=== PATIENT | female | born 1965 | race Caucasian/White ===

== ENCOUNTER 2016-07-16 08:11 | Inpatient (IN) | payer OTHER ==
[2016-07-16] MEDS ORDERED: SODIUM CHLORIDE 0.9% 1,000 ML IV STA (08:48)
[2016-07-16] MEDS ORDERED: HEPARIN SODIUM,PORCINE 5,000 UNIT/ML 1 ML VIAL IV STA (08:48)
[2016-07-16] MEDS ORDERED: NITROGLYCERIN OINT 1 INCH/GM PACKET TOPICAL STA (08:48)
--- NOTE | 2016-07-16 08:53 | ED ---
Chest Pain HPI - General Chief Complaint: Chest Pain Stated Complaint: chest pain Time Seen by Provider: 07/16/16 08:25 Source: patient, RN notes reviewed Mode of arrival: wheelchair Limitations: no limitations - History of Present Illness Initial Comments: This is a 51-year-old female with a history of 3 prior coronary artery stents the last one being 3 years ago who states she had the onset while at work this morning of burning left-sided chest pain that radiated between her shoulder blades. It was 9/10 in severity. She states she took 3 nitroglycerin which didn't help is now about a 5/10. Discussed and some numbness and tingling to her fingers. She denies any fevers chills nausea vomiting or sweats at this time she's also states she did take 325 mg of aspirin. She states it feels very similar to her prior cardiac events. She has no complaints of cough or phlegm production she is a smoker. We did discuss the need for smoking cessation. MD Complaint: chest pain - Related Data Home Medications Medication Instructions Recorded Confirmed Metoprolol Tartrate [Lopressor] 25 mg PO BID 04/25/14 07/16/16 Albuterol Inhaler [Ventolin Hfa 2 puff INHALATION RT-DAILY PRN 07/16/16 07/16/16 Inhaler] Levothyroxine Sodium [Synthroid] 75 mcg PO DAILY 07/16/16 07/16/16 Previous Rx's Medication Instructions Recorded Aspirin 325 mg PO DAILY #30 tab 10/31/13 Atorvastatin [Lipitor] 80 mg PO HS #30 tab 10/31/13 Enalapril [Vasotec] 5 mg PO BID #60 tab 10/31/13 Nitroglycerin Sl Tabs [Nitrostat] 0.4 mg SUBLINGUAL Q5M PRN #20 tab 10/31/13 Allergies Allergy/AdvReac Type Severity Reaction Status Date / Time No Known Allergies Allergy Verified 07/16/16 09:40 Review of Systems ROS Statement: Those systems with pertinent positive or pertinent negative responses have been documented in the HPI. ROS Other: All systems not noted in ROS Statement are negative. EKG Findings - EKG Results: EKG: interpreted by JONEL, sinus rhythm (Sinus rhythm a rate of 75 appear of 02 18 QRS duration 86 QT/QTC of 424/473 low-voltage QRS and evidence of first- degree AV block her present be no change from EKG dated 11/10/14) Past Medical History Past Medical History: Coronary Artery Disease (CAD), Myocardial Infarction (DE) , Thyroid Disorder Additional Past Medical History / Comment(s): GRAVES Last Myocardial Infarction Date:: 10/29/13 History of Any Multi-Drug Resistant Organisms: None Reported Past Surgical History: Heart Catheterization With Stent, Tubal Ligation Additional Past Surgical History / Comment(s): BENIGN LUMP REMOVED FROM LEFT BREAST, 2 STENTS PLACED IN NOV 2013 Past Anesthesia/Blood Transfusion Reactions: No Reported Reaction Date of Last Stent Placement:: 10/29/13 Past Psychological History: No Psychological Hx Reported Smoking Status: Current every day smoker Past Alcohol Use History: None Reported Additional Past Alcohol Use History / Comment(s): DOWN FROM 1 AND 1/2PPD TO ONE PACK EVERY 2-3 DAYS Past Drug Use History: None Reported - Past Family History Mother Family Medical History: Myocardial Infarction (DE) General Exam - General Exam Comments Initial Comments: Is a well-developed well-nourished awake alert oriented 3 female Limitations: no limitations General appearance: alert, anxious Head exam: Present: atraumatic, normocephalic, normal inspection Eye exam: Present: normal appearance, PERRL, EOMI. Absent: scleral icterus, conjunctival injection, periorbital swelling ENT exam: Present: normal exam, mucous membranes moist Neck exam: Present: normal inspection. Absent: tenderness, meningismus, lymphadenopathy Respiratory exam: Present: normal lung sounds bilaterally. Absent: respiratory distress, wheezes, rales, rhonchi, stridor Cardiovascular Exam: Present: regular rate, normal rhythm, normal heart sounds. Absent: systolic murmur, diastolic murmur, rubs, gallop, clicks GI/Abdominal exam: Present: soft, normal bowel sounds. Absent: distended, tenderness, guarding, rebound, rigid Extremities exam: Present: normal inspection, full ROM, normal capillary refill. Absent: tenderness, pedal edema, joint swelling, calf tenderness Back exam: Present: normal inspection Neurological exam: Present: alert, oriented X3, CN II-XII intact Psychiatric exam: Present: normal affect, normal mood Skin exam: Present: warm, dry, intact, normal color. Absent: rash Course Vital Signs 03/29/17 03/29/17 03/29/17 08:16 08:31 09:01 Temperature 97.5 F L Pulse Rate 78 71 68 Respiratory 20 18 18 Rate Blood Pressure 127/65 131/70 118/71 O2 Sat by Pulse 96 99 99 Oximetry 07/16/16 07/16/16 10:16 10:31 Temperature Pulse Rate 70 68 Respiratory 20 20 Rate Blood Pressure 113/70 116/62 O2 Sat by Pulse 100 99 Oximetry - Reevaluation(s) Reevaluation #1: 07/16/16 10:55 Patient was feeling improved after the initial treatment that was rendered. Her pain originally started at 9 was done 05 after she gave her own nitroglycerin and aspirin. She knows feeling much improved at pain-free. Chest Pain MDM - MDM I did review the x-rays report no acute findings. I did a long discussion with patient regarding the findings the presentation is consistent with unstable angina. I did discuss case with the admitting physician patient be admitted with consultation by Dr. Ziegler. Critical Care Time Critical Care Time: Yes Critical Care Time: 31 minutes of critical care time which includes initial presentation with history physical lab and x-rays evaluation same reevaluation patient response to therapy. Review of old charting. Discussion with the patient family regarding the findings. Discussion with the admitting physician. Admission orders and documentation of the above. Disposition Clinical Impression: Unstable angina pectoris Disposition: ADMITTED IP TO THIS HOSP Condition: Stable
[2016-07-16 09:15] LABS: Basophils # (A) 0.1 k/uL (0-0.2); Basophils % (A) 1 %; Eosinophils # (A) 0.3 k/uL (0-0.7); Eosinophils % (A) 3 %; HCT 44.3 % (34.0-46.0); HDW 2.64; HGB 15.2 gm/dL (11.4-16.0); Luc # (Auto) 0.22; Luc % (Auto) 2; Lymphocytes % (A) 18 %; MCH 32.4 pg (25.0-35.0); MCHC 34.3 g/dL (31.0-37.0); MCV 94.7 fL (80.0-100.0); Mean Platelet Volume 8.9; Monocytes # (A) 0.6 k/uL (0-1.0); Monocytes % (A) 6 %; Neutrophils # (A) 7.9 k/uL (1.3-7.7); Neutrophils % (A) 71 %; RBC 4.68 m/uL (3.80-5.40); RDW 15.6 % (11.5-15.5); WBC 11.2 k/uL (3.8-10.6); WBC (Perox) 11.92
--- NOTE | 2016-07-16 09:16 | XR ---
EXAMINATION TYPE: XR chest 2V DATE OF EXAM: 07/16/2016 9:13 AM COMPARISON: 11/09/2014 HISTORY: Chest pain TECHNIQUE: Single frontal view of the chest is obtained. FINDINGS: There is no focal air space opacity, pleural effusion, or pneumothorax seen. Vascular crowding is se en at the right medial lung base. The cardiac silhouette size is within normal limits. The osseous structures are intact. IMPRESSION: 1. No acute process.
[2016-07-16] MEDS: HEPARIN SODIUM,PORCINE/D5W PMX 25,000 UNIT in DEXTROSE/WATER 1 500ML.BAG IV STA ×2 (09:22→09:25)
[2016-07-16 09:30] LABS: Partial Thromboplastin Time 26.7 sec (22.0-30.0); Prothrombin Time 10.2 sec (9.0-12.0)
[2016-07-16 09:38] LABS: ALT 30 U/L (9-52); AST 25 U/L (14-36); Alkaline Phosphatase 81 U/L (38-126); Amylase 72 U/L (30-110); Anion Gap 11 mmol/L; Blood Urea Nitrogen 16 mg/dL (7-17); Calcium 9.2 mg/dL (8.4-10.2); Carbon Dioxide 23 mmol/L (22-30); Chloride 107 mmol/L (98-107); Glucose 97 mg/dL (74-99); Non-African American GFR(MDRD) 56 (>60 ml/min/1.73 sqM); Potassium 4.8 mmol/L (3.5-5.1); Sodium 141 mmol/L (137-145); Total Bilirubin 0.6 mg/dL (0.2-1.3); Total Protein 7.1 g/dL (6.3-8.2)
[2016-07-16 09:41] LABS: Creatine Kinase 184 U/L (30-135)
[2016-07-16 09:54] LABS: Troponin I <0.012 ng/mL (0.000-0.034)
[2016-07-16 10:02] LABS: Creatine Kinase MB 2.5 ng/mL (0.0-2.4)
[2016-07-16] MEDS ORDERED: NITROGLYCERIN SL TABS 0.4 MG TAB SUBLINGUAL PRN (10:58)
[2016-07-16] MEDS ORDERED: ALBUTEROL NEBULIZED 2.5 MG/3 ML INHALATION PRN (11:00)
[2016-07-16] MEDS ORDERED: NICOTINE 21MG/24HR PATCH TRANSDERM STA (11:01)
[2016-07-16] MEDS: NITROGLYCERIN OINT 1 INCH/GM PACKET TOPICAL SCH ×3 (12:12→23:19)
[2016-07-16] MEDS: SODIUM CHLORIDE 0.9% 1,000 ML IV SCH (12:12)
--- NOTE | 2016-07-16 14:52 | P.HPIM ---
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 Patient stated that continue to have pain midsternal location burning in nature radiating to bilateral jaws and tingling sensation in her fingers. Patient had similar kind of pain in the past where she had a stent placed. Patient was brought into the emergency room by her and nitroglycerin sublingual was given which relieved the pain. Thereafter and nitroglycerin patch was placed which completely took the pain away. In the time of my evaluation patient denies having any chest pain, headaches, blurry vision, difficulty breathing, nausea, vomiting, diarrhea, urinary urgency or frequency. Patient's last stress was over a year ago patient sees Dr. Ziegler on an outpatient basis. Patient continues to smoke cigarettes is compliant with her dual antiplatelet therapy. EKG in the emergency room did not reveal ST-T wave changes. Patient's previous echo did show ejection fraction of 30-35%. Review of Systems All systems: negative (Noted in HPI) Past Medical History Past Medical History: Coronary Artery Disease (CAD), Hyperlipidemia, Hypertension, Myocardial Infarction (MS), Renal Disease, Thyroid Disorder Additional Past Medical History / Comment(s): Ischemic cardiomyopathy, GRAVES, hypothyroid, chronic kidney dx. Last Myocardial Infarction Date:: 11/09/13 History of Any Multi-Drug Resistant Organisms: None Reported Past Surgical History: Breast Surgery, Heart Catheterization With Stent, Tubal Ligation Additional Past Surgical History / Comment(s): 10/2013 PCI with 2 stents, 12/2013 PCI with 1 stent, 10/2014 cardiac cath tx medically, BENIGN LUMP REMOVED FROM LEFT BREAST Past Anesthesia/Blood Transfusion Reactions: Postoperative Nausea & Vomiting ( PONV) Date of Last Stent Placement:: 10/29/13 Past Psychological History: No Psychological Hx Reported Additional Psychological History / Comment(s): Pt resides with her significant other. She does not drive. Her significant other takes her places. She uses no assistive device. Smoking Status: Current every day smoker Past Alcohol Use History: None Reported Additional Past Alcohol Use History / Comment(s): Pt started smoking in 1981. She is down to 1/2 ppd. Past Drug Use History: None Reported - Past Family History Mother Family Medical History: Myocardial Infarction (MS) Additional Family Medical History / Comment(s): Mother had a MS in her 60's. She is 70 yrs old. Father Family Medical History: COPD Additional Family Medical History / Comment(s): Agent orange exposure in [place]. Father is 72 yrs old. Medications and Allergies Home Medications Medication Instructions Recorded Confirmed Type Metoprolol Tartrate [Lopressor] 25 mg PO BID 04/25/14 07/16/16 History Albuterol Inhaler [Ventolin Hfa 2 puff INHALATION RT-DAILY PRN 07/16/16 History Inhaler] Levothyroxine Sodium [Synthroid] 75 mcg PO DAILY 07/16/16 07/16/16 History Allergies Allergy/AdvReac Type Severity Reaction Status Date / Time No Known Allergies Allergy Verified 07/16/16 09:40 Physical Exam Vitals: Vital Signs Temp Pulse Pulse Resp BP BP Pulse Ox 07/16/16 11:57 97.8 F 70 16 129/68 99 07/16/16 11:55 18 07/16/16 11:08 97.8 F 72 18 117/74 99 Intake and Output 07/15/16 07/16/16 07/16/16 22:59 06:59 14:59 Other: Weight 96.2 kg Patient Weight 07/17/16 06:59 Weight 96.2 kg Physical exam Gen. appearance oriented 3 in no distress Neck is supple no JVD Lungs good air entry clear to auscultation no rhonchi or wheezing Heart S1-S2 heard regular rate and rhythm no murmurs appreciated Abdomen is soft nontender no organomegaly bowel sounds are intact Neurologically cranial nerves II-12 grossly intact no focal motor or sensory deficits noted Skin no abnormalities appreciated Results CBC & Chem 7: 07/16/16 08:54 07/16/16 08:54 Thrombosis Risk Factor Assmnt - Choose All That Apply Any of the Below Risk Factors Present?: Yes Each Factor Represents 1 point: Age 41-60 years, Obesity (BMI >25) Other Risk Factors: No Other congenital or acquired thrombophilia - If yes, enter type in comment: No Thrombosis Risk Factor Assessment Total Risk Factor Score: 2 Thrombosis Risk Factor Assessment Level: Low Risk Assessment and Plan Plan: Unstable angina with atypical in nature and description #2 history of CAD #3 history of hypertension #4 ongoing tobacco use #5 history of hypertension #6 CK D stage II Plan Continue IV heparin. Continue nitroglycerin patch. Patient will likely need a cardiac catheterization with the typical nature of the pain. Consult cardiology. Home medications were reconciled.
[2016-07-16 15:34] LABS: Creatine Kinase 158 U/L (30-135)
[2016-07-16 15:47] LABS: Creatine Kinase MB 1.9 ng/mL (0.0-2.4); Troponin I <0.012 ng/mL (0.000-0.034)
[2016-07-16] MEDS: HEPARIN SODIUM,PORCINE/D5W PMX 25,000 UNIT in DEXTROSE/WATER 1 500ML.BAG IV SCH (15:47)
[2016-07-16] MEDS: HEPARIN SODIUM,PORCINE 5,000 UNIT/ML 1 ML VIAL IV PRN ×2 (16:42→23:07)
[2016-07-16] MEDS: ATORVASTATIN 80 MG TAB PO SCH (19:36)
[2016-07-16 22:39] LABS: Creatine Kinase 146 U/L (30-135)
[2016-07-16 22:51] LABS: Creatine Kinase MB 1.6 ng/mL (0.0-2.4); Troponin I <0.012 ng/mL (0.000-0.034)
[2016-07-16] MEDS: METOPROLOL TARTRATE 25 MG TAB PO SCH (23:15)
[2016-07-17] MEDS: HEPARIN SODIUM,PORCINE/D5W PMX 25,000 UNIT in DEXTROSE/WATER 1 500ML.BAG IV SCH (04:18)
[2016-07-17 05:50] LABS: Basophils # (A) 0.1 k/uL (0-0.2); Basophils % (A) 1 %; CH 31.5; CHCM 32.9; Eosinophils # (A) 0.4 k/uL (0-0.7); Eosinophils % (A) 3 %; HCT 42.8 % (34.0-46.0); HDW 2.65; HGB 14.2 gm/dL (11.4-16.0); Luc # (Auto) 0.27; Luc % (Auto) 2; Lymphocytes # (A) 2.4 k/uL (1.0-4.8); Lymphocytes % (A) 19 %; MCH 31.9 pg (25.0-35.0); MCHC 33.1 g/dL (31.0-37.0); MCV 96.2 fL (80.0-100.0); Mean Platelet Volume 8.6; Monocytes # (A) 0.8 k/uL (0-1.0); Monocytes % (A) 6 %; Neutrophils # (A) 8.5 k/uL (1.3-7.7); Neutrophils % (A) 69 %; RBC 4.45 m/uL (3.80-5.40); RDW 15.6 % (11.5-15.5); WBC 12.4 k/uL (3.8-10.6); WBC (Perox) 13.26
[2016-07-17 06:07] LABS: Potassium 4.6 mmol/L (3.5-5.1); Total Bilirubin 0.4 mg/dL (0.2-1.3); Total Protein 6.2 g/dL (6.3-8.2)
[2016-07-17] MEDS: NITROGLYCERIN OINT 1 INCH/GM PACKET TOPICAL SCH (06:17)
[2016-07-17] MEDS: LEVOTHYROXINE 75 MCG TAB PO SCH (06:17)
[2016-07-17] MEDS ORDERED: AMINOPHYLLINE 500 MG/20 ML VIAL IV PRN (08:09)
[2016-07-17] MEDS ORDERED: REGADENOSON 0.4 MG/5 ML SYRINGE IV ONE (08:09)
--- NOTE | 2016-07-17 09:00 | CONS ---
DATE OF CONSULTATION: CHIEF COMPLAINT: Chest pain. Elisa is a 51-year-old lady with a history of coronary artery disease, status post angioplasty in December of 2013 for which she underwent angioplasty of left anterior descending coronary artery. Also had 2-vessel CAD involving RCA and circumflex coronary artery. The lesions in the RCA and circ were medically managed. She comes in complaining of an episode of chest discomfort that is mild intensity, came on at rest, without definite radiation to neck, arm or back. It was unassociated with diaphoresis and then related to exertion. She is admitted with a diagnosis of unstable angina and ruled out for myocardial infarction. EKG did not reveal any significant ischemic changes. Patient was admitted to hospital in October of 2014 with unstable angina and underwent cardiac catheterization at that time that revealed patent stent within the LAD and the circ and the right coronary artery lesions remained unchanged. At the time of my evaluation this morning, she is pain free and hemodynamically stable. Three sets of cardiac enzymes are negative. Her TSH is elevated at 23. Past medical history is significant for coronary artery disease, status post angioplasty, hypertension, dyslipidemia, and hypothyroidism. Medications include Lopressor 25 b.i.d., Synthroid, Vasotec 5 b.i.d., Lipitor 80 q. daily, aspirin and Ventolin. ALLERGIES: There are no known drug allergies. Family history is significant for premature coronary artery disease. SOCIAL HISTORY: Significant for smoking. There is no history of EtOH abuse or drug abuse. REVIEW OF SYSTEMS: HEENT is unremarkable. CARDIAC: As described above. RESPIRATORY: Negative. GI: Negative. GENITOURINARY: Negative. ALLERGY/IMMUNOLOGY: Negative. MUSCULOSKELETAL: Significant for arthritis. PSYCHOSOCIAL: Negative. ENDOCRINE: Negative. DERMATOLOGY: Negative. CONSTITUTIONAL: Negative. ONCOLOGICAL: Negative. The rest of the system review is not relevant. On exam, comfortable at rest. Vital signs are stable. There is no jugular venous distention. Carotid upstroke is normal. There is no bruit. Chest is clear to auscultation and percussion. Heart exam reveals first and second heart sounds. No gallop. No murmur, no rub. Abdomen is soft, nontender. Exam of extremities did not reveal edema. Peripheral pulses are felt. EKG does not reveal ischemic changes. Cardiac enzymes have been negative. ASSESSMENT: 1. Unstable angina in a patient with known multivessel coronary artery disease. 2. Hypertension. 3. Dyslipidemia. PLAN: Patient will undergo a stress test today as she had a cardiac catheterization on 07/02. If the stress test shows ischemia, I will ask Dr. Springer to perform cardiac catheterization on her the end.
--- NOTE | 2016-07-17 12:04 | ECHOF ---
Referral Reason:chest pain MEASUREMENTS -------- HEIGHT: 154.9 cm WEIGHT: 96.2 kg BP: 149/86 RVIDd: 2.1 cm (< 3.3) IVSd: 1.4 cm (0.6 - 1.1) LVIDd: 4.4 cm (3.9 - 5.3) LVPWd: 1.3 cm (0.6 - 1.1) IVSs: 2.0 cm LVIDs: 2.9 cm LVPWs: 1.6 cm LA Diam: 3.2 cm (2.7 - 3.8) LAESV Index (A-L): 22.45 ml/m Ao Diam: 3.1 cm (2.0 - 3.7) AV Cusp: 1.8 cm (1.5 - 2.6) LA Diam: 2.8 cm (2.7 - 3.8) MV EXCURSION: 10.759 mm (> 18.000) MV EF SLOPE: 53 mm/s (70 - 150) EPSS: 1.0 cm MV E Matthias: 0.84 m/s MV DecT: 233 ms MV A Matthias: 1.12 m/s MV E/A Ratio: 0.75 AR PHT: 606 ms FINDINGS -------- Sinus rhythm. This was a technically adequate study. The left ventricular size is normal. There is mild concentric left ventricular hypertrophy. Overall left ventricular systolic function is normal with, an EF between 55 - 60 %. The right ventricle is normal in size. Normal LA size by volume 22+/-6 ml/m2. The right atrium is normal in size. The aortic valve is trileaflet and appears structurally normal. There is mild aortic regurgitation. The mitral valve is normal. There is trace to mild mitral regurgitation. Mild tricuspid regurgitation present. The pulmonic valve was not well visualized. The aortic root size is normal. Normal inferior vena cava with normal inspiratory collapse consistent with estimated right atrial pressure of 5 mmHg. Echo free space may represent effusion or a pericardial fat pad. CONCLUSIONS -------- 1. Sinus rhythm. 2. This was a technically adequate study. 3. There is mild concentric left ventricular hypertrophy. 4. Overall left ventricular systolic function is normal with, an EF between 55 - 60 %. 5. Normal LA size by volume 22+/-6 ml/m2. 6. The aortic root size is normal. 7. Normal inferior vena cava with normal inspiratory collapse consistent with estimated right atrial pressure of 5 mmHg. 8. Echo free space may represent effusion or a pericardial fat pad. ORDNANCE ARTIFICER: Renetta Huggins RDCS
--- NOTE | 2016-07-17 13:06 | EST ---
DATE OF SERVICE: 07/17/2016 AGE: 51Y SEX: F HT: 61" WT: 212 lbs. Protocol Camacho: Other: Lexiscan Cardiolite Stage: Dur. of Exercise: *Heart Rate Blood Pressure *Rest: 79 Rest: 158/101 * *Max. Achieved: 102 Maximum BP: 185/100 85% PMHR: 100% PMHR: *METS: INDICATIONS: Chest pain. MEDICATIONS: Aspirin, Lipitor, Vasotec, Nitrostat, Lopressor, Ventolin, Synthroid. Baseline rhythm is sinus mechanism, rate 79, normal axis and intervals, poor R wave progression. Baseline blood pressure 158/101 mmHg. Patient received an injection of Lexiscan. Electrocardiograph monitoring revealed no evidence of diagnostic ischemic ST deviation. Cardiolite was injected per protocol. CONCLUSION: 1. Nondiagnostic electrocardiograph stress testing. 2. Nuclear images will be reported separately.
--- NOTE | 2016-07-17 13:10 | NM ---
EXAMINATION TYPE: NM stress lexiscan cardiolite DATE OF EXAM: 07/17/2016 12:57 PM COMPARISON: NONE HISTORY: Chest pain TECHNIQUE: After the intravenous administration of 11.0 mCi Tc 99m Sestamibi - Cardiolite resting SP ECT images acquired 45 minutes post injection. The patient received 0.4mg Lexiscan, 27.3 mCi Tc 99m Sestamibi - Stress images obtained [address] injection FINDINGS: Review of stress and rest SPECT images demonstrates small area of stress-induced reversibility involv ing the apex abnormality. Gated analysis shows normal wall motion with an estimated left ventricular ejection fraction of 68 %. IMPRESSION: Findings suggestive of a small area of stress-induced reversibility involving the apex of the myocard ium.
[2016-07-17] MEDS: SODIUM CHLORIDE 0.9% 1,000 ML IV SCH (13:27)
[2016-07-17] MEDS: METOPROLOL TARTRATE 25 MG TAB PO SCH ×2 (13:28→20:35)
[2016-07-17] MEDS: LISINOPRIL 20 MG TAB PO SCH (13:28)
[2016-07-17] MEDS: ASPIRIN 325 MG TAB PO SCH (13:28)
[2016-07-17] MEDS ORDERED: ASPIRIN 325 MG TAB PO STA (13:48)
[2016-07-17] MEDS ORDERED: ATORVASTATIN 80 MG TAB PO STA (13:48)
[2016-07-17] MEDS ORDERED: SODIUM CHLORIDE 0.9% 1,000 ML in EMPTY BAG 1 BAG IV ONE (13:48)
[2016-07-17] MEDS ORDERED: ALPRAZolam 0.25 MG TAB PO PRN (13:48)
[2016-07-17] MEDS ORDERED: ALPRAZolam 0.5 MG TAB PO PRN (13:48)
[2016-07-17] MEDS ORDERED: NITROGLYCERIN SL TABS 0.4 MG TAB SUBLINGUAL PRN (13:48)
--- NOTE | 2016-07-17 15:36 | P.PN ---
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 Patient stated that continue to have pain midsternal location burning in nature radiating to bilateral jaws and tingling sensation in her fingers. Patient had similar kind of pain in the past where she had a stent placed. Patient was brought into the emergency room by her and nitroglycerin sublingual was given which relieved the pain. Thereafter and nitroglycerin patch was placed which completely took the pain away. In the time of my evaluation patient denies having any chest pain, headaches, blurry vision, difficulty breathing, nausea, vomiting, diarrhea, urinary urgency or frequency. Patient's last stress was over a year ago patient sees Dr. Ziegler on an outpatient basis. Patient continues to smoke cigarettes is compliant with her dual antiplatelet therapy. EKG in the emergency room did not reveal ST-T wave changes. Patient's previous echo did show ejection fraction of 30-35%. 07/17/2016 Patient does not complain of any chest pain, difficulty breathing, nausea, vomiting. No additional complaints are reported. Objective - Vital Signs Vital signs: Vital Signs Temp 97.7 F 07/17/16 07:45 Pulse 79 07/17/16 13:11 Resp 18 07/17/16 13:11 BP 163/83 07/17/16 13:11 Pulse Ox 99 07/17/16 13:11 - Exam Physical exam Gen. appearance oriented 3 in no distress Neck is supple no JVD Lungs good air entry clear to auscultation no rhonchi or wheezing Heart S1-S2 heard regular rate and rhythm no murmurs appreciated Abdomen is soft nontender no organomegaly bowel sounds are intact Neurologically cranial nerves II-12 grossly intact no focal motor or sensory deficits noted Skin no abnormalities appreciated - Labs CBC & Chem 7: 07/17/16 05:24 07/17/16 05:24 Assessment and Plan Plan: Unstable angina with some features typical in nature and description #2 history of CAD #3 history of hypertension #4 ongoing tobacco use #5 history of hypertension #6 CK D stage II Plan Patient had a positive stress test. We'll undergo cardiac catheterization tomorrow in the a.m. Nicotine patch.
[2016-07-17] MEDS: ATORVASTATIN 80 MG TAB PO SCH (20:35)
[2016-07-18] MEDS: ASPIRIN 325 MG TAB PO SCH (06:20)
[2016-07-18] MEDS: METOPROLOL TARTRATE 25 MG TAB PO SCH (06:20)
[2016-07-18] MEDS: LEVOTHYROXINE 75 MCG TAB PO SCH (06:20)
[2016-07-18] MEDS: LISINOPRIL 20 MG TAB PO SCH (06:20)
[2016-07-18] MEDS: SODIUM CHLORIDE 0.9% 1,000 ML IV SCH (08:25)
[2016-07-18 10:16] VITALS: RESP 16; TEMP 97
[2016-07-18] MEDS ORDERED: LIDOCAINE 2% INJ 20 MG/ML (20 ML MDV) ONE (10:37)
[2016-07-18] MEDS ORDERED: IV FLUID CONTINUATION 900 ML IV ONE (10:45)
[2016-07-18] MEDS ORDERED: MIDAZOLAM 2 MG/2 ML VIAL ONE (10:49)
[2016-07-18] MEDS ORDERED: MIDAZOLAM 2 MG/2 ML VIAL IVP ONE (10:52)
[2016-07-18] MEDS ORDERED: LIDOCAINE 2% INJ 20 MG/ML SQ ONE (10:57)
[2016-07-18] MEDS ORDERED: IODIXANOL 320 MG/ML 100 ML INTRAARTER ONE (11:14)
[2016-07-18] MEDS ORDERED: RX INFO: IV CONTRAST WAS GIVEN 1 EACH MISC MISCELLANE PRN (11:19)
[2016-07-18] MEDS ORDERED: SODIUM CHLORIDE 0.9% 1,000 ML IV SCH (11:30)
--- NOTE | 2016-07-18 15:44 | P.DS ---
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 Patient stated that continue to have pain midsternal location burning in nature radiating to bilateral jaws and tingling sensation in her fingers. Patient had similar kind of pain in the past where she had a stent placed. Patient was brought into the emergency room by her and nitroglycerin sublingual was given which relieved the pain. Thereafter and nitroglycerin patch was placed which completely took the pain away. In the time of my evaluation patient denies having any chest pain, headaches, blurry vision, difficulty breathing, nausea, vomiting, diarrhea, urinary urgency or frequency. Patient's last stress was over a year ago patient sees Dr. Ziegler on an outpatient basis. Patient continues to smoke cigarettes is compliant with her dual antiplatelet therapy. EKG in the emergency room did not reveal ST-T wave changes. Patient's previous echo did show ejection fraction of 30-35%. 07/17/2016 Patient does not complain of any chest pain, difficulty breathing, nausea, vomiting. No additional complaints are reported. 07/18/16 - Exam Physical exam Gen. appearance oriented 3 in no distress Neck is supple no JVD Lungs good air entry clear to auscultation no rhonchi or wheezing Heart S1-S2 heard regular rate and rhythm no murmurs appreciated Abdomen is soft nontender no organomegaly bowel sounds are intact Neurologically cranial nerves II-12 grossly intact no focal motor or sensory deficits noted Skin no abnormalities appreciated Assessment and Plan Plan: Unstable angina with some features typical in nature and description #2 history of CAD #3 history of hypertension #4 ongoing tobacco use #5 history of hypertension #6 CK D stage II patient was admitted to the hospital underwent a stress test which was positive. Patient thereafter underwent Accardi catheterization done by Dr. Ziegler was noted to have stable disease on the RCA with instance stenosis about 50%. Hence medical therapy is recommended. Patient is discharged home after vascular checks and groin care. Patient is recommended to quit smoking. Patient Condition at Discharge: Stable Plan - Discharge Summary Discharge Medication List Aspirin 325 mg PO DAILY #30 tab 10/31/13 [Rx] Atorvastatin [Lipitor] 80 mg PO HS #30 tab 10/31/13 [Rx] Enalapril [Vasotec] 5 mg PO BID #60 tab 10/31/13 [Rx] Nitroglycerin Sl Tabs [Nitrostat] 0.4 mg SUBLINGUAL Q5M PRN #20 tab 10/31/13 [Rx ] Metoprolol Tartrate [Lopressor] 25 mg PO BID 04/25/14 [History] Albuterol Inhaler [Ventolin Hfa Inhaler] 2 puff INHALATION RT-DAILY PRN [History] Levothyroxine Sodium [Synthroid] 75 mcg PO DAILY 07/16/16 [History] Follow up Appointment(s)/Referral(s): Usha Craig MD [Primary Care Provider] - 1-2 days Ethan Springer MD [STAFF PHYSICIAN] - 1 Week Discharge Disposition: HOME SELF-CARE
[2016-07-18 16:37] VITALS: BP 129/69; PULSE 82
--- NOTE | 2016-07-18 21:52 | LTR ---
July 18, 2016 RE: Madai, Kiersten Dear Usha, Ms. Kiersten Aj presented to the hospital with chest discomfort and underwent myocardial perfusion imaging stress test which showed apical ischemia. Heart catheterization was recommended, which I performed today, and it showed patent stent in the left circumflex with intermediate disease involving the right coronary artery. Maximized medical treatment is recommended. I want to thank you for allowing me to participate in her care. Please do not hesitate if you have any question or concerns. Sincerely, JACKY BAIN MD
--- NOTE | 2016-07-18 21:55 | CC ---
DATE OF SERVICE: July 18, 2016. PERFORMING PHYSICIAN: Ethan Springer M.D., car supplier. PROCEDURE PERFORMED: 1. Selective right and left coronary angiogram. 2. Left heart catheterization and. 3. Selective right common femoral artery angiogram. INDICATION: This is a pleasant 51-year-old female patient who is known to have coronary artery disease and prior stenting of the left circumflex as well as ongoing smoking presented to the hospital with chest discomfort and underwent myocardial perfusion imaging stress test which showed ischemia in the apical segment of the left ventricle. Heart catheterization was recommended. Approach: Right common femoral artery. COMPLICATIONS: None. Level of sedation: Moderate with sedation length of half an hour. PROCEDURE DESCRIPTION: After obtaining informed consent, the patient was brought to the cardiac [employer] Service Engineer. The right femoral artery was cannulated using micropuncture technique. Micropuncture wire passed easily. Then I placed a 6 Sami sheath in the right common femoral artery. Subsequently, I did selective right and left coronary angiogram using JR4 and JL4 catheters. After that, I did left heart catheterization using a 6 Sami pigtail catheter. The procedure was completed without any completion. SELECTIVE CORONARY ANGIOGRAM: 1. The right coronary artery is a large-caliber vessel. It is a dominant vessel. The proximal RCA is angiographically normal. The mid RCA has a long tubular lesion, seems to be in the range of 50%. Seems to be unchanged compared to before. The RCA distally appeared to be angiographically normal and bifurcates into PDA and PLV branches; both have mild disease only. 2. The left main is a short left main but is angiographically normal. It bifurcates into the left circumflex artery and left anterior descending coronary artery. 3. The left circumflex is a large-caliber vessel and it is a nondominant vessel. The proximal left circumflex appeared to have mild disease only. It gives rise to the first OM branch, which appeared to be angiographically normally. The mid left circumflex after the first OM is stented with mild in-stent restenosis. The left circumflex distally is angiographically normal. 4. The left anterior descending artery. The LAD itself is a moderate-caliber vessel. The proximal LAD appeared to have disease in the range of 30% to 40% and seems to be unchanged compared to before. The mid LAD appeared to have mild disease only. The LAD distally appeared to have mild disease only and becomes small caliber vessel. HEMODYNAMICS: The left ventricular end-diastolic pressure was 24 mmHg and no gradient was identified across the aortic valve. CONCLUSION: 1. Intermediate disease involving the mid right coronary artery seems to be unchanged compared to before. 2. Patent stent in the mid left circumflex coronary artery. 3. Medium caliber left anterior descending artery with disease in the proximal portion appeared to be in the range of 30% seems to be unchanged compared to before. POSTPROCEDURE MANAGEMENT: 1. Maximize medical treatment. 2. Follow up with the patient.
== END 2016-07-18 18:40 | disposition home or self-care (01) | DRG 287 ==
LOC: EC 08:11 → 3OBS 10:58 → OBSVTOIN 07-17 14:25 → 3OBS 07-17 18:42 → 6SEL 07-17 18:42
PROVIDERS: ADMIT Internal Medicine; ATTEND Internal Medicine
PROC: 4A12XM4 Monitoring of Cardiac Stress, External Approach (ICD-10-PCS; 2016-07-17)
PROC: 3E033HZ Introduction of Radioactive Substance into Peripheral Vein, Percutaneous Approach (ICD-10-PCS; 2016-07-17)
PROC: C22G1ZZ Tomographic (Tomo) Nuclear Medicine Imaging of Myocardium using Technetium 99m (Tc-99m) (ICD-10-PCS; 2016-07-17)
PROC: B2111ZZ Fluoroscopy of Multiple Coronary Arteries using Low Osmolar Contrast (ICD-10-PCS; 2016-07-18)
PROC: B2151ZZ Fluoroscopy of Left Heart using Low Osmolar Contrast (ICD-10-PCS; 2016-07-18)
PROC: 4A023N7 Measurement of Cardiac Sampling and Pressure, Left Heart, Percutaneous Approach (ICD-10-PCS; principal; 2016-07-18 10:45)
DX: I25.110 Atherosclerotic heart disease of native coronary artery with unstable angina pectoris (principal); Z68.41 Body mass index [BMI] 40.0-44.9, adult; I12.9 Hypertensive chronic kidney disease with stage 1 through stage 4 chronic kidney disease, or unspecified chronic kidney disease; I44.0 Atrioventricular block, first degree; R94.39 Abnormal result of other cardiovascular function study; E03.9 Hypothyroidism, unspecified; N18.2 Chronic kidney disease, stage 2 (mild); E78.5 Hyperlipidemia, unspecified; I25.2 Old myocardial infarction; I25.5 Ischemic cardiomyopathy; F17.210 Nicotine dependence, cigarettes, uncomplicated; M19.90 Unspecified osteoarthritis, unspecified site; Z71.6 Tobacco abuse counseling; Z79.899 Other long term (current) drug therapy; Z95.5 Presence of coronary angioplasty implant and graft; Z79.82 Long term (current) use of aspirin; Z82.5 Family history of asthma and other chronic lower respiratory diseases; Z82.49 Family history of ischemic heart disease and other diseases of the circulatory system; Z98.51 Tubal ligation status; E66.9 Obesity, unspecified
CPT/HCPCS: 36415; 71020; 78452; 80053; 80061; 82150; 82550; 82553; 83690; 83735; 83880; 84439; 84443; 84484; 85025; 85610; 85730; 93005; 93017; 93306; 93458; 94640; 96365; 96366; 96376; 99291

== ENCOUNTER → 2017-06-30 | Outpatient (CLI) | payer OTHER ==
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
== END | disposition home or self-care (01) ==
LOC: RADUSWWP 15:04
PROVIDERS: ATTEND Internal Medicine
DX: R22.42 Localized swelling, mass and lump, left lower limb (principal); M79.662 Pain in left lower leg

== ENCOUNTER → 2017-07-30 | Outpatient (CLI) | payer OTHER ==
--- NOTE | 2017-07-30 15:59 | XR ---
EXAMINATION TYPE: XR ankle complete LT DATE OF EXAM: 07/30/2017 COMPARISON: NONE HISTORY: Pain FINDINGS: Three views of the ankle demonstrate the ankle mortise to be intact and symmetric. The joint spaces are preserved. The osseous structures are intact. Soft tissue edema suggested. Large calcaneal spur noted. There is a deformity of the proximal margin of the anterior tibia. IMPRESSION: 1. No definite acute fracture or dislocation, if symptoms persist follow-up study in 7 to 10 days wou ld be suggested. However, deformity of the anterior distal tibia may been the basis of a previous fra cture. Correlate clinically.
--- NOTE | 2017-07-30 16:01 | XR ---
EXAMINATION TYPE: XR chest 2V DATE OF EXAM: 07/30/2017 COMPARISON: 07/16/2016 TECHNIQUE: PA and lateral views submitted. HISTORY: Pain FINDINGS: Subsegmental consolidation involving the left lung with tiny effusion or pleural thickening. Right teodoro ng clear. Chronic right left-sided rib deformities are compatible with previous fracture. No pneumoth orax. IMPRESSION: 1. Left lower lobe atelectasis or infiltrate with small effusion or pleural thickening and evidence o f multiple left-sided rib fractures.
--- NOTE | 2017-07-30 16:02 | XR ---
EXAMINATION TYPE: XR knee complete LT DATE OF EXAM: 07/30/2017 COMPARISON: NONE HISTORY: Pain TECHNIQUE: Four views are submitted. FINDINGS: Mild narrowing of the medial compartment of the knee joint. Small amount of fluid in the suprapatella r bursa.. Osseous structures are intact. No acute fracture seen. IMPRESSION: 1. No acute fracture or dislocation. 2. Small amount of fluid in the suprapatellar bursa. 3. Mild arthropathy.
--- NOTE | 2017-07-30 16:03 | XR ---
EXAMINATION TYPE: XR ribs LT DATE OF EXAM: 07/30/2017 COMPARISON: NONE HISTORY: Pain history of previous broken ribs TECHNIQUE: 4 views submitted FINDINGS: Left lower lobe consolidation and small effusion or pleural thickening noted. There are mul tiple displaced rib fractures involving the left rib cage. Arthropathy of the AC joint noted. IMPRESSION: 1. Multiple displaced rib fractures extending from the second through the left ninth rib. 2. Left lower lobe consolidation and small effusion or pleural thickening.
== END | disposition home or self-care (01) ==
LOC: RADXRMAIN 15:06
PROVIDERS: ATTEND Internal Medicine
DX: M12.862 Other specific arthropathies, not elsewhere classified, left knee (principal); S22.42XA Multiple fractures of ribs, left side, initial encounter for closed fracture; M21.962 Unspecified acquired deformity of left lower leg; R91.8 Other nonspecific abnormal finding of lung field
CPT/HCPCS: 71046

== ENCOUNTER → 2017-10-05 | Outpatient (CLI) | payer OTHER ==
--- NOTE | 2017-10-06 08:55 | CT ---
EXAMINATION TYPE: CT abdomen wo con DATE OF EXAM: 10/05/2017 HISTORY: Spleen laceration CT DLP: 658 mGycm. Automated Exposure Control for Dose Reduction was Utilized. TECHNIQUE: CT scan of the abdomen is performed without oral or IV contrast. COMPARISON: CT abdomen August 05, 2017 FINDINGS: Within the limitations of a non-contrast study, the following observations are made. LUNG BASES: There is coronary artery calcification and/or stents in the RCA and left circumflex distr ibution redemonstrated. There is interval improvement in left lateral basilar subpleural/chest wall h ematoma and/or scarring with adjacent linear left basilar parenchymal scarring redemonstrated in the lingula and left lower lobe. LIVER/GB: Heterogeneous low dense liver consistent with diffuse fatty infiltration is redemonstrated. PANCREAS: No significant abnormality is seen. SPLEEN: Spleen is now fairly homogeneous in appearance with near complete interval resolution of vagu e hypodense area. Persistent vague subcentimeter hypodense focus axial image 18 remains present. No s urrounding ascites or fluid is present. ADRENALS: Low dense masses in both adrenal glands favor benign lipid rich adenomas Hounsfield units l ess than 10, right is larger than left in size. No significant change in size or appearance from prio r study. KIDNEYS: No significant abnormality is seen. BOWEL: Prominent debris-filled stomach suggests recent meal ingestion. LYMPH NODES: No greater than 1cm abdominal lymph nodes are appreciated. OSSEOUS STRUCTURES: Displaced fractures involving posterior lateral eighth through 10th ribs and heal ing nondisplaced fracture involving lateral ninth rib are noted. OTHER: No significant additional abnormality is seen. IMPRESSION: Near-complete resolution of splenic laceration injuries adjacent to displaced left grade recorder ior lateral lower rib fractures.
== END | disposition home or self-care (01) ==
LOC: RADCTMAIN 16:47
PROVIDERS: ATTEND Internal Medicine
DX: S36.039A Unspecified laceration of spleen, initial encounter (principal)
CPT/HCPCS: 74150

== ENCOUNTER → 2017-12-22 | Outpatient (CLI) | payer OTHER ==
--- NOTE | 2017-12-22 10:21 | CT ---
EXAMINATION TYPE: CT abdomen wo con DATE OF EXAM: 12/22/2017 COMPARISON: 10/05/2017 HISTORY: Follow up splenic laceration. CT DLP: 634 mGycm Automated exposure control for dose reduction was used. TECHNIQUE: Helical acquisition of images was performed from the lung bases through the top of iliac crest to include entire abdomen. CONTRAST: Performed without Oral Contrast and without IV contrast. FINDINGS: LUNG BASES: There is coronary artery calcification and/or stents in the RCA and left circumflex distr ibution redemonstrated. There is interval improvement in left lateral basilar subpleural/chest wall h ematoma and/or scarring with adjacent linear left basilar parenchymal scarring redemonstrated in the lingula and left lower lobe. LIVER/GB: Heterogeneous low dense liver consistent with diffuse fatty infiltration is redemonstrated. PANCREAS: No significant abnormality is seen. SPLEEN: Assessment organ injury is nearly nondiagnostic due to lack of contrast. Persistent vague hyp odensity focus measuring less than a centimeter stable. No surrounding perisplenic fluid. ADRENALS: Low dense masses in both adrenal glands favor benign lipid rich adenomas Hounsfield units l ess than 10, right is larger than left in size. No significant change in size or appearance from prio r study. KIDNEYS: No significant abnormality is seen. BOWEL: No significant abnormality is seen. LYMPH NODES: No significant abnormality is appreciated. OSSEOUS STRUCTURES: Previous fractures involving posterior lateral eighth through 10th ribs and heal ing nondisplaced fracture involving lateral ninth rib are noted. OTHER: Atherosclerotic change of the vasculature. No evidence of aortic aneurysm. IMPRESSION: LIMITED ASSESSMENT FOR ORGAN INJURY DUE TO LACK OF IV CONTRAST. THERE IS A PERSISTENT AREA OF ABNORMA L ATTENUATION WITHIN THE SPLEEN WHICH IS STABLE RELATIVE TO THE PRIOR EXAM. NO SURROUNDING PERISPLENI C FLUID. STABLE BILATERAL ADRENAL MASSES STABLE FATTY INFILTRATION OF THE LIVER
== END | disposition home or self-care (01) ==
LOC: RADCTMAIN 09:40
PROVIDERS: ATTEND Internal Medicine
DX: K76.0 Fatty (change of) liver, not elsewhere classified (principal); E27.8 Other specified disorders of adrenal gland; R93.5 Abnormal findings on diagnostic imaging of other abdominal regions, including retroperitoneum
CPT/HCPCS: 74150

== ENCOUNTER → 2018-01-06 | Outpatient (CLI) | payer OTHER ==
--- NOTE | 2018-01-06 19:10 | XR ---
EXAMINATION TYPE: XR ribs LT DATE OF EXAM: 01/06/2018 COMPARISON: 07/30/2017 HISTORY: Left rib pain and numbness TECHNIQUE: 4 views FINDINGS: There is blunting of left costophrenic angle. There are multiple old left-sided rib fractur es with displacement. There is bridging callus. There is no pneumothorax. Left lung is clear of conso lidation. IMPRESSION: Old left rib fractures. Pleural scarring at the left lung base. No acute fracture. There is improved aeration of the left lung base compared to old exam..
== END ==
LOC: RADXRMAIN 17:26
PROVIDERS: ATTEND Internal Medicine
DX: J98.4 Other disorders of lung (principal)

== ENCOUNTER 2018-12-21 18:00 | Inpatient (IN) | payer OTHER ==
[2018-12-21] MEDS ORDERED: HEPARIN SODIUM,PORCINE 5,000 UNIT/ML 1 ML VIAL IV STA (18:14)
[2018-12-21] MEDS ORDERED: ATORVASTATIN 80 MG TAB PO STA (18:15)
[2018-12-21 18:25] LABS: Anisocytosis Slight; HCT 42.4 % (34.0-46.0); MCH 32.1 pg (25.0-35.0); MCHC 32.9 g/dL (31.0-37.0); MCV 97.6 fL (80.0-100.0); Macrocytosis Slight; Mean Platelet Volume 10.1; Platelet Count 220 k/uL (150-450); RBC 4.34 m/uL (3.80-5.40); RDW 16.2 % (11.5-15.5); WBC 12.9 k/uL (3.8-10.6)
--- NOTE | 2018-12-21 18:33 | ED ---
Chest Pain HPI - General Stated Complaint: chest pain Time Seen by Provider: 12/21/18 18:10 Source: EMS Mode of arrival: EMS Limitations: no limitations - History of Present Illness Initial Comments: The patient is a 53-year-old female presents to the emergency room with reported chest pain. She states that the pain started at 4:56 PM while she was vacuuming. She does have a history of coronary artery disease. Stated that she had some nitro at home which she took without improvement in her symptoms. It is described as a left-sided chest pain without radiation. She describes it as a pressure. She reports associated nausea without vomiting. Also admits to associated diaphoresis. She denies any abdominal pain. Does report to diarrhea. No unilateral numbness or weakness. No ripping or tearing sensation to her back. Denies associated shortness of breath. She does see Dr. Springer. States that she was lost to follow-up because she lost her insurance. She has known coronary disease. Last stent was in 2017. Denies any fevers or chills. No calf pain or swelling. There are no other alleviating, precipitating or modifying factors - Related Data Home Medications Medication Instructions Recorded Confirmed Metoprolol Tartrate [Lopressor] 25 mg PO BID 04/25/14 12/21/18 Previous Rx's Medication Instructions Recorded Atorvastatin [Lipitor] 80 mg PO HS #30 tab 10/31/13 Enalapril [Vasotec] 5 mg PO BID #60 tab 10/31/13 Aspirin 81 mg PO DAILY #30 chew 12/25/18 Clopidogrel [Plavix] 75 mg PO DAILY #30 tablet 12/25/18 Clopidogrel [Plavix] 600 mg PO ONCE #1 tablet 12/25/18 Nitroglycerin Sl Tabs [Nitrostat] 0.4 mg SUBLINGUAL Q5M PRN #20 tab 12/25/18 Ticagrelor [Brilinta] 90 mg PO BID #60 tab 12/25/18 amLODIPine [Norvasc] 5 mg PO DAILY #30 tab 12/25/18 Allergies Allergy/AdvReac Type Severity Reaction Status Date / Time No Known Allergies Allergy Verified 12/21/18 18:24 Review of Systems ROS Statement: Those systems with pertinent positive or pertinent negative responses have been documented in the HPI. ROS Other: All systems not noted in ROS Statement are negative. EKG Findings - EKG Comments: EKG Findings:: EKG performed that 1807 demonstrates a ventricular rate of 84. W[place] interval 226. QRS 100. QTC of 496. There is acute ST segment elevation in leads 2, 3 and aVF. There is reciprocal changes in leads 1 and aVL. Past Medical History Past Medical History: Coronary Artery Disease (CAD), Hyperlipidemia, Hypertension, Myocardial Infarction (IN), Renal Disease, Thyroid Disorder Additional Past Medical History / Comment(s): Ischemic cardiomyopathy, GRAVES, hypothyroid, chronic kidney dx. Last Myocardial Infarction Date:: 11/09/13 History of Any Multi-Drug Resistant Organisms: None Reported Past Surgical History: Breast Surgery, Heart Catheterization With Stent, Tubal Ligation Additional Past Surgical History / Comment(s): 10/2013 PCI with 2 stents, 12/2013 PCI with 1 stent, 10/2014 cardiac cath tx medically, BENIGN LUMP REMOVED FROM LEFT BREAST Past Anesthesia/Blood Transfusion Reactions: Postoperative Nausea & Vomiting (PONV) Date of Last Stent Placement:: 10/29/13 Past Psychological History: No Psychological Hx Reported Smoking Status: Current every day smoker Past Alcohol Use History: None Reported Past Drug Use History: None Reported - Past Family History Mother Family Medical History: Myocardial Infarction (IN) Additional Family Medical History / Comment(s): Mother had a IN in her 60's. She is 70 yrs old. Father Family Medical History: COPD Additional Family Medical History / Comment(s): Agent orange exposure in [place]. Father is 72 yrs old. General Exam Limitations: no limitations General appearance: alert, in no apparent distress, anxious Head exam: Present: atraumatic, normocephalic, normal inspection Eye exam: Present: normal appearance, PERRL, EOMI. Absent: scleral icterus, conjunctival injection, periorbital swelling ENT exam: Present: normal exam, mucous membranes moist Neck exam: Present: normal inspection. Absent: tenderness, meningismus, lymphadenopathy Respiratory exam: Present: normal lung sounds bilaterally. Absent: respiratory distress, wheezes, rales, rhonchi, stridor Cardiovascular Exam: Present: regular rate, normal rhythm, normal heart sounds. Absent: systolic murmur, diastolic murmur, rubs, gallop, clicks GI/Abdominal exam: Present: soft, normal bowel sounds. Absent: distended, tenderness, guarding, rebound, rigid Extremities exam: Present: normal inspection, full ROM, normal capillary refill. Absent: tenderness, pedal edema, joint swelling, calf tenderness Back exam: Present: normal inspection Neurological exam: Present: alert, oriented X3, CN II-XII intact Psychiatric exam: Present: normal affect, normal mood Skin exam: Present: warm, dry, intact, normal color. 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 I did review the prehospital EKG. There is depression in leads 1 and aVL. There does appear to be early repolarization in 2, 3 and aVF. The patient is transferred to a hospital bed and a 12-lead EKG is performed. She is hooked up to continuous pulse ox and cardiac monitoring. I did obtain a history and physical on the patient. EKG is reviewed and does demonstrate elevation in 2, 3 and aVF. The patient continues to have ST depression in 1 and aVL. STEMI alert is called at 1809. I discussed the case with Dr. Rodriguez at 1815. EMS had been previously given the patient 324 mg of chewable aspirin. Did provide the patient with 5000 units of heparin after a second IV was established. Dr. Mcdonnell did recommend that I give the patient 80 mg of atorvastatin. Laboratories had been drawn. Portable 1 view chest was obtained. I discussed the case with Dr. Melara and 1818. At 1825 Sathya was present in the emergency department to evaluate the patient. He does agree the patient needs an urgent cath. The patient was then taken to [facility] in stable condition Disposition Clinical Impression: ST elevation myocardial infarction (STEMI), Chest pain Disposition: ADMITTED IP TO THIS HOSP Condition: Serious Is patient prescribed a controlled substance at d/c from ED?: No Decision to Admit Reason: Admit from EC Decision Date: 12/21/18 Decision Time: 18:36
[2018-12-21 18:40] LABS: INR 0.9 (<1.2); Prothrombin Time 9.8 sec (9.0-12.0)
[2018-12-21 18:45] LABS: Albumin 4.1 g/dL (3.5-5.0); Total Bilirubin 0.6 mg/dL (0.2-1.3); Total Protein 7.2 g/dL (6.3-8.2)
--- NOTE | 2018-12-21 18:45 | P.CRDCN ---
History of Present Illness History of present illness: This is Dr. Willis dictating a consult on this patient The patient was interviewed and examined by me in the emergency room. She presented with chest discomfort and ST elevation inferior wall IMPRESSION / ASSESSMENT: Acute inferior wall AL with lateral extension that started at 4:57 PM today Pain started 4:57 PM Known coronary artery disease and prior AL and prior stenting Current smoker Hypertension, on enalapril Chronic kidney disease, recent creatinine unknown at this time History of dyslipidemia PLAN: Proceed with urgent coronary angiography. Risks explained including kidney injury Femoral vein access, per patient. In the past and radial access was problematic Heparin, aspirin, statins. Discussed with the ER attending and Dr. Dr. Melara HPI Patient was vacuuming the house and at 457 she had midsternal chest discomfort. She to the nitroglycerin but it didn't work. His old tablets. The pain continued and EMS was called In the interim she felt hot dizzy did not lose consciousness, felt nauseous and had diarrhea. She remembers having diarrhea even in her previous AL in 2014 She continues to smoke. Denies diabetes denies any ALLERGIES ROS: No fever chills or rigors, no cough, phlegm or expectoration, no nausea, vomiting or diarrhea, no hematuria, dysuria, no musculoskeletal complaints, no strokes or seizures, no skin lesions. EXAMINATION: Blood pressure 131/72 and 151/87 mmHg Normal respirations pulse rate 93 beats a minute afebrile Breath sounds are reduced bilaterally with some crackles at the bases Heart sounds S1 and S2 are soft no murmurs or gallops or rub Extremities warm no edema Morbid obesity, BMI 43.5 Mild lower extremity pitting edema REVIEW OF LABS, ECG & MEDICAL DATA Twelve-lead ECG shows ST elevation inferior leads with ST depression high lateral leads and a [address] depression in V2 White count 12.9 thousand, hemoglobin 14,000 platelet count 220,000 Chest x-ray shows increased cardiac silhouette Home medications Lipitor and Vasotec Noncompliance with NO KNOWN DRUG ALLERGIES Past Medical History Past Medical History: Coronary Artery Disease (CAD), Hyperlipidemia, Hypertension, Myocardial Infarction (AL), Renal Disease, Thyroid Disorder Additional Past Medical History / Comment(s): Ischemic cardiomyopathy, GRAVES, hypothyroid, chronic kidney dx. Last Myocardial Infarction Date:: 11/09/13 History of Any Multi-Drug Resistant Organisms: None Reported Past Surgical History: Breast Surgery, Heart Catheterization With Stent, Tubal Ligation Additional Past Surgical History / Comment(s): 10/2013 PCI with 2 stents, 12/2013 PCI with 1 stent, 10/2014 cardiac cath tx medically, BENIGN LUMP REMOVED FROM LEFT BREAST Past Anesthesia/Blood Transfusion Reactions: Postoperative Nausea & Vomiting (PONV) Date of Last Stent Placement:: 10/29/13 Past Psychological History: No Psychological Hx Reported Smoking Status: Current every day smoker Past Alcohol Use History: None Reported Past Drug Use History: None Reported - Past Family History Mother Family Medical History: Myocardial Infarction (AL) Additional Family Medical History / Comment(s): Mother had a AL in her 60's. She is 70 yrs old. Father Family Medical History: COPD Additional Family Medical History / Comment(s): Agent orange exposure in [place]. Father is 72 yrs old. Medications and Allergies Home Medications Medication Instructions Recorded Confirmed Type Atorvastatin [Lipitor] 80 mg PO HS #30 tab 10/31/13 12/21/18 Rx Enalapril [Vasotec] 5 mg PO BID #60 tab 10/31/13 12/21/18 Rx Nitroglycerin Sl Tabs [Nitrostat] 0.4 mg SUBLINGUAL Q5M PRN #20 tab 10/31/13 12/21/18 Rx Metoprolol Tartrate [Lopressor] 25 mg PO BID 04/25/14 12/21/18 History Allergies Allergy/AdvReac Type Severity Reaction Status Date / Time No Known Allergies Allergy Verified 12/21/18 18:24 Physical Exam Vitals: Vital Signs Temp Pulse Pulse Resp BP Pulse Ox 12/21/18 18:35 101 H 18 158/84 99 12/21/18 18:29 93 16 151/87 98 12/21/18 18:19 79 12/21/18 18:03 97.6 F 86 18 131/72 98 Intake and Output 12/21/18 12/21/18 12/21/18 06:59 14:59 22:59 Other: Weight 104.326 kg Results 12/21/18 18:14 CBC 12/21/18 Range/Units 18:14 WBC 12.9 H (3.8-10.6) k/uL RBC 4.34 (3.80-5.40) m/uL Hgb 14.0 (11.4-16.0) gm/dL Hct 42.4 (34.0-46.0) % Plt Count 220 (150-450) k/uL Intake and Output 12/21/18 12/21/18 12/21/18 06:59 14:59 22:59 Other: Weight 104.326 kg Patient Weight 12/22/18 06:59 Weight 104.326 kg 12/21/18 18:14
[2018-12-21 18:46] LABS: Creatine Kinase 588 U/L (30-135); Potassium 4.4 mmol/L (3.5-5.1)
[2018-12-21] MEDS ORDERED: LIDOCAINE 1% INJ 10MG/ML (20 ML MDV) ONE (18:52)
[2018-12-21] MEDS ORDERED: fentaNYL (PF) 50 MCG/ML 2 ML AMP ONE (18:52)
[2018-12-21] MEDS ORDERED: IV FLUID CONTINUATION 1,000 ML IV ONE (18:54)
[2018-12-21 18:57] LABS: Troponin I <0.012 ng/mL (0.000-0.034)
[2018-12-21] MEDS ORDERED: LIDOCAINE 1% INJ 10MG/ML (20 ML MDV) SQ ONE (18:58)
[2018-12-21 18:59] LABS: Partial Thromboplastin Time 19.8 sec (22.0-30.0)
[2018-12-21] MEDS ORDERED: fentaNYL (PF) 50 MCG/ML 2 ML AMP IV ONE (19:03)
[2018-12-21] MEDS ORDERED: BIVALIRUDIN BOLUS 250 MG/50 ML IV ONE (19:07)
[2018-12-21] MEDS ORDERED: TICAGRELOR 90 MG TAB ONE (19:08)
[2018-12-21] MEDS ORDERED: BIVALIRUDIN 250 MG in SODIUM CHLORIDE 0.9% 50 ML IV ONE (19:10)
[2018-12-21] MEDS ORDERED: TICAGRELOR 90 MG TAB PO ONE (19:11)
[2018-12-21] MEDS ORDERED: IOPAMIDOL-370 100ML BTL INJ ONE ×2 (19:23→19:24)
--- NOTE | 2018-12-21 19:34 | XR ---
EXAMINATION: XR chest 1V portable DATE AND TIME: 12/21/2018 6:19 PM CLINICAL INDICATION: PHH; chest pain TECHNIQUE: AP upright portable COMPARISON: 01/06/2018 FINDINGS: The lungs are clear. The pleural spaces are negative. The cardiac silhouette appears mildly enlarged on this AP technique radiograph. The remainder of the mediastinal silhouette is unremarkable. The skeletal structures and soft tissues are negative for acute findings. IMPRESSION: No acute pulmonary / pleural process.
[2018-12-21] MEDS ORDERED: ATROPINE SULFATE 0.1 MG/ML 10ML SYRINGE IV PRN (19:37)
[2018-12-21] MEDS ORDERED: MAG HYDROX/AL HYDROX/SIMETH 30 ML CUP PO PRN (19:37)
[2018-12-21] MEDS ORDERED: RX INFO: IV CONTRAST WAS GIVEN 1 EACH MISC MISCELLANE PRN (19:37)
[2018-12-21] MEDS ORDERED: NITROGLYCERIN SL TABS 0.4 MG TAB SUBLINGUAL PRN (19:37)
[2018-12-21] MEDS ORDERED: SODIUM CHLORIDE 0.9% 1,000 ML IV SCH (19:45)
[2018-12-21 20:28] LABS: Glucose,Whole Blood 166 mg/dL (75-99)
[2018-12-21] MEDS: METOPROLOL TARTRATE 25 MG TAB PO SCH (20:41)
[2018-12-21] MEDS ORDERED: ZOLPIDEM 5 MG TAB PO PRN (21:00)
--- NOTE | 2018-12-21 23:51 | CC ---
CARDIAC CATHETERIZATION REPORT Ms. Aj is a 53-year-old female with known history of coronary artery disease status post multivessel stenting in 2014, history of chronic tobacco use, hyperlipidemia, hypertension, chronic kidney disease who unfortunately has stopped all her medications about 5 months or so ago. She came in with an ST-segment elevation myocardial infarction inferior wall. She was evaluated by Dr. Willis and recommendation made regarding cardiac catheterization. The procedures, risks and complication were discussed with the patient who is in full understanding and agreement. DESCRIPTION OF PROCEDURE: Patient was brought to rn lab in a fasting state after receiving fentanyl and Benadryl and she was draped in a conventional fashion. Using Xylocaine anesthesia and Seldinger technique, a 6-Montenegrin sheath was introduced in the right femoral artery. Selective right and left coronary angiography were performed using 6-Montenegrin FR4 guiding catheter, after obtaining images of the coronary artery and performing angioplasty and stenting. A 6-Montenegrin 4 bend left Cristian catheter was used to cannulate the left main and images of the left coronary system were obtained. Following that, a 6-Montenegrin tight pigtail catheter was introduced into the left ventricle and pressures were calculated. Following that, catheter and sheath were removed. Hemostasis was obtained and deployment of the Angio-Seal there was no immediate complication patient is returned to room in stable condition. FINDINGS: LEFT MAIN: This is a short size vessel bifurcating left circumflex, left anterior descending artery. Left main coronary artery has no evidence of high-grade stenosis. LEFT DESCENDING ARTERY: This is a large-sized vessel which into the apex with a wraparound apex segment giving rise to a 2 diagonal branches. The proximal segment and the mid segment of the LAD are stented and has intimal disease of 30-40 percent in a tubular fashion. LEFT CIRCUMFLEX: This is a nondominant vessel, large in caliber giving rise to 3 obtuse marginal branch proximally at the left circumflex prior to the stented segment has a tubular restenoses of 30% to 40% There are mild intimal restenoses in the stented segment. RIGHT CORONARY ARTERY: This vessel is large in caliber bifurcating distally PDA and posterolateral segment branches the right coronary artery in mid segment has a stent and has at the distal segment of stent and 99% stenosis. LEFT VENTRICULOGRAM: Left ventriculogram is not performed. HEMODYNAMICS: There was no gradient across the aortic valve. The left ventricle end-diastolic pressure was 16-18 mmHg. CONCLUSION: 1. Subtotally occluded mid right coronary artery. 2. Moderate disease in the LAD and the left circumflex. RECOMMENDATION: In view of finding anatomy, I recommend proceeding with angioplasty and stenting. The procedures as well as risks and complication were discussed with the patient who is in full understanding and full understanding and agreement. MMODL / IJN: [id number] /
--- NOTE | 2018-12-22 05:09 | PTCA ---
PERCUTANEOUSTRANS CORORONARY ANGIOGRAPHY Mrs. Aj is a 53-year-old female with a history of noncompliance, history of multivessel stenting, who presented with an acute inferior myocardial infarction, underwent cardiac catheterization, was found to have subtotally occluded mid right coronary artery. In view of that, recommendation was made regarding angioplasty and stenting. The procedure as well as the risks and complication were discussed with the patient who is in full understanding and agreement. PROCEDURE: Using the 6-Spanish FR4 guiding catheter and after cannulating the right coronary ostium a 0.014 balanced medium weight J-wire was advanced across the lesion positioned distally then a 2.5 x 12 mm Trek balloon was advanced and one inflation at 8 atmospheres was done. Following that, the balloon was removed and a 3.0 x 18 mm Xience Marisa stent was deployed postdilated at 16 atmospheres. Following that, the balloon was removed and a 3.5 x 12 mm NC Trek balloon was advanced and inflation at 12 atmospheres was done. Following that, the balloon and the guide wire were withdrawn back in the guiding catheter. Images were obtained, repeated. Those images reveal stable successful stenting. At that point, the guiding catheter, the balloon and the guidewire were removed. Images of the left coronary system were obtained and left ventricular end-diastolic pressure was calculated. Following that catheter and sheath were removed. Hemostasis was obtained with deployment of an Angio-Seal. There was no immediate complication. Patient was returned to her room in stable condition. Of note, the patient received Angiomax per protocol as well as oral loading dose of Brilinta. She was pain-free at the end the procedure. RESULTS: Successful stenting of the mid right coronary artery with reduction of stenosis from 99% to 0%. RECOMMENDATION: Patient will be continued on aspirin, Brilinta, beta garret. Close followup of her renal function was obtained. I had a long discussion with the patient regarding the importance of smoking cessation and compliant with her medications. DURATION OF PROCEDURE: 29 minutes. MMODL / IJN: [id number] /
--- NOTE | 2018-12-22 05:15 | LTR ---
December 21, 2018 Re: Kiersten Madai Dear Dr. Craig: I had the opportunity to perform coronary angiography and angioplasty and stenting on Mrs. Aj at [facility] on the 21 of December and a full copy of the procedure note will be forwarded to you. In brief, she presented with an acute inferior myocardial infarction, underwent successful stenting of the mid right coronary artery. Unfortunately, she has been quite noncompliant with her medical treatment and has stopped all her medication prior to presentations. I am hopeful that she will be able to be more compliant at this time and depending on her progress, further recommendation will be made. Thank you again for allowing me the opportunity to participate in her care. Please feel free to call for any questions. Sincerely yours, MD EARNESTINE SmythL / SARITHA: [id number] /
[2018-12-22 05:46] LABS: Potassium 4.8 mmol/L (3.5-5.1)
[2018-12-22] MEDS: TICAGRELOR 90 MG TAB PO SCH ×2 (08:04→20:54)
[2018-12-22] MEDS: METOPROLOL TARTRATE 25 MG TAB PO SCH ×2 (08:04→20:54)
[2018-12-22] MEDS: ASPIRIN 81 MG PO SCH (08:04)
--- NOTE | 2018-12-22 11:08 | PN ---
PROGRESS NOTE This patient was admitted with acute inferior wall myocardial infarction and underwent stent to the RCA. She is feeling better. She denies any chest pain, denies any shortness of breath. Patient's electronic medical records as well as rhythm strips reviewed. Blood pressure is 157/89 mmHg. First and second heart sounds are normal. Lungs are clinically clear to auscultation and percussion. Patient's creatinine is 1.18, maximum troponin was 46. We will add Cozaar 25 mg b.i.d. and continue the current medications. MMODL / IJN: [id number] /
--- NOTE | 2018-12-22 11:38 | ECHOF ---
Referral Reason:vt MEASUREMENTS -------- HEIGHT: 154.9 cm WEIGHT: 106.6 kg BP: 155/84 RVIDd: 2.2 cm (< 3.3) IVSd: 1.4 cm (0.6 - 1.1) LVIDd: 5.0 cm (3.9 - 5.3) LVPWd: 1.5 cm (0.6 - 1.1) IVSs: 1.6 cm LVIDs: 3.5 cm LVPWs: 1.4 cm LA Diam: 3.1 cm (2.7 - 3.8) Ao Diam: 3.2 cm (2.0 - 3.7) AV Cusp: 1.7 cm (1.5 - 2.6) MV EXCURSION: 7.983 mm (> 18.000) MV EF SLOPE: 22 mm/s (70 - 150) EPSS: 2.2 cm MV E Matthias: 0.84 m/s MV DecT: 330 ms MV A Matthias: 1.08 m/s MV E/A Ratio: 0.78 AR PHT: 1510 ms FINDINGS -------- Resting bradycardia (HR<60bpm). This was a technically difficult study with suboptimal views. The left ventricular size is normal. There is moderate concentric left ventricular hypertrophy. O verall left ventricular systolic function is mild-moderately impaired with, an EF between 40 - 45 %. The right ventricle is normal in size. The left atrial size is normal. The right atrium is normal in size. 4 ml of Lumason was utilized for enhancement of images. Interatrial and interventricular septum intact. There is mild aortic valve sclerosis. Mild mitral regurgitation is present. The tricuspid valve appears structurally normal. The pulmonic valve was not well visualized. The aortic root size is normal. IVC Not well visulized. There is no pericardial effusion. CONCLUSIONS -------- 1. Resting bradycardia (HR<60bpm). 2. This was a technically difficult study with suboptimal views. 3. The left ventricular size is normal. 4. There is moderate concentric left ventricular hypertrophy. 5. Overall left ventricular systolic function is mild-moderately impaired with, an EF between 40 - 45 %. 6. The right ventricle is normal in size. 7. The left atrial size is normal. 8. The right atrium is normal in size. 9. 4 ml of Lumason was utilized for enhancement of images. 10. Interatrial and interventricular septum intact. 11. There is mild aortic valve sclerosis. 12. Mild mitral regurgitation is present. 13. The tricuspid valve appears structurally normal. 14. The pulmonic valve was not well visualized. 15. The aortic root size is normal. 16. IVC Not well visulized. 17. There is no pericardial effusion. STRAP CUTTER: Renetta Huggins RDCS
[2018-12-22] MEDS: LOSARTAN 25 MG TAB PO SCH ×2 (11:53→22:19)
[2018-12-22] MEDS: amLODIPine 5 MG TAB PO SCH (11:54)
--- NOTE | 2018-12-22 12:21 | P.HPIM ---
History of Present Illness This is a pleasant 53 years old female with past medical history of coronary artery disease status post cardiac cath and stent placement, hyperlipidemia, hypertension, hypothyroidism, chronic kidney disease and ischemic cardiomyopa thy. Presents because of STEMI. Patient originally presents with chest pain of one-day duration home STEMI alert was initiated in the emergency room. Patient was taken to the cardiac cath she underwent cardiac angiography and angioplasty with right coronary artery stent placement with reduction of stenosis from 99% down to 0%. After that patient was transferred to the intensive care unit. Ech ocardiogram: Ejection fraction 40-45% Patient vitals are stable. She had mild leukocytosis of 12.9 K, mostly reactive. Creatinine came down from 1.4 down to 1.1, baseline creatinine is 1.1 1.4 troponin were elevated 46 and 34 up on admission. Liver enzymes within normal limits. Patient currently is on aspirin and Brilinta Review of Systems CONSTITUTIONAL: No fever, no malaise, no fatigue. HEENT: No recent visual problems or hearing problems. Denied any sore throat. CARDIOVASCULAR: No orthopnea, PND, no palpitations, no syncope. PULMONARY: No shortness of breath, no cough, no hemoptysis. GASTROINTESTINAL: No diarrhea, no nausea, no vomiting, no abdominal pain. Normoactive bowel sounds. NEUROLOGICAL: No headaches, no weakness, no numbness. HEMATOLOGICAL: Denies any bleeding or petechiae. GENITOURINARY: Denies any burning micturition, frequency, or urgency. MUSCULOSKELETAL/RHEUMATOLOGICAL: Denies any joint pain, swelling, or any muscle pain. ENDOCRINE: Denies any polyuria or polydipsia. Past Medical History Past Medical History: Coronary Artery Disease (CAD), Hyperlipidemia, Hypertension, Myocardial Infarction (OR), Renal Disease, Thyroid Disorder Additional Past Medical History / Comment(s): Ischemic cardiomyopathy, GRAVES, hypothyroid, chronic kidney dx. Last Myocardial Infarction Date:: 11/09/13 History of Any Multi-Drug Resistant Organisms: None Reported Past Surgical History: Breast Surgery, Heart Catheterization With Stent, Tubal Ligation Additional Past Surgical History / Comment(s): 10/2013 PCI with 2 stents, 12/2013 PCI with 1 stent, 10/2014 cardiac cath tx medically, BENIGN LUMP REMOVED FROM LEFT BREAST Past Anesthesia/Blood Transfusion Reactions: Postoperative Nausea & Vomiting (PONV) Date of Last Stent Placement:: 10/29/13 Past Psychological History: No Psychological Hx Reported Smoking Status: Current every day smoker Past Alcohol Use History: None Reported Past Drug Use History: None Reported - Past Family History Mother Family Medical History: Myocardial Infarction (OR) Additional Family Medical History / Comment(s): Mother had a OR in her 60's. She is 70 yrs old. Father Family Medical History: COPD Additional Family Medical History / Comment(s): Agent orange exposure in [place]. Father is 72 yrs old. Medications and Allergies Home Medications Medication Instructions Recorded Confirmed Type Atorvastatin [Lipitor] 80 mg PO HS #30 tab 10/31/13 12/21/18 Rx Enalapril [Vasotec] 5 mg PO BID #60 tab 10/31/13 12/21/18 Rx Nitroglycerin Sl Tabs [Nitrostat] 0.4 mg SUBLINGUAL Q5M PRN #20 tab 10/31/13 12/21/18 Rx Metoprolol Tartrate [Lopressor] 25 mg PO BID 04/25/14 12/21/18 History Allergies Allergy/AdvReac Type Severity Reaction Status Date / Time No Known Allergies Allergy Verified 12/21/18 18:24 Physical Exam Vitals: Vital Signs Temp Pulse Pulse Resp BP Pulse Ox 12/22/18 10:00 72 21 166/82 96 12/22/18 09:00 79 15 147/90 97 12/22/18 08:00 98.5 F 80 16 157/85 96 12/22/18 07:00 80 14 157/89 95 12/22/18 06:00 69 12 155/84 98 12/22/18 05:00 77 15 152/89 98 12/22/18 04:00 97.8 F 74 12 164/83 98 12/22/18 03:00 80 16 170/90 98 12/22/18 02:00 73 12 159/91 97 12/22/18 01:00 77 19 168/83 97 12/22/18 00:00 97.7 F 56 L 18 169/86 98 12/21/18 23:00 76 22 173/91 98 12/21/18 22:00 82 19 165/88 96 12/21/18 21:00 76 12 149/87 96 12/21/18 20:31 96 12/21/18 20:10 83 21 138/82 95 12/21/18 20:00 97.7 F 90 18 155/84 96 12/21/18 18:35 101 H 18 158/84 99 12/21/18 18:29 93 16 151/87 98 12/21/18 18:19 79 12/21/18 18:03 97.6 F 86 18 131/72 98 Intake and Output 12/21/18 12/22/18 12/22/18 22:59 06:59 14:59 Intake Total 332 800 200 Output Total 0 290 435 Balance 332 510 -235 Intake: IV 132 Intake, IV Titration 200 800 Amount Sodium Chloride 0.9% 1, 200 800 000 ml @ 100 mls/hr IV . Q10H ADIEL Rx#:[id number] Oral 200 Output: Urine 0 290 435 Other: # Voids 2 Weight 104.326 kg 106.9 kg GENERAL: The patient is alert and oriented x3, not in any acute distress. Well developed, well nourished. HEENT: Pupils are round and equally reacting to light. EOMI. No scleral icterus. No conjunctival pallor. Normocephalic, atraumatic. No pharyngeal erythema. No thyromegaly. CARDIOVASCULAR: S1 and S2 present. No murmurs, rubs, or gallops. PULMONARY: Chest is clear to auscultation, no wheezing or crackles. ABDOMEN: Soft, nontender, nondistended, normoactive bowel sounds. No palpable organomegaly. MUSCULOSKELETAL: No joint swelling or deformity. EXTREMITIES: No cyanosis, clubbing, or pedal edema. NEUROLOGICAL: Gross neurological examination did not reveal any focal deficits. SKIN: No rashes. Results CBC & Chem 7: 12/21/18 18:14 12/22/18 04:31 Labs: Abnormal Lab Results - Last 24 Hours (Table) 12/21/18 12/21/18 12/21/18 Range/Units 18:14 18:14 18:14 WBC 12.9 H (3.8-10.6) k/uL RDW 16.2 H (11.5-15.5) % APTT (22.0-30.0) sec Sodium (137-145) mmol/L Creatinine 1.47 H (0.52-1.04) mg/dL Glucose 131 H (74-99) mg/dL POC Glucose (mg/dL) (75-99) mg/dL Total Creatine Kinase 588 H (30-135) U/L CK-MB (CK-2) 4.0 H (0.0-2.4) ng/mL Troponin I (0.000-0.034) ng/mL Triglycerides (<150) mg/dL Cholesterol (<200) mg/dL LDL Cholesterol, Calc (0-99) mg/dL 12/21/18 12/21/18 12/22/18 Range/Units 18:14 20:03 00:44 WBC (3.8-10.6) k/uL RDW (11.5-15.5) % APTT 19.8 L (22.0-30.0) sec Sodium (137-145) mmol/L Creatinine (0.52-1.04) mg/dL Glucose (74-99) mg/dL POC Glucose (mg/dL) 166 H (75-99) mg/dL Total Creatine Kinase (30-135) U/L CK-MB (CK-2) (0.0-2.4) ng/mL Troponin I 46.100 H* (0.000-0.034) ng/mL Triglycerides (<150) mg/dL Cholesterol (<200) mg/dL LDL Cholesterol, Calc (0-99) mg/dL 12/22/18 12/22/18 Range/Units 04:31 04:31 WBC (3.8-10.6) k/uL RDW (11.5-15.5) % APTT (22.0-30.0) sec Sodium 136 L (137-145) mmol/L Creatinine 1.18 H (0.52-1.04) mg/dL Glucose 108 H (74-99) mg/dL POC Glucose (mg/dL) (75-99) mg/dL Total Creatine Kinase (30-135) U/L CK-MB (CK-2) (0.0-2.4) ng/mL Troponin I 34.600 H* (0.000-0.034) ng/mL Triglycerides 204 H (<150) mg/dL Cholesterol 262 H (<200) mg/dL LDL Cholesterol, Calc 178 H (0-99) mg/dL Thrombosis Risk Factor Assmnt - Choose All That Apply Each Factor Represents 1 point: Abnormal pulmonary function (COPD), Acute OR, Age 41-60 years Other Risk Factors: No Thrombosis Risk Factor Assessment Total Risk Factor Score: 3 Thrombosis Risk Factor Assessment Level: Moderate Risk Assessment and Plan Assessment: STEMI, status post cardiac cath and stent placement of the right coronary artery History of coronary artery disease Hypertension Hypothyroidism Hyperlipidemia Chronic kidney disease Chronic ischemic and systolic cardiomyopathy Plan: This is a pleasant 53 years old female who presents with STEMI. Status post stent in RCA. Follow-up cardiology recommendation. Continue with aspirin and Brilinta . Patient counseled about quit smoking, she would not smoke and she states. She declined nicotine patch Labs and medication were reviewed.. Continue same treatment. Continue with symptomatic treatment. Resume home medication. Monitor lytes and vitals. DVT and GI prophylaxis. Further recommendations of the clinical course of the patient DVT prophylaxis: on aspirin and Brilinta GI Prophylaxis: Pepcid Prognosis is guarded
[2018-12-22] MEDS ORDERED: FAMOTIDINE 20 MG/2 ML VIAL IV SCH (13:00)
[2018-12-22 13:47] VITALS: BMI 44.5
[2018-12-22] MEDS: ATORVASTATIN 80 MG TAB PO SCH (20:53)
[2018-12-23 05:41] LABS: Anisocytosis Slight; Basophils # (A) 0.1 k/uL (0-0.2); Basophils % (A) 1 %; Eosinophils # (A) 0.3 k/uL (0-0.7); Eosinophils % (A) 3 %; HCT 45.2 % (34.0-46.0); Lymphocytes # (A) 2.7 k/uL (1.0-4.8); Lymphocytes % (A) 22 %; MCH 32.6 pg (25.0-35.0); MCHC 33.2 g/dL (31.0-37.0); MCV 98.1 fL (80.0-100.0); Macrocytosis Slight; Mean Platelet Volume 9.5; Monocytes # (A) 0.6 k/uL (0-1.0); Monocytes % (A) 5 %; Neutrophils # (A) 8.3 k/uL (1.3-7.7); Neutrophils % (A) 68 %; Platelet Count 233 k/uL (150-450); RBC 4.61 m/uL (3.80-5.40); RDW 16.8 % (11.5-15.5); WBC 12.2 k/uL (3.8-10.6)
[2018-12-23 06:50] LABS: Calcium 9.2 mg/dL (8.4-10.2); Potassium 4.4 mmol/L (3.5-5.1)
[2018-12-23] MEDS: ASPIRIN 81 MG PO SCH (08:45)
[2018-12-23] MEDS: FAMOTIDINE 20 MG TAB PO SCH (08:45)
[2018-12-23] MEDS: TICAGRELOR 90 MG TAB PO SCH ×2 (08:45→21:00)
[2018-12-23] MEDS: amLODIPine 5 MG TAB PO SCH (08:45)
[2018-12-23] MEDS: LOSARTAN 25 MG TAB PO SCH ×2 (08:46→21:00)
--- NOTE | 2018-12-23 11:36 | PN ---
PROGRESS NOTE This patient was admitted with acute inferior wall myocardial infarction. The patient is doing fairly well. During the night, the patient had intermittent pauses associated with sleep apnea. The patient does use a CPAP machine at home. Denies any chest pain or shortness of breath. The patient is otherwise comfortable. The patient's blood pressure is 136/74 mmHg. First and second heart sounds are normal. Lungs are clear to auscultation and percussion. The patient's electrolytes are normal. Creatinine is 1.38. We will continue the current medications. The patient will be ambulated and if she remains stable, she will be discharged home tomorrow. MMJENNIFERL / IJN: [id number] /
--- NOTE | 2018-12-23 12:34 | P.PN ---
Objective - Vital Signs Vital signs: Vital Signs Temp 97.6 F 12/23/18 04:00 Pulse 38 L 12/23/18 04:00 Resp 13 12/23/18 04:00 BP 96/72 12/23/18 04:00 Pulse Ox 93 L 12/23/18 04:00 Intake & Output 12/22/18 12/23/18 12/23/18 18:59 06:59 18:59 Intake Total 750 240 Output Total 435 Balance 315 240 Weight 106.9 kg 105 kg Intake: Oral 750 240 Output: Urine 435 Other: # Voids 1 1 - Exam This is a pleasant 53 years old female with past medical history of coronary artery disease status post cardiac cath and stent placement, hyperlipidemia, hypertension, hypothyroidism, chronic kidney disease and ischemic cardiomyopa thy. Presents because of STEMI. Patient originally presents with chest pain of one-day duration home STEMI alert was initiated in the emergency room. Patient was taken to the cardiac cath she underwent cardiac angiography and angioplasty with right coronary artery stent placement with reduction of stenosis from 99% down to 0%. After that patient was transferred to the intensive care unit. Ech ocardiogram: Ejection fraction 40-45% Patient vitals are stable. She had mild leukocytosis of 12.9 K, mostly reactive. Creatinine came down from 1.4 down to 1.1, baseline creatinine is 1.1 1.4 troponin were elevated 46 and 34 up on admission. Liver enzymes within normal limits. Patient currently is on aspirin and Brilinta 12/23/2018 Patient remains doing well in the ICU. No chest pain or dyspnea. No other complaints. She is hemodynamically stable. Still has mild leukocytosis, her creatinine went up at 1.3, given her recent history of contrast exposure, we're going to call for nephrology consult. Risks of left showing persistent leukocytosis of 12.2k. UA is sent. Cardiology recommended patient to continue ambulation and if she is stable from their perspective patient can go home tomorrow. Patient continue on Norvasc 50 mg and aspirin with Brilinta. Review of systems CONSTITUTIONAL: No fever, no malaise, no fatigue. HEENT: No recent visual problems or hearing problems. Denied any sore throat. CARDIOVASCULAR: No orthopnea, PND, no palpitations, no syncope. PULMONARY: No shortness of breath, no cough, no hemoptysis. GASTROINTESTINAL: No diarrhea, no nausea, no vomiting, no abdominal pain. Normoactive bowel sounds. NEUROLOGICAL: No headaches, no weakness, no numbness. HEMATOLOGICAL: Denies any bleeding or petechiae. GENITOURINARY: Denies any burning micturition, frequency, or urgency. MUSCULOSKELETAL/RHEUMATOLOGICAL: Denies any joint pain, swelling, or any muscle pain. ENDOCRINE: Denies any polyuria or polydipsia. Active Medications Generic Name Dose Route Start Last Admin Trade Name Freq PRN Reason Stop Dose Admin Al Hydroxide/Mg Hydroxide 30 ml 12/21/18 19:37 Maalox PO Q4HR PRN Heartburn Amlodipine Besylate 5 mg 12/22/18 09:00 12/23/18 08:45 Norvasc PO 5 mg DAILY ADIEL Administration Aspirin 81 mg 12/22/18 09:00 12/23/18 08:45 Aspirin PO 81 mg DAILY ADIEL Administration Atorvastatin Calcium 80 mg 12/22/18 21:00 12/22/18 20:53 Lipitor PO 80 mg HS ADIEL Administration Atropine Sulfate 0.5 mg 12/21/18 19:37 Atropine IV ONCE PRN Symptomatic Bradycardia Famotidine 20 mg 12/23/18 09:00 12/23/18 08:45 Pepcid PO 20 mg DAILY ADIEL Administration Losartan Potassium 25 mg 12/22/18 10:30 12/23/18 08:46 Cozaar PO 25 mg BID ADIEL Administration Miscellaneous Information 1 each 12/21/18 19:37 Rx Info: Iv Contrast Was Given MISCELLANE 12/23/18 19:38 DAILY PRN Per Protocol Nitroglycerin 0.4 mg 12/21/18 19:37 Nitrostat SUBLINGUAL Q5M PRN Chest Pain Ticagrelor 90 mg 12/22/18 09:00 12/23/18 08:45 Brilinta PO 90 mg BID ADIEL Administration Zolpidem Tartrate 5 mg 12/21/18 21:00 Ambien PO HS PRN Insomnia - Labs CBC & Chem 7: 12/23/18 05:03 12/23/18 05:03 Labs: Abnormal Lab Results - Last 24 Hours (Table) 12/23/18 12/23/18 Range/Units 05:03 05:03 WBC 12.2 H (3.8-10.6) k/uL RDW 16.8 H (11.5-15.5) % Neutrophils # 8.3 H (1.3-7.7) k/uL Creatinine 1.38 H (0.52-1.04) mg/dL Assessment and Plan Assessment: STEMI, status post cardiac cath and stent placement of the right coronary artery Trending up creatinine, concerning for acute kidney injury Persistent leukocytosis History of coronary artery disease Hypertension Hypothyroidism Hyperlipidemia Chronic kidney disease Chronic ischemic and systolic cardiomyopathy Plan: This is a pleasant 53 years old female who presents with STEMI. Status post stent in RCA. Follow-up cardiology recommendation. Continue with aspirin and B rilinta . 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 Check urine analysis. Patient has persistent leukocytosis. Also call nephrology consult for trending up creatinine Patient counseled about quit smoking, she would not smoke and she states. She declined nicotine patch. Labs and medication were reviewed.. Continue same treatment. Continue with symptomatic treatment. Resume home medication. Monitor lytes and vitals. DVT and GI prophylaxis. Further recommendations of the clinical course of the patient DVT prophylaxis: on aspirin and Brilinta GI Prophylaxis: Pepcid Prognosis is guarded
--- NOTE | 2018-12-23 13:03 | XR ---
EXAMINATION TYPE: XR chest 1V DATE OF EXAM: 12/23/2018 COMPARISON: 12/21/2018 HISTORY: Leukocytosis TECHNIQUE: Single frontal view of the chest is obtained. FINDINGS: Heart is enlarged. The right lung is clear. Technique limits assessment left lung base wit h vague density along the lateral margin. Chronic rib deformities on the left suggest previous no pne umothorax or overt failure. IMPRESSION: 1. Cardiomegaly with left basilar infiltrate and small effusion.
--- NOTE | 2018-12-23 13:27 | P.NPCON ---
History of Present Illness - Reason for Consult acute renal failure - History of Present Illness Reason for consultation: Acute kidney injury on chronic kidney disease History of present illness: Patient is a 53-year-old female seen in consultation for acute kidney injury on chronic kidney disease. Patient is chronic kidney disease stage III. Baseline creatinine in the range of 1.1-1.3 secondary to nephrosclerosis. Patient's creatinine was 1.47 on admission and did come down to 1.18 as of yesterday. It is 1.38 today. Patient presented to the hospital with chest pain on December 21. She was noted to have acute myocardial infarction and underwent cardiac catheterization with a stent placement to the right coronary artery. Currently she denies any chest pain or shortness of breath. Denies vomiting or diarrhea. Oral intake is good. No hematuria or dysuria. No history of diabetes. Denies regular use of nonsteroidals. No family history of renal disease. She is hemodynamically stable. She did receive IV fluids after the cardiac catheterization. No active complaints at this time. Vital signs are stable. General: The patient appeared well nourished and normally developed. HEENT: Head exam is unremarkable. Neck is without jugular venous distension. LUNGS: Lungs are clear to auscultation and percussion. Breath sounds decreased. HEART: Rate and Rhythm are regular. First and second heart sounds normal. No murmurs, rubs or gallops. ABDOMEN: Abdominal exam reveals normal bowel sounds. Non-tender and non- distended. No evidence of peritonitis. EXTREMITITES: No clubbing, cyanosis, or edema. Past Medical History Past Medical History: Coronary Artery Disease (CAD), Hyperlipidemia, Hypertension, Myocardial Infarction (IN), Renal Disease, Thyroid Disorder Additional Past Medical History / Comment(s): Ischemic cardiomyopathy, GRAVES, hypothyroid, chronic kidney dx. Last Myocardial Infarction Date:: 11/09/13 History of Any Multi-Drug Resistant Organisms: None Reported Past Surgical History: Breast Surgery, Heart Catheterization With Stent, Tubal Ligation Additional Past Surgical History / Comment(s): 10/2013 PCI with 2 stents, 12/2013 PCI with 1 stent, 10/2014 cardiac cath tx medically, BENIGN LUMP REMOVED FROM LEFT BREAST Past Anesthesia/Blood Transfusion Reactions: Postoperative Nausea & Vomiting (PONV) Date of Last Stent Placement:: 10/29/13 Past Psychological History: No Psychological Hx Reported Smoking Status: Current every day smoker Past Alcohol Use History: None Reported Past Drug Use History: None Reported - Past Family History Mother Family Medical History: Myocardial Infarction (IN) Additional Family Medical History / Comment(s): Mother had a IN in her 60's. She is 70 yrs old. Father Family Medical History: COPD Additional Family Medical History / Comment(s): Agent orange exposure in [place]. Father is 72 yrs old. Medications and Allergies Home Medications Medication Instructions Recorded Confirmed Type Atorvastatin [Lipitor] 80 mg PO HS #30 tab 10/31/13 12/21/18 Rx Enalapril [Vasotec] 5 mg PO BID #60 tab 10/31/13 12/21/18 Rx Nitroglycerin Sl Tabs [Nitrostat] 0.4 mg SUBLINGUAL Q5M PRN #20 tab 10/31/13 12/21/18 Rx Metoprolol Tartrate [Lopressor] 25 mg PO BID 04/25/14 12/21/18 History Allergies Allergy/AdvReac Type Severity Reaction Status Date / Time No Known Allergies Allergy Verified 12/21/18 18:24 Physical Exam Vitals: Vital Signs Temp Pulse Resp BP Pulse Ox 12/23/18 04:00 97.6 F 38 L 13 96/72 93 L 12/23/18 00:00 97.6 F 61 7 L 136/74 98 12/22/18 21:00 85 14 103/75 95 12/22/18 20:00 97.9 F 78 18 132/88 97 12/22/18 19:00 79 11 L 96 12/22/18 18:00 80 20 126/74 98 12/22/18 17:00 68 16 97 12/22/18 16:00 97.9 F 78 18 148/70 97 Intake and Output 12/22/18 12/23/18 12/23/18 22:59 06:59 14:59 Intake Total 540 Balance 540 Intake: Oral 540 Other: # Voids 1 1 Weight 105 kg Results - Lab Results Most recent lab results Calcium 9.2 mg/dL (8.4-10.2) 12/23/18 05:03 Magnesium 2.1 mg/dL (1.6-2.3) 12/21/18 18:14 12/23/18 05:03 12/23/18 05:03 Assessment and Plan Plan: Assessment: 1. Acute kidney injury mostly prerenal secondary to hemodynamic instability from acute myocardial infarction. There may also be component of contrast- induced nephropathy. Renal function better since admission. Creatinine 1.3 today. 2. Chronic kidney disease stage III with baseline creatinine in the range of 1.1-1.3 secondary to nephrosclerosis. 3. Acute myocardial infarction status post cardiac catheterization and stent placement to the right coronary artery in December 21. 4. Hypertension with chronic kidney disease. Controlled. Plan: Check UA. Check renal ultrasound. No need for IV fluids at this time. Hold losartan if systolic blood pressure less than 110. Repeat electrolytes in the morning. Thank you for the consultation. I will continue to follow the patient with you during her hospital stay.
--- NOTE | 2018-12-23 15:02 | US ---
EXAMINATION TYPE: US kidneys/renal and bladder DATE OF EXAM: 12/23/2018 COMPARISON: CT 2017, US 2016 CLINICAL HISTORY: morris. MORRIS, exam done portable. EXAM MEASUREMENTS: Right Kidney: 9.7 x 4.5 x 4.2 cm Left Kidney: 10.4 x 4.7 x 5.3 cm Difficult and limited study due to obese patient Right Kidney: no hydronephrosis or masses Left Kidney: no hydronephrosis or masses Bladder: not fully distended and limited. IMPRESSION: Limited exam demonstrates no diagnostic evidence of hydronephrosis or nephrolithiasis. Assessment for mass.
[2018-12-23] MEDS: ATORVASTATIN 80 MG TAB PO SCH (21:00)
[2018-12-24 02:19] LABS: Appearance,Urine Clear (Clear); Bilirubin,Urine Negative (Negative); Blood,Urine Negative (Negative); Color,Urine Light Yellow; Glucose,Urine (UA) Negative (Negative); Ketones,Urine Negative (Negative); Leukocyte Esterase,Urine Negative (Negative); Mucus,Urine Rare /hpf; Nitrite,Urine Negative (Negative); Protein,Urine 1+ (Negative); RBC,Urine 2 /hpf (0-5); Specific Gravity,Urine 1.012 (1.001-1.035); Squamous Epithelial Cell,Urine 2 /hpf (0-4); Urobilinogen,Urine <2.0 mg/dL (<2.0); WBC,Urine 1 /hpf (0-5)
[2018-12-24 04:44] LABS: HCT 46.5 % (34.0-46.0); HGB 15.8 gm/dL (11.4-16.0); MCH 32.8 pg (25.0-35.0); MCHC 33.9 g/dL (31.0-37.0); MCV 96.9 fL (80.0-100.0); Mean Platelet Volume 9.2; Platelet Count 246 k/uL (150-450); RDW 15.5 % (11.5-15.5)
[2018-12-24 04:54] LABS: Calcium 9.1 mg/dL (8.4-10.2); Magnesium 2.1 mg/dL (1.6-2.3); Potassium 4.5 mmol/L (3.5-5.1)
[2018-12-24] MEDS: ASPIRIN 81 MG PO SCH (09:17)
[2018-12-24] MEDS: amLODIPine 5 MG TAB PO SCH (09:17)
[2018-12-24] MEDS: TICAGRELOR 90 MG TAB PO SCH ×2 (09:18→20:36)
[2018-12-24] MEDS: FAMOTIDINE 20 MG TAB PO SCH (09:18)
[2018-12-24] MEDS: LOSARTAN 25 MG TAB PO SCH (09:18)
--- NOTE | 2018-12-24 11:23 | P.PN ---
Subjective Patient is seen in follow-up for acute kidney injury on chronic kidney disease. Renal function is stable. No active chest pain or shortness of breath. Urine output is good. Eager to go home. Vital signs are stable. General: The patient appeared well nourished and normally developed. HEENT: Head exam is unremarkable. Neck is without jugular venous distension. LUNGS: Lungs are clear to auscultation and percussion. Breath sounds decreased. HEART: Rate and Rhythm are regular. First and second heart sounds normal. No murmurs, rubs or gallops. ABDOMEN: Abdominal exam reveals normal bowel sounds. Non-tender and non- distended. No evidence of peritonitis. EXTREMITITES: No clubbing, cyanosis, or edema. Objective - Vital Signs Vital signs: Vital Signs Temp 97.8 F 12/24/18 08:00 Pulse 86 12/24/18 08:00 Resp 15 12/24/18 08:00 BP 122/80 12/24/18 08:00 Pulse Ox 96 12/24/18 08:05 Intake & Output 12/23/18 12/24/18 12/24/18 18:59 06:59 18:59 Intake Total 1360 360 Output Total 4 200 Balance 1360 -4 160 Weight 105 kg Intake: Oral 1360 360 Output: Urine 4 200 Other: Voiding Method Toilet # Voids 2 1 - Labs CBC & Chem 7: 12/24/18 04:27 12/24/18 04:27 Labs: Abnormal Lab Results - Last 24 Hours (Table) 12/24/18 12/24/18 12/24/18 Range/Units 01:23 04:27 04:27 WBC 13.0 H (3.8-10.6) k/uL Hct 46.5 H (34.0-46.0) % Creatinine 1.44 H (0.52-1.04) mg/dL Glucose 104 H (74-99) mg/dL Urine Protein 1+ H (Negative) Urine Mucus Rare H (None) /hpf Assessment and Plan Plan: Assessment: 1. Acute kidney injury mostly prerenal secondary to hemodynamic instability from acute myocardial infarction. There may also be component of contrast- induced nephropathy. Renal function better since admission. Creatinine 1.44 today. No evidence of hydronephrosis noted on kidney ultrasound. 1+ proteinuria noted on UA. 2. Chronic kidney disease stage III with baseline creatinine in the range of 1.1-1.3 secondary to nephrosclerosis. 3. Acute myocardial infarction status post cardiac catheterization and stent placement to the right coronary artery in December 21. 4. Hypertension with chronic kidney disease. Controlled. Plan: Stable to be discharged home from nephrology standpoint. Follow up outpatient in the next 2 weeks. Further workup for proteinuria outpatient.
--- NOTE | 2018-12-24 14:47 | P.PN ---
Subjective Progress Note Date: 12/24/18 Principal diagnosis: STEMI with cardiac catheterization and stent placement Acute on chronic kidney disease 53 years old female with past medical history of coronary artery disease status post cardiac cath and stent placement, hyperlipidemia, hypertension, hypothyroidism, chronic kidney disease and ischemic cardiomyopathy. Presents because of STEMI. Patient originally presents with chest pain of one-day duration home STEMI alert was initiated in the emergency room. Patient was taken to the cardiac cath she underwent cardiac angiography and angioplasty with right coronary artery stent placement with reduction of stenosis from 99% down to 0%. After that patient was transferred to the intensive care unit. Echocardiogram: Ejection fraction 40-45% Objective - Vital Signs Vital signs: Vital Signs Temp 97.8 F 12/24/18 08:00 Pulse 86 12/24/18 08:00 Resp 15 12/24/18 08:00 BP 122/80 12/24/18 08:00 Pulse Ox 96 12/24/18 08:05 Intake & Output 12/23/18 12/24/18 12/24/18 18:59 06:59 18:59 Intake Total 1360 360 Output Total 4 200 Balance 1360 -4 160 Weight 105 kg Intake: Oral 1360 360 Output: Urine 4 200 Other: Voiding Method Toilet # Voids 2 1 - Exam General: The patient appeared well nourished and normally developed. HEENT: Head exam is unremarkable. Neck is without jugular venous distension. LUNGS: Lungs are clear to auscultation and percussion. Breath sounds decreased. HEART: Rate and Rhythm are regular. First and second heart sounds normal. No murmurs, rubs or gallops. ABDOMEN: Abdominal exam reveals normal bowel sounds. Non-tender and non- distended. No evidence of peritonitis. EXTREMITITES: No clubbing, cyanosis, or edema. - Labs CBC & Chem 7: 12/24/18 04:27 12/24/18 04:27 Labs: Abnormal Lab Results - Last 24 Hours (Table) 12/24/18 12/24/18 12/24/18 Range/Units 01:23 04:27 04:27 WBC 13.0 H (3.8-10.6) k/uL Hct 46.5 H (34.0-46.0) % Creatinine 1.44 H (0.52-1.04) mg/dL Glucose 104 H (74-99) mg/dL Urine Protein 1+ H (Negative) Urine Mucus Rare H (None) /hpf Assessment and Plan Assessment: 1. Acute kidney injury mostly prerenal secondary to hemodynamic instability from acute myocardial infarction; chronic kidney disease stage III - There may also be component of contrast-induced nephropathy. Renal function better since admission; patient has a baseline creatinine of 1.1-1.3. - Creatinine 1.44 today. No evidence of hydronephrosis noted on kidney ultrasound. 1+ proteinuria noted on UA. - Patient has been cleared for discharge from nephrology standpoint to follow-up as an outpatient in 2 weeks 2. Acute myocardial infarction status post cardiac catheterization and stent placement to the right coronary artery in December 21. - Patient noted to have pauses on monitor last night; cardiology is following; possibly an element of obstructive sleep apnea; patient is to be monitored for another 24 hours per cardiology 3. Hypertension with chronic kidney disease. Controlled. 4. Hyperlipidemia; Lipitor 80 mg by mouth daily at bedtime 5. DVT prophylaxis; aspirin and Brilinta CODE STATUS; full code Time with Patient: Greater than 30
--- NOTE | 2018-12-24 16:03 | PN ---
PROGRESS NOTE This patient was admitted with acute myocardial infarction and underwent stent placement. Patient is doing well. Denies any chest pain. Denies any shortness of breath. This patient has evidence of sleep apnea and she gets intermittent sinus pauses early in the morning with documented episodes of sleep apnea. The patient usually uses a CPAP machine at home. Blood pressure is 122/80 mmHg. First and second heart sounds are normal. Lungs are clinically clear to auscultation and percussion. Patient remains stable cardiac-bellamy. Patient can be discharged home today. She is advised to use CPAP machine and follow up further with a sleep study. The patient will be followed by Dr. Springer as an outpatient. MMODL / IJN: [id number] /
[2018-12-24] MEDS: ATORVASTATIN 80 MG TAB PO SCH (20:36)
[2018-12-25 06:44] LABS: Anisocytosis Slight; HCT 44.1 % (34.0-46.0); HGB 14.9 gm/dL (11.4-16.0); MCH 33.1 pg (25.0-35.0); MCHC 33.7 g/dL (31.0-37.0); MCV 98.3 fL (80.0-100.0); Macrocytosis Slight; Mean Platelet Volume 9.7; Platelet Count 231 k/uL (150-450); RBC 4.49 m/uL (3.80-5.40); RDW 17.1 % (11.5-15.5)
[2018-12-25 07:04] LABS: Calcium 9.1 mg/dL (8.4-10.2); Potassium 4.5 mmol/L (3.5-5.1)
[2018-12-25] MEDS: FAMOTIDINE 20 MG TAB PO SCH (09:47)
[2018-12-25] MEDS: TICAGRELOR 90 MG TAB PO SCH (09:47)
[2018-12-25] MEDS: ASPIRIN 81 MG PO SCH (09:47)
[2018-12-25] MEDS: amLODIPine 5 MG TAB PO SCH (09:47)
--- NOTE | 2018-12-25 09:49 | P.PN ---
Subjective Patient is seen in follow-up for acute kidney injury on chronic kidney disease. Renal function is slightly worse. No active chest pain or shortness of breath. Urine output is good. Eager to go home. Vital signs are stable. General: The patient appeared well nourished and normally developed. HEENT: Head exam is unremarkable. Neck is without jugular venous distension. LUNGS: Lungs are clear to auscultation and percussion. Breath sounds decreased. HEART: Rate and Rhythm are regular. First and second heart sounds normal. No murmurs, rubs or gallops. ABDOMEN: Abdominal exam reveals normal bowel sounds. Non-tender and non- distended. No evidence of peritonitis. EXTREMITITES: No clubbing, cyanosis, or edema. Objective - Vital Signs Vital signs: Vital Signs Temp 97.8 F 12/24/18 20:00 Pulse 81 12/25/18 04:00 Resp 15 12/25/18 04:00 BP 162/75 12/25/18 04:00 Pulse Ox 98 12/25/18 04:00 Intake & Output 12/24/18 12/25/18 12/25/18 18:59 06:59 18:59 Intake Total 720 222 240 Output Total 800 Balance -80 222 240 Weight 104.9 kg Intake: Oral 720 222 240 Output: Urine 800 Other: Voiding Method Toilet Toilet # Voids 1 # Bowel Movements 1 - Labs CBC & Chem 7: 12/25/18 05:50 12/25/18 05:50 Labs: Abnormal Lab Results - Last 24 Hours (Table) 12/25/18 12/25/18 Range/Units 05:50 05:50 WBC 13.0 H (3.8-10.6) k/uL RDW 17.1 H (11.5-15.5) % BUN 18 H (7-17) mg/dL Creatinine 1.53 H (0.52-1.04) mg/dL Glucose 104 H (74-99) mg/dL Assessment and Plan Plan: Assessment: 1. Acute kidney injury mostly prerenal secondary to hemodynamic instability from acute myocardial infarction. Also component of contrast-induced nephropathy. Creatinine 1.53 today. No evidence of hydronephrosis noted on kidney ultrasound. 1+ proteinuria noted on UA. 2. Chronic kidney disease stage III with baseline creatinine in the range of 1.1-1.3 secondary to nephrosclerosis. 3. Acute myocardial infarction status post cardiac catheterization and stent placement to the right coronary artery in December 21. 4. Hypertension with chronic kidney disease. Controlled. Plan: Stable to be discharged home from nephrology standpoint. Follow up outpatient in the next 2 weeks. Further workup for proteinuria outpatient.
[2018-12-25 09:57] VITALS: RESP 18; TEMP 98
--- NOTE | 2018-12-25 12:55 | P.PN ---
Subjective Progress Note Date: 12/25/18 This is a 53-year-old female who presented to the hospital with an acute inferior wall myocardial infarction, she does have known history of coronary artery disease with prior stenting. Current smoker, hypertension, chronic kidney disease, hyperlipidemia. Patient underwent successful stenting o f the mid right coronary artery. She has been noted during periods of sleep to have pauses, it is very likely that the patient has sleep apnea. The episodes seem to be improving after discontinuation of the beta garret although it is noted during sleep that she continues to have mild pauses. She was seen and examined today, denies any chest discomfort in her breathing overall is stable. Blood pressure 122/70 with a heart rate in the 90s, 99% on room air. White blood cell count 13, hemoglobin 14.9, platelets 231. Sodium 139, potassium 4.5, BUN 18 and creatinine 1.5. Objective - Vital Signs Vital signs: Vital Signs Temp 98 F 12/25/18 08:30 Pulse 94 12/25/18 08:30 Resp 18 12/25/18 08:30 BP 123/71 12/25/18 08:30 Pulse Ox 99 12/25/18 08:30 Intake & Output 12/24/18 12/25/18 12/25/18 18:59 06:59 18:59 Intake Total 720 222 240 Output Total 800 Balance -80 222 240 Weight 104.9 kg Intake: Oral 720 222 240 Output: Urine 800 Other: Voiding Method Toilet Toilet # Voids 1 1 # Bowel Movements 1 - Exam PHYSICAL EXAMINATION: GENERAL: 53-year-old female in no acute distress at the time of my exa mination HEENT: Head is atraumatic, normocephalic. Pupils equal, round. Sclera anicteric. Conjunctiva are clear. Mucous membranes of the mouth are moist. Neck is supple. There is no elevated jugular venous pressure.] bruit is heard. HEART EXAMINATION: Heart S1, S2 normal. No murmur or gallop heard. CHEST EXAMINATION: Lungs are clear to auscultation and precussion. No chest wall tenderness is noted on palpation or with deep breathing. ABDOMEN: Soft, nontender. Bowel sounds are heard. No organomegaly noted. EXTREMITIES: 2+ peripheral pulses with no evidence of peripheral edema and no calf tenderness noted. NEUROLOGIC patient is awake, alert and oriented ?-3. . - Labs CBC & Chem 7: 12/25/18 05:50 12/25/18 05:50 Labs: Abnormal Lab Results - Last 24 Hours (Table) 12/25/18 12/25/18 Range/Units 05:50 05:50 WBC 13.0 H (3.8-10.6) k/uL RDW 17.1 H (11.5-15.5) % BUN 18 H (7-17) mg/dL Creatinine 1.53 H (0.52-1.04) mg/dL Glucose 104 H (74-99) mg/dL Assessment and Plan Plan: Assessment and plan #1 Acute inferior wall myocardial infarction status post angioplasty and stenting of the RCA #2 positive steering. The sleep, suggestive of sleep apnea #3 hyperlipidemia #4 prior history of stenting #5 hypertension #6 acute on chronic renal insufficiency Plan Patient may be discharged home today from our perspective. She will go home on Brilinta for one month which is been provided to her for free, after that she will be given a one-time dose of 600 mg of Plavix and then take Plavix 75 mg daily along with a baby aspirin, Norvasc, and Lipitor. Patient will also go home with sublingual nitroglycerin. Patient has been educated repeatedly and it has been emphasized strongly the need for her to take all of her medications regularly. DNP note has been reviewed, I agree with a documented findings and plan of care. Patient was seen and examined.
--- NOTE | 2018-12-25 13:02 | P.DS ---
Providers Date of admission: 12/21/18 18:44 Expected date of discharge: 12/25/18 Attending physician: Bony Velasco MD Consults: 12/21/18 18:44 Consult Physician Urgent Consulting Provider: María Lane Consult Reason/Comments: STEMI Do you want consulting provider notified?: Already Contacted 12/21/18 19:38 Consult Physician Routine Consulting Provider: María Lane Consult Reason/Comments: Post Interventional patient Do you want consulting provider notified?: Already Contacted 12/23/18 12:30 Consult Physician Urgent Consulting Provider: Georges Swartz Consult Reason/Comments: uzma Do you want consulting provider notified?: Yes Primary care physician: Kiara Couch [facility] Course: 53-year-old female who presented to the hospital with an acute inferior wall myocardial infarction, she does have known history of coronary artery disease with prior stenting. Current smoker, hypertension, chronic kidney disease, hyperlipidemia. Patient underwent successful stenting of the mid right coronary artery. She has been noted during periods of sleep to have pauses, it is very likely that the patient has sleep apnea. The episodes seem to be improving after discontinuation of the beta garret although it is noted during sleep that she continues to have mild pauses. She was seen and examined today, denies any chest discomfort in her breathing overall is stable. Blood pressure 122/70 with a heart rate in the 90s, 99% on room air. White blood cell count 13, hemoglobin 14.9, platelets 231. Sodium 139, potassium 4.5, BUN 18 and creatinine 1.5. 12/23/2018 Patient remains doing well in the ICU. No chest pain or dyspnea. No other complaints. She is hemodynamically stable. Still has mild leukocytosis, her creatinine went up at 1.3, given her recent history of contrast exposure, we're going to call for nephrology consult. Risks of left showing persistent leukocytosis of 12.2k. UA is sent. Cardiology recommended patient to continue ambulation and if she is stable from their perspective patient can go home tomorrow. Patient continue on Norvasc 50 mg and aspirin with Brilinta. Patient may be discharged home today from our perspective. She will go home on Brilinta for one month which is been provided to her for free, after that she will be given a one-time dose of 600 mg of Plavix and then take Plavix 75 mg d aily along with a baby aspirin, Norvasc, and Lipitor. Patient will also go home with sublingual nitroglycerin. Patient has been educated repeatedly and it has been emphasized strongly the need for her to take all of her medications regularly. Patient Condition at Discharge: Serious Plan - Discharge Summary Discharge Rx Participant: Yes New Discharge Prescriptions: New Aspirin 81 mg PO DAILY #30 chew Ticagrelor [Brilinta] 90 mg PO BID #60 tab amLODIPine [Norvasc] 5 mg PO DAILY #30 tab Clopidogrel [Plavix] 75 mg PO DAILY #30 tablet Clopidogrel [Plavix] 600 mg PO ONCE #1 tablet Continue Atorvastatin [Lipitor] 80 mg PO HS #30 tab Enalapril [Vasotec] 5 mg PO BID #60 tab Metoprolol Tartrate [Lopressor] 25 mg PO BID Nitroglycerin Sl Tabs [Nitrostat] 0.4 mg SUBLINGUAL Q5M PRN #20 tab PRN Reason: Chest Pain Discharge Medication List Atorvastatin [Lipitor] 80 mg PO HS #30 tab 10/31/13 [Rx] Enalapril [Vasotec] 5 mg PO BID #60 tab 10/31/13 [Rx] Metoprolol Tartrate [Lopressor] 25 mg PO BID 04/25/14 [History] Aspirin 81 mg PO DAILY #30 chew 12/25/18 [Rx] Clopidogrel [Plavix] 75 mg PO DAILY #30 tablet 12/25/18 [Rx] Clopidogrel [Plavix] 600 mg PO ONCE #1 tablet 12/25/18 [Rx] Nitroglycerin Sl Tabs [Nitrostat] 0.4 mg SUBLINGUAL Q5M PRN #20 tab 12/25/18 [Rx] Ticagrelor [Brilinta] 90 mg PO BID #60 tab 12/25/18 [Rx] amLODIPine [Norvasc] 5 mg PO DAILY #30 tab 12/25/18 [Rx] Follow up Appointment(s)/Referral(s): Usha Craig MD [Primary Care Provider] - 1-2 days Ethan Springer MD [Family Provider] - 1 Week Patient Instructions/Handouts: Amlodipine (By mouth), Losartan (By mouth), Ticagrelor (By mouth) Activity/Diet/Wound Care/Special Instructions: patient may need indigent funds Discharge Disposition: HOME SELF-CARE
[2018-12-25 13:51] VITALS: BP 154/82; PULSE 86
== END 2018-12-25 14:40 | disposition home or self-care (01) | DRG 247 ==
LOC: EC 18:00 → 2SICU 18:44 → 3SCARD 12-24 18:45
PROVIDERS: ADMIT Internal Medicine; ATTEND Internal Medicine
PROC: B2111ZZ Fluoroscopy of Multiple Coronary Arteries using Low Osmolar Contrast (ICD-10-PCS; 2018-12-21)
PROC: 027034Z Dilation of Coronary Artery, One Artery with Drug-eluting Intraluminal Device, Percutaneous Approach (ICD-10-PCS; principal; 2018-12-21 18:40)
PROC: 4A023N7 Measurement of Cardiac Sampling and Pressure, Left Heart, Percutaneous Approach (ICD-10-PCS; 2018-12-21 18:40)
DX: I21.19 ST elevation (STEMI) myocardial infarction involving other coronary artery of inferior wall (principal); N17.9 Acute kidney failure, unspecified; I25.5 Ischemic cardiomyopathy; N18.3 Chronic kidney disease, stage 3 (moderate); D72.829 Elevated white blood cell count, unspecified; E03.9 Hypothyroidism, unspecified; E78.5 Hyperlipidemia, unspecified; F17.200 Nicotine dependence, unspecified, uncomplicated; G47.30 Sleep apnea, unspecified; I12.9 Hypertensive chronic kidney disease with stage 1 through stage 4 chronic kidney disease, or unspecified chronic kidney disease; I25.10 Atherosclerotic heart disease of native coronary artery without angina pectoris; I25.2 Old myocardial infarction; N14.1 Nephropathy induced by other drugs, medicaments and biological substances; T50.8X5A Adverse effect of diagnostic agents, initial encounter; Z79.02 Long term (current) use of antithrombotics/antiplatelets; Z79.82 Long term (current) use of aspirin; Z79.899 Other long term (current) drug therapy; Z95.5 Presence of coronary angioplasty implant and graft; Z98.51 Tubal ligation status; Z82.49 Family history of ischemic heart disease and other diseases of the circulatory system; Z82.5 Family history of asthma and other chronic lower respiratory diseases
CPT/HCPCS: 36415; 71045; 76770; 80048; 80053; 80061; 81001; 82550; 82553; 83735; 83880; 84484; 85025; 85027; 85347; 85610; 85730; 93005; 93306; 93458; 96372; 96374; 99285; C1874

== ENCOUNTER 2019-05-14 04:13 | Emergency (ER) | payer OTHER ==
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
[2019-05-14 05:35] LABS: Basophils # (A) 0.1 k/uL (0-0.2); Basophils % (A) 1 %; Eosinophils # (A) 0.3 k/uL (0-0.7); Eosinophils % (A) 2 %; HCT 42.2 % (34.0-46.0); Lymphocytes # (A) 2.3 k/uL (1.0-4.8); Lymphocytes % (A) 17 %; MCH 32.4 pg (25.0-35.0); MCHC 33.1 g/dL (31.0-37.0); MCV 97.8 fL (80.0-100.0); Mean Platelet Volume 9.8; Monocytes # (A) 0.8 k/uL (0-1.0); Monocytes % (A) 6 %; Neutrophils # (A) 9.7 k/uL (1.3-7.7); Neutrophils % (A) 72 %; Platelet Count 276 k/uL (150-450); RBC 4.31 m/uL (3.80-5.40); WBC 13.4 k/uL (3.8-10.6)
[2019-05-14 05:53] LABS: D-Dimer 0.29 mg/L FEU (<0.60); INR 0.9 (<1.2); Partial Thromboplastin Time 26.5 sec (22.0-30.0); Prothrombin Time 9.9 sec (9.0-12.0)
[2019-05-14 06:22] LABS: Albumin 4.5 g/dL (3.5-5.0); Calcium 9.4 mg/dL (8.4-10.2); Potassium 4.8 mmol/L (3.5-5.1); Total Bilirubin 0.5 mg/dL (0.2-1.3); Total Protein 7.7 g/dL (6.3-8.2)
[2019-05-14 06:26] LABS: Appearance,Urine Clear (Clear); Bilirubin,Urine Negative (Negative); Blood,Urine Negative (Negative); Color,Urine Light Yellow; Glucose,Urine (UA) Negative (Negative); Ketones,Urine Negative (Negative); Leukocyte Esterase,Urine Negative (Negative); Nitrite,Urine Negative (Negative); Protein,Urine Trace (Negative); Specific Gravity,Urine 1.008 (1.001-1.035); Urobilinogen,Urine <2.0 mg/dL (<2.0)
[2019-05-14] MEDS ORDERED: ALBUTEROL NEBULIZED 2.5 MG/3 ML INHALATION STA (06:42)
[2019-05-14 07:00] VITALS: TEMP 97.6
--- NOTE | 2019-05-14 07:10 | XR ---
EXAM: XR Chest, 2 Views CLINICAL HISTORY: ITS.REASON XR Reason: chest pain TECHNIQUE: Frontal and lateral views of the chest. COMPARISON: 12/23/18. FINDINGS: Lungs: Prominent pulmonary vascularity. Pleural space: Possible trace left pleural effusion with basilar atelectasis or developing infiltrate. Heart: Stable cardiomediastinal silhouette. Mediastinum: See above. Bones/joints: Left rib deformities again noted.. IMPRESSION: Possible trace left pleural effusion with basilar atelectasis or developing infiltrate.
[2019-05-14] MEDS ORDERED: cefTRIAXone IN SWFI 1,000 MG/10 ML SYRINGE IVP STA (07:19)
[2019-05-14] MEDS ORDERED: AZITHROMYCIN 500 MG TAB PO STA (07:19)
[2019-05-14 07:45] VITALS: BP 139/76; PULSE 82; RESP 18
== END 2019-05-14 07:39 | disposition home or self-care (01) ==
LOC: EC 04:13
DX: J18.9 Pneumonia, unspecified organism (principal); I25.10 Atherosclerotic heart disease of native coronary artery without angina pectoris; I25.2 Old myocardial infarction; I12.9 Hypertensive chronic kidney disease with stage 1 through stage 4 chronic kidney disease, or unspecified chronic kidney disease; N18.9 Chronic kidney disease, unspecified; F17.200 Nicotine dependence, unspecified, uncomplicated; Z95.5 Presence of coronary angioplasty implant and graft; Z82.5 Family history of asthma and other chronic lower respiratory diseases; Z82.49 Family history of ischemic heart disease and other diseases of the circulatory system
CPT/HCPCS: 36415; 94640; 93005; 85379; 83880; 80053; 83605; 84484; 85025; 85610; 85730; 81003; 71046; 99285; 96374; J0696

== ENCOUNTER 2019-06-07 02:35 | Emergency (ER) | payer OTHER ==
--- NOTE | 2019-06-07 03:47 | ED ---
Chest Pain HPI - General Chief Complaint: Chest Pain Stated Complaint: Abd Pain Time Seen by Provider: 06/07/19 03:28 Source: patient Mode of arrival: ambulatory - History of Present Illness Initial Comments: Kiersten is a 54-year-old female who presents the ER today for evaluation of burning left-sided chest pain. Patient reports she has a history of rib fractures on that side, she was recently diagnosed with bronchitis and prescribed azithromycin. Despite being compliant with that patient reports she's continues to have a nonproductive cough daily. Patient does continue to smoke cigarettes. Patient reports she had a coughing episode today. Subsequent he developed a burning pain in left side of her ribs consistent with previous fracture. Patient reports that the pain became overwhelming came to the ER for evaluation. Patient denies any exertional chest pain palpitations or shortness breath. Patient reports chronic cough secondary to COPD. Patient denies any fevers chills nausea or vomiting. - Related Data Previous Rx's Medication Instructions Recorded Atorvastatin [Lipitor] 80 mg PO HS #30 tab 10/31/13 Enalapril [Vasotec] 5 mg PO BID #60 tab 10/31/13 Aspirin 81 mg PO DAILY #30 chew 12/25/18 Clopidogrel [Plavix] 75 mg PO DAILY #30 tablet 12/25/18 Nitroglycerin Sl Tabs [Nitrostat] 0.4 mg SUBLINGUAL Q5M PRN #20 tab 12/25/18 amLODIPine [Norvasc] 5 mg PO DAILY #30 tab 12/25/18 Albuterol Inhaler [Ventolin Hfa 1 - 2 puff INHALATION Q6HR PRN #1 05/14/19 Inhaler] inhaler Azithromycin [Zithromax Z-pack] 250 mg PO DIRECTED #6 tab 05/14/19 Lidocaine 5% Patch [Lidoderm] 1 patch TOPICAL DAILY #30 patch 06/07/19 Allergies Allergy/AdvReac Type Severity Reaction Status Date / Time No Known Allergies Allergy Verified 06/07/19 03:11 Review of Systems ROS Statement: Those systems with pertinent positive or pertinent negative responses have been documented in the HPI. ROS Other: All systems not noted in ROS Statement are negative. EKG Findings - EKG Comments: EKG Findings:: EKG was obtained due to complaint of left-sided chest pain, EKG was obtained at 3:20 AM, rate is 91 rhythm is sinus there is normal axis, NH p rolonged at 214 consistent with sinus rhythm with first-degree AV block, dressed 98, QTC [address] elevations or depressions no evidence of acute ischemia or infarction. Past Medical History Past Medical History: Coronary Artery Disease (CAD), Hyperlipidemia, Hypertension, Myocardial Infarction ([place]), Renal Disease, Thyroid Disorder Additional Past Medical History / Comment(s): Ischemic cardiomyopathy, GRAVES, hypothyroid, chronic kidney dx. Last Myocardial Infarction Date:: 11/09/13 History of Any Multi-Drug Resistant Organisms: None Reported Past Surgical History: Breast Surgery, Heart Catheterization With Stent, Tubal Ligation Additional Past Surgical History / Comment(s): 10/2013 PCI with 2 stents, 12/2013 PCI with 1 stent, 10/2014 cardiac cath tx medically, BENIGN LUMP REMOVED FROM LEFT BREAST, stent placed end-2018 Past Anesthesia/Blood Transfusion Reactions: Postoperative Nausea & Vomiting (PONV) Date of Last Stent Placement:: 10/29/13 Past Psychological History: No Psychological Hx Reported Smoking Status: Current every day smoker Past Alcohol Use History: None Reported Past Drug Use History: None Reported - Past Family History Mother Family Medical History: Myocardial Infarction ([place]) Additional Family Medical History / Comment(s): Mother had a [place] in her 60's. She is 70 yrs old. Father Family Medical History: COPD Additional Family Medical History / Comment(s): Agent orange exposure in [place]. Father is 72 yrs old. General Exam - General Exam Comments Initial Comments: Physical Exam GENERAL: Patient is well-developed and well-nourished. Patient is nontoxic and well- hydrated and is in no distress. HENT: Normocephalic, Atraumatic. EYES: PERRL, EOMI PULMONARY: Unlabored respirations. No audible rales rhonchi or wheezing was noted. Tenderness to palpation left chest wall CARDIOVASCULAR: There is a regular rate and rhythm without any murmurs gallops or rubs. ABDOMEN: Soft and nontender with normal bowel sounds. SKIN: Skin is clear with no lesions or rashes and otherwise unremarkable. : Deferred NEUROLOGIC: Patient is alert and oriented x3. Moving all extremities spontaneously MUSCULOSKELETAL: Normal extremities with adequate strength and full range of motion. No lower extremity swelling or edema. No calf tenderness. PSYCHIATRIC: Normal psychiatric evaluation. Course Vital Signs 06/07/19 06/07/1920 03:07 03:55 05:31 Temperature 97.9 F 97.4 F L Pulse Rate 98 80 Respiratory 17 22 18 Rate Blood Pressure 138/83 119/75 O2 Sat by Pulse 99 94 L Oximetry 06/07/19 06:34 Temperature Pulse Rate 78 Respiratory 20 Rate Blood Pressure 124/81 O2 Sat by Pulse 96 Oximetry Chest Pain MDM - [facility] The patient was seen and evaluated history is obtained from patient history and physical exam are concerning for likely musculoskeletal chest wall pain However given the patient's history for workup will be obtained Chest x-ray was signs of rib fractures no acute pneumonia and no pneumothorax no other abnormality Labs are unremarkable Results were discussed patient expresses relief, after the patient Lidoderm which patient reports she's recently ran out of and feels like that was the only thing treated her pain adequately. Patient be given a Lidoderm and prescription for additional 30 days of Lidoderm. Patient agreeable with this plan. This time patient comfortable plan for discharge home with diagnosis of musculoskeletal chest wall pain secondary to previous fractures. All questions pertaining care were answered return parameters were discussed patient received lidocaine patches feeling much better prior to discharge. Disposition Clinical Impression: Left-sided chest wall pain Disposition: HOME SELF-CARE Condition: Stable Prescriptions: Lidocaine 5% Patch [Lidoderm] 1 patch TOPICAL DAILY #30 patch Is patient prescribed a controlled substance at d/c from ED?: No Referrals: Usha Craig MD [Primary Care Provider] - 1-2 days
[2019-06-07 03:55] LABS: Basophils # (A) 0.1 k/uL (0-0.2); Basophils % (A) 1 %; Eosinophils # (A) 0.4 k/uL (0-0.7); Eosinophils % (A) 3 %; HCT 41.4 % (34.0-46.0); HGB 13.9 gm/dL (11.4-16.0); Lymphocytes # (A) 2.4 k/uL (1.0-4.8); Lymphocytes % (A) 18 %; MCH 32.5 pg (25.0-35.0); MCHC 33.5 g/dL (31.0-37.0); MCV 96.8 fL (80.0-100.0); Mean Platelet Volume 9.5; Monocytes # (A) 0.8 k/uL (0-1.0); Monocytes % (A) 6 %; Neutrophils # (A) 9.4 k/uL (1.3-7.7); Neutrophils % (A) 70 %; Platelet Count 303 k/uL (150-450); RBC 4.28 m/uL (3.80-5.40); RDW 15.4 % (11.5-15.5); WBC 13.3 k/uL (3.8-10.6)
--- NOTE | 2019-06-07 03:58 | XR ---
EXAMINATION TYPE: XR chest 2V DATE OF EXAM: 06/07/2019 COMPARISON: 05/14/2019 HISTORY: Chest pain TECHNIQUE: FINDINGS: Heart is normal. Lungs are clear of infiltrate. There are multiple old left-sided healed ri b fractures. There is slight blunting left costophrenic angle. There are chest leads. There is no hea rt failure. Bony thorax is intact. There are chest leads. IMPRESSION: No active cardiopulmonary disease. Multiple old left-sided rib fractures. No change.
[2019-06-07 04:04] LABS: Albumin 4.3 g/dL (3.5-5.0); Calcium 9.3 mg/dL (8.4-10.2); INR 0.9 (<1.2); Magnesium 2.1 mg/dL (1.6-2.3); Partial Thromboplastin Time 25.5 sec (22.0-30.0); Prothrombin Time 9.7 sec (9.0-12.0); Total Bilirubin 0.4 mg/dL (0.2-1.3); Total Protein 7.4 g/dL (6.3-8.2)
[2019-06-07] MEDS ORDERED: KETOROLAC 30 MG/ML 1 ML VIAL IVP STA (05:24)
[2019-06-07 05:32] VITALS: TEMP 97.4
[2019-06-07] MEDS ORDERED: LIDOCAINE 5% PATCH TOPICAL STA (06:13)
[2019-06-07 06:36] VITALS: BP 124/81; PULSE 78; RESP 20
[2019-06-07] MEDS ORDERED: LIDOCAINE 5% PATCH TOPICAL SCH (09:00)
== END 2019-06-07 06:36 | disposition home or self-care (01) ==
LOC: EC 02:35
DX: S22.42XA Multiple fractures of ribs, left side, initial encounter for closed fracture (principal); J44.9 Chronic obstructive pulmonary disease, unspecified; I25.10 Atherosclerotic heart disease of native coronary artery without angina pectoris; I25.2 Old myocardial infarction; I10 Essential (primary) hypertension; F17.210 Nicotine dependence, cigarettes, uncomplicated; Z95.5 Presence of coronary angioplasty implant and graft; Z82.49 Family history of ischemic heart disease and other diseases of the circulatory system; X58.XXXA Exposure to other specified factors, initial encounter
CPT/HCPCS: 36415; 93005; 83880; 80053; 83735; 84484; 85025; 85610; 85730; 71046; 99285; 96374; J1885

== ENCOUNTER → 2020-04-24 | Outpatient (CLI) | payer OTHER ==
--- NOTE | 2020-04-25 08:25 | CT ---
EXAMINATION TYPE: CT chest wo con DATE OF EXAM: 04/24/2020 COMPARISON: None HISTORY: c/o left rib pain CT DLP: 257 mGycm, Automated exposure control for dose reduction was used. CONTRAST: None TECHNIQUE: Axial images were obtained at 1 mm thick sections at 10 mm intervals. This will limit po rtions of the examination which may not be visualized within the [id number]. Images were obtained in the prone and supine views. FINDINGS: Thyroid is essentially not visualized during this exam. There is a 0.6 cm nodule in the posterior medial left upper lobe. Series 3 image 15. A peripheral based nodule measuring 1.3 cm adjacent to some pleural thickening is at the lateral left lung base. Series 3 image 42. A 0.5 cm nodule is in the posterior left lung base on the prone view. Series 6 image 50. Pneumatoceles are scattered through the bilateral lungs No enlarged mediastinal or hilar adenopathy is evident. The ascending aorta diameter at the level o f the main pulmonary artery is 3.1 cm. The main pulmonary artery diameter at the bifurcation is 2.6 cm. Coronary artery calcification is present. Limited CT sections are obtained through the upper abdomen. There is thickening of the bilateral adre nal glands measuring 2.4 cm on the right and 2.3 cm on the left. 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 This may extend from a pproximately the third through the 10th ribs with greater diastases in the lower posterior lateral le ft ribs. IMPRESSIONS: 1. Scattered small nodules within the periphery of the left lung discussed above. Standard CT chest r ecommended for complete evaluation. 2. 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
== END | disposition home or self-care (01) ==
LOC: RADCTMAIN 16:53
PROVIDERS: ATTEND Internal Medicine
DX: R91.8 Other nonspecific abnormal finding of lung field (principal); S22.42XK Multiple fractures of ribs, left side, subsequent encounter for fracture with nonunion; M89.8X8 Other specified disorders of bone, other site
CPT/HCPCS: 71250

== ENCOUNTER 2021-10-04 06:51 | Inpatient (IN) | payer OTHER ==
[2021-10-04] MEDS ORDERED: NITROGLYCERIN SL TABS 0.4 MG TAB SUBLINGUAL STA ×3 (07:11)
[2021-10-04] MEDS ORDERED: ASPIRIN 81 MG PO STA (07:11)
--- NOTE | 2021-10-04 07:14 | ED ---
General Adult HPI - General Chief complaint: Chest Pain Stated complaint: Chest Pain Time Seen by Provider: 10/04/21 07:03 Source: patient, RN notes reviewed Mode of arrival: wheelchair Limitations: no limitations - History of Present Illness Initial comments: Patient is a pleasant 56-year-old female presenting to the emergency department with concerns for chest discomfort. Onset of symptoms was an overnight. Patient was asleep. Symptoms have worsened since that time. Discomfort is moderate. Discomfort feels like pressure. There is also discomfort of her upper back. She symptoms have been present four or 5 times in the past associated with cardiac problems. Mild associated shortness of breath. Patient has had some sweating. No nausea. - Related Data Home Medications Medication Instructions Recorded Confirmed Levothyroxine Sodium [Synthroid] 50 mcg PO DAILY 10/04/21 10/04/21 Allergies Allergy/AdvReac Type Severity Reaction Status Date / Time No Known Allergies Allergy Verified 10/04/21 08:17 Review of Systems ROS Statement: Those systems with pertinent positive or pertinent negative responses have been documented in the HPI. ROS Other: All systems not noted in ROS Statement are negative. Constitutional: Denies: fever Eyes: Denies: eye pain ENT: Denies: ear pain Respiratory: Reports: as per HPI. Denies: cough Cardiovascular: Reports: as per HPI, chest pain Endocrine: Denies: fatigue Gastrointestinal: Denies: as per HPI, nausea Genitourinary: Denies: dysuria Musculoskeletal: Reports: as per HPI Skin: Denies: rash Neurological: Denies: headache Past Medical History Past Medical History: Coronary Artery Disease (CAD), Hyperlipidemia, Hypertension, Myocardial Infarction ([place]), Renal Disease, Thyroid Disorder Additional Past Medical History / Comment(s): Ischemic cardiomyopathy, GRAVES, hypothyroid, chronic kidney dx. Last Myocardial Infarction Date:: 11/09/13 History of Any Multi-Drug Resistant Organisms: None Reported Past Surgical History: Breast Surgery, Heart Catheterization With Stent, Tubal Ligation Additional Past Surgical History / Comment(s): 10/2013 PCI with 2 stents, 12/2013 PCI with 1 stent, 10/2014 cardiac cath tx medically, BENIGN LUMP REMOVED FROM LEFT BREAST, stent placed end-2018 Past Anesthesia/Blood Transfusion Reactions: Postoperative Nausea & Vomiting (PONV) Date of Last Stent Placement:: 10/29/13 Past Psychological History: No Psychological Hx Reported Smoking Status: Current every day smoker Past Alcohol Use History: None Reported Past Drug Use History: None Reported - Past Family History Mother Family Medical History: Myocardial Infarction ([place]) Additional Family Medical History / Comment(s): Mother had a [place] in her 60's. She is 70 yrs old. Father Family Medical History: COPD Additional Family Medical History / Comment(s): Agent orange exposure in [place]. Father is 72 yrs old. General Exam Limitations: no limitations General appearance: alert, in no apparent distress Head exam: Present: normocephalic Eye exam: Present: normal appearance Neck exam: Present: normal inspection Respiratory exam: Present: normal lung sounds bilaterally. Absent: chest wall tenderness Cardiovascular Exam: Present: regular rate, normal rhythm Expanded Peripheral pulses: 2+: Radial (R), Radial (L), Posterior Tibialis (R), Posterior Tibialis (L) GI/Abdominal exam: Present: soft. Absent: tenderness Extremities exam: Present: normal inspection. Absent: pedal edema, calf tenderness Neurological exam: Present: alert Psychiatric exam: Present: normal affect, normal mood Skin exam: Present: normal color Course Vital Signs 10/04/21 10/04/21 10/04/21 06:52 07:33 07:37 Temperature 97.7 F Pulse Rate 93 88 88 Respiratory 18 18 20 Rate Blood Pressure 172/88 164/88 O2 Sat by Pulse 96 97 97 Oximetry 10/04/21 08:21 Temperature Pulse Rate 81 Respiratory 16 Rate Blood Pressure 142/78 O2 Sat by Pulse 97 Oximetry EKG Findings - EKG Comments: EKG Findings:: Sinus rhythm with rate of 96. SC 180. QRS 96. QT 359. QTC 413. Left axis. Septal Q waves. T-wave inversion V5 V6 Medical Decision Making - Medical Decision Making Patient reevaluated and resting comfortably in bed. Symptoms improved with nitroglycerin. Patient updated on results and plan. [facility] physician group has been paged for admission covering hospital observation call. Case was discussed with practitioner Troy, who will admit. - Lab Data Result diagrams: 10/04/21 07:33 10/04/21 07:33 Lab Results 10/04/21 10/04/21 10/04/21 Range/Units 07:33 07:33 07:33 WBC 11.1 H (3.8-10.6) k/uL RBC 4.53 (3.80-5.40) m/uL Hgb 14.7 (11.4-16.0) gm/dL Hct 45.0 (34.0-46.0) % MCV 99.2 (80.0-100.0) fL MCH 32.4 (25.0-35.0) pg MCHC 32.7 (31.0-37.0) g/dL RDW 15.0 (11.5-15.5) % Plt Count 318 (150-450) k/uL MPV 8.9 Neutrophils % 75 % Lymphocytes % 14 % Monocytes % 4 % Eosinophils % 4 % Basophils % 1 % Neutrophils # 8.4 H (1.3-7.7) k/uL Lymphocytes # 1.6 (1.0-4.8) k/uL Monocytes # 0.5 (0-1.0) k/uL Eosinophils # 0.4 (0-0.7) k/uL Basophils # 0.1 (0-0.2) k/uL Macrocytosis Slight PT 10.3 (9.0-12.0) sec INR 0.9 (<1.2) APTT 23.9 (22.0-30.0) sec D-Dimer 0.44 (<0.60) mg/L FEU Sodium 136 L (137-145) mmol/L Potassium 4.1 (3.5-5.1) mmol/L Chloride 104 (98-107) mmol/L Carbon Dioxide 24 (22-30) mmol/L Anion Gap 8 mmol/L BUN 13 (7-17) mg/dL Creatinine 1.09 H (0.52-1.04) mg/dL Est GFR (CKD-EPI)AfAm 67 (>60 ml/min/1.73 sqM) Est GFR (CKD-EPI)NonAf 58 (>60 ml/min/1.73 sqM) Glucose 167 H (74-99) mg/dL Calcium 8.8 (8.4-10.2) mg/dL Magnesium 2.0 (1.6-2.3) mg/dL Total Bilirubin 0.4 (0.2-1.3) mg/dL AST 66 H (14-36) U/L ALT 45 H (4-34) U/L Alkaline Phosphatase 84 (38-126) U/L Troponin I (0.000-0.034) ng/mL Total Protein 6.7 (6.3-8.2) g/dL Albumin 3.8 (3.5-5.0) g/dL 10/04/21 Range/Units 07:33 WBC (3.8-10.6) k/uL RBC (3.80-5.40) m/uL Hgb (11.4-16.0) gm/dL Hct (34.0-46.0) % MCV (80.0-100.0) fL MCH (25.0-35.0) pg MCHC (31.0-37.0) g/dL RDW (11.5-15.5) % Plt Count (150-450) k/uL MPV Neutrophils % % Lymphocytes % % Monocytes % % Eosinophils % % Basophils % % Neutrophils # (1.3-7.7) k/uL Lymphocytes # (1.0-4.8) k/uL Monocytes # (0-1.0) k/uL Eosinophils # (0-0.7) k/uL Basophils # (0-0.2) k/uL Macrocytosis PT (9.0-12.0) sec INR (<1.2) APTT (22.0-30.0) sec D-Dimer (<0.60) mg/L FEU Sodium (137-145) mmol/L Potassium (3.5-5.1) mmol/L Chloride (98-107) mmol/L Carbon Dioxide (22-30) mmol/L Anion Gap mmol/L BUN (7-17) mg/dL Creatinine (0.52-1.04) mg/dL Est GFR (CKD-EPI)AfAm (>60 ml/min/1.73 sqM) Est GFR (CKD-EPI)NonAf (>60 ml/min/1.73 sqM) Glucose (74-99) mg/dL Calcium (8.4-10.2) mg/dL Magnesium (1.6-2.3) mg/dL Total Bilirubin (0.2-1.3) mg/dL AST (14-36) U/L ALT (4-34) U/L Alkaline Phosphatase (38-126) U/L Troponin I 0.013 (0.000-0.034) ng/mL Total Protein (6.3-8.2) g/dL Albumin (3.5-5.0) g/dL - Radiology Data Radiology results: image reviewed (Chest x-ray shows mild cardiomegaly and chronic Illness Changes without Acute Process.) Disposition Clinical Impression: Chest pain Disposition: ADMITTED IP TO THIS HOSP Is patient prescribed a controlled substance at d/c from ED?: No Referrals: Usha Craig MD [Primary Care Provider] - 1-2 days Time of Disposition: 08:33
[2021-10-04 07:51] LABS: Basophils # (A) 0.1 k/uL (0-0.2); Basophils % (A) 1 %; Eosinophils # (A) 0.4 k/uL (0-0.7); Eosinophils % (A) 4 %; HGB 14.7 gm/dL (11.4-16.0); Lymphocytes # (A) 1.6 k/uL (1.0-4.8); Lymphocytes % (A) 14 %; MCH 32.4 pg (25.0-35.0); MCHC 32.7 g/dL (31.0-37.0); MCV 99.2 fL (80.0-100.0); Macrocytosis Slight; Mean Platelet Volume 8.9; Monocytes # (A) 0.5 k/uL (0-1.0); Monocytes % (A) 4 %; Neutrophils # (A) 8.4 k/uL (1.3-7.7); Neutrophils % (A) 75 %; Platelet Count 318 k/uL (150-450); RBC 4.53 m/uL (3.80-5.40); WBC 11.1 k/uL (3.8-10.6)
[2021-10-04 07:59] LABS: INR 0.9 (<1.2); Partial Thromboplastin Time 23.9 sec (22.0-30.0); Prothrombin Time 10.3 sec (9.0-12.0)
[2021-10-04 08:00] LABS: Albumin 3.8 g/dL (3.5-5.0); Calcium 8.8 mg/dL (8.4-10.2); Potassium 4.1 mmol/L (3.5-5.1); Total Bilirubin 0.4 mg/dL (0.2-1.3); Total Protein 6.7 g/dL (6.3-8.2)
--- NOTE | 2021-10-04 08:12 | XR ---
EXAMINATION TYPE: XR chest 2V DATE OF EXAM: 10/04/2021 COMPARISON: Chest x-ray June 07, 2019 HISTORY: COPD with shortness of breath TECHNIQUE: Frontal and lateral views of the chest are obtained. FINDINGS: There is some chronic parenchymal changes bilaterally without suspicious focal air space o pacity, pleural effusion, or pneumothorax seen. The cardiac silhouette size is stable and mildly enl arged. The osseous structures are demineralized. IMPRESSION: Mild cardiomegaly and chronic emphysematous changes without acute pulmonary process. No significant change from prior.
[2021-10-04] MEDS ORDERED: NITROGLYCERIN SL TABS 0.4 MG TAB SUBLINGUAL PRN (08:34)
[2021-10-04] MEDS ORDERED: HYDROcodone/APAP 5-325MG 1 EACH TAB PO PRN (08:50)
[2021-10-04] MEDS ORDERED: NALOXONE 0.4 MG/ML 10 ML VIAL IVP PRN (08:50)
[2021-10-04] MEDS ORDERED: ACETAMINOPHEN TAB 325 MG TAB PO PRN (08:50)
[2021-10-04] MEDS ORDERED: NALOXONE 0.4 MG/ML 1 ML VIAL IVP PRN (08:56)
[2021-10-04] MEDS: ATORVASTATIN 80 MG TAB PO SCH (09:46)
[2021-10-04] MEDS: METOPROLOL TARTRATE 12.5 MG TAB PO SCH ×2 (09:47→21:46)
[2021-10-04] MEDS: ENOXAPARIN 40 MG/0.4 ML SYRINGE SQ SCH ×2 (09:47→11:13)
[2021-10-04] MEDS: LEVOTHYROXINE 50 MCG TAB PO SCH (09:47)
--- NOTE | 2021-10-04 12:09 | P.HPIM ---
History of Present Illness H&P Date: 10/04/21 History of Presenting Illness: Patient is a very pleasant 56-year-old female with a past medical history of CAD with stents, hypertension, hyperlipidemia, ischemic cardiomyopathy, Graves' disease, chronic kidney disease, COPD not on home oxygen dependent with continued nicotine dependence. She presented to the emergency department with a chief complaint of chest pain/pressure radiating into her back accompanied by mild shortness of breath and diaphoresis. Patient reports these symptoms began last night and awoken her from sleep. She denied having any headache, lighthead edness, dizziness, palpitations, nausea, vomiting, or experiencing any numbness/tingling/weakness in her extremities. Patient reports pain has improved but remains as a subtle ache. Patient underwent full evaluation in the emergency department. CBC revealing mild leukocytosis with WBC count of 11.1. BMP revealing mildly elevated creatinine which is improved from baseline levels and currently 1.09. Liver profile revealing slightly elevated AST of 66 and ALT of 45. Troponin negative at 0.013. EKG revealing normal sinus rhythm at 96 bpm with T-wave inversion in leads V3 through V6. Chest x-ray revealing mild cardiomegaly and chronic emphysematous changes, otherwise negative for acute pu lmonary process. Patient is admitted under our services with consultation to cardiology. Review of systems: Pertinent positives and negatives as discussed in HPI, a complete review of systems was performed and all other systems are negative. Physical exam: Vital signs reviewed and stable. General: Nontoxic, no distress and appears stated age. Derm: Skin warm and dry, normal coloration for ethnicity. Head: Atraumatic, normocephalic and symmetric. Eyes: EOMs intact, no lid lag, and anicteric sclera Mouth: no lip lesions, mucus membranes moist Cardiovascular: regular rate and rhythm with normal S1S2, no murmur, positive posterior tibial pulses bilaterally, and cap refill < 2 seconds. Lungs: Respirations even, regular, and unlabored on room air. Lungs CTA bilaterally, no rhonchi, no rales, no wheezing, and no accessory muscle usage. Abdominal: soft, nontender to palpation, no guarding, no appreciable organomegaly Ext: ROM intact. No gross muscle atrophy, no edema, no contractures Neuro: Speech clear, face symmetrical and CN II-XII grossly intact with no noted focal neuro deficits Psych: Alert and oriented to person, place, time, and situation. Appropriate and pleasant affect. Assessment and Plan of Care: Chest pain, rule out acute coronary event History of coronary artery disease with stents Hypertension Hyperlipidemia History of ischemic cardiomyopathy -Cardiology consult, appreciate further recommendations -Telemetry monitoring -Trend troponins -Cardiac diet, NPO at midnight -Aspirin, atorvastatin, and metoprolol -Lipid profile with a.m. labs. -Echocardiogram Hypothyroidism with history of Graves' disease -Continue daily medication regimen with the levothyroxine. COPD with continued nicotine dependence -Recommend smoking cessation discussed with patient. -Patient declined nicotine patch at this time. The patient is admitted with an anticipated less than 2 midnight stay for evaluation of chest pain CODE STATUS: Full code DVT prophylaxis: Heparin Discussed with: Patient and RN Anticipated discharge date: Likely 1-[address]: Home A total of 45 minutes was spent on the care of this complex patient more than 50% of the time was spent in counseling and care coordination. Past Medical History Past Medical History: Coronary Artery Disease (CAD), Hyperlipidemia, Hypertens ion, Myocardial Infarction ([place]), Renal Disease, Thyroid Disorder Additional Past Medical History / Comment(s): Ischemic cardiomyopathy, GRAVES, hypothyroid, chronic kidney dx. Last Myocardial Infarction Date:: 11/09/13 History of Any Multi-Drug Resistant Organisms: None Reported Past Surgical History: Breast Surgery, Heart Catheterization With Stent, Tubal Ligation Additional Past Surgical History / Comment(s): 10/2013 PCI with 2 stents, 12/2013 PCI with 1 stent, 10/2014 cardiac cath tx medically, BENIGN LUMP REMOVED FROM LEFT BREAST, stent placed end-2018 Past Anesthesia/Blood Transfusion Reactions: Postoperative Nausea & Vomiting (PONV) Date of Last Stent Placement:: 10/29/13 Past Psychological History: No Psychological Hx Reported Smoking Status: Current every day smoker Past Alcohol Use History: None Reported Past Drug Use History: None Reported - Past Family History Mother Family Medical History: Myocardial Infarction ([place]) Additional Family Medical History / Comment(s): Mother had a [place] in her 60's. She is 70 yrs old. Father Family Medical History: COPD Additional Family Medical History / Comment(s): Agent orange exposure in [place]. Father is 72 yrs old. Medications and Allergies Home Medications Medication Instructions Recorded Confirmed Type Levothyroxine Sodium [Synthroid] 50 mcg PO DAILY 10/04/21 10/04/21 History Allergies Allergy/AdvReac Type Severity Reaction Status Date / Time No Known Allergies Allergy Verified 10/04/21 08:17 Physical Exam Vitals: Vital Signs Temp Pulse Resp BP Pulse Ox 10/04/21 08:21 81 16 142/78 97 10/04/21 07:37 88 20 97 10/04/21 07:33 88 18 164/88 97 10/04/21 06:52 97.7 F 93 18 172/88 96 Intake and Output 10/03/21 10/04/21 10/04/21 22:59 06:59 14:59 Other: Weight 104.326 kg Results CBC & Chem 7: 10/04/21 07:33 10/04/21 07:33 Labs: Abnormal Lab Results - Last 24 Hours (Table) 10/04/21 10/04/21 Range/Units 07:33 07:33 WBC 11.1 H (3.8-10.6) k/uL Neutrophils # 8.4 H (1.3-7.7) k/uL Sodium 136 L (137-145) mmol/L Creatinine 1.09 H (0.52-1.04) mg/dL Glucose 167 H (74-99) mg/dL AST 66 H (14-36) U/L ALT 45 H (4-34) U/L
[2021-10-04] MEDS: NITROGLYCERIN OINT 1 INCH/GM PACKET TOPICAL SCH ×3 (12:15→23:01)
--- NOTE | 2021-10-04 12:47 | CA ---
Transthoracic Echo Report Name: Kiersten Aj Age: 56 Gender: F : 1965 Exam Date: 10/04/2021 10:20 Exam Location: [facility] Ht (in): 61 Wt (lb): 230 Ordering Physician: Troy Thacker Attending/Referring Phys: Dialysis Technician Trina Antonio RDCS Procedure CPT: Indications: Chest pain, evaluate structure and function Cardiac Hx: Technical Quality: Technically difficult study Contrast 1: Lumason Total Dose (mL): 4 Contrast 2: Total Dose (mL): MEASUREMENTS (Male / Female) Normal Values 2D ECHO LV Diastolic Diameter PLAX 4.7 cm 4.2 - 5.9 / 3.9 - 5.3 cm LV Systolic Diameter PLAX 3.6 cm IVS Diastolic Thickness 0.9 cm 0.6 - 1.0 / 0.6 - 0.9 cm LVPW Diastolic Thickness 1.1 cm 0.6 - 1.0 / 0.6 - 0.9 cm LV Relative Wall Thickness 0.4 LA Volume 45.7 cm??? 18 - 58 / 22 - 52 cm??? M-MODE Aortic Root Diameter MM 3.0 cm DOPPLER AV Peak Velocity 124.0 cm/s AV Peak Gradient 6.1 mmHg LVOT Peak Velocity 69.2 cm/s LVOT Peak Gradient 1.9 mmHg MV Peak Velocity 121.1 cm/s MV Peak Gradient 5.9 mmHg MV Mean Velocity 85.8 cm/s MV Mean Gradient 3.3 mmHg MV Velocity Time Integral 32.7 cm MV Area PHT 3.6 cm??? Mitral E Point Velocity 93.3 cm/s Mitral A Point Velocity 116.6 cm/s Mitral E to A Ratio 0.8 MV Deceleration Time 206.6 ms MV E' Velocity 5.5 cm/s Mitral E to MV E' Ratio 17.1 FINDINGS Left Ventricle Moderately increased left ventricular wall thickness. Left ventricular ejection fraction is estimated at __ 45-50 %. There is inferior wall hypokinesia noted Right Ventricle Right ventricle not well visualized. Right ventricular systolic pressure within normal limits. Right Atrium Normal right atrial size. Left Atrium Normal left atrial size. No evidence for an atrial septal defect. Mitral Valve Mild mitral annular calcification. Mild mitral regurgitation. Aortic Valve No aortic stenosis. Trace aortic regurgitation. Tricuspid Valve Mild tricuspid regurgitation. Pulmonic Valve Pulmonic valve not well visualized. Pericardium No pericardial effusion. Aorta Normal size aortic root and proximal ascending aorta. CONCLUSIONS Technically difficult study. Echo contrast was used. There is inferior wall hypokinesia. Ejection fraction is about 45-50%. Mild mitral regurgitation was noted there is mitral annular calcification. No pericardial effusion Previewed by: Dr. Trev Robertson MD (Electronically Signed) Final Date: 04 October 2021 12:46
[2021-10-04] MEDS ORDERED: HEPARIN SODIUM 1,000 UN/ML (10ML VL) IV ONE (18:21)
[2021-10-04] MEDS: HEPARIN SOD,PORK IN 0.45% NACL 25,000 UNIT in 0.45% NACL 1 250ML.BAG IV SCH (18:39)
[2021-10-05] MEDS: HEPARIN SODIUM 1,000 UN/ML (10ML VL) IV PRN (03:00)
[2021-10-05] MEDS: PANTOPRAZOLE 40 MG TABLET PO SCH (06:32)
[2021-10-05] MEDS: LEVOTHYROXINE 50 MCG TAB PO SCH (06:32)
[2021-10-05] MEDS: NITROGLYCERIN OINT 1 INCH/GM PACKET TOPICAL SCH ×3 (06:33→17:39)
[2021-10-05] MEDS: METOPROLOL TARTRATE 12.5 MG TAB PO SCH ×2 (08:26→20:23)
[2021-10-05] MEDS: ATORVASTATIN 80 MG TAB PO SCH (08:26)
[2021-10-05] MEDS: ASPIRIN 325 MG TAB PO SCH (08:26)
[2021-10-05 09:05] LABS: LDL Cholesterol,Calculated 171.6 mg/dL (0.0-131.0)
[2021-10-05 09:13] LABS: Basophils # (A) 0.1 k/uL (0-0.2); Basophils % (A) 1 %; Eosinophils # (A) 0.4 k/uL (0-0.7); Eosinophils % (A) 3 %; HCT 44.3 % (34.0-46.0); HGB 14.3 gm/dL (11.4-16.0); Lymphocytes # (A) 1.6 k/uL (1.0-4.8); Lymphocytes % (A) 13 %; MCH 32.4 pg (25.0-35.0); MCHC 32.2 g/dL (31.0-37.0); MCV 100.6 fL (80.0-100.0); Macrocytosis Slight; Mean Platelet Volume 9.4; Monocytes # (A) 0.6 k/uL (0-1.0); Monocytes % (A) 5 %; Neutrophils # (A) 9.7 k/uL (1.3-7.7); Neutrophils % (A) 77 %; Platelet Count 284 k/uL (150-450); RDW 14.8 % (11.5-15.5); WBC 12.6 k/uL (3.8-10.6)
[2021-10-05 09:24] LABS: African American GFR (CKD) 61 (>60 ml/min/1.73 sqM); Anion Gap 3 mmol/L; Blood Urea Nitrogen 13 mg/dL (7-17); Calcium 8.7 mg/dL (8.4-10.2); Carbon Dioxide 27 mmol/L (22-30); Chloride 104 mmol/L (98-107); Glucose 115 mg/dL (74-99); Non-African American GFR(CKD) 53 (>60 ml/min/1.73 sqM); Potassium 4.4 mmol/L (3.5-5.1); Sodium 134 mmol/L (137-145)
[2021-10-05] MEDS ORDERED: SODIUM CHLORIDE 0.9% 1,000 ML in EMPTY BAG 1 BAG IV ONE (10:28)
[2021-10-05] MEDS: LOSARTAN 25 MG TAB PO SCH (10:53)
--- NOTE | 2021-10-05 10:56 | P.CRDCN ---
History of Present Illness History of present illness: Known coronary artery disease status post multiple prior angioplasties including LAD circumflex coronary artery and most recently right coronary artery in 2019 hypertension dyslipidemia cardiomyopathy chronic renal insufficiency and COPD who presented to Hospital complaining of chest pain. She describes it as intermittent episodes of precordial chest pressure at rest that at times radiat ed to left arm. EKG shows sinus rhythm with nonspecific ST-T wave changes. Patient's initial symptoms were upper respiratory tract infection that lasted for about 2 weeks and then more recently she developed pericardial chest pain. He had she has had 3 sets of troponins third set came back elevated at 0.07. Her lipid profile shows that the LDL cholesterol is elevated at 170. Hemoglobin is normal at 14.8 creatinine is 1.1 She is currently in IV heparin aspirin beta blockers and low soft and along with Lipitor I advised the patient to undergo cardiac catheterization for further evaluation describes this benefits understood and accepted Review of systems: 14 out of 14 review of systems has been performed pertinent set as documented in history of presenting illness General: The patient is awake and alert, in no distress, and does not appear acutely ill. Skin: Skin is warm and dry and no rashes or lesions are noted. Eye: Pupils are equal, round and reactive to light, extra-ocular movements are intact; there is normal conjunctiva bilaterally. Ears, nose, mouth and throat: There are moist mucous membranes and no oral lesions. Neck: The neck is supple, there is no tenderness or JVD. Cardiovascular: There is a regular rate and rhythm. No murmur, rub or gallop is appreciated. Respiratory: Lungs are clear to auscultation, respirations are non-labored, breath sounds are equal. Gastrointestinal: Soft, non-distended, non-tender abdomen without masses or organomegaly noted. There is no rebound or guarding present. Bowel sounds are unremarkable. Back: There is no tenderness to palpation in the midline. There is no obvious deformity. Musculoskeletal: Normal ROM, no tenderness, There is no pedal edema. There is no calf tenderness or swelling. Extremities: No edema. Vascular: Femoral pulse is normal. Posterior tibial pulses are normal .Dorsalis pedis is palpable. Neurological: CN II-XII intact. There are no obvious motor or sensory deficits. Speech is normal. Psychiatric: Cooperative, appropriate mood & affect, normal judgment. EKG is as described above labs are as described above Assessment and plan: Acute non-ST segment elevation MT in a patient with known CAD status post prior multivessel angioplasty Ischemic cardiomyopathy I will do cardiac catheterization on her this morning obtain a 2-D echo to evaluate LV function Past Medical History Past Medical History: Coronary Artery Disease (CAD), COPD, Hyperlipidemia, Hypertension, Myocardial Infarction ([place]), Renal Disease, Thyroid Disorder Additional Past Medical History / Comment(s): Ischemic cardiomyopathy, GRAVES, hypothyroid, chronic kidney dx. Last Myocardial Infarction Date:: 11/09/13 History of Any Multi-Drug Resistant Organisms: None Reported Past Surgical History: Breast Surgery, Heart Catheterization With Stent, Tubal Ligation Additional Past Surgical History / Comment(s): 10/2013 PCI with 2 stents, 12/2013 PCI with 1 stent, 10/2014 cardiac cath tx medically, BENIGN LUMP REMOVED FROM LEFT BREAST, stent placed end-2018 Past Anesthesia/Blood Transfusion Reactions: No Reported Reaction, Postoperative Nausea & Vomiting (PONV) Date of Last Stent Placement:: 10/29/13 Past Psychological History: No Psychological Hx Reported Additional Psychological History / Comment(s): Resides with brother and two friends. Smoking Status: Current every day smoker Past Alcohol Use History: None Reported Additional Past Alcohol Use History / Comment(s): Pt started smoking in 1981. She is down to 1/2 ppd. Past Drug Use History: None Reported - Past Family History Mother Family Medical History: Myocardial Infarction ([place]) Additional Family Medical History / Comment(s): Mother had a [place] in her 60's. She is 70 yrs old. Father Family Medical History: COPD Additional Family Medical History / Comment(s): Agent orange exposure in [place]. Father is 72 yrs old. Medications and Allergies Home Medications Medication Instructions Recorded Confirmed Type Levothyroxine Sodium [Synthroid] 50 mcg PO DAILY 10/04/21 10/04/21 History Allergies Allergy/AdvReac Type Severity Reaction Status Date / Time No Known Allergies Allergy Verified 10/04/21 08:17 Physical Exam Vitals: Vital Signs Temp Pulse Pulse Resp BP BP Pulse Ox 10/05/21 10:35 97.6 F 73 16 172/84 97 10/05/21 08:20 73 18 10/05/21 08:15 97.6 F 73 18 158/82 94 L 10/05/21 03:39 98.4 F 77 18 130/62 98 10/05/21 00:00 68 16 124/63 95 10/04/21 21:38 97.7 F 80 18 160/82 96 10/04/21 20:55 97.7 F 80 18 145/78 97 10/04/21 14:30 122/73 10/04/21 13:30 66 16 152/85 96 10/04/21 11:15 76 16 159/86 97 Intake and Output 10/04/21 10/05/21 10/05/21 22:59 06:59 14:59 Intake Total 83.767 84.803 Balance 83.767 84.803 Intake: Intake, IV Titration 83.767 84.803 Amount Heparin Sod,Pork in 0.45% 83.767 84.803 NaCl 25,000 unit In 0.45 % NaCl 1 250ml.bag @ 9. 585 UNITS/KG/HR 10 mls/hr IV .Q24H [facility] Rx#: [id number] Other: Voiding Method Toilet Toilet # Voids 2 Weight 104.326 kg Results 10/05/21 08:42 10/05/21 08:42 Cardiac Enzymes 10/04/21 10/04/21 Range/Units 11:05 14:24 Troponin I 0.020 0.070 H* (0.000-0.034) ng/mL Coagulation 10/05/21 10/05/21 Range/Units 01:45 08:42 APTT 35.5 H 39.6 H (22.0-30.0) sec Lipids 10/04/21 Range/Units 07:33 Triglycerides 245.00 H (0.00-149.00) mg/dL Cholesterol 254.00 H (0.00-200.00) mg/dL HDL Cholesterol 33.40 L (40.00-60.00) mg/dL Cholesterol/HDL Ratio 7.60 Ratio CBC 10/05/21 Range/Units 08:42 WBC 12.6 H (3.8-10.6) k/uL RBC 4.40 (3.80-5.40) m/uL Hgb 14.3 (11.4-16.0) gm/dL Hct 44.3 (34.0-46.0) % Plt Count 284 (150-450) k/uL Comprehensive Metabolic Panel 10/05/21 Range/Units 08:42 Sodium 134 L (137-145) mmol/L Potassium 4.4 (3.5-5.1) mmol/L Chloride 104 (98-107) mmol/L Carbon Dioxide 27 (22-30) mmol/L BUN 13 (7-17) mg/dL Creatinine 1.17 H (0.52-1.04) mg/dL Glucose 115 H (74-99) mg/dL Calcium 8.7 (8.4-10.2) mg/dL Current Medications Generic Name Dose Route Start Last Admin Trade Name Freq PRN Reason Stop Dose Admin Acetaminophen 650 mg 10/04/21 08:50 Acetaminophen Tab 325 Mg Tab PO Q6HR PRN Mild Pain or Fever > 100.5 Hydrocodone Bitart/Acetaminophen 1 each 10/04/21 08:50 Hydrocodone/Apap 5-325mg 1 Each Tab PO Q4HR PRN Moderate Pain Aspirin 325 mg 10/05/21 09:00 10/05/21 08:26 Aspirin 325 Mg Tab PO 325 mg DAILY [facility] Administration Atorvastatin Calcium 80 mg 10/04/21 09:00 10/05/21 08:26 Atorvastatin 80 Mg Tab PO 80 mg DAILY [facility] Administration Heparin Sodium (Porcine) 0 unit 10/05/21 02:48 10/05/21 03:00 Heparin Sodium 1,000 Un/Ml (10ml Vl) IV 1,087 unit PER PROTOCOL PRN Administration Low PTT Protocol Heparin Sodium/Sodium Chloride 250 mls @ 10 mls/hr 10/04/21 18:30 10/05/21 10:02 25,000 unit/ Sodium Chloride IV 13.585 units/kg/hr .Q24H [facility] 14.173 mls/hr Titration Protocol 9.585 UNITS/KG/HR Sodium Chloride 1,000 ml/ IV 1,000 mls @ 312.978 mls/hr 10/05/21 10:28 Solution IV 10/05/21 13:39 .Q3H12M ONE 3 ML/KG/HR Levothyroxine Sodium 50 mcg 10/04/21 09:00 10/05/21 06:32 Levothyroxine 50 Mcg Tab PO 50 mcg 0630 [facility] Administration Losartan Potassium 25 mg 10/05/21 10:45 10/05/21 10:53 Losartan 25 Mg Tab PO 25 mg DAILY [facility] Administration Metoprolol Tartrate 12.5 mg 10/04/21 09:00 10/05/21 08:26 Metoprolol Tartrate 12.5 Mg Tab PO 12.5 mg BID [facility] Administration Naloxone HCl 0.2 mg 10/04/21 08:50 Naloxone 0.4 Mg/Ml 10 Ml Vial IVP Q2M PRN Opioid Reversal Naloxone HCl 0.2 mg 10/04/21 08:56 Naloxone 0.4 Mg/Ml 1 Ml Vial IVP Q2M PRN Opioid Reversal Nitroglycerin 0.4 mg 10/04/21 08:34 Nitroglycerin Sl Tabs 0.4 Mg Tab SUBLINGUAL Q5M PRN Chest Pain Nitroglycerin 1 inch 10/04/21 12:00 10/05/21 06:33 Nitroglycerin Oint 1 Inch/Gm Packet TOPICAL Not Given Q6HR [facility] Pantoprazole Sodium 40 mg 10/05/21 07:30 10/05/21 06:32 Pantoprazole 40 Mg Tablet PO 40 mg [id number] [facility] Administration Intake and Output 10/04/21 10/05/21 10/05/21 22:59 06:59 14:59 Intake Total 83.767 84.803 Balance 83.767 84.803 Intake: Intake, IV Titration 83.767 84.803 Amount Heparin Sod,Pork in 0.45% 83.767 84.803 NaCl 25,000 unit In 0.45 % NaCl 1 250ml.bag @ 9. 585 UNITS/KG/HR 10 mls/hr IV .Q24H [facility] Rx#: [id number] Other: Voiding Method Toilet Toilet # Voids 2 Weight 104.326 kg 10/05/21 08:42 10/05/21 08:42
[2021-10-05] MEDS ORDERED: VERAPAMIL 2.5 MG/ML 2 ML AMP ONE (11:16)
[2021-10-05] MEDS ORDERED: HEPARIN SODIUM 1,000 UN/ML (10ML VL) ONE (11:23)
[2021-10-05] MEDS ORDERED: fentaNYL (PF) 50 MCG/ML 2 ML AMP ONE (11:23)
[2021-10-05] MEDS: fentaNYL (PF) 50 MCG/ML 2 ML AMP IV ONE ×2 (11:33→12:16)
[2021-10-05] MEDS ORDERED: IV FLUID CONTINUATION 800 ML IV ONE ×2 (11:33)
[2021-10-05] MEDS ORDERED: LIDOCAINE 1% INJ 10MG/ML (5 ML VIAL-PF) SQ ONE ×4 (11:33→11:44)
[2021-10-05] MEDS ORDERED: MIDAZOLAM 2 MG/2 ML VIAL IV ONE (11:33)
[2021-10-05] MEDS ORDERED: VERAPAMIL SYRINGE (5 MG/10 ML) INTRAARTER ONE (11:36)
[2021-10-05] MEDS ORDERED: hydrALAZINE HCL 20 MG/ML 1 ML VIAL ONE (12:14)
[2021-10-05] MEDS ORDERED: hydrALAZINE HCL 20 MG/ML 1 ML VIAL IV ONE (12:15)
[2021-10-05] MEDS ORDERED: IOPAMIDOL-370 125ML BTL INJ ONE (12:19)
--- NOTE | 2021-10-05 12:36 | P.PN ---
Subjective Progress Note Date: 10/05/21 History of Presenting Illness: Patient is a very pleasant 56-year-old female with a past medical history of CAD with stents, hypertension, hyperlipidemia, ischemic cardiomyopathy, Graves' disease, chronic kidney disease, COPD not on home oxygen dependent with continued nicotine dependence. She presented to the emergency department with a chief complaint of chest pain/pressure radiating into her back accompanied by mild shortness of breath and diaphoresis. Patient reports these symptoms began last night and awoken her from sleep. She denied having any headache, lightheadedness, dizziness, palpitations, nausea, vomiting, or experiencing any numbness/tingling/weakness in her extremities. Patient reports pain has improved but remains as a subtle ache. Patient underwent full evaluation in the emergency department. CBC revealing mild leukocytosis with WBC count of 11.1. BMP revealing mildly elevated creatinine which is improved from baseline levels and currently 1.09. Liver profile revealing slightly elevated AST of 66 and ALT of 45. Troponin negative at 0.013. EKG revealing normal sinus rhythm at 96 bpm with T-wave inversion in leads V3 through V6. Chest x-ray revealing mild cardiomegaly and chronic emphysematous changes, otherwise negative for acute pulmonary process. Patient is admitted under our services with consultation to cardiology. Interval history: Patient wasn't examined at the bedside. Patient still nothing by mouth pending cardiology decision. She denies any chest pain or shortness of breath. Today echo showed hypokinetic inferior warm with EF 45-50% Physical exam: Vital signs reviewed and stable. General: Nontoxic, no distress and appears stated age. Derm: Skin warm and dry, normal coloration for ethnicity. Head: Atraumatic, normocephalic and symmetric. Eyes: EOMs intact, no lid lag, and anicteric sclera Mouth: no lip lesions, mucus membranes moist Cardiovascular: regular rate and rhythm with normal S1S2, no murmur, positive posterior tibial pulses bilaterally, and cap refill < 2 seconds. Lungs: Respirations even, regular, and unlabored on room air. Lungs CTA bilaterally, no rhonchi, no rales, no wheezing, and no accessory muscle usage. Abdominal: soft, nontender to palpation, no guarding, no appreciable orga nomegaly Ext: ROM intact. No gross muscle atrophy, no edema, no contractures Neuro: Speech clear, face symmetrical and CN II-XII grossly intact with no noted focal neuro deficits Psych: Alert and oriented to person, place, time, and situation. Appropriate and pleasant affect. Assessment and Plan of Care: Chest pain, rule out acute coronary event History of coronary artery disease with stents Hypertension Hyperlipidemia History of ischemic cardiomyopathy -Cardiology consult, appreciate further recommendations -Telemetry monitoring -Trend troponins -Cardiac diet, NPO at midnight -Aspirin, atorvastatin, and metoprolol -Lipid profile with a.m. labs. -Echocardiogram showed hypokinetic inferior wall with EF 45-50%. Hypothyroidism with history of Graves' disease -Continue daily medication regimen with the levothyroxine. COPD with continued nicotine dependence -Recommend smoking cessation discussed with patient. -Patient declined nicotine patch at this time. The patient is admitted with an anticipated less than 2 midnight stay for evaluation of chest pain CODE STATUS: Full code DVT prophylaxis: Heparin Discussed with: Patient and RN Anticipated discharge date: Likely 1-[address]: Home A total of 45 minutes was spent on the care of this complex patient more than 50% of the time was spent in counseling and care coordination. Objective - Vital Signs Vital signs: Vital Signs Temp 97.6 F 10/05/21 10:35 Pulse 73 10/05/21 10:35 Resp 16 10/05/21 10:35 BP 172/84 10/05/21 10:35 Pulse Ox 97 10/05/21 10:35 FiO2 Intake & Output 10/04/21 10/05/21 10/05/21 18:59 06:59 18:59 Intake Total 83.767 484.803 Balance 83.767 484.803 Weight 104.326 kg Intake: IV 400 Intake, IV Titration 83.767 84.803 Amount Heparin Sod,Pork in 0.45% 83.767 84.803 NaCl 25,000 unit In 0.45 % NaCl 1 250ml.bag @ 9. 585 UNITS/KG/HR 10 mls/hr IV .Q24H [facility] Rx#: [id number] Other: Voiding Method Toilet Toilet # Voids 2 - Labs CBC & Chem 7: 10/05/21 08:42 10/05/21 08:42 Labs: Abnormal Lab Results - Last 24 Hours (Table) 10/04/21 10/04/21 10/05/21 Range/Units 07:33 14:24 01:45 WBC (3.8-10.6) k/uL MCV (80.0-100.0) fL Neutrophils # (1.3-7.7) k/uL APTT 35.5 H (22.0-30.0) sec Sodium (137-145) mmol/L Creatinine (0.52-1.04) mg/dL Glucose (74-99) mg/dL Hemoglobin A1c (0.0-6.0) % Troponin I 0.070 H* (0.000-0.034) ng/mL Triglycerides 245.00 H (0.00-149.00) mg/dL Cholesterol 254.00 H (0.00-200.00) mg/dL LDL Cholesterol, Calc 171.6 H (0.0-131.0) mg/dL VLDL Cholesterol, Calc 49.00 H (5.00-40.00) mg/dL HDL Cholesterol 33.40 L (40.00-60.00) mg/dL 10/05/21 10/05/21 10/05/21 Range/Units 08:42 08:42 08:42 WBC 12.6 H (3.8-10.6) k/uL MCV 100.6 H (80.0-100.0) fL Neutrophils # 9.7 H (1.3-7.7) k/uL APTT 39.6 H (22.0-30.0) sec Sodium 134 L (137-145) mmol/L Creatinine 1.17 H (0.52-1.04) mg/dL Glucose 115 H (74-99) mg/dL Hemoglobin A1c (0.0-6.0) % Troponin I (0.000-0.034) ng/mL Triglycerides (0.00-149.00) mg/dL Cholesterol (0.00-200.00) mg/dL LDL Cholesterol, Calc (0.0-131.0) mg/dL VLDL Cholesterol, Calc (5.00-40.00) mg/dL HDL Cholesterol (40.00-60.00) mg/dL 10/05/21 Range/Units 08:42 WBC (3.8-10.6) k/uL MCV (80.0-100.0) fL Neutrophils # (1.3-7.7) k/uL APTT (22.0-30.0) sec Sodium (137-145) mmol/L Creatinine (0.52-1.04) mg/dL Glucose (74-99) mg/dL Hemoglobin A1c 6.8 H (0.0-6.0) % Troponin I (0.000-0.034) ng/mL Triglycerides (0.00-149.00) mg/dL Cholesterol (0.00-200.00) mg/dL LDL Cholesterol, Calc (0.0-131.0) mg/dL VLDL Cholesterol, Calc (5.00-40.00) mg/dL HDL Cholesterol (40.00-60.00) mg/dL
--- NOTE | 2021-10-05 12:53 | CC ---
CARDIAC CATHETERIZATION REPORT INDICATION: Acute kto-EU-tctjilv-elevation ME in a patient with known coronary artery disease, status post multiple prior angioplasties. PROCEDURE NOTE: After obtaining informed consent, left heart catheterization and coronary angiogram were performed via the right femoral artery using standard Cristian catheters. Patient tolerated the procedure well without any obvious immediate complications. A femoral angiogram was performed, but we could not deploy an Angio-Seal for hemostasis. Hence we decided on manual hemostasis. I initially attempted right radial artery access, and the right radial artery access was obtained using a micropuncture needle fairly uneventfully, and a right radial sheath was placed. Under fluoroscopic guidance I tried to pass the wire and subsequently a Glidewire into the brachial artery but was unsuccessful because of tortuosity at the elbow area. Due to this, I aborted the radial approach and proceeded to complete the procedure via the right femoral artery. Patient received moderate conscious sedation. Total sedation time was 25 minutes. FINDINGS: HEMODYNAMICS: Left ventricular end-diastolic pressure is 17 mm. There is no significant gradient across the aortic valve. LEFT VENTRICULOGRAM: Left ventriculogram was not performed. ANGIOGRAPHIC DATA: Left main coronary artery is a normal-sized vessel and is free of stenosis. It divides into left anterior descending coronary artery and circumflex coronary artery. Circumflex coronary artery is a large codominant vessel and was previously stented; there is a 70% stenosis as it bifurcates into an OM branch and AV groove circ. LAD has a long segment of narrowing that extends from proximal to mid. At its worst it is 90% stenosed. The distal LAD is a good target, as are the diagonal branches. Right coronary artery is totally occluded in its proximal portion. There are left-to- right collaterals from the circumflex coronary artery. CONCLUSIONS: Severe three-vessel coronary artery disease as described above with a chronically occluded right coronary artery, a long segment of stenosis in the proximal LAD and a lesion within the circumflex. I reviewed angiographic data with Dr. Monte, the on- call gas meter installer helper, who felt that angioplasty is high risk in this patient with calcified vessels, multiple prior stenting and extensive disease; hence we opted to refer her for bypass surgery. We are going to get an opinion from Dr. Stephenson. If she is thought to be a high-risk candidate for surgery, then we can do staged angioplasty of the right coronary artery and the LAD. I discussed these issues with the patient. She understands and is in agreement with the plan. MMESTELLE / SARITHA: [id number] /
--- NOTE | 2021-10-05 14:26 | P.GSCN ---
History of Present Illness Consult date: 10/05/21 Reason for Consult: Multivessel coronary artery disease, non-ST elevated myocardial infarction this admission, evaluation for myocardial revascularization surgery. Requesting physician: Angel Briggs History of present illness: This is a 56-year-old female patient who follows with Dr. Craig on an outpatient basis for her primary care. She also follows with Dr. Springer for her cardiology care. She has a past medical history significant for hypertension, hyperlipidemia, coronary artery disease with history of multiple stent placement, myocardial infarction, chronic kidney disease stage III with a baseline creatinine in the range of 1.1-1.3 secondary to nephrosclerosis, history of urinary tract infection, chronic ongoing tobacco abuse, obstructive sleep apnea with out home CPAP use, COPD with home oxygen use 2-3 L nasal cannula at night, morbid obesity with a BMI of 43.5 kg/m, thyroid disorder and asthma. She presented to the emergency department here at [facility] on 10/04/2021 after being woken up with chest pain/chest pressure. She reports that the chest pain/pressure was accompanied by some shortness of breath, although the patient reports she is always short of breath due to her COPD. She denies any recent fever, chills, nausea, vomiting, diaphoresis, dizziness, palpitations, numbness/weakness to any extremities, headache, presyncope or syncope. During her evaluation this morning the patient denies any complaints of chest pain/pressure. A chest x-ray was completed which showed mild cardiomegaly and chronic emphysematous changes without any acute pulmonary process. A 12-lead EKG was completed which showed normal sinus rhythm with nonspecific STT wave changes. Initial laboratory results showed a WBC count of 11.1, hemoglobin 14.7, hematocrit 45.0, platelets 318, neutrophils 8.4, d-dimer 0.44, sodium 136, potassium 4.1, BUN 13, creatinine 1.09, glucose 167, hemo globin A1c 6.8%, AST 66, ALT 45, triglycerides 245, cholesterol 254, LDL 171 and her initial troponins were normal although her third troponin showed positive at 0.070 ruling her in for a non-ST elevated myocardial infarction. A transthoracic 2-D echocardiogram was completed which showed a moderately increased left ventricular wall thickness, her left ventricular ejection fraction estimated at 45-50% with inferior wall hypokinesis, mild mitral annular calcification, mild mitral valve regurgitation, trace aortic valve regurgitation, mild tricuspid valve regurgitation, and no pericardial effusion. Due to the patient's presenting symptoms, cardiac history and positive troponins and a consult was placed Dr. Briggs from cardiology. Recommendations were to undergo a cardiac catheterization which was completed today and demonstrated triple-vessel coronary artery disease. Due to the findings on the cardiac catheterization a consult was placed to Dr. Michael Stephenson for further evaluation and treatment recommendations including myocardial revascularization surgery. Review of Systems A 14 point review of systems was completed and was negative except as mentioned in the HPI. Past Medical History Past Medical History: Asthma, Coronary Artery Disease (CAD), COPD, Hyperlipidemia, Hypertension, Myocardial Infarction (AL), Renal Disease, Sleep Apnea/CPAP/BIPAP (Without home CPAP use although does use oxygen 2-3 L nasal cannula at night), Thyroid Disorder Additional Past Medical History / Comment(s): Ischemic cardiomyopathy, GRAVES, hypothyroid, chronic kidney dx, morbid obesity. Last Myocardial Infarction Date:: 11/09/13 History of Any Multi-Drug Resistant Organisms: None Reported Past Surgical History: Breast Surgery, Heart Catheterization With Stent, Tubal Ligation Additional Past Surgical History / Comment(s): 10/2013 PCI with 2 stents, 12/2013 PCI with 1 stent, 10/2014 cardiac cath tx medically, BENIGN LUMP REMOVED FROM LEFT BREAST, stent placed end-2018 Past Anesthesia/Blood Transfusion Reactions: No Reported Reaction, Postoperative Nausea & Vomiting (PONV) Date of Last Stent Placement:: 10/29/13 Past Psychological History: No Psychological Hx Reported Additional Psychological History / Comment(s): Resides with brother and two friends. Smoking Status: Current every day smoker Past Alcohol Use History: None Reported Additional Past Alcohol Use History / Comment(s): Pt started smoking in 1981. She is down to 1/2 ppd. Past Drug Use History: None Reported - Past Family History Mother Family Medical History: Cancer (Lung cancer), Myocardial Infarction (AL) Additional Family Medical History / Comment(s): Mother had a AL in her 60's. She is 70 yrs old. Father Family Medical History: COPD Additional Family Medical History / Comment(s): Agent orange exposure in [place]. Father is 72 yrs old. Medications and Allergies Home Medications Medication Instructions Recorded Confirmed Type Levothyroxine Sodium [Synthroid] 50 mcg PO DAILY 10/04/21 10/04/21 History Atorvastatin [Lipitor] 80 mg PO HS 10/05/21 10/05/21 History Clopidogrel [Plavix] 75 mg PO DAILY 10/05/21 10/05/21 History Metoprolol Succinate [Metoprolol 25 mg PO DAILY 10/05/21 10/05/21 History Succinate ER] Oxybutynin Chloride [Oxybutynin 5 mg PO DAILY 10/05/21 10/05/21 History Chloride ER] amLODIPine [Norvasc] 5 mg PO DAILY 10/05/21 10/05/21 History Allergies Allergy/AdvReac Type Severity Reaction Status Date / Time No Known Allergies Allergy Verified 10/04/21 08:17 Surgical - Exam Vital Signs Temp Pulse Resp BP Pulse Ox 97.7 F 93 18 172/88 96 10/04/21 06:52 10/04/21 06:52 10/04/21 06:52 10/04/21 06:52 10/04/21 06:52 - General Morbid obesity well developed, well nourished, no distress, no pain - Eyes PERRL, normal ocular movement, no pale, no icteric - ENT normal pinna, normal nares, normal mucosa, no hearing loss (Upper), no congestion, poor senior care - Neck Neck is supple, no JVD. no masses, no bruits, trachea midline, no venous distension - Respiratory Lung sounds are essentially clear throughout, diminished bilateral bases. No wheezes, rhonchi or crackles. Respirations are symmetrical and nonlabored. - Cardiovascular Regular rhythm and rate. S1 and S2 present, negative for S3, gallop or murmur. Peripheral pulses palpable no peripheral edema. - Abdomen Abdomen is soft, nontender nondistended. Active bowel sounds present in all 4 abdominal quadrants. Morbidly obese. No guarding or rigidity. No organomegaly appreciated. - Genitourinary Deferred - Rectum Deferred - Integumentary no rash, no growths, no abnormal pigmentation - Neurologic No focal deficits. normal coordination, normal sensation - Musculoskeletal Moves all 4 extremities with equal strength bilateral. - Psychiatric oriented to time, oriented to person, oriented to place, speech is normal, memory intact Results - Labs 10/08/21 09:20 10/08/21 09:20 Abnormal Lab Results - Last 24 Hours (Table) 06/10/04/21 10/05/21 Range/Units 07:33 14:24 01:45 WBC (3.8-10.6) k/uL MCV (80.0-100.0) fL Neutrophils # (1.3-7.7) k/uL APTT 35.5 H (22.0-30.0) sec Sodium (137-145) mmol/L Creatinine (0.52-1.04) mg/dL Glucose (74-99) mg/dL Hemoglobin A1c (0.0-6.0) % Troponin I 0.070 H* (0.000-0.034) ng/mL Triglycerides 245.00 H (0.00-149.00) mg/dL Cholesterol 254.00 H (0.00-200.00) mg/dL LDL Cholesterol, Calc 171.6 H (0.0-131.0) mg/dL VLDL Cholesterol, Calc 49.00 H (5.00-40.00) mg/dL HDL Cholesterol 33.40 L (40.00-60.00) mg/dL 10/05/21 10/05/21 10/05/21 Range/Units 08:42 08:42 08:42 WBC 12.6 H (3.8-10.6) k/uL MCV 100.6 H (80.0-100.0) fL Neutrophils # 9.7 H (1.3-7.7) k/uL APTT 39.6 H (22.0-30.0) sec Sodium 134 L (137-145) mmol/L Creatinine 1.17 H (0.52-1.04) mg/dL Glucose 115 H (74-99) mg/dL Hemoglobin A1c (0.0-6.0) % Troponin I (0.000-0.034) ng/mL Triglycerides (0.00-149.00) mg/dL Cholesterol (0.00-200.00) mg/dL LDL Cholesterol, Calc (0.0-131.0) mg/dL VLDL Cholesterol, Calc (5.00-40.00) mg/dL HDL Cholesterol (40.00-60.00) mg/dL 10/05/21 Range/Units 08:42 WBC (3.8-10.6) k/uL MCV (80.0-100.0) fL Neutrophils # (1.3-7.7) k/uL APTT (22.0-30.0) sec Sodium (137-145) mmol/L Creatinine (0.52-1.04) mg/dL Glucose (74-99) mg/dL Hemoglobin A1c 6.8 H (0.0-6.0) % Troponin I (0.000-0.034) ng/mL Triglycerides (0.00-149.00) mg/dL Cholesterol (0.00-200.00) mg/dL LDL Cholesterol, Calc (0.0-131.0) mg/dL VLDL Cholesterol, Calc (5.00-40.00) mg/dL HDL Cholesterol (40.00-60.00) mg/dL Diabetes panel 10/04/21 10/05/21 10/05/21 Range/Units 07:33 08:42 08:42 Sodium 134 L (137-145) mmol/L Potassium 4.4 (3.5-5.1) mmol/L Chloride 104 (98-107) mmol/L Carbon Dioxide 27 (22-30) mmol/L BUN 13 (7-17) mg/dL Creatinine 1.17 H (0.52-1.04) mg/dL Glucose 115 H (74-99) mg/dL Hemoglobin A1c 6.8 H (0.0-6.0) % Calcium 8.7 (8.4-10.2) mg/dL Triglycerides 245.00 H (0.00-149.00) mg/dL HDL Cholesterol 33.40 L (40.00-60.00) mg/dL Calcium panel 10/05/21 Range/Units 08:42 Calcium 8.7 (8.4-10.2) mg/dL Pituitary panel 10/05/21 Range/Units 08:42 Sodium 134 L (137-145) mmol/L Potassium 4.4 (3.5-5.1) mmol/L Chloride 104 (98-107) mmol/L Carbon Dioxide 27 (22-30) mmol/L BUN 13 (7-17) mg/dL Creatinine 1.17 H (0.52-1.04) mg/dL Glucose 115 H (74-99) mg/dL Calcium 8.7 (8.4-10.2) mg/dL Adrenal panel 10/05/21 Range/Units 08:42 Sodium 134 L (137-145) mmol/L Potassium 4.4 (3.5-5.1) mmol/L Chloride 104 (98-107) mmol/L Carbon Dioxide 27 (22-30) mmol/L BUN 13 (7-17) mg/dL Creatinine 1.17 H (0.52-1.04) mg/dL Glucose 115 H (74-99) mg/dL Calcium 8.7 (8.4-10.2) mg/dL - Imaging Chest x-ray: report reviewed, image reviewed EKG: image reviewed Additional studies: Cardiac catheterization and 2-D echocardiogram results reviewed by Dr. Stephenson. Assessment and Plan Assessment: 1. Multivessel coronary artery disease 2. Non-ST elevated myocardial infarction this admission, with troponin as high as 0.070 3. Chest pain/chest pressure, secondary to above 4. History of coronary artery disease with multiple stent placement in the past. 5. Hypertension 6. Hyperlipidemia 7. History of ischemic cardiomyopathy, current transthoracic 2-D echocardiogram showing an EF of 45-50% 8. COPD with home oxygen use at night 9. Morbid obesity with a BMI of 43.5 kg/m 10. Thyroid disorder 11. Obstructive sleep apnea without home CPAP use 12. History of asthma 13. Chronic ongoing tobacco dependence 14. Chronic kidney disease stage III, secondary to nephrosclerosis with a baseline creatinine of 1.1-1.3 15. History of UTIs Plan: The patient was seen and examined at her bedside with Dr. Michael Stephenson from cardiothoracic surgery. Her chart and diagnostics were reviewed. Dr. Stephenson reviewed the results of her cardiac catheterization and transthoracic 2-D e chocardiogram with the patient. Discussed treatment options including myocardial revascularization surgery. Risks and benefits of surgery were discussed with the patient and knowing and understanding the risk the patient would like to proceed with the surgical option. Preoperative testing and pre operative teaching have been initiated. Importance of risk modification including smoking cessation has been discussed and reinforced with the patient. Continue to maximize medical therapy with aspirin, statin, and beta garret. The patient reports she has not taken her Plavix for over one week. The patient will have to be off Plavix for 5-7 days prior to myocardial revascularization surgery. Medical management and other comorbidities per primary care service. Once the patient is able to ambulate a 5 m walk test will be completed with the patient. Once her preoperative testing has been completed we will calculate an STS risk score which will be discussed with the patient. Also once her preoperative testing has been collected timing of surgery will be further discussed with the patient. More recommendations to follow based on patient's clinical course. Thank you Dr. Briggs for this consult and we look for to working with you in the care of this patient. The patient is a 56 year old female with a history of multiple medical problems who presented to the hospital with chest pain. Workup revealed multi-vessel CAD. A coronary artery bypass was recommended. The risks, benefits, and alternatives to the surgery were discussed with the patient. All of her questions were answered. We will obtain the remainder of her pre-operative workup and schedule her for surgery next week during this admission. I have personally seen and examined the patient, reviewed the documentation and the assessment and plan as written. 45 minutes spent on the visit with the todd albarran. Sarah Nixon.
[2021-10-05 18:13] LABS: Chol/HDL Ratio 6.77 Ratio; LDL Cholesterol,Calculated 156.6 mg/dL (0.0-131.0)
[2021-10-05] MEDS: MUPIROCIN 2% OINT 22 GM TUBE NASAL SCH (20:24)
[2021-10-05 20:35] LABS: T4, Free (Free Thyroxine) 0.36 ng/dL (0.78-2.19)
--- NOTE | 2021-10-05 21:44 | US ---
EXAMINATION TYPE: US carotid duplex BILAT DATE OF EXAM: 10/05/2021 COMPARISON: NONE CLINICAL HISTORY: Pre-Op Cardiac Surgery. Exam done portable EXAM MEASUREMENTS: RIGHT: Peak Systolic Velocity (PSV) cm/sec ----- Right CCA: 89.5 ----- Right ICA: 102.5 ----- Right ECA: 137.2 ICA/CCA ratio: 1.1 RIGHT: End Diastole cm/sec ----- Right CCA: 20.3 ----- Right ICA: 24.3 ----- Right ECA: 0.0 LEFT: Peak Systolic Velocity (PSV) cm/sec ----- Left CCA: 60.3 ----- Left ICA: 76.9 ----- Left ECA: 166.0 ICA/CCA ratio: 1.3 LEFT: End Diastole cm/sec ----- Left CCA: 15.0 ----- Left ICA: 28.4 ----- Left ECA: 0.0 VERTEBRALS (direction of flow): Right Vertebral: Antegrade Left Vertebral: Antegrade Rhythm: Normal Difficult and limited study due to patient snoring during entire exam No significant stenosis IMPRESSION: Minimal plaque formation. The images and measurements suggest less than 25% stenosis in b [facility] internal carotid arteries. There is antegrade flow in the vertebral arteries. Criteria for Assigning % of Stenosis / Diameter reduction (Estimation based on the indirect measurements of the internal carotid artery velocities (ICA PSV). 1. Normal (no stenosis)=ICA PSV < 125 cm/s: ratio < 2.0: ICA EDV<40 cm/s. 2. Less than 50% stenosis=ICA PSV < 125 cm/s: ratio < 2.0: ICA EDV<40 cm/s. 3. 50 to 69% stenosis=ICA PSV of 125 to 230 cm/s: ration 2.0 ? 4.0: ICA EDV 40-100 cm/s. 4. Greater than 70% stenosis to near occlusion= ICA PSV > 230 cm/s: ratio > 4.0: ICA EDV > 100 cm/s. 5. Near occlusion= ICA PSV velocities may be low or undetectable: variable ratio and ICA EDV. 6. Total occlusion=unable to detect flow.
[2021-10-06 00:06] LABS: Appearance,Urine Clear (Clear); Bilirubin,Urine Negative (Negative); Blood,Urine Negative (Negative); Color,Urine Light Yellow; Glucose,Urine (UA) Negative (Negative); Ketones,Urine Negative (Negative); Leukocyte Esterase,Urine Negative (Negative); Nitrite,Urine Negative (Negative); PH, Urine 6.5 (5.0-8.0); Protein,Urine Negative (Negative); Specific Gravity,Urine 1.011 (1.001-1.035); Urobilinogen,Urine <2.0 mg/dL (<2.0)
[2021-10-06] MEDS: NITROGLYCERIN OINT 1 INCH/GM PACKET TOPICAL SCH ×5 (01:32→23:29)
[2021-10-06 03:32] LABS: Basophils # (A) 0.1 k/uL (0-0.2); Basophils % (A) 1 %; Eosinophils # (A) 0.4 k/uL (0-0.7); Eosinophils % (A) 3 %; HCT 42.4 % (34.0-46.0); HGB 13.9 gm/dL (11.4-16.0); Lymphocytes # (A) 1.2 k/uL (1.0-4.8); Lymphocytes % (A) 11 %; MCH 32.6 pg (25.0-35.0); MCHC 32.8 g/dL (31.0-37.0); MCV 99.3 fL (80.0-100.0); Mean Platelet Volume 9.2; Monocytes # (A) 0.7 k/uL (0-1.0); Monocytes % (A) 6 %; Neutrophils # (A) 8.4 k/uL (1.3-7.7); Neutrophils % (A) 78 %; Platelet Count 265 k/uL (150-450); RBC 4.26 m/uL (3.80-5.40); RDW 14.3 % (11.5-15.5); WBC 10.9 k/uL (3.8-10.6)
[2021-10-06] MEDS: HEPARIN SOD,PORK IN 0.45% NACL 25,000 UNIT in 0.45% NACL 1 250ML.BAG IV SCH ×2 (03:54→03:58)
[2021-10-06] MEDS: HEPARIN SODIUM 1,000 UN/ML (10ML VL) IV PRN (03:57)
[2021-10-06 04:00] LABS: Potassium 4.4 mmol/L (3.5-5.1)
[2021-10-06 04:01] LABS: Calcium 8.4 mg/dL (8.4-10.2); Magnesium 1.9 mg/dL (1.6-2.3)
[2021-10-06] MEDS: PANTOPRAZOLE 40 MG TABLET PO SCH (06:21)
[2021-10-06] MEDS: LEVOTHYROXINE 50 MCG TAB PO SCH (06:21)
[2021-10-06] MEDS: ATORVASTATIN 80 MG TAB PO SCH (08:20)
[2021-10-06] MEDS: ASPIRIN 325 MG TAB PO SCH (08:20)
[2021-10-06] MEDS: MUPIROCIN 2% OINT 22 GM TUBE NASAL SCH ×2 (08:20→19:59)
[2021-10-06] MEDS: METOPROLOL TARTRATE 12.5 MG TAB PO SCH ×2 (08:20→19:59)
[2021-10-06] MEDS: LOSARTAN 25 MG TAB PO SCH (08:20)
[2021-10-06 11:02] LABS: Hepatitis A Antibody IgM Nonreactive (Nonreactive); Hepatitis B Core IgM Nonreactive (Nonreactive); Hepatitis B Surface Antigen Nonreactive (Nonreactive); Hepatitis C IgG Antibody Nonreactive (Nonreactive)
--- NOTE | 2021-10-06 11:04 | P.PN ---
Subjective History of Presenting Illness: Patient is a very pleasant 56-year-old female with a past medical history of CAD with stents, hypertension, hyperlipidemia, ischemic cardiomyopathy, Graves' disease, chronic kidney disease, COPD not on home oxygen dependent with continued nicotine dependence. She presented to the emergency department with a chief complaint of chest pain/pressure radiating into her back accompanied by mild shortness of breath and diaphoresis. Patient reports these symptoms began last night and awoken her from sleep. She denied having any headache, lightheadedness, dizziness, palpitations, nausea, vomiting, or experiencing any numbness/tingling/weakness in her extremities. Patient reports pain has improved but remains as a subtle ache. Patient underwent full evaluation in the emergency department. CBC revealing mild leukocytosis with WBC count of 11.1. BMP revealing mildly elevated creatinine which is improved from baseline levels and currently 1.09. Liver profile revealing slightly elevated AST of 66 and ALT of 45. Troponin negative at 0.013. EKG revealing normal sinus rhythm at 96 bpm with T-wave inversion in leads V3 through V6. Chest x-ray revealing mild cardiomegaly and chronic emphysematous changes, otherwise negative for acute pulmonary process. Patient is admitted under our services with consultation to cardiology. Interval history: Patient wasn't examined at the bedside. Status post left heart cath yesterday showed triple-vessel disease. Cardiothoracic surgery consulted plan for CABG. Patient denied any chest pain or shortness of breath today. Physical exam: Vital signs reviewed and stable. General: Nontoxic, no distress and appears stated age. Derm: Skin warm and dry, normal coloration for ethnicity. Head: Atraumatic, normocephalic and symmetric. Eyes: EOMs intact, no lid lag, and anicteric sclera Mouth: no lip lesions, mucus membranes moist Cardiovascular: regular rate and rhythm with normal S1S2, no murmur, positive posterior tibial pulses bilaterally, and cap refill < 2 seconds. Lungs: Respirations even, regular, and unlabored on room air. Lungs CTA bilaterally, no rhonchi, no rales, no wheezing, and no accessory muscle usage. Abdominal: soft, nontender to palpation, no guarding, no appreciable organomegaly Ext: ROM intact. No gross muscle atrophy, no edema, no contractures Neuro: Speech clear, face symmetrical and CN II-XII grossly intact with no noted focal neuro deficits Psych: Alert and oriented to person, place, time, and situation. Appropriate and pleasant affect. Assessment and Plan of Care: Triple-vessel coronary disease History of coronary artery disease with stents History of ischemic cardiomyopathy -Cardiology and cardiothoracic surgery following -Telemetry monitoring -Trend troponins -Improved CABG -Aspirin, atorvastatin, and metoprolol -Consulted pulmonary for preoperative evaluation -Echocardiogram showed hypokinetic inferior wall with EF 45-50%. Hypothyroidism with history of Graves' disease -Continue daily medication regimen with the levothyroxine. COPD with continued nicotine dependence -Recommend smoking cessation discussed with patient. -Patient declined nicotine patch at this time. CODE STATUS: Full code DVT prophylaxis: Heparin Objective - Vital Signs Vital signs: Vital Signs Temp 97.5 F L 10/06/21 07:59 Pulse 89 10/06/21 08:00 Resp 16 10/06/21 08:00 BP 129/76 10/06/21 07:59 Pulse Ox 98 10/06/21 07:59 FiO2 Intake & Output 10/05/21 10/06/21 10/06/21 18:59 06:59 18:59 Intake Total 704.803 81.43 Output Total 400 600 400 Balance 304.803 -518.57 -400 Intake: IV 400 Intake, IV Titration 84.803 81.43 Amount Heparin Sod,Pork in 0.45% 84.803 81.43 NaCl 25,000 unit In 0.45 % NaCl 1 250ml.bag @ 9. 585 UNITS/KG/HR 10 mls/hr IV .Q24H [facility] Rx#: [id number] Oral 220 Output: Urine 400 600 400 Other: Voiding Method Toilet Toilet # Voids 2 - Labs CBC & Chem 7: 10/06/21 03:15 10/06/21 03:15 Labs: Abnormal Lab Results - Last 24 Hours (Table) 10/05/21 10/05/21 10/05/21 Range/Units 08:42 08:42 18:19 WBC (3.8-10.6) k/uL Neutrophils # (1.3-7.7) k/uL Sodium (137-145) mmol/L Creatinine (0.52-1.04) mg/dL Glucose (74-99) mg/dL Hemoglobin A1c 6.8 H (0.0-6.0) % Triglycerides 291.00 H (0.00-149.00) mg/dL Cholesterol 252.00 H (0.00-200.00) mg/dL LDL Cholesterol, Calc 156.6 H (0.0-131.0) mg/dL VLDL Cholesterol, Calc 58.20 H (5.00-40.00) mg/dL HDL Cholesterol 37.20 L (40.00-60.00) mg/dL TSH 23.300 H (0.465-4.680) mIU/L Free T4 0.36 L (0.78-2.19) ng/dL 10/06/21 10/06/21 Range/Units 03:15 03:15 WBC 10.9 H (3.8-10.6) k/uL Neutrophils # 8.4 H (1.3-7.7) k/uL Sodium 134 L (137-145) mmol/L Creatinine 1.05 H (0.52-1.04) mg/dL Glucose 119 H (74-99) mg/dL Hemoglobin A1c (0.0-6.0) % Triglycerides (0.00-149.00) mg/dL Cholesterol (0.00-200.00) mg/dL LDL Cholesterol, Calc (0.0-131.0) mg/dL VLDL Cholesterol, Calc (5.00-40.00) mg/dL HDL Cholesterol (40.00-60.00) mg/dL TSH (0.465-4.680) mIU/L Free T4 (0.78-2.19) ng/dL Microbiology - Last 24 Hours (Table) 10/05/21 19:00 Nasal Screen MRSA/MSSA - Preliminary Nasopharyngeal Swab
--- NOTE | 2021-10-06 11:19 | P.PN ---
Subjective Progress Note Date: 10/06/21 Principal diagnosis: Multivessel coronary artery disease, non-ST elevated myocardial infarction this admission. Past medical history significant for ypertension, hyperlipidemia, c oronary artery disease with history of multiple stent placement, myocardial infarction, chronic kidney disease stage III with a baseline creatinine in the range of 1.1-1.3 secondary to nephrosclerosis, history of urinary tract infection, chronic ongoing tobacco abuse, obstructive sleep apnea with out home CPAP use, COPD with home oxygen use 2-3 L nasal cannula at night, morbid obesity with a BMI of 43.5 kg/m, thyroid disorder and asthma. The patient was seen and examined in follow-up today at her bedside on the cardiac stepdown unit. Currently she is sitting up to the bedside chair, is awake, alert, oriented 3 and is in no acute distress. She denies any further complaints of chest pain although complains of some shortness of breath with activity. She does report that the shortness of breath she does have most days due to her COPD and asthma history. Oxygen saturation are 98% on room air and she is achieving 1500 mL on her incentive spirometry with encouragement. FEV1 results remain pending. She does report that she did use 2 L of oxygen throughout the night, as she does use home oxygen at nighttime 2-3 L nasal cannula. Preoperative teaching and preoperative testing remains in progress. Dr. Stephenson met with the patient yesterday, discussed findings on her cardiac catheterization with the patient, treatment options were discussed including myocardial revascularization surgery. Risks and benefits of myocardial revascularization surgery were discussed, knowing and understanding the risks patient wished to proceed with the surgical option. Remote telemetry is showing normal sinus rhythm heart rate 77 BPM. Heparin drip remains in place. She continues on aspirin, statin and beta garret. Objective - Vital Signs Vital signs: Vital Signs Temp 97.5 F L 10/06/21 07:59 Pulse 89 10/06/21 08:00 Resp 16 10/06/21 08:00 BP 129/76 10/06/21 07:59 Pulse Ox 98 10/06/21 07:59 FiO2 Intake & Output 10/05/21 10/06/21 10/06/21 18:59 06:59 18:59 Intake Total 704.803 81.43 Output Total 400 600 400 Balance 304.803 -518.57 -400 Intake: IV 400 Intake, IV Titration 84.803 81.43 Amount Heparin Sod,Pork in 0.45% 84.803 81.43 NaCl 25,000 unit In 0.45 % NaCl 1 250ml.bag @ 9. 585 UNITS/KG/HR 10 mls/hr IV .Q24H [facility] Rx#: [id number] Oral 220 Output: Urine 400 600 400 Other: Voiding Method Toilet Toilet # Voids 2 - Exam CONSTITUTIONAL: Sitting up to the bedside chair on the cardiac stepdown unit, appears comfortable, cooperative, no apparent acute distress. HEENT: Neck is supple, no JVD, no lymphadenopathy. RESPIRATORY: Lungs sounds essentially clear throughout, diminished to his bilateral bases. Respirations are symmetrical and nonlabored. Currently on room air oxygen saturations 98%. Able to achieve 1500 mL on her incentive spirometry. Strong cough. CARDIOVASCULAR: Regular rhythm and rate. S1 and S2 present, negative for S3, gallop or murmur. GASTROINTESTINAL: Abdomen soft, nontender, nondistended. Active bowel sounds present 4 quadrants. Tolerating diet. Passing flatus. No guarding or rigidity. GENITOURINARY: [place] external catheter in place. Output 600 mL in the last 8 hours. INTEGUMENTARY: Skin is warm and dry with no evidence of clubbing or cyanosis. NEUROLOGIC: Cranial nerves II through XII intact. No focal deficits. MUSKULOSKELETAL: Able to move all extremities, strength equal bilaterally. PSYCHIATRIC: Alert and oriented to person place and time, appropriate affect, intact judgment and insight. - Allied health notes Allied health notes reviewed: nursing - Labs CBC & Chem 7: 10/06/21 03:15 10/06/21 03:15 Labs: Abnormal Lab Results - Last 24 Hours (Table) 10/05/21 10/05/21 10/05/21 Range/Units 08:42 08:42 18:19 WBC (3.8-10.6) k/uL Neutrophils # (1.3-7.7) k/uL Sodium (137-145) mmol/L Creatinine (0.52-1.04) mg/dL Glucose (74-99) mg/dL Hemoglobin A1c 6.8 H (0.0-6.0) % Triglycerides 291.00 H (0.00-149.00) mg/dL Cholesterol 252.00 H (0.00-200.00) mg/dL LDL Cholesterol, Calc 156.6 H (0.0-131.0) mg/dL VLDL Cholesterol, Calc 58.20 H (5.00-40.00) mg/dL HDL Cholesterol 37.20 L (40.00-60.00) mg/dL TSH 23.300 H (0.465-4.680) mIU/L Free T4 0.36 L (0.78-2.19) ng/dL 10/06/21 10/06/21 Range/Units 03:15 03:15 WBC 10.9 H (3.8-10.6) k/uL Neutrophils # 8.4 H (1.3-7.7) k/uL Sodium 134 L (137-145) mmol/L Creatinine 1.05 H (0.52-1.04) mg/dL Glucose 119 H (74-99) mg/dL Hemoglobin A1c (0.0-6.0) % Triglycerides (0.00-149.00) mg/dL Cholesterol (0.00-200.00) mg/dL LDL Cholesterol, Calc (0.0-131.0) mg/dL VLDL Cholesterol, Calc (5.00-40.00) mg/dL HDL Cholesterol (40.00-60.00) mg/dL TSH (0.465-4.680) mIU/L Free T4 (0.78-2.19) ng/dL Microbiology - Last 24 Hours (Table) 10/05/21 19:00 Nasal Screen MRSA/MSSA - Preliminary Nasopharyngeal Swab - Imaging and Cardiology Results of carotid duplex study noted. Assessment and Plan Assessment: 1. Multivessel coronary artery disease 2. Non-ST elevated myocardial infarction this admission, with troponin as high as 0.070 3. Chest pain/chest pressure, secondary to above 4. History of coronary artery disease with multiple stent placement in the past. 5. Hypertension 6. Hyperlipidemia, triglycerides 291, LDL cholesterol 156.6 7. History of ischemic cardiomyopathy, current transthoracic 2-D echocardiogram showing an EF of 45-50% 8. COPD with home oxygen use at night 2-3 L nasal cannula 9. Morbid obesity with a BMI of 43.5 kg/m 10. Thyroid disorder, TSH 23.300, free T4 0.36 11. Obstructive sleep apnea without home CPAP use 12. History of asthma 13. Chronic ongoing tobacco dependence 14. Chronic kidney disease stage III, secondary to nephrosclerosis with a baseline creatinine of 1.1-1.3 15. History of UTIs 16. Medical noncompliance Plan: 1. Continue to optimize medical management with aspirin, statin and beta garret. 2. Heparin drip management and recommendations per cardiology. 3. A 5 m walk test was completed with the patient, Time 1: 2.90, Time 2: 2.84, Time 3: 2.70. 4. Once her preoperative testing has been completed and collected an STS risk score will be calculated and discussed with the patient. 5. Once her preoperative testing has been completed and collected, timing of surgery will be discussed with the patient. 6. Medical management and other comorbidities per primary care service. 7. Encourage use of her incentive spirometry 10 times every hour while awake. 8. Importance of risk modification including smoking cessation has been discussed in detail with the patient and reinforced with the patient. 9. Compliance with taking her medication has been discussed with the patient. 10. Preoperative teaching has been reinforced with the patient. 11. Discussed with the patient the importance of medical compliance. 12. More recommendations to follow based on patient clinical course. Time with Patient: Greater than 30
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
[2021-10-06] MEDS: IPRATROPIUM-ALBUTEROL 3 ML NEB INHALATION SCH ×3 (11:54→20:24)
--- NOTE | 2021-10-06 15:13 | P.PN ---
Subjective Progress Note Date: 10/06/21 Patient has a known history of coronary artery disease status post multiple angioplasties including LAD and circumflex and most recently the RCA in 2019, hypertension, dyslipidemia, cardiomyopathy, chronic renal insufficiency, hypothyroidism and COPD admitted the hospital with chest pain. EKG shows sinus rhythm with nonspecific ST-T wave changes. She was noted to have 3 sets of troponin the third set came back elevated at 0.07. Patient underwent a cardiac catheterization which revealed severe triple-vessel coronary artery disease with a chronically occluded right coronary artery, a long segment of stenosis in the proximal LAD and a lesion within the circumflex. It is recommended that the patient undergo coronary artery bypass grafting. She has been seen by Dr. Stephenson and is agreed to undergo revascularization surgery. At this time patient is seen today resting comfortably in the chair with no signs of acute distress. She denies chest pain or increased shortness of breath. Patient would like to be discharged home and scheduled to come back for open heart surgery. Patient will continue to undergo revascularization surgery workup. She was seen by pulmonology today and will undergo further testing tomorrow, based on preoperative testing, patient may be able to be discharged and scheduled to come back for surgery. At this time will continue with all current cardiac medications. Vital signs remained stable. Labs show cholesterol 252 triglycerides 291 LDL 156 HDL 37, TSH is 23 free T4 is 0.36 hemoglobin A1c is 6.8 Patient is being evaluated for new onset diabetes Objective - Vital Signs Vital signs: Vital Signs Temp 97.5 F L 10/06/21 07:59 Pulse 81 10/06/21 14:00 Resp 16 10/06/21 14:00 BP 124/74 10/06/21 12:00 Pulse Ox 94 L 10/06/21 12:00 FiO2 Intake & Output 10/05/21 10/06/21 10/06/21 18:59 06:59 18:59 Intake Total 704.803 81.43 Output Total 109 687 6505 Balance 304.803 -518.57 -1000 Intake: IV 400 Intake, IV Titration 84.803 81.43 Amount Heparin Sod,Pork in 0.45% 84.803 81.43 NaCl 25,000 unit In 0.45 % NaCl 1 250ml.bag @ 9. 585 UNITS/KG/HR 10 mls/hr IV .Q24H [facility] Rx#: [id number] Oral 220 Output: Urine 080 [id number] Other: Voiding Method Toilet Toilet # Voids 2 - Exam PHYSICAL EXAM: VITAL SIGNS: Reviewed. GENERAL: Well-developed in no acute distress. HEENT: Head is normocephalic. Pupils are equal, round. Sclerae anicteric. Mucous membranes of the mouth are moist. NECK: Supple. No JVD or thyromegaly RESPIRATORY: Respirations even and unlabored. Lungs diminished to auscultation bilaterally. CARDIO: Regular rate and rhythm. S1 and S2 heard. No murmur or gallops. EXTREMITIES: Normal range of motion. No clubbing or cyanosis. Peripheral pulses intact. Negative for bilateral lower extremity edema NEURO: Orientated to person, time, mood is appropriate - Labs CBC & Chem 7: 10/06/21 03:15 10/06/21 03:15 Labs: Abnormal Lab Results - Last 24 Hours (Table) 10/05/21 10/05/21 10/06/21 Range/Units 08:42 18:19 03:15 WBC 10.9 H (3.8-10.6) k/uL Neutrophils # 8.4 H (1.3-7.7) k/uL APTT (22.0-30.0) sec Sodium (137-145) mmol/L Creatinine (0.52-1.04) mg/dL Glucose (74-99) mg/dL Triglycerides 291.00 H (0.00-149.00) mg/dL Cholesterol 252.00 H (0.00-200.00) mg/dL LDL Cholesterol, Calc 156.6 H (0.0-131.0) mg/dL VLDL Cholesterol, Calc 58.20 H (5.00-40.00) mg/dL HDL Cholesterol 37.20 L (40.00-60.00) mg/dL TSH 23.300 H (0.465-4.680) mIU/L Free T4 0.36 L (0.78-2.19) ng/dL 10/06/21 10/06/21 Range/Units 03:15 10:25 WBC (3.8-10.6) k/uL Neutrophils # (1.3-7.7) k/uL APTT 54.9 H (22.0-30.0) sec Sodium 134 L (137-145) mmol/L Creatinine 1.05 H (0.52-1.04) mg/dL Glucose 119 H (74-99) mg/dL Triglycerides (0.00-149.00) mg/dL Cholesterol (0.00-200.00) mg/dL LDL Cholesterol, Calc (0.0-131.0) mg/dL VLDL Cholesterol, Calc (5.00-40.00) mg/dL HDL Cholesterol (40.00-60.00) mg/dL TSH (0.465-4.680) mIU/L Free T4 (0.78-2.19) ng/dL Microbiology - Last 24 Hours (Table) 10/05/21 19:00 Nasal Screen MRSA/MSSA - Preliminary Nasopharyngeal Swab Assessment and Plan Assessment: Severe triple-vessel coronary artery disease requiring coronary artery bypass grafting Non-ST elevated myocardial infarction with elevated troponin Hypertension Hyperlipidemia History of ischemic cardiomyopathy COPD Obstructive sleep apnea Chronic current tobacco abuse Chronic kidney disease stage III Elevated A1c Hypothyroidism Plan: Continue with current cardiac medications Continue with telemetry monitoring Continue with accurate intake and output, daily weights Further recommendations based on clinical course The above impression and plan of care have been discussed and directed by the signing physician. Ynes Swan, nurse practitioner, acting as scribe for signing physician.
[2021-10-06] MEDS: SYMBICORT 160-4.5 MCG INHALER INHALATION SCH (20:25)
[2021-10-07] MEDS: HEPARIN SOD,PORK IN 0.45% NACL 25,000 UNIT in 0.45% NACL 1 250ML.BAG IV SCH ×2 (00:42→19:26)
[2021-10-07] MEDS: NITROGLYCERIN OINT 1 INCH/GM PACKET TOPICAL SCH ×4 (06:32→23:42)
[2021-10-07] MEDS: PANTOPRAZOLE 40 MG TABLET PO SCH (06:32)
[2021-10-07] MEDS: LEVOTHYROXINE 50 MCG TAB PO SCH (06:32)
[2021-10-07] MEDS: IPRATROPIUM-ALBUTEROL 3 ML NEB INHALATION SCH ×4 (08:04→19:57)
[2021-10-07] MEDS: SYMBICORT 160-4.5 MCG INHALER INHALATION SCH ×2 (08:05→19:57)
[2021-10-07] MEDS: METOPROLOL TARTRATE 12.5 MG TAB PO SCH (08:11)
[2021-10-07] MEDS: LOSARTAN 25 MG TAB PO SCH (08:12)
[2021-10-07] MEDS: ATORVASTATIN 80 MG TAB PO SCH (08:12)
[2021-10-07] MEDS: ASPIRIN 325 MG TAB PO SCH (08:12)
[2021-10-07] MEDS: MUPIROCIN 2% OINT 22 GM TUBE NASAL SCH ×2 (08:14→19:57)
[2021-10-07 09:52] LABS: Basophils # (A) 0.1 k/uL (0-0.2); Basophils % (A) 1 %; Eosinophils # (A) 0.5 k/uL (0-0.7); Eosinophils % (A) 4 %; HGB 14.1 gm/dL (11.4-16.0); Lymphocytes # (A) 1.5 k/uL (1.0-4.8); Lymphocytes % (A) 14 %; MCH 32.8 pg (25.0-35.0); MCHC 32.7 g/dL (31.0-37.0); MCV 100.1 fL (80.0-100.0); Macrocytosis Slight; Mean Platelet Volume 9.2; Monocytes # (A) 0.3 k/uL (0-1.0); Monocytes % (A) 3 %; Neutrophils # (A) 8.2 k/uL (1.3-7.7); Neutrophils % (A) 77 %; Platelet Count 266 k/uL (150-450); RBC 4.29 m/uL (3.80-5.40); RDW 14.3 % (11.5-15.5); WBC 10.7 k/uL (3.8-10.6)
[2021-10-07 10:08] LABS: Calcium 8.7 mg/dL (8.4-10.2); Magnesium 1.9 mg/dL (1.6-2.3)
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
--- NOTE | 2021-10-07 11:35 | P.PN ---
Subjective Progress Note Date: 10/07/21 Principal diagnosis: Multivessel coronary artery disease, non-ST elevated myocardial infarction this admission. Previous medical history of coronary artery disease and myocardial infarction status post multiple stent placement, ischemic cardiomyopathy, hypertension, hyperlipidemia, chronic kidney disease stage III secondary to nephrosclerosis, chronic ongoing tobacco abuse, obstructive sleep apnea with out home CPAP use, COPD with home oxygen use 2-3 L nasal cannula at night, morbid obesity, hypothyroid, medical noncompliance The patient was seen and examined sitting up in a recliner in the cardiac stepdown unit in no acute distress. Denies any pain or shortness of breath. Discussed plan for surgical revascularization this week, however the patient states that she was told she can go home and come back next week as she does not want to miss her granddaughter's birthday republican. Remains in sinus rhythm and hemodynamically stable. No other new concerns. Objective - Vital Signs Vital signs: Vital Signs Temp 97.9 F 10/07/21 07:54 Pulse 94 10/07/21 11:11 Resp 20 10/07/21 07:54 BP 136/90 10/07/21 07:54 Pulse Ox 95 10/07/21 08:05 FiO2 Intake & Output 10/06/21 10/07/21 10/07/21 18:59 06:59 18:59 Intake Total 250 240 Output Total 1400 Balance -1150 240 Intake: Intake, IV Titration 250 Amount Heparin Sod,Pork in 0.45% 250 NaCl 25,000 unit In 0.45 % NaCl 1 250ml.bag @ 9. 585 UNITS/KG/HR 10 mls/hr IV .Q24H [facility] Rx#: [id number] Oral 240 Output: Urine 1400 Other: Voiding Method Toilet Toilet Toilet # Voids 2 - Exam CONSTITUTIONAL: Appears comfortable, cooperative, no acute distress RESPIRATORY: Lungs sounds diminished bilaterally. Respirations even, nonlabored. Currently on 3 L nasal cannula with oxygen saturation 95%. Able to achieve 1500 mL on incentive spirometry. Strong cough. CARDIOVASCULAR: S1, S2 present. Regular rate and rhythm, sinus rhythm on telemetry. Palpable peripheral pulses bilaterally. No edema present. No calf pain or tenderness noted. GASTROINTESTINAL: Abdomen soft, nontender, nondistended. Active bowel sounds present 4 quadrants. Tolerating diet. GENITOURINARY: Continues to void INTEGUMENTARY: Skin is warm and dry with evidence of good perfusion. NEUROLOGIC: Cranial nerves II through XII intact MUSKULOSKELETAL: Able to move all extremities, strength equal bilaterally, gait normal PSYCHIATRIC: Alert and oriented to person place and time, appropriate affect, intact judgment and insight - Allied health notes Allied health notes reviewed: nursing - Labs CBC & Chem 7: 10/07/21 09:07 10/07/21 09:07 Labs: Abnormal Lab Results - Last 24 Hours (Table) 10/07/21 10/07/21 10/07/21 Range/Units 09:07 09:07 09:07 WBC 10.7 H (3.8-10.6) k/uL MCV 100.1 H (80.0-100.0) fL Neutrophils # 8.2 H (1.3-7.7) k/uL APTT 63.1 H (22.0-30.0) sec Sodium 135 L (137-145) mmol/L Creatinine 1.22 H (0.52-1.04) mg/dL Glucose 235 H (74-99) mg/dL Microbiology - Last 24 Hours (Table) 10/05/21 19:00 Nasal Screen MRSA/MSSA - Final Nasopharyngeal Swab Assessment and Plan Assessment: 1. Multivessel coronary artery disease, non-ST elevated myocardial infarction this admission 2. History of coronary artery disease and myocardial infarction status post multiple stent placement 3. Ischemic cardiomyopathy, EF 45-50% 4. Hypertension 5. Hyperlipidemia, cholesterol 252, LDL 156, triglycerides 291 6. Chronic kidney disease stage III secondary to nephrosclerosis 7. Chronic ongoing tobacco abuse 8. Obstructive sleep apnea with out home CPAP use 9. COPD with home oxygen use 2-3 L nasal cannula at night 10. Morbid obesity 11. Hypothyroid, TSH 23.3 with free T4 0.36 12. Medical noncompliance 13. Elevated hemoglobin A1c, 6.8% Plan: 1. Continue to optimize medical management with aspirin, statin and beta garret. 2. Heparin drip management and recommendations per cardiology 3. Plan is for myocardial revascularization with left internal mammary artery, endoscopic vein harvest, possible left radial artery harvest, ligation of the left atrial appendage with Dr. Stephenson, timing to be determined. Patient insists on going home and returning for surgery next week 4. Encourage use of her incentive spirometry 10 times every hour while awake. 5. Importance of risk modification including smoking cessation has been discussed in detail with the patient and reinforced with the patient. 6. Medical management and other comorbidities per primary care service. 7. Compliance with taking her medication has been discussed with the patient. 8. More recommendations to follow. If patient is discharged today we will call her in the next 24-48 hours to give her a surgery date for next week
--- NOTE | 2021-10-07 13:56 | P.PN ---
Subjective Progress Note Date: 10/07/21 HISTORY OF PRESENT ILLNESS: Patient examined this morning at the bedside. She denies chest pain or pressure. Denies SOB. She remains on IV heparin. She is scheduled to undergo CABG in the near future. However, she wants to be discharged home for her granddaughters birthday constitution party and return next week for surgery. PHYSICAL EXAM: VITAL SIGNS: Reviewed. GENERAL: Well-developed in no acute distress. NECK: Supple. No JVD or thyromegaly LUNGS: Respirations even and unlabored. Lungs essentially clear to auscultation bilaterally. HEART: Regular rate and rhythm. S1 and S2 heard. EXTREMITIES: Normal range of motion. No clubbing or cyanosis. Peripheral pulses intact. No lower extremity edema ASSESSMENT: Non-STEMI, s/p cath revealing triple vessel disease Coronary artery disease with previous stent placement Ischemic cardiomyopathy Hypertension Hyperlipidemia Chronic kidney disease COPD with home oxygen use Obstructive sleep apnea PLAN: Continue current cardiac medications Increase metoprolol to 25mg BID Dr. Springer spoke with the patient today at length at the bedside. Dr. Springer does not feel the patient should be discharged home and return for surgery next week. However, the patient is adamant about being discharged home so she can attend her granddaughters birthday constitution party. We will defer timing of discharge to internal medicine and cardiothoracic surgery Per Dr. Springer, Defer IV heparin to CTS Further recommendations pending patient course Nurse practitioner note has been reviewed by physician. Signing provider agrees with the documented findings, assessment, and plan of care. Objective - Vital Signs Vital signs: Vital Signs Temp 97.9 F 10/07/21 12:00 Pulse 79 10/07/21 12:00 Resp 15 10/07/21 12:00 BP 97/64 10/07/21 12:00 Pulse Ox 98 10/07/21 12:00 FiO2 Intake & Output 10/06/21 10/07/21 10/07/21 18:59 06:59 18:59 Intake Total 250 240 Output Total 1400 Balance -1150 240 Intake: Intake, IV Titration 250 Amount Heparin Sod,Pork in 0.45% 250 NaCl 25,000 unit In 0.45 % NaCl 1 250ml.bag @ 9. 585 UNITS/KG/HR 10 mls/hr IV .Q24H [facility] Rx#: [id number] Oral 240 Output: Urine 1400 Other: Voiding Method Toilet Toilet Toilet # Voids 2 - Labs CBC & Chem 7: 10/07/21 09:07 10/07/21 09:07 Labs: Abnormal Lab Results - Last 24 Hours (Table) 10/07/21 10/07/21 10/07/21 Range/Units 09:07 09:07 09:07 WBC 10.7 H (3.8-10.6) k/uL MCV 100.1 H (80.0-100.0) fL Neutrophils # 8.2 H (1.3-7.7) k/uL APTT 63.1 H (22.0-30.0) sec Sodium 135 L (137-145) mmol/L Creatinine 1.22 H (0.52-1.04) mg/dL Glucose 235 H (74-99) mg/dL Microbiology - Last 24 Hours (Table) 10/05/21 19:00 Nasal Screen MRSA/MSSA - Final Nasopharyngeal Swab
--- NOTE | 2021-10-07 14:22 | P.PN ---
Subjective Progress Note Date: 10/07/21 Hospital Course: Patient is a very pleasant 56-year-old female with a past medical history of CAD with stents, hypertension, hyperlipidemia, ischemic cardiomyopathy, Graves' disease, chronic kidney disease, COPD not on home oxygen dependent with continued nicotine dependence. She presented to the emergency department with a chief complaint of chest pain/pressure radiating into her back accompanied by mild shortness of breath and diaphoresis. Patient reports these symptoms began last night and awoken her from sleep. She denied having any headache, lightheadedness, dizziness, palpitations, nausea, vomiting, or experiencing any numbness/tingling/weakness in her extremities. Patient reports pain has improved but remains as a subtle ache. Patient underwent full evaluation in the emergency department. CBC revealing mild leukocytosis with WBC count of 11.1. BMP revealing mildly elevated creatinine which is improved from baseline levels and currently 1.09. Liver profile revealing slightly elevated AST of 66 and ALT of 45. Troponin negative at 0.013. EKG revealing normal sinus rhythm at 96 bpm with T-wave inversion in leads V3 through V6. Chest x-ray revealing mild cardiomegaly and chronic emphysematous changes, otherwise negative for acute pulmonary process. Patient is admitted under our services with consultation to cardiology. Troponins trended and elevating at 0.013, 0.020, and 0.070. patient was started on heparin infusion per ACS protocol. On 10/05/21 patient was taken for a cardiac cath which revealed severe three-vessel coronary artery disease with chronically occluded right coronary artery and a long segment of stenosis in the proximal LAD and lesion within the circumflex. It was felt patient with high risk for angioplasty and further stent placement secondary to her significant cardiac history and was referred for cardiac bypass surgery. C ardiothoracic surgery was then consulted and planning to take patient for CABG. Physical exam: Patient seen and fully evaluated at the bedside this morning. Patient reports that she plans on leaving the hospital to take care of some personal things prior to having CABG completed. Patient was advised that this was discussed with cardiology whom highly recommends patient stay in the hospital as she is not stable for discharge at this time. Patient states that she will talk over with cardiothoracic surgeon. she currently denies having any headache, lightheadedness, dizziness, chest pain, palpitations, shortness of breath, or experiencing any numbness/tingling/weakness in her extremities. Patient remains on heparin infusion. Patient to continue cardiac medication regimen consisting of aspirin, atorvastatin, losartan, and metoprolol. Fenofibrate also added to daily medication regimen as triglycerides elevated at 291. After review of labs it was noted TSH 23.300 and free T4 0.036, on clear if patient has been compliant with home Synthroid, as patient states she generally takes on a daily basis. Home Synthroid dose increased from 50-88 g each morning. Vital signs reviewed and stable. General: Nontoxic, no distress and appears stated age. Derm: Skin warm and dry, normal coloration for ethnicity. Head: Atraumatic, normocephalic and symmetric. Eyes: EOMs intact, no lid lag, and anicteric sclera Mouth: no lip lesions, mucus membranes moist Cardiovascular: regular rate and rhythm with normal S1S2, no murmur, positive posterior tibial pulses bilaterally, and cap refill < 2 seconds. Lungs: Respirations even, regular, and unlabored on room air. Lungs CTA bilaterally, no rhonchi, no rales, no wheezing, and no accessory muscle usage. Abdominal: soft, nontender to palpation, no guarding, no appreciable organomegaly Ext: ROM intact. No gross muscle atrophy, no edema, no contractures Neuro: Speech clear, face symmetrical and CN II-XII grossly intact with no noted focal neuro deficits Psych: Alert and oriented to person, place, time, and situation. Appropriate and pleasant affect. Assessment and Plan of Care: NSTEMI Severe three-vessel coronary artery disease Ischemic cardiomyopathy History of coronary artery disease with stents Hypertension Hyperlipidemia -Cardiology following, took patient for cardiac cath on 10/05/21 which revealed severe three-vessel coronary artery disease with chronically occluded right coronary artery and a long segment of stenosis in the proximal LAD and lesion within the circumflex. It was felt patient with high risk for angioplasty and further stent placement secondary to her significant cardiac history and was referred for cardiac bypass surgery. -Cardiothoracic surgery following, planning for CABG -Telemetry monitoring -Cardiac diet -Continue heparin infusion -Aspirin, atorvastatin, losartan and metoprolol -Lipid profile elevatedwith triglycerides of 291, cholesterol of 252, LDL 156.6, VLDL of 58.20, and HDL of 37.20. atorvastatin increased to 80 mg daily and patient started on fenofibrate. -Echocardiogram revealed mildly impaired EF of 45-50% with mild mitral regurgitation and inferior wall hypokinesia. -carotid Dopplers revealing minimal plaque formation with less than 25% stenosis in both internal carotid arteries. Hypothyroidism with history of Graves' disease -TSH 23.300 and free T4 0.36 -possibly secondary to medication noncompliance, however unclear -Home Synthroid dose increased from 50 to 88 g each morning. Patient will need to follow up outpatient with PCP/endocrinology for repeat labs in 6-8 weeks and further adjustments of medications/medication management. COPD with continued nicotine dependence -Recommend smoking cessation discussed with patient. -Patient declined nicotine patch at this time. CODE STATUS: Full code DVT prophylaxis: Heparin Discussed with: Patient and RN Anticipated discharge date: clinical course to determine Anticipated discharge place: Home A total of 38 minutes was spent on the care of this complex patient more than 50% of the time was spent in counseling and care coordination. Objective - Vital Signs Vital signs: Vital Signs Temp 97.9 F 10/07/21 07:54 Pulse 94 10/07/21 11:00 Resp 20 10/07/21 07:54 BP 136/90 10/07/21 07:54 Pulse Ox 95 10/07/21 08:05 FiO2 Intake & Output 10/06/21 10/07/21 10/07/21 18:59 06:59 18:59 Intake Total 250 Output Total 1400 Balance -1150 Intake: Intake, IV Titration 250 Amount Heparin Sod,Pork in 0.45% 250 NaCl 25,000 unit In 0.45 % NaCl 1 250ml.bag @ 9. 585 UNITS/KG/HR 10 mls/hr IV .Q24H [facility] Rx#: [id number] Output: Urine 1400 Other: Voiding Method Toilet Toilet Toilet # Voids 2 - Labs CBC & Chem 7: 10/07/21 09:07 10/07/21 09:07 Labs: Abnormal Lab Results - Last 24 Hours (Table) 10/06/21 10/07/21 10/07/21 Range/Units 10:25 09:07 09:07 WBC 10.7 H (3.8-10.6) k/uL MCV 100.1 H (80.0-100.0) fL Neutrophils # 8.2 H (1.3-7.7) k/uL APTT 54.9 H (22.0-30.0) sec Sodium 135 L (137-145) mmol/L Creatinine 1.22 H (0.52-1.04) mg/dL Glucose 235 H (74-99) mg/dL 10/07/21 Range/Units 09:07 WBC (3.8-10.6) k/uL MCV (80.0-100.0) fL Neutrophils # (1.3-7.7) k/uL APTT 63.1 H (22.0-30.0) sec Sodium (137-145) mmol/L Creatinine (0.52-1.04) mg/dL Glucose (74-99) mg/dL Microbiology - Last 24 Hours (Table) 10/05/21 19:00 Nasal Screen MRSA/MSSA - Final Nasopharyngeal Swab
[2021-10-07] MEDS: METOPROLOL TARTRATE 25 MG TAB PO SCH (19:57)
[2021-10-08] MEDS: LEVOTHYROXINE 88 MCG TAB PO SCH (06:40)
[2021-10-08] MEDS: PANTOPRAZOLE 40 MG TABLET PO SCH (06:40)
[2021-10-08] MEDS: NITROGLYCERIN OINT 1 INCH/GM PACKET TOPICAL SCH ×4 (06:40→23:23)
[2021-10-08] MEDS ORDERED: MD COMMUNICATION TO PHARMACY 1 EACH MISC PO PRN (07:08)
[2021-10-08] MEDS: IPRATROPIUM-ALBUTEROL 3 ML NEB INHALATION SCH ×4 (08:37→19:55)
[2021-10-08] MEDS: SYMBICORT 160-4.5 MCG INHALER INHALATION SCH ×2 (08:38→19:55)
--- NOTE | 2021-10-08 08:45 | P.PN ---
Subjective Progress Note Date: 10/08/21 Hospital Course: Patient is a very pleasant 56-year-old female with a past medical history of CAD with stents, hypertension, hyperlipidemia, ischemic cardiomyopathy, Graves' disease, chronic kidney disease, COPD not on home oxygen dependent with continued nicotine dependence. She presented to the emergency department with a chief complaint of chest pain/pressure radiating into her back accompanied by mild shortness of breath and diaphoresis. Patient reports these symptoms began last night and awoken her from sleep. She denied having any headache, lightheadedness, dizziness, palpitations, nausea, vomiting, or experiencing any numbness/tingling/weakness in her extremities. Patient reports pain has improved but remains as a subtle ache. Patient underwent full evaluation in the emergency department. CBC revealing mild leukocytosis with WBC count of 11.1. BMP revealing mildly elevated creatinine which is improved from baseline levels and currently 1.09. Liver profile revealing slightly elevated AST of 66 and ALT of 45. Troponin negative at 0.013. EKG revealing normal sinus rhythm at 96 bpm with T-wave inversion in leads V3 through V6. Chest x-ray revealing mild cardiomegaly and chronic emphysematous changes, otherwise negative for acute pulmonary process. Patient is admitted under our services with consultation to cardiology. Troponins trended and elevating at 0.013, 0.020, and 0.070. patient was started on heparin infusion per ACS protocol. On 10/05/21 patient was taken for a cardiac cath which revealed severe three-vessel coronary artery disease with chronically occluded right coronary artery and a long segment of stenosis in the proximal LAD and lesion within the circumflex. It was felt patient with high risk for angioplasty and further stent placement secondary to her significant cardiac history and was referred for cardiac bypass surgery. C ardiothoracic surgery was then consulted and planning to take patient for CABG. Physical exam: Patient seen and fully evaluated at the bedside this morning. Patient appears to be comfortable at this time. Patienttiming her neice and states that she has chosen to stay and have CABG completed. CABG is currently scheduled for 10/10/21. Morning labs reviewed and stable. CBC revealing mild leukocytosis with WBC count of 10.7 and slight elevation of creatinine at 1.22. Glucose also elevated at 235 this morning. A1c also resulted slightly elevated at 6.8%. At this time will place patient on sliding scale to maintain tight glycemic control throughout hospitalization and recovery period. Patient remains on heparin infusion with Nitropaste and continues to deny experiencing any headache, lightheadedness, dizziness, chest pain, palpitations, shortness of breath, or experiencing any numbness/tingling/weakness in her extremities. Vital signs reviewed and stable. General: Nontoxic, no distress and appears stated age. Derm: Skin warm and dry, normal coloration for ethnicity. Head: Atraumatic, normocephalic and symmetric. Eyes: EOMs intact, no lid lag, and anicteric sclera Mouth: no lip lesions, mucus membranes moist Cardiovascular: regular rate and rhythm with normal S1S2, no murmur, positive posterior tibial pulses bilaterally, and cap refill < 2 seconds. Lungs: Respirations even, regular, and unlabored on room air. Lungs CTA bilaterally, no rhonchi, no rales, no wheezing, and no accessory muscle usage. Abdominal: soft, nontender to palpation, no guarding, no appreciable organomegaly Ext: ROM intact. No gross muscle atrophy, no edema, no contractures Neuro: Speech clear, face symmetrical and CN II-XII grossly intact with no noted focal neuro deficits Psych: Alert and oriented to person, place, time, and situation. Appropriate and pleasant affect. Assessment and Plan of Care: NSTEMI Severe three-vessel coronary artery disease Ischemic cardiomyopathy History of coronary artery disease with stents Hypertension Hyperlipidemia -Cardiology following, took patient for cardiac cath on 10/05/21 which revealed severe three-vessel coronary artery disease with chronically occluded right coronary artery and a long segment of stenosis in the proximal LAD and lesion within the circumflex. It was felt patient with high risk for angioplasty and further stent placement secondary to her significant cardiac history and was referred for cardiac bypass surgery. -Cardiothoracic surgery following, planning for CABG 10/10/21 -Telemetry monitoring -Cardiac diet -Continue heparin infusion -Aspirin, atorvastatin, losartan and metoprolol -Lipid profile elevatedwith triglycerides of 291, cholesterol of 252, LDL 156.6, VLDL of 58.20, and HDL of 37.20. atorvastatin increased to 80 mg daily and patient started on fenofibrate. -Echocardiogram revealed mildly impaired EF of 45-50% with mild mitral regurgitation and inferior wall hypokinesia. -Carotid Dopplers revealing minimal plaque formation with less than 25% stenosis in both internal carotid arteries. Hypothyroidism with history of Graves' disease -TSH 23.300 and free T4 0.36 -possibly secondary to medication noncompliance, however unclear -Home Synthroid dose increased from 50 to 88 g each morning. Patient will need to follow up outpatient with PCP/endocrinology for repeat labs in 6-8 weeks and further adjustments of medications/medication management. COPD with continued nicotine dependence -Recommend smoking cessation discussed with patient. -Patient declined nicotine patch at this time. Type 2 diabetes mellitus with hemoglobin A1c of 6.8% -Preprandial glucose 235 this morning. -Patient placed on glycemic protocol with NovoLog sliding scale. -Patient will need oral hypoglycemic agent upon discharge, recommend Jardiance based upon its benefits with controlling blood glucose levels as well as its associated heart failure risk reduction. -Continue to encourage lifestyle/dietary changes and maintain a heart healthy and carb consistent diet. CODE STATUS: Full code DVT prophylaxis: Heparin Discussed with: Patient and RN Anticipated discharge date: clinical course to determine Anticipated discharge place: Home A total of 38 minutes was spent on the care of this complex patient more than 50% of the time was spent in counseling and care coordination. Objective - Vital Signs Vital signs: Vital Signs Temp 98.1 F 10/08/21 04:00 Pulse 67 10/08/21 04:00 Resp 18 10/08/21 04:00 BP 109/61 10/08/21 04:00 Pulse Ox 96 10/08/21 04:00 FiO2 Intake & Output 10/07/21 10/08/21 10/08/21 18:59 06:59 18:59 Intake Total 490 Output Total 600 Balance 490 -600 Intake: Intake, IV Titration 250 Amount Heparin Sod,Pork in 0.45% 250 NaCl 25,000 unit In 0.45 % NaCl 1 250ml.bag @ 9. 585 UNITS/KG/HR 10 mls/hr IV .Q24H [facility] Rx#: [id number] Oral 240 Output: Urine 600 Other: Voiding Method Toilet # Voids 2 2 - Labs CBC & Chem 7: 10/07/21 09:07 10/07/21 09:07 Labs: Abnormal Lab Results - Last 24 Hours (Table) 10/07/21 10/07/21 10/07/21 Range/Units 09:07 09:07 09:07 WBC 10.7 H (3.8-10.6) k/uL MCV 100.1 H (80.0-100.0) fL Neutrophils # 8.2 H (1.3-7.7) k/uL APTT 63.1 H (22.0-30.0) sec Sodium 135 L (137-145) mmol/L Creatinine 1.22 H (0.52-1.04) mg/dL Glucose 235 H (74-99) mg/dL
[2021-10-08] MEDS: ATORVASTATIN 80 MG TAB PO SCH (09:27)
[2021-10-08] MEDS: METOPROLOL TARTRATE 25 MG TAB PO SCH ×2 (09:27→21:05)
[2021-10-08] MEDS: FENOFIBRATE 160 MG TAB PO SCH (09:27)
[2021-10-08] MEDS: MUPIROCIN 2% OINT 22 GM TUBE NASAL SCH ×2 (09:27→21:05)
[2021-10-08] MEDS: ASPIRIN 325 MG TAB PO SCH (09:27)
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
[2021-10-08 10:19] LABS: Basophils # (A) 0.1 k/uL (0-0.2); Basophils % (A) 1 %; Eosinophils # (A) 0.4 k/uL (0-0.7); Eosinophils % (A) 4 %; HCT 43.3 % (34.0-46.0); HGB 14.2 gm/dL (11.4-16.0); Hypochromasia Slight; Lymphocytes # (A) 1.3 k/uL (1.0-4.8); Lymphocytes % (A) 14 %; MCH 33.2 pg (25.0-35.0); MCHC 32.8 g/dL (31.0-37.0); MCV 101.1 fL (80.0-100.0); Macrocytosis Slight; Mean Platelet Volume 9.3; Monocytes # (A) 0.3 k/uL (0-1.0); Monocytes % (A) 4 %; Neutrophils # (A) 6.9 k/uL (1.3-7.7); Neutrophils % (A) 76 %; Platelet Count 270 k/uL (150-450); RBC 4.29 m/uL (3.80-5.40); RDW 14.9 % (11.5-15.5); WBC 9.2 k/uL (3.8-10.6)
[2021-10-08 10:26] LABS: Calcium 8.8 mg/dL (8.4-10.2); Magnesium 1.9 mg/dL (1.6-2.3); Potassium 4.5 mmol/L (3.5-5.1)
--- NOTE | 2021-10-08 10:41 | P.PN ---
Subjective Progress Note Date: 10/08/21 Principal diagnosis: Multivessel coronary artery disease, non-ST elevated myocardial infarction this admission. Previous medical history of coronary artery disease and myocardial infarction status post multiple stent placement, ischemic cardiomyopathy, hypertension, hyperlipidemia, chronic kidney disease stage III secondary to nephrosclerosis, chronic ongoing tobacco abuse, obstructive sleep apnea with out home CPAP use, mild COPD with home oxygen use 2-3 L nasal cannula at night, morbid obesity, hypothyroid, medical noncompliance, type II diabetes, peripheral artery disease The patient was seen and examined this morning sitting up in a recliner on the cardiac stepdown unit in no acute distress. Denies any chest pain or shortness of breath. Remains in sinus rhythm and hemodynamically stable. She was informed yesterday afternoon that both cardiology and cardiothoracic surgery do not feel she should have her open heart surgery as an outpatient, the recommendation is for her to stay inpatient and have surgery during this admission. Yesterday afternoon she was quite angry about this but appears to be in better spirits this morning. She is actively using incentive spirometer and achieving 1750 mL. Oxygenating well on room air. Remains on IV heparin. No ot her new concerns. Objective - Vital Signs Vital signs: Vital Signs Temp 98.1 F 10/08/21 04:00 Pulse 80 10/08/21 08:49 Resp 18 10/08/21 04:00 BP 109/61 10/08/21 04:00 Pulse Ox 96 10/08/21 04:00 FiO2 Intake & Output 10/07/21 10/08/21 10/08/21 18:59 06:59 18:59 Intake Total 490 Output Total 600 Balance 490 -600 Intake: Intake, IV Titration 250 Amount Heparin Sod,Pork in 0.45% 250 NaCl 25,000 unit In 0.45 % NaCl 1 250ml.bag @ 9. 585 UNITS/KG/HR 10 mls/hr IV .Q24H [facility] Rx#: [id number] Oral 240 Output: Urine 600 Other: Voiding Method Toilet # Voids 2 2 - Exam CONSTITUTIONAL: Appears comfortable, cooperative, no acute distress RESPIRATORY: Lungs sounds diminished bilaterally. Respirations even, nonlabored. Currently on room air with oxygen saturation 96%. Able to achieve 1750 mL on incentive spirometry. Strong cough. CARDIOVASCULAR: S1, S2 present. Regular rate and rhythm, sinus rhythm on telemetry. Palpable peripheral pulses bilaterally. No edema present. No calf pain or tenderness noted. GASTROINTESTINAL: Abdomen soft, nontender, nondistended. Active bowel sounds present 4 quadrants. Tolerating diet. GENITOURINARY: Continues to void INTEGUMENTARY: Skin is warm and dry with evidence of good perfusion. NEUROLOGIC: Cranial nerves II through XII intact MUSKULOSKELETAL: Able to move all extremities, strength equal bilaterally, gait normal PSYCHIATRIC: Alert and oriented to person place and time, appropriate affect, intact judgment and insight - Labs CBC & Chem 7: 10/08/21 09:20 10/08/21 09:20 Labs: Abnormal Lab Results - Last 24 Hours (Table) 10/08/21 10/08/21 Range/Units 09:20 09:20 MCV 101.1 H (80.0-100.0) fL Sodium 136 L (137-145) mmol/L Creatinine 1.26 H (0.52-1.04) mg/dL Glucose 188 H (74-99) mg/dL Assessment and Plan Assessment: 1. Multivessel coronary artery disease, non-ST elevated myocardial infarction this admission 2. History of coronary artery disease and myocardial infarction status post multiple stent placement 3. Ischemic cardiomyopathy, EF 45-50% 4. Hypertension 5. Hyperlipidemia, cholesterol 252, LDL 156, triglycerides 291 6. Chronic kidney disease stage III secondary to nephrosclerosis 7. Chronic ongoing tobacco abuse 8. Obstructive sleep apnea with out home CPAP use 9. Mild COPD with home oxygen use 2-3 L nasal cannula at night, preoperative FEV1 60% of predicted 10. Morbid obesity 11. Hypothyroid, TSH 23.3 with free T4 0.36 12. Medical noncompliance 13. Type 2 diabetes mellitus, A1c 6.8% 14. Peripheral arterial disease, left SAEED 0.69 Plan: 1. Continue to optimize medical management with aspirin, statin and beta garret. Recommend no APRIL/ARB for 48 hours prior to surgery to prevent postoperative vaso-plegia, discussed with cardiology 2. Heparin drip management and recommendations per cardiology 3. Plan is for myocardial revascularization with left internal mammary artery, endoscopic vein harvest, ligation of the left atrial appendage with Dr. Stephenson , 10/10/2021 4. Encourage use of her incentive spirometry 10 times every hour while awake. 5. Importance of risk modification including smoking cessation has been discussed in detail with the patient and reinforced with the patient. 6. Medical management and other comorbidities per primary care service. 7. Compliance with taking her medication has been discussed with the patient. 8. More recommendations to follow
[2021-10-08] MEDS: HEPARIN SOD,PORK IN 0.45% NACL 25,000 UNIT in 0.45% NACL 1 250ML.BAG IV SCH (10:54)
[2021-10-08] MEDS: HEPARIN SODIUM 1,000 UN/ML (10ML VL) IV PRN (10:56)
[2021-10-08 12:11] LABS: Glucose,Whole Blood 199 mg/dL (70-110)
[2021-10-08] MEDS: INSULIN ASPART (NovoLOG) 100 UNIT/ML VIAL SQ SCH ×2 (13:25→18:05)
--- NOTE | 2021-10-08 13:32 | P.PN ---
Subjective Progress Note Date: 10/08/21 HISTORY OF PRESENT ILLNESS: Patient examined this morning at the bedside. She denies chest pain or pressure. Denies SOB. She remains on IV heparin. She is scheduled to undergo CABG in the near future. However, she wants to be discharged home for her granddaughters birthday republican and return next week for surgery. 10/08/2021 Patient examined this morning. She is sitting up in the chair. She denies chest pain or pressure. She denies shortness of breath. She remains on IV heparin. Patient's surgery has been scheduled for this and patient is agreeable to stay in the hospital until her surgery is performed. Blood pressure this morning 122/78. PHYSICAL EXAM: VITAL SIGNS: Reviewed. GENERAL: Well-developed in no acute distress. NECK: Supple. No JVD or thyromegaly LUNGS: Respirations even and unlabored. Lungs essentially clear to auscultation bilaterally. HEART: Regular rate and rhythm. S1 and S2 heard. EXTREMITIES: Normal range of motion. No clubbing or cyanosis. Peripheral pulses intact. No lower extremity edema ASSESSMENT: Non-STEMI, s/p cath revealing triple vessel disease Coronary artery disease with previous stent placement Ischemic cardiomyopathy Hypertension Hyperlipidemia Chronic kidney disease COPD with home oxygen use Obstructive sleep apnea PLAN: Continue current cardiac medications Continue IV heparin Cozaar placed on hold for upcoming surgery on . Patients blood pressure currently stable. If BP beings to climb, will add hydralazine. However, will continue to monitor off Cozaar at this time. Further recommendations pending patient course Nurse practitioner note has been reviewed by physician. Signing provider agrees with the documented findings, assessment, and plan of care. Objective - Vital Signs Vital signs: Vital Signs Temp 98.1 F 10/08/21 11:00 Pulse 85 10/08/21 11:31 Resp 16 10/08/21 11:00 BP 133/67 10/08/21 11:00 Pulse Ox 95 10/08/21 11:00 FiO2 Intake & Output 10/07/21 10/08/21 10/08/21 18:59 06:59 18:59 Intake Total 490 700 Output Total 600 Balance 490 -600 700 Intake: Intake, IV Titration 250 250 Amount Heparin Sod,Pork in 0.45% 250 250 NaCl 25,000 unit In 0.45 % NaCl 1 250ml.bag @ 9. 585 UNITS/KG/HR 10 mls/hr IV .Q24H [facility] Rx#: [id number] Oral 240 450 Output: Urine 600 Other: Voiding Method Toilet Toilet # Voids 2 2 - Labs CBC & Chem 7: 10/08/21 09:20 10/08/21 09:20 Labs: Abnormal Lab Results - Last 24 Hours (Table) 10/08/21 10/08/21 10/08/21 Range/Units 09:20 09:20 09:20 MCV 101.1 H (80.0-100.0) fL APTT 30.9 H (22.0-30.0) sec Sodium 136 L (137-145) mmol/L Creatinine 1.26 H (0.52-1.04) mg/dL Glucose 188 H (74-99) mg/dL POC Glucose (mg/dL) (70-110) mg/dL 10/08/21 Range/Units 12:07 MCV (80.0-100.0) fL APTT (22.0-30.0) sec Sodium (137-145) mmol/L Creatinine (0.52-1.04) mg/dL Glucose (74-99) mg/dL POC Glucose (mg/dL) 199 H (70-110) mg/dL
[2021-10-08 17:24] LABS: Glucose,Whole Blood 170 mg/dL (70-110)
[2021-10-08 20:29] LABS: Glucose,Whole Blood 170 mg/dL (70-110)
[2021-10-09] MEDS: HEPARIN SOD,PORK IN 0.45% NACL 25,000 UNIT in 0.45% NACL 1 250ML.BAG IV SCH ×2 (04:42→21:50)
[2021-10-09 06:09] LABS: Glucose,Whole Blood 132 mg/dL (70-110)
[2021-10-09] MEDS: INSULIN ASPART (NovoLOG) 100 UNIT/ML VIAL SQ SCH ×3 (06:12→17:54)
[2021-10-09] MEDS: LEVOTHYROXINE 88 MCG TAB PO SCH (06:24)
[2021-10-09] MEDS: PANTOPRAZOLE 40 MG TABLET PO SCH (06:24)
[2021-10-09] MEDS: NITROGLYCERIN OINT 1 INCH/GM PACKET TOPICAL SCH ×4 (06:24→23:28)
[2021-10-09] MEDS: IPRATROPIUM-ALBUTEROL 3 ML NEB INHALATION SCH ×5 (08:10→21:56)
[2021-10-09] MEDS: SYMBICORT 160-4.5 MCG INHALER INHALATION SCH ×3 (08:10→21:57)
[2021-10-09 08:33] LABS: Basophils # (A) 0.1 k/uL (0-0.2); Basophils % (A) 1 %; Eosinophils # (A) 0.5 k/uL (0-0.7); Eosinophils % (A) 5 %; HCT 42.6 % (34.0-46.0); HGB 13.3 gm/dL (11.4-16.0); Hypochromasia Slight; Lymphocytes # (A) 1.7 k/uL (1.0-4.8); Lymphocytes % (A) 16 %; MCH 31.6 pg (25.0-35.0); MCHC 31.4 g/dL (31.0-37.0); MCV 100.8 fL (80.0-100.0); Macrocytosis Slight; Mean Platelet Volume 9.2; Monocytes # (A) 0.4 k/uL (0-1.0); Monocytes % (A) 4 %; Neutrophils # (A) 7.7 k/uL (1.3-7.7); Neutrophils % (A) 73 %; Platelet Count 273 k/uL (150-450); RBC 4.22 m/uL (3.80-5.40); RDW 14.3 % (11.5-15.5); WBC 10.7 k/uL (3.8-10.6)
[2021-10-09 08:40] LABS: Partial Thromboplastin Time 68.5 sec (22.0-30.0); Prothrombin Time 10.8 sec (9.0-12.0)
[2021-10-09 09:03] LABS: Albumin 3.8 g/dL (3.5-5.0); Calcium 8.8 mg/dL (8.4-10.2); Magnesium 1.9 mg/dL (1.6-2.3); Potassium 4.7 mmol/L (3.5-5.1); Total Bilirubin 0.4 mg/dL (0.2-1.3); Total Protein 6.8 g/dL (6.3-8.2)
[2021-10-09] MEDS: ATORVASTATIN 80 MG TAB PO SCH (09:37)
[2021-10-09] MEDS: ASPIRIN 325 MG TAB PO SCH ×2 (09:37→18:52)
[2021-10-09] MEDS: METOPROLOL TARTRATE 25 MG TAB PO SCH ×2 (09:37→21:49)
[2021-10-09] MEDS: FENOFIBRATE 160 MG TAB PO SCH (09:37)
[2021-10-09] MEDS: MUPIROCIN 2% OINT 22 GM TUBE NASAL SCH ×2 (09:38→21:53)
--- NOTE | 2021-10-09 09:58 | P.PN ---
Subjective Progress Note Date: 10/09/21 Principal diagnosis: Multivessel coronary artery disease, non-ST elevated myocardial infarction this admission. Previous medical history of coronary artery disease and myocardial infarction status post multiple stent placement, ischemic cardiomyopathy, hypertension, hyperlipidemia, chronic kidney disease stage III secondary to nephrosclerosis, chronic ongoing tobacco abuse, obstructive sleep apnea with out home CPAP use, mild COPD with home oxygen use 2-3 L nasal cannula at night, morbid obesity, hypothyroid, medical noncompliance, type II diabetes, peripheral artery disease The patient was seen and examined this morning sitting up in a recliner on the cardiac stepdown unit in no acute distress. Denies any chest pain or shortness of breath. Remains in sinus rhythm and hemodynamically stable. Anticipate surgery tomorrow, no new questions. She is actively using incentive spirometer and achieving 2500 mL. Oxygenating well on room air. Remains on IV heparin. No other new concerns. Objective - Vital Signs Vital signs: Vital Signs Temp 98.4 F 10/09/21 08:00 Pulse 79 10/09/21 08:25 Resp 16 10/09/21 08:00 BP 128/78 10/09/21 08:00 Pulse Ox 97 10/09/21 08:11 FiO2 21 10/09/21 08:11 Intake & Output 10/08/21 10/09/21 10/09/21 18:59 06:59 18:59 Intake Total 1311.851 115.149 Output Total 2 900 Balance 1309.851 -784.851 Intake: Intake, IV Titration 384.851 115.149 Amount Heparin Sod,Pork in 0.45% 384.851 115.149 NaCl 25,000 unit In 0.45 % NaCl 1 250ml.bag @ 9. 585 UNITS/KG/HR 10 mls/hr IV .Q24H [facility] Rx#: [id number] Oral 927 Output: Urine 900 Stool 2 Other: Voiding Method Toilet # Voids 2 - Exam CONSTITUTIONAL: Appears comfortable, cooperative, no acute distress RESPIRATORY: Lungs sounds diminished bilaterally. Respirations even, nonlabored. Currently on room air with oxygen saturation 97%. Able to achieve 2500 mL on incentive spirometry. Strong cough. CARDIOVASCULAR: S1, S2 present. Regular rate and rhythm, sinus rhythm on telemetry. Palpable peripheral pulses bilaterally. No edema present. No calf pain or tenderness noted. GASTROINTESTINAL: Abdomen soft, nontender, nondistended. Active bowel sounds present 4 quadrants. Tolerating diet. GENITOURINARY: Continues to void INTEGUMENTARY: Skin is warm and dry with evidence of good perfusion. NEUROLOGIC: Cranial nerves II through XII intact MUSKULOSKELETAL: Able to move all extremities, strength equal bilaterally, gait normal PSYCHIATRIC: Alert and oriented to person place and time, appropriate affect, intact judgment and insight - Allied health notes Allied health notes reviewed: nursing - Labs CBC & Chem 7: 10/09/21 08:15 10/09/21 08:15 Labs: Abnormal Lab Results - Last 24 Hours (Table) 10/08/21 10/08/21 10/08/21 Range/Units 09:20 09:20 09:20 WBC (3.8-10.6) k/uL MCV 101.1 H (80.0-100.0) fL APTT 30.9 H (22.0-30.0) sec Sodium 136 L (137-145) mmol/L Carbon Dioxide (22-30) mmol/L Creatinine 1.26 H (0.52-1.04) mg/dL Glucose 188 H (74-99) mg/dL POC Glucose (mg/dL) (70-110) mg/dL AST (14-36) U/L ALT (4-34) U/L 10/08/21 10/08/21 10/08/21 Range/Units 12:07 16:28 17:23 WBC (3.8-10.6) k/uL MCV (80.0-100.0) fL APTT 106.8 H* (22.0-30.0) sec Sodium (137-145) mmol/L Carbon Dioxide (22-30) mmol/L Creatinine (0.52-1.04) mg/dL Glucose (74-99) mg/dL POC Glucose (mg/dL) 199 H 170 H (70-110) mg/dL AST (14-36) U/L ALT (4-34) U/L 10/08/21 10/09/21 10/09/21 Range/Units 20:27 00:00 06:08 WBC (3.8-10.6) k/uL MCV (80.0-100.0) fL APTT 62.6 H (22.0-30.0) sec Sodium (137-145) mmol/L Carbon Dioxide (22-30) mmol/L Creatinine (0.52-1.04) mg/dL Glucose (74-99) mg/dL POC Glucose (mg/dL) 170 H 132 H (70-110) mg/dL AST (14-36) U/L ALT (4-34) U/L 10/09/21 10/09/21 10/09/21 Range/Units 08:15 08:15 08:15 WBC 10.7 H (3.8-10.6) k/uL MCV 100.8 H (80.0-100.0) fL APTT 68.5 H (22.0-30.0) sec Sodium 136 L (137-145) mmol/L Carbon Dioxide 31 H (22-30) mmol/L Creatinine 1.26 H (0.52-1.04) mg/dL Glucose 154 H (74-99) mg/dL POC Glucose (mg/dL) (70-110) mg/dL AST 110 H (14-36) U/L ALT 74 H (4-34) U/L Assessment and Plan Assessment: 1. Multivessel coronary artery disease, non-ST elevated myocardial infarction this admission 2. History of coronary artery disease and myocardial infarction status post multiple stent placement 3. Ischemic cardiomyopathy, EF 45-50% 4. Hypertension 5. Hyperlipidemia, cholesterol 252, LDL 156, triglycerides 291 6. Chronic kidney disease stage III secondary to nephrosclerosis 7. Chronic ongoing tobacco abuse 8. Obstructive sleep apnea with out home CPAP use 9. Mild COPD with home oxygen use 2-3 L nasal cannula at night, preoperative FEV1 60% of predicted 10. Morbid obesity 11. Hypothyroid, TSH 23.3 with free T4 0.36 12. Medical noncompliance 13. Type 2 diabetes mellitus, A1c 6.8% 14. Peripheral arterial disease, left SAEED 0.69 Plan: 1. Continue to optimize medical management with aspirin, statin and beta garret. Recommend no APRIL/ARB for 48 hours prior to surgery to prevent postoperative vaso-plegia, discussed with cardiology 2. Heparin drip management and recommendations per cardiology 3. Plan is for myocardial revascularization with left internal mammary artery, endoscopic vein harvest, ligation of the left atrial appendage with Dr. Stephenson , 10/10/2021 4. Encourage use of her incentive spirometry 10 times every hour while awake. 5. Importance of risk modification including smoking cessation has been discussed in detail with the patient and reinforced with the patient. 6. Medical management and other comorbidities per primary care service. 7. Compliance with taking her medication has been discussed with the patient. 8. More recommendations to follow
[2021-10-09] MEDS ORDERED: MD COMMUNICATION TO PHARMACY 1 EACH MISC PO ONE (10:28)
--- NOTE | 2021-10-09 11:40 | P.PN ---
Subjective Progress Note Date: 10/09/21 HISTORY OF PRESENT ILLNESS: Patient examined this morning at the bedside. She denies chest pain or pressure. Denies SOB. She remains on IV heparin. She is scheduled to undergo CABG in the near future. However, she wants to be discharged home for her granddaughters birthday republican and return next week for surgery. 10/08/2021 Patient examined this morning. She is sitting up in the chair. She denies chest pain or pressure. She denies shortness of breath. She remains on IV heparin. Patient's surgery has been scheduled for this and patient is agreeable to stay in the hospital until her surgery is performed. Blood pressure this morning 122/78. 10/09/2021 Patient examined this morning. She is sitting up in the chair. She denies chest pain or pressure. She denies shortness of breath. She remains on IV heparin. Patient is scheduled for open heart surgery tomorrow. Patient's vital signs remain stable. PHYSICAL EXAM: VITAL SIGNS: Reviewed. GENERAL: Well-developed in no acute distress. NECK: Supple. No JVD or thyromegaly LUNGS: Respirations even and unlabored. Lungs essentially clear to auscultation bilaterally. HEART: Regular rate and rhythm. S1 and S2 heard. EXTREMITIES: Normal range of motion. No clubbing or cyanosis. Peripheral pulses intact. No lower extremity edema ASSESSMENT: Non-STEMI, s/p cath revealing triple vessel disease Coronary artery disease with previous stent placement Ischemic cardiomyopathy Hypertension Hyperlipidemia Chronic kidney disease COPD with home oxygen use Obstructive sleep apnea PLAN: Continue current cardiac medications Continue IV heparin Cozaar placed on hold for upcoming surgery on . Patients blood pressure currently stable. If BP begin to climb, will add hydralazine. However, will continue to monitor off Cozaar at this time. Further recommendations pending patient course Nurse practitioner note has been reviewed by physician. Signing provider agrees with the documented findings, assessment, and plan of care. Objective - Vital Signs Vital signs: Vital Signs Temp 98.4 F 10/09/21 08:00 Pulse 85 10/09/21 11:35 Resp 16 10/09/21 08:00 BP 128/78 10/09/21 08:00 Pulse Ox 97 10/09/21 08:11 FiO2 21 10/09/21 08:11 Intake & Output 10/08/21 10/09/21 10/09/21 18:59 06:59 18:59 Intake Total 1311.851 115.149 224.722 Output Total 2 900 Balance 1309.851 -784.851 224.722 Intake: Intake, IV Titration 384.851 115.149 99.722 Amount Heparin Sod,Pork in 0.45% 384.851 115.149 99.722 NaCl 25,000 unit In 0.45 % NaCl 1 250ml.bag @ 9. 585 UNITS/KG/HR 10 mls/hr IV .Q24H [facility] Rx#: [id number] Oral 927 125 Output: Urine 900 Stool 2 Other: Voiding Method Toilet # Voids 2 - Labs CBC & Chem 7: 10/09/21 08:15 10/09/21 08:15 Labs: Abnormal Lab Results - Last 24 Hours (Table) 10/08/21 10/08/21 10/08/21 Range/Units 12:07 16:28 17:23 WBC (3.8-10.6) k/uL MCV (80.0-100.0) fL APTT 106.8 H* (22.0-30.0) sec Sodium (137-145) mmol/L Carbon Dioxide (22-30) mmol/L Creatinine (0.52-1.04) mg/dL Glucose (74-99) mg/dL POC Glucose (mg/dL) 199 H 170 H (70-110) mg/dL AST (14-36) U/L ALT (4-34) U/L Crossmatch 10/08/21 10/09/21 10/09/21 Range/Units 20:27 00:00 06:08 WBC (3.8-10.6) k/uL MCV (80.0-100.0) fL APTT 62.6 H (22.0-30.0) sec Sodium (137-145) mmol/L Carbon Dioxide (22-30) mmol/L Creatinine (0.52-1.04) mg/dL Glucose (74-99) mg/dL POC Glucose (mg/dL) 170 H 132 H (70-110) mg/dL AST (14-36) U/L ALT (4-34) U/L Crossmatch 10/09/21 10/09/21 10/09/21 Range/Units 08:15 08:15 08:15 WBC 10.7 H (3.8-10.6) k/uL MCV 100.8 H (80.0-100.0) fL APTT (22.0-30.0) sec Sodium 136 L (137-145) mmol/L Carbon Dioxide 31 H (22-30) mmol/L Creatinine 1.26 H (0.52-1.04) mg/dL Glucose 154 H (74-99) mg/dL POC Glucose (mg/dL) (70-110) mg/dL AST 110 H (14-36) U/L ALT 74 H (4-34) U/L Crossmatch See Detail 10/09/21 Range/Units 08:15 WBC (3.8-10.6) k/uL MCV (80.0-100.0) fL APTT 68.5 H (22.0-30.0) sec Sodium (137-145) mmol/L Carbon Dioxide (22-30) mmol/L Creatinine (0.52-1.04) mg/dL Glucose (74-99) mg/dL POC Glucose (mg/dL) (70-110) mg/dL AST (14-36) U/L ALT (4-34) U/L Crossmatch
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
[2021-10-09 16:44] LABS: Glucose,Whole Blood 217 mg/dL (70-110)
--- NOTE | 2021-10-09 16:44 | P.PN ---
Subjective Progress Note Date: 10/09/21 Hospital Course: Patient is a very pleasant 56-year-old female with a past medical history of CAD with stents, hypertension, hyperlipidemia, ischemic cardiomyopathy, Graves' disease, chronic kidney disease, COPD not on home oxygen dependent with continued nicotine dependence. She presented to the emergency department with a chief complaint of chest pain/pressure radiating into her back accompanied by mild shortness of breath and diaphoresis. Patient reports these symptoms began last night and awoken her from sleep. She denied having any headache, lightheadedness, dizziness, palpitations, nausea, vomiting, or experiencing any numbness/tingling/weakness in her extremities. Patient reports pain has improved but remains as a subtle ache. Patient underwent full evaluation in the emergency department. CBC revealing mild leukocytosis with WBC count of 11.1. BMP revealing mildly elevated creatinine which is improved from baseline levels and currently 1.09. Liver profile revealing slightly elevated AST of 66 and ALT of 45. Troponin negative at 0.013. EKG revealing normal sinus rhythm at 96 bpm with T-wave inversion in leads V3 through V6. Chest x-ray revealing mild cardiomegaly and chronic emphysematous changes, otherwise negative for acute pulmonary process. Patient is admitted under our services with consultation to cardiology. Troponins trended and elevating at 0.013, 0.020, and 0.070. patient was started on heparin infusion per ACS protocol. On 10/05/21 patient was taken for a cardiac cath which revealed severe three-vessel coronary artery disease with chronically occluded right coronary artery and a long segment of stenosis in the proximal LAD and lesion within the circumflex. It was felt patient with high risk for angioplasty and further stent placement secondary to her significant cardiac history and was referred for cardiac bypass surgery. C ardiothoracic surgery was then consulted and planning to take patient for CABG. Physical exam: Patient seen and fully evaluated at the bedside this morning. She was again sitting up in chair at bedside. Patient denies having any complaints at this time including headache, lightheadedness, dizziness, chest pain, palpitations, shortness of breath, nausea, vomiting, or experiencing any numbness/t ingling/weakness in her extremities. Patient remains on IV heparin infusion. Plan is to undergo coronary artery bypass surgery tomorrow morning. Morning labs reviewed and stable. Vital signs reviewed and stable. General: Nontoxic, no distress and appears stated age. obese. Derm: Skin warm and dry, normal coloration for ethnicity. Head: Atraumatic, normocephalic and symmetric. Eyes: EOMs intact, no lid lag, and anicteric sclera Mouth: no lip lesions, mucus membranes moist Cardiovascular: regular rate and rhythm with normal S1S2, no murmur, positive posterior tibial pulses bilaterally, and cap refill < 2 seconds. Lungs: Respirations even, regular, and unlabored on room air. Lungs CTA bilaterally, no rhonchi, no rales, no wheezing, and no accessory muscle usage. Abdominal: soft, nontender to palpation, no guarding, no appreciable organomegaly Ext: ROM intact. No gross muscle atrophy, no edema, no contractures Neuro: Speech clear, face symmetrical and CN II-XII grossly intact with no noted focal neuro deficits Psych: Alert and oriented to person, place, time, and situation. Appropriate and pleasant affect. Assessment and Plan of Care: NSTEMI Severe three-vessel coronary artery disease Ischemic cardiomyopathy History of coronary artery disease with stents Hypertension Hyperlipidemia -Cardiology following, took patient for cardiac cath on 10/05/21 which revealed severe three-vessel coronary artery disease with chronically occluded right coronary artery and a long segment of stenosis in the proximal LAD and lesion within the circumflex. It was felt patient with high risk for angioplasty and further stent placement secondary to her significant cardiac history and was referred for cardiac bypass surgery. -Cardiothoracic surgery following, planning for CABG tomorrow 10/10/21 -Telemetry monitoring -Cardiac diet, NPO at midnight -Continue heparin infusion -Aspirin, atorvastatin, losartan and metoprolol -Lipid profile elevatedwith triglycerides of 291, cholesterol of 252, LDL 156.6, VLDL of 58.20, and HDL of 37.20. atorvastatin increased to 80 mg daily and patient started on fenofibrate. -Echocardiogram revealed mildly impaired EF of 45-50% with mild mitral reg urgitation and inferior wall hypokinesia. -Carotid Dopplers revealing minimal plaque formation with less than 25% stenosis in both internal carotid arteries. Hypothyroidism with history of Graves' disease -TSH 23.300 and free T4 0.36 -possibly secondary to medication noncompliance, however unclear -Home Synthroid dose increased from 50 to 88 g each morning. Patient will need to follow up outpatient with PCP/endocrinology for repeat labs in 6-8 weeks and further adjustments of medications/medication management. COPD with continued nicotine dependence -Recommend smoking cessation discussed with patient. -Patient declined nicotine patch at this time. Type 2 diabetes mellitus with hemoglobin A1c of 6.8% -Preprandial glucose 235 this morning. -Patient placed on glycemic protocol with NovoLog sliding scale. -Patient will need oral hypoglycemic agent upon discharge, recommend Jardiance based upon its benefits with controlling blood glucose levels as well as its associated heart failure risk reduction. -Continue to encourage lifestyle/dietary changes and maintain a heart healthy and carb consistent diet. CODE STATUS: Full code DVT prophylaxis: Heparin Discussed with: Patient and RN Anticipated discharge date: clinical course to determine Anticipated discharge place: Home A total of 36 minutes was spent on the care of this complex patient more than 50% of the time was spent in counseling and care coordination. Objective - Vital Signs Vital signs: Vital Signs Temp 98.4 F 10/09/21 08:00 Pulse 79 10/09/21 08:25 Resp 16 10/09/21 08:00 BP 128/78 10/09/21 08:00 Pulse Ox 97 10/09/21 08:11 FiO2 21 10/09/21 08:11 Intake & Output 10/08/21 10/09/21 10/09/21 18:59 06:59 18:59 Intake Total 1311.851 115.149 Output Total 2 900 Balance 1309.851 -784.851 Intake: Intake, IV Titration 384.851 115.149 Amount Heparin Sod,Pork in 0.45% 384.851 115.149 NaCl 25,000 unit In 0.45 % NaCl 1 250ml.bag @ 9. 585 UNITS/KG/HR 10 mls/hr IV .Q24H [facility] Rx#: [id number] Oral 927 Output: Urine 900 Stool 2 Other: Voiding Method Toilet # Voids 2 - Labs CBC & Chem 7: 10/09/21 08:15 10/09/21 08:15 Labs: Abnormal Lab Results - Last 24 Hours (Table) 10/08/21 10/08/21 10/08/21 Range/Units 09:20 09:20 09:20 WBC (3.8-10.6) k/uL MCV 101.1 H (80.0-100.0) fL APTT 30.9 H (22.0-30.0) sec Sodium 136 L (137-145) mmol/L Creatinine 1.26 H (0.52-1.04) mg/dL Glucose 188 H (74-99) mg/dL POC Glucose (mg/dL) (70-110) mg/dL 10/08/21 10/08/21 10/08/21 Range/Units 12:07 16:28 17:23 WBC (3.8-10.6) k/uL MCV (80.0-100.0) fL APTT 106.8 H* (22.0-30.0) sec Sodium (137-145) mmol/L Creatinine (0.52-1.04) mg/dL Glucose (74-99) mg/dL POC Glucose (mg/dL) 199 H 170 H (70-110) mg/dL 10/08/21 10/09/21 10/09/21 Range/Units 20:27 00:00 06:08 WBC (3.8-10.6) k/uL MCV (80.0-100.0) fL APTT 62.6 H (22.0-30.0) sec Sodium (137-145) mmol/L Creatinine (0.52-1.04) mg/dL Glucose (74-99) mg/dL POC Glucose (mg/dL) 170 H 132 H (70-110) mg/dL 10/09/21 Range/Units 08:15 WBC 10.7 H (3.8-10.6) k/uL MCV 100.8 H (80.0-100.0) fL APTT (22.0-30.0) sec Sodium (137-145) mmol/L Creatinine (0.52-1.04) mg/dL Glucose (74-99) mg/dL POC Glucose (mg/dL) (70-110) mg/dL
[2021-10-09 20:55] LABS: Glucose,Whole Blood 191 mg/dL (70-110)
[2021-10-10] MEDS ORDERED: CHLORHEXIDINE GLUCONATE 15 ML CUP MUCOUS MEM ONE (05:00)
[2021-10-10] MEDS ORDERED: PROTAMINE SULFATE 250 MG in EMPTY BAG 1 BAG IV ONE (05:00)
[2021-10-10] MEDS ORDERED: ALBUMIN HUMAN 25% 50 ML in EMPTY BAG 1 BAG IVPB ONE (05:00)
[2021-10-10] MEDS ORDERED: NOREPINEPHRINE 4 MG in SODIUM CHLORIDE 0.9% 250 ML IV SCH ×2 (05:00→15:13)
[2021-10-10] MEDS ORDERED: ASPIRIN 325 MG TAB PO ONE (05:00)
[2021-10-10] MEDS ORDERED: ELECTROLYTE-A SOLUTION 1,000 ML with POTASSIUM CHLORIDE 40 MEQ, MAGNESIUM SULFATE 16 ME... IV SCH ×5 (05:00)
[2021-10-10] MEDS ORDERED: ELECTROLYTE-A SOLUTION 1,000 ML with POTASSIUM CHLORIDE 100 MEQ, MAGNESIUM SULFATE 16 M... IV SCH ×5 (05:00)
[2021-10-10] MEDS ORDERED: PHENYLEPHRINE 10 MG/ML VIAL IV ONE (05:00)
[2021-10-10] MEDS ORDERED: HEPARIN SODIUM,PORCINE 5,000 UNIT in SODIUM CHLORIDE 0.9% 500 ML 500 ML IV ONE (05:00)
[2021-10-10] MEDS ORDERED: METOPROLOL TARTRATE 12.5 MG TAB PO ONE (05:00)
[2021-10-10] MEDS ORDERED: PHENYLEPHRINE 40 MG in SODIUM CHLORIDE 0.9% 250 ML IV ONE (05:00)
[2021-10-10] MEDS ORDERED: MAGNESIUM SULFATE 16.24 MEQ in EMPTY SYRINGE 1 SYR IV ONE (05:00)
[2021-10-10] MEDS ORDERED: INSULIN REGULAR 100 UNIT in SODIUM CHLORIDE 0.9% 100 ML IV SCH (05:00)
[2021-10-10] MEDS ORDERED: TRANEXAMIC ACID 2,000 MG in SODIUM CHLORIDE 0.9% 80 ML IV ONE ×4 (05:00)
[2021-10-10] MEDS ORDERED: MANNITOL 25% 12.5 GM/50 ML VIAL IV ONE ×2 (05:00)
[2021-10-10] MEDS ORDERED: PROTAMINE SULFATE 10 MG/ML 25 ML VIAL IV ONE (05:00)
[2021-10-10] MEDS ORDERED: PAPAVERINE 360 MG in SODIUM CHLORIDE 0.9% 90 ML IV ONE ×2 (05:00→10:44)
[2021-10-10] MEDS ORDERED: CALCIUM CHLORIDE 100 MG/ML 10 ML SYRINGE IVP ONE (05:00)
[2021-10-10] MEDS ORDERED: LACTATED RINGERS 1,000 ML IV SCH (05:00)
[2021-10-10] MEDS ORDERED: CLEVIDIPINE BUTYRATE 25 MG in EMPTY BAG 1 BAG IV SCH (05:00)
[2021-10-10] MEDS ORDERED: ceFAZolin 1,000 MG in SODIUM CHLORIDE 0.9% IRRIGATIO 1,000 ML IRRIGATION ONE (05:00)
[2021-10-10] MEDS ORDERED: ATORVASTATIN 10 MG TAB PO ONE (05:00)
[2021-10-10] MEDS ORDERED: HEPARIN SODIUM 1,000 UN/ML (10ML VL) IV ONE (05:00)
[2021-10-10] MEDS ORDERED: SODIUM BICARB 8.4% 50 ML SYR (1 MEQ/ML) IV ONE (05:00)
[2021-10-10] MEDS ORDERED: ALBUMIN HUMAN 5% 500 ML in EMPTY BAG 1 BAG IVPB ONE ×6 (05:00)
[2021-10-10] MEDS ORDERED: NITROGLYCERIN-D5W PMX 25 MG/250 ML BTL IV ONE (05:00)
[2021-10-10] MEDS ORDERED: NITROGLYCERIN-D5W PMX 50 MG in DEXTROSE/WATER 1 250ML.BAG IV SCH ×2 (05:00→15:13)
[2021-10-10 05:22] LABS: Glucose,Whole Blood 155 mg/dL (70-110)
[2021-10-10] MEDS ORDERED: LACTATED RINGERS 1,000 ML IV ONE (06:09)
[2021-10-10 06:21] LABS: Glucose,Whole Blood 150 mg/dL (70-110)
[2021-10-10] MEDS ORDERED: INSULIN REGULAR 100 UNIT/ML VIAL (IV) ONE (07:41)
[2021-10-10] MEDS ORDERED: LIDOCAINE 2% SYG (PF) 100 MG/5 ML ONE (07:41)
[2021-10-10] MEDS ORDERED: MAGNESIUM SULFATE 4 MEQ/ML 10ML VIAL ONE (07:41)
[2021-10-10] MEDS ORDERED: NITROGLYCERIN-D5W PMX 50 MG/250 ML BOTTLE IV ONE (07:41)
[2021-10-10] MEDS ORDERED: MIDAZOLAM HCL 10 MG/10 ML VIAL ONE (07:41)
[2021-10-10] MEDS ORDERED: SODIUM CHLORIDE 0.9% IRRIG 1,000 ML BTL IRRIGATION ONE (07:41)
[2021-10-10] MEDS ORDERED: VECURONIUM 10 MG VIAL IV ONE (07:41)
[2021-10-10] MEDS ORDERED: SUCCINYLCHOLINE CHLORIDE VIAL 200 MG/10 ML VIAL IV ONE (07:41)
[2021-10-10] MEDS ORDERED: PHENYLEPHRINE-0.9% NACL SYG 1,000 MCG/10 ML SYRINGE ONE (07:41)
[2021-10-10] MEDS ORDERED: SODIUM BICARB 8.4% 50 ML SYR (1 MEQ/ML) ONE (07:41)
[2021-10-10] MEDS ORDERED: PROPOFOL 10 MG/ML 20 ML VIAL IV ONE (07:41)
[2021-10-10] MEDS ORDERED: ceFAZolin 1,000 MG VIAL ONE (07:41)
[2021-10-10] MEDS ORDERED: ELECTROLYTE-R (PH 7.4) 1,000 ML IV.SOLN IV ONE (07:41)
[2021-10-10] MEDS ORDERED: TRANEXAMIC ACID IN NACL,ISO-OS 1,000 MG/100 ML BAG ONE (07:41)
[2021-10-10] MEDS ORDERED: WATER FOR INJECTION, STERILE 10 ML VIAL IV ONE (07:41)
[2021-10-10] MEDS ORDERED: fentaNYL (PF) 50 MCG/ML 50 ML VIAL ONE (07:41)
[2021-10-10] MEDS ORDERED: HEPARIN SODIUM,PORCINE 10,000 UNIT/ML 1 ML VIAL ONE (07:41)
[2021-10-10] MEDS ORDERED: ALBUMIN HUMAN 5% (25gm) 500 ML VIAL IVPB ONE (07:41)
[2021-10-10] MEDS ORDERED: CALCIUM CHLORIDE 100 MG/ML 10 ML SYRINGE ONE (07:41)
[2021-10-10] MEDS ORDERED: SODIUM CHLORIDE 0.9% 100 ML BAG ONE (07:41)
[2021-10-10] MEDS: SYMBICORT 160-4.5 MCG INHALER INHALATION SCH (07:57)
[2021-10-10] MEDS: IPRATROPIUM-ALBUTEROL 3 ML NEB INHALATION SCH ×4 (07:57→20:58)
[2021-10-10] MEDS ORDERED: DILTIAZEM 125 MG in SODIUM CHLORIDE 0.9% 100 ML IV SCH ×2 (08:30→21:00)
[2021-10-10 08:53] LABS: ABG Base Excess 2.9 mmol/L; ABG Glucose Whole Blood 100 mg/dL (75-99); ABG HCO3 29 mmol/L (21-25); ABG Hematocrit 37 % (34.0-46.0); ABG Ionized Calcium 4.7 mg/dL (4.5-5.3); ABG Lactic Acid Whole Blood 1.6 mmol/L (0.5-1.6); ABG Oxygen Saturation 97.5 % (94-97); ABG PCO2 48 mmHg (35-45); ABG PH 7.38 (7.35-7.45); ABG PO2 90 mmHg (83-108); ABG Potassium Whole Blood 4.7 mmol/L (3.4-4.5); ABG Sodium Whole Blood 137 mmol/L (135-146); ABG TCO2 30 mmol/L (19-24)
[2021-10-10 09:55] LABS: ABG Base Excess 2.3 mmol/L; ABG Glucose Whole Blood 119 mg/dL (75-99); ABG HCO3 29 mmol/L (21-25); ABG Hematocrit 38 % (34.0-46.0); ABG Ionized Calcium 4.8 mg/dL (4.5-5.3); ABG Lactic Acid Whole Blood 1.3 mmol/L (0.5-1.6); ABG Oxygen Saturation 97.1 % (94-97); ABG PCO2 51 mmHg (35-45); ABG PH 7.36 (7.35-7.45); ABG PO2 89 mmHg (83-108); ABG Potassium Whole Blood 4.7 mmol/L (3.4-4.5); ABG Sodium Whole Blood 138 mmol/L (135-146); ABG TCO2 30 mmol/L (19-24)
[2021-10-10] MEDS ORDERED: SODIUM CHLORIDE 0.9% 500 ML 500 ML with HEPARIN SODIUM,PORCINE 5,000 UNIT IV ONE ×2 (10:44)
[2021-10-10 11:00] LABS: ABG Base Excess 2.4 mmol/L; ABG Glucose Whole Blood 115 mg/dL (75-99); ABG HCO3 27 mmol/L (21-25); ABG Hematocrit 26 % (34.0-46.0); ABG Lactic Acid Whole Blood 1.9 mmol/L (0.5-1.6); ABG PCO2 39 mmHg (35-45); ABG PH 7.45 (7.35-7.45); ABG PO2 354 mmHg (83-108); ABG Potassium Whole Blood 5.5 mmol/L (3.4-4.5); ABG Sodium Whole Blood 134 mmol/L (135-146); ABG TCO2 28 mmol/L (19-24)
[2021-10-10 11:28] LABS: ABG Base Excess 2.4 mmol/L; ABG Glucose Whole Blood 129 mg/dL (75-99); ABG HCO3 28 mmol/L (21-25); ABG Hematocrit 26 % (34.0-46.0); ABG Ionized Calcium 4.1 mg/dL (4.5-5.3); ABG PCO2 45 mmHg (35-45); ABG PO2 295 mmHg (83-108); ABG Potassium Whole Blood 5.9 mmol/L (3.4-4.5); ABG Sodium Whole Blood 134 mmol/L (135-146); ABG TCO2 29 mmol/L (19-24)
[2021-10-10 11:57] LABS: ABG Base Excess 2.1 mmol/L; ABG Glucose Whole Blood 153 mg/dL (75-99); ABG HCO3 27 mmol/L (21-25); ABG Hematocrit 28 % (34.0-46.0); ABG Ionized Calcium 4.2 mg/dL (4.5-5.3); ABG PCO2 43 mmHg (35-45); ABG PO2 358 mmHg (83-108); ABG Sodium Whole Blood 135 mmol/L (135-146); ABG TCO2 28 mmol/L (19-24)
[2021-10-10 12:24] LABS: ABG Base Excess 1.8 mmol/L; ABG Glucose Whole Blood 155 mg/dL (75-99); ABG HCO3 27 mmol/L (21-25); ABG Hematocrit 27 % (34.0-46.0); ABG PCO2 43 mmHg (35-45); ABG PH 7.41 (7.35-7.45); ABG PO2 356 mmHg (83-108); ABG Sodium Whole Blood 134 mmol/L (135-146); ABG TCO2 28 mmol/L (19-24)
[2021-10-10 12:53] LABS: ABG Base Excess 1.2 mmol/L; ABG Glucose Whole Blood 153 mg/dL (75-99); ABG HCO3 27 mmol/L (21-25); ABG Hematocrit 26 % (34.0-46.0); ABG PCO2 45 mmHg (35-45); ABG PH 7.38 (7.35-7.45); ABG PO2 304 mmHg (83-108); ABG Potassium Whole Blood 5.8 mmol/L (3.4-4.5); ABG Sodium Whole Blood 135 mmol/L (135-146); ABG TCO2 28 mmol/L (19-24)
[2021-10-10 13:20] LABS: ABG Glucose Whole Blood 165 mg/dL (75-99); ABG HCO3 25 mmol/L (21-25); ABG Hematocrit 25 % (34.0-46.0); ABG Oxygen Saturation 99.8 % (94-97); ABG PCO2 46 mmHg (35-45); ABG PH 7.34 (7.35-7.45); ABG PO2 260 mmHg (83-108); ABG Potassium Whole Blood 5.7 mmol/L (3.4-4.5); ABG Sodium Whole Blood 135 mmol/L (135-146); ABG TCO2 26 mmol/L (19-24)
[2021-10-10 13:29] LABS: ABG Base Excess 3.7 mmol/L; ABG Glucose Whole Blood 172 mg/dL (75-99); ABG HCO3 29 mmol/L (21-25); ABG Hematocrit 25 % (34.0-46.0); ABG Ionized Calcium 3.9 mg/dL (4.5-5.3); ABG PCO2 47 mmHg (35-45); ABG PO2 378 mmHg (83-108); ABG Potassium Whole Blood 5.3 mmol/L (3.4-4.5); ABG Sodium Whole Blood 138 mmol/L (135-146); ABG TCO2 30 mmol/L (19-24)
[2021-10-10 14:26] LABS: ABG Base Excess 2.1 mmol/L; ABG Glucose Whole Blood 157 mg/dL (75-99); ABG HCO3 27 mmol/L (21-25); ABG Hematocrit 27 % (34.0-46.0); ABG Ionized Calcium 4.7 mg/dL (4.5-5.3); ABG Oxygen Saturation 92.7 % (94-97); ABG PCO2 45 mmHg (35-45); ABG Potassium Whole Blood 4.3 mmol/L (3.4-4.5); ABG Sodium Whole Blood 138 mmol/L (135-146); ABG TCO2 29 mmol/L (19-24)
[2021-10-10 14:39] LABS: ABG Lactic Acid Whole Blood 2.5 mmol/L (0.5-1.6)
[2021-10-10 14:40] LABS: ABG Lactic Acid Whole Blood 2.7 mmol/L (0.5-1.6); ABG Potassium Whole Blood 6.2 mmol/L (3.4-4.5)
[2021-10-10 14:41] LABS: ABG Lactic Acid Whole Blood 2.8 mmol/L (0.5-1.6)
[2021-10-10 14:43] LABS: ABG Lactic Acid Whole Blood 3.8 mmol/L (0.5-1.6)
[2021-10-10 14:43] LABS: ABG Lactic Acid Whole Blood 4.2 mmol/L (0.5-1.6)
[2021-10-10 14:44] LABS: ABG PO2 58 mmHg (83-108)
[2021-10-10 14:45] LABS: ABG Lactic Acid Whole Blood 3.4 mmol/L (0.5-1.6)
[2021-10-10] MEDS ORDERED: METOCLOPRAMIDE 5 MG/ML 2 ML VIAL IVP PRN (15:13)
[2021-10-10] MEDS ORDERED: hydrALAZINE HCL 20 MG/ML 1 ML VIAL IVP PRN (15:13)
[2021-10-10] MEDS ORDERED: AMIODARONE 360 MG in DEXTROSE 5% IN WATER 200 ML IV PRN ×2 (15:13)
[2021-10-10] MEDS ORDERED: ALBUMIN HUMAN 5% 250 ML in EMPTY BAG 1 BAG IVPB PRN (15:13)
[2021-10-10] MEDS ORDERED: Magnesium Replacement Protocol 1 EACH MISC MISCELLANE PRN (15:13)
[2021-10-10] MEDS ORDERED: AMIODARONE 450 MG in DEXTROSE 5% IN WATER 250 ML IV PRN ×2 (15:13)
[2021-10-10] MEDS ORDERED: DEXMEDETOMIDINE/0.9% NACL(PMX) 400 MCG in EMPTY BAG 1 BAG IV SCH (15:13)
[2021-10-10] MEDS ORDERED: IPRATROPIUM-ALBUTEROL 3 ML NEB INHALATION PRN (15:13)
[2021-10-10] MEDS ORDERED: BENZOCAINE/MENTHOL LOZENG 1 EACH LOZENGE MUCOUS MEM PRN (15:13)
[2021-10-10] MEDS ORDERED: DEXTROSE 5% IN WATER 100 ML with AMIODARONE 150 MG IV PRN (15:13)
[2021-10-10] MEDS ORDERED: ONDANSETRON 4 MG/2 ML VIAL IVP PRN (15:13)
[2021-10-10] MEDS ORDERED: Potassium Replacement Protocol 1 EACH MISC MISCELLANE PRN (15:13)
--- NOTE | 2021-10-10 15:40 | US ---
EXAMINATION TYPE: US vein mapping BILAT DATE OF EXAM: 10/05/2021 9:14 PM COMPARISON: NONE CLINICAL HISTORY: PreOp Cardiac Surgery. Exam done portable SIDE PERFORMED: Bilateral TECHNIQUE: Lower extremity saphenous vein is examined and measured utilizing real time linear array sonography. DUPLEX FINDINGS: Greater Saphenous: Color flow seen Lesser Saphenous: Color flow seen Measurements in mm: Right Greater Saphenous: Groin: 9.9 x 10.5 mm High Thigh: 5.9 x 6.1 mm Mid Thigh: 4.9 x 5.1 mm Above Knee: 4.4 x 5.2 mm Knee: 4.1 x 4.5 mm Below Knee: 3.1 x 3.3 mm Mid Calf: 3.1 x 3.2 mm At Ankle: 2.6 x 2.8 mm Left Greater Saphenous: Groin: 9.9 x 8.0 mm High Thigh: 6.6 x 7.7 mm Mid Thigh: 4.0 x 4.3 mm Above Knee: 4.9 x 5.2 mm Knee: 4.7 x 5.4 mm Below Knee: 3.8 x 4.7 mm Mid Calf: 3.6 x 3.2 mm At Ankle: 2.4 x 2.7 mm IMPRESSION: 1. Bilateral GSV measurements listed above. 2. Performing surgeon to determine viability as conduit.
--- NOTE | 2021-10-10 15:42 | US ---
EXAMINATION TYPE: US arterial LE multi level DATE OF EXAM: 10/06/2021 4:05 PM CLINICAL HISTORY: Ankle Brachial Index (SAEED) . Hx hypertension, hyperlipidemia, CAD, multiple cardiac stents placed in the past. NV. current smoker. Doppler Waveforms: Right: Multiphasic Left: Multiphasic Pulse Volume Recording: Symmetric amplitudes Pressure Gradients: Asymmetric gradient suspected on the left Ankle-Brachial Indices: Right: 1.01 Left: 0.69 Toe Brachial Indices: Right: 0.44 Left: 0.44 IMPRESSION: Ankle-brachial index diminished somewhat on the left, correlate
[2021-10-10 15:53] LABS: Glucose,Whole Blood 135 mg/dL (70-110)
[2021-10-10] MEDS: LACTATED RINGERS 1,000 ML IV SCH (16:19)
[2021-10-10] MEDS: MILRINONE-D5W PMX 20 MG in DEXTROSE/WATER 1 100ML.BAG IV SCH (16:20)
[2021-10-10 16:21] LABS: HCT 27.4 % (34.0-46.0); Hypochromasia Slight; MCH 33.2 pg (25.0-35.0); MCHC 32.8 g/dL (31.0-37.0); MCV 101.4 fL (80.0-100.0); Macrocytosis Slight; Mean Platelet Volume 9.7; WBC 13.9 k/uL (3.8-10.6)
[2021-10-10 16:25] LABS: Platelet Count 127 k/uL (150-450)
[2021-10-10 16:29] LABS: INR 1.3 (<1.2); Prothrombin Time 13.8 sec (9.0-12.0)
[2021-10-10 16:30] LABS: Partial Thromboplastin Time 32.4 sec (22.0-30.0)
[2021-10-10 16:34] LABS: ABG Base Excess 2.6 mmol/L; ABG HCO3 30 mmol/L (21-25); ABG Oxygen Saturation 92.9 % (94-97); ABG PH 7.23 (7.35-7.45); ABG PO2 73 mmHg (83-108); ABG TCO2 32 mmol/L (19-24); Allen Test Performed? Yes
[2021-10-10 16:39] LABS: Glucose,Whole Blood 132 mg/dL (70-110)
[2021-10-10] MEDS: INSULIN REGULAR 100 UNIT in SODIUM CHLORIDE 0.9% 100 ML IV SCH (16:41)
[2021-10-10] MEDS: CLEVIDIPINE BUTYRATE 25 MG in EMPTY BAG 1 BAG IV SCH (16:46)
[2021-10-10 16:59] LABS: Ionized Calcium 4.8 mg/dL (4.5-5.3)
[2021-10-10 17:09] LABS: Albumin 3.1 g/dL (3.5-5.0); Calcium 7.9 mg/dL (8.4-10.2); Total Bilirubin 0.9 mg/dL (0.2-1.3); Total Protein 4.7 g/dL (6.3-8.2)
[2021-10-10 17:10] LABS: Band Neutrophils % 9 %; Eosinophils # (M) 0.14 k/uL (0-0.7); Lymphocytes # (M) 1.25 k/uL (1.0-4.8); Neutrophils % (M) 76 %; Nucleated Red Blood Cells 0 /100 WBC (0-0); Total Cells Counted 100
[2021-10-10 17:14] LABS: Potassium 4.1 mmol/L (3.5-5.1)
[2021-10-10 17:15] LABS: Magnesium 2.5 mg/dL (1.6-2.3)
[2021-10-10 17:16] LABS: ABG PCO2 73 mmHg (35-45)
--- NOTE | 2021-10-10 17:17 | XR ---
EXAMINATION TYPE: XR chest 1V portable DATE OF EXAM: 10/10/2021 4:07 PM COMPARISON: Multiple radiographs, with the most recent on 10/04/2021 TECHNIQUE: XR chest 1V portable Frontal view of the chest. CLINICAL INDICATION:Female, 56 years old with history of Post Operative Cardiac Surgery; FINDINGS: Lungs/Pleura: Bibasilar atelectasis. No evidence for pneumothorax pleural effusion or focal consolida tion. Pulmonary vascularity: Unremarkable. Heart/mediastinum: Cardiomediastinal silhouette is enlarged and stable. Atrial appendage occlusion de vice is present. Musculoskeletal: No acute osseous pathology. Lines/Tubes: Endotracheal tube with distal tip 4.7 cm above the cheo Nasogastric tube with its distal tip and side-port projecting under the diaphragm. Mediastinal drain projects over the right mediastinum with tip near the superior vena cava/cavoatrial junction. There is mild pneumopericardium/pneumomediastinum. Suspected swans Chance catheter with tip projecting over the main pulmonary artery. Drainage tube is seen projecting over the gastric lumen and may represent pericardial drain. Other: Left lateral subcutaneous emphysema. IMPRESSION: Findings consistent with postoperative changes including small pneumopericardium/pneumomediastinum an d line and tubes as described above.
[2021-10-10 18:05] LABS: Glucose,Whole Blood 156 mg/dL (70-110)
--- NOTE | 2021-10-10 18:13 | P.PN ---
Subjective Progress Note Date: 10/10/21 Patient is a 56-year-old female with CAD with stents, hypertension, hyperlipidemia, ischemic cardiomyopathy, Graves' disease, chronic kidney disease, COPD not on home oxygen dependent with continued nicotine dependence. In the emergency department she underwent an extensive evaluation. CBC reve aling mild leukocytosis with WBC count of 11.1. BMP revealing mildly elevated creatinine which is improved from baseline levels and currently 1.09. Liver profile revealing slightly elevated AST of 66 and ALT of 45. Troponin negative at 0.013. EKG revealing normal sinus rhythm at 96 bpm with T-wave inversion in leads V3 through V6. Chest x-ray revealing mild cardiomegaly and chronic emphysematous changes, otherwise negative for acute pulmonary process. Patient was admittedfor furter evaluation. Cardiology was consulted. Troponins trended and elevating at 0.013, 0.020, and 0.070. Patient was started on heparin infusion per ACS protocol. On 10/05/21 patient underwent a cardiac cath which revealed severe three-vessel coronary artery disease with chronically occluded right coronary artery and a long segment of stenosis in the proximal LAD and lesion within the circumflex. Patient was felt to be high risk for angioplasty and further stent placement secondary to her significant cardiac history and was referred for cardiac bypass surgery. Cardiothoracic surgery was then consulted and patient went for CABG on 10/10/21. Patient seen and examined at bedside. Currently on vent. Anticipated post-op course. General: nontoxic, mild distress, appears at stated age Derm: warm, dry Head: atraumatic, normocephalic, symmetric Eyes: no lid leisions Mouth: no lip lesion, mucus membranes moist Cardiovascular: S1S2 reg, no murmur, positive posterior tibial pulse bilateral, + CT inplace, medistinal tube in place, tmporary pacer in placed. Lungs: CTA bilateral, no rhonchi, no rales , no accessory muscle use Abdominal: soft, nontender to palpation, no guarding, no appreciable organomeg reynold, + garcia with yellow urine Ext: no gross muscle atrophy, no edema, no contractures Neuro: CN II-XI grossly intact, no focal neuro deficits Psych: Sedated on vent Assessment and Plan of Care: NSTEMI s/p CABG Severe three-vessel coronary artery disease Ischemic cardiomyopathy EF 45-50% History of coronary artery disease with stents Hypertension Hyperlipidemia - management per cardiothorasic - plavix, ASA, statin - on milranone gtt -Echocardiogram revealed mildly impaired EF of 45-50% with mild mitral regurgitation and inferior wall hypokinesia. -Carotid Dopplers revealing minimal plaque formation with less than 25% stenosis in both internal carotid arteries. Acute blood loss anemia Thrombocytopenia -Anticipated outcome of surgery -No indication for repeat transfusion at this time -Follow CBC Hypothyroidism with history of Graves' disease -TSH 23.300 and free T4 0.36 -possibly secondary to medication noncompliance, however unclear -Home Synthroid dose increased from 50 to 88 g each morning - follow up outpatient with PCP/endocrinology for repeat labs in 6-8 weeks and further adjustments of medications/medication management. COPD with continued nicotine dependence, without exacerbation - scheduled and prn bronchdilators. Type 2 diabetes mellitus with hemoglobin A1c of 6.8%, newly discovered -currently on insulin gtt - will need glucometer on discharge -Patient will need oral hypoglycemic agent upon discharge, recommend Jardiance based upon its benefits with controlling blood glucose levels as well as its associated heart failure risk reduction. -Continue to encourage lifestyle/dietary changes and maintain a heart healthy and carb consistent diet. DVT prophylaxis: Heparin Discussed with: Anticipated discharge date: clinical course to determine Anticipated discharge place: Home A total of 36 minutes was spent on the care of this complex patient more than 50% of the time was spent in counseling and care coordination. Objective - Vital Signs Vital signs: Vital Signs Temp 97.7 F 10/10/21 16:00 Pulse 88 10/10/21 18:00 Resp 20 10/10/21 18:00 BP 114/58 10/10/21 06:08 Pulse Ox 94 L 10/10/21 18:00 FiO2 100 10/10/21 18:00 Intake & Output 10/09/21 10/10/21 10/10/21 18:59 06:59 18:59 Intake Total 698.722 360.310 3 Output Total 2 2800 Balance 696.722 360.310 -2797 Intake: IV 100 3 Intake, IV Titration 99.722 260.310 Amount Heparin Sod,Pork in 0.45% 99.722 260.310 NaCl 25,000 unit In 0.45 % NaCl 1 250ml.bag @ 9. 585 UNITS/KG/HR 10 mls/hr IV .Q24H [facility] Rx#: [id number] Oral 599 Output: Urine 1000 Stool 2 Estimated Blood Loss 1800 Other: Voiding Method Toilet Toilet Indwelling Catheter # Voids 1 # Bowel Movements 1 ABP, PAP, CO, CI - Last Documented Arterial Blood Pressure 131/51 Pulmonary Artery Pressure 34/25 Cardiac Output 5.1 Cardiac Index 2.6 - Labs CBC & Chem 7: 10/10/21 15:50 10/10/21 15:50 Labs: Abnormal Lab Results - Last 24 Hours (Table) 10/09/21 10/09/21 10/10/21 Range/Units 08:15 20:47 05:21 WBC (3.8-10.6) k/uL RBC (3.80-5.40) m/uL Hgb (11.4-16.0) gm/dL Hct (34.0-46.0) % MCV (80.0-100.0) fL Plt Count (150-450) k/uL Neutrophils # (Manual) (1.3-7.7) k/uL PT (9.0-12.0) sec INR (<1.2) APTT (22.0-30.0) sec ABG pH (7.35-7.45) ABG pCO2 (35-45) mmHg ABG pO2 (83-108) mmHg ABG HCO3 (21-25) mmol/L ABG Total CO2 (19-24) mmol/L ABG O2 Saturation (94-97) % ABG Hematocrit (34.0-46.0) % ABG Sodium (135-146) mmol/L ABG Potassium (3.4-4.5) mmol/L ABG Ionized Calcium (4.5-5.3) mg/dL ABG Glucose (75-99) mg/dL ABG Lactic Acid (0.5-1.6) mmol/L Hemoglobin (11.4-16.0) gm/dL Creatinine (0.52-1.04) mg/dL Glucose (74-99) mg/dL POC Glucose (mg/dL) 191 H 155 H (70-110) mg/dL Calcium (8.4-10.2) mg/dL Magnesium (1.6-2.3) mg/dL AST (14-36) U/L ALT (4-34) U/L Alkaline Phosphatase (38-126) U/L Total Protein (6.3-8.2) g/dL Albumin (3.5-5.0) g/dL Arterial Blood Potassium (3.4-4.5) mmol/L Arterial Blood Glucose (75-99) mg/dL Crossmatch See Detail 10/10/21 10/10/21 10/10/21 Range/Units 06:20 08:55 09:56 WBC (3.8-10.6) k/uL RBC (3.80-5.40) m/uL Hgb (11.4-16.0) gm/dL Hct (34.0-46.0) % MCV (80.0-100.0) fL Plt Count (150-450) k/uL Neutrophils # (Manual) (1.3-7.7) k/uL PT (9.0-12.0) sec INR (<1.2) APTT (22.0-30.0) sec ABG pH (7.35-7.45) ABG pCO2 48 H 51 H (35-45) mmHg ABG pO2 (83-108) mmHg ABG HCO3 29 H 29 H (21-25) mmol/L ABG Total CO2 30 H 30 H (19-24) mmol/L ABG O2 Saturation 97.5 H 97.1 H (94-97) % ABG Hematocrit (34.0-46.0) % ABG Sodium (135-146) mmol/L ABG Potassium 4.7 H 4.7 H (3.4-4.5) mmol/L ABG Ionized Calcium (4.5-5.3) mg/dL ABG Glucose 100 H 119 H (75-99) mg/dL ABG Lactic Acid (0.5-1.6) mmol/L Hemoglobin (11.4-16.0) gm/dL Creatinine (0.52-1.04) mg/dL Glucose (74-99) mg/dL POC Glucose (mg/dL) 150 H (70-110) mg/dL Calcium (8.4-10.2) mg/dL Magnesium (1.6-2.3) mg/dL AST (14-36) U/L ALT (4-34) U/L Alkaline Phosphatase (38-126) U/L Total Protein (6.3-8.2) g/dL Albumin (3.5-5.0) g/dL Arterial Blood Potassium 4.7 H 4.7 H (3.4-4.5) mmol/L Arterial Blood Glucose 100 H 119 H (75-99) mg/dL Crossmatch 10/10/21 10/10/21 10/10/21 Range/Units 11:01 11:30 11:59 WBC (3.8-10.6) k/uL RBC (3.80-5.40) m/uL Hgb (11.4-16.0) gm/dL Hct (34.0-46.0) % MCV (80.0-100.0) fL Plt Count (150-450) k/uL Neutrophils # (Manual) (1.3-7.7) k/uL PT (9.0-12.0) sec INR (<1.2) APTT (22.0-30.0) sec ABG pH (7.35-7.45) ABG pCO2 (35-45) mmHg ABG pO2 354 H 295 H 358 H (83-108) mmHg ABG HCO3 27 H 28 H 27 H (21-25) mmol/L ABG Total CO2 28 H 29 H 28 H (19-24) mmol/L ABG O2 Saturation 100.0 H 100.0 H 100.0 H (94-97) % ABG Hematocrit 26 L 26 L 28 L (34.0-46.0) % ABG Sodium 134 L 134 L (135-146) mmol/L ABG Potassium 5.5 H 5.9 H 6.2 H* (3.4-4.5) mmol/L ABG Ionized Calcium 4.0 L 4.1 L 4.2 L (4.5-5.3) mg/dL ABG Glucose 115 H 129 H 153 H (75-99) mg/dL ABG Lactic Acid 1.9 H 2.5 H* 2.7 H* (0.5-1.6) mmol/L Hemoglobin 8.3 L 8.6 L 9.1 L (11.4-16.0) gm/dL Creatinine (0.52-1.04) mg/dL Glucose (74-99) mg/dL POC Glucose (mg/dL) (70-110) mg/dL Calcium (8.4-10.2) mg/dL Magnesium (1.6-2.3) mg/dL AST (14-36) U/L ALT (4-34) U/L Alkaline Phosphatase (38-126) U/L Total Protein (6.3-8.2) g/dL Albumin (3.5-5.0) g/dL Arterial Blood Potassium 5.5 H 5.9 H 6.2 H* (3.4-4.5) mmol/L Arterial Blood Glucose 115 H 129 H 153 H (75-99) mg/dL Crossmatch 10/10/21 10/10/21 10/10/21 Range/Units 12:26 12:54 13:22 WBC (3.8-10.6) k/uL RBC (3.80-5.40) m/uL Hgb (11.4-16.0) gm/dL Hct (34.0-46.0) % MCV (80.0-100.0) fL Plt Count (150-450) k/uL Neutrophils # (Manual) (1.3-7.7) k/uL PT (9.0-12.0) sec INR (<1.2) APTT (22.0-30.0) sec ABG pH 7.34 L (7.35-7.45) ABG pCO2 46 H (35-45) mmHg ABG pO2 356 H 304 H 260 H (83-108) mmHg ABG HCO3 27 H 27 H (21-25) mmol/L ABG Total CO2 28 H 28 H 26 H (19-24) mmol/L ABG O2 Saturation 100.0 H 100.0 H 99.8 H (94-97) % ABG Hematocrit 27 L 26 L 25 L (34.0-46.0) % ABG Sodium 134 L (135-146) mmol/L ABG Potassium 6.0 H 5.8 H 5.7 H (3.4-4.5) mmol/L ABG Ionized Calcium 4.0 L 4.0 L 4.0 L (4.5-5.3) mg/dL ABG Glucose 155 H 153 H 165 H (75-99) mg/dL ABG Lactic Acid 2.8 H* 3.0 H* 4.2 H* (0.5-1.6) mmol/L Hemoglobin 8.7 L 8.4 L 8.1 L (11.4-16.0) gm/dL Creatinine (0.52-1.04) mg/dL Glucose (74-99) mg/dL POC Glucose (mg/dL) (70-110) mg/dL Calcium (8.4-10.2) mg/dL Magnesium (1.6-2.3) mg/dL AST (14-36) U/L ALT (4-34) U/L Alkaline Phosphatase (38-126) U/L Total Protein (6.3-8.2) g/dL Albumin (3.5-5.0) g/dL Arterial Blood Potassium 6.0 H 5.8 H 5.7 H (3.4-4.5) mmol/L Arterial Blood Glucose 155 H 153 H 165 H (75-99) mg/dL Crossmatch 10/10/21 10/10/21 10/10/21 Range/Units 13:30 14:27 15:49 WBC (3.8-10.6) k/uL RBC (3.80-5.40) m/uL Hgb (11.4-16.0) gm/dL Hct (34.0-46.0) % MCV (80.0-100.0) fL Plt Count (150-450) k/uL Neutrophils # (Manual) (1.3-7.7) k/uL PT (9.0-12.0) sec INR (<1.2) APTT (22.0-30.0) sec ABG pH (7.35-7.45) ABG pCO2 47 H (35-45) mmHg ABG pO2 378 H 58 L* (83-108) mmHg ABG HCO3 29 H 27 H (21-25) mmol/L ABG Total CO2 30 H 29 H (19-24) mmol/L ABG O2 Saturation 100.0 H 92.7 L (94-97) % ABG Hematocrit 25 L 27 L (34.0-46.0) % ABG Sodium (135-146) mmol/L ABG Potassium 5.3 H (3.4-4.5) mmol/L ABG Ionized Calcium 3.9 L (4.5-5.3) mg/dL ABG Glucose 172 H 157 H (75-99) mg/dL ABG Lactic Acid 3.8 H* 3.4 H* (0.5-1.6) mmol/L Hemoglobin 8.0 L 8.9 L (11.4-16.0) gm/dL Creatinine (0.52-1.04) mg/dL Glucose (74-99) mg/dL POC Glucose (mg/dL) 135 H (70-110) mg/dL Calcium (8.4-10.2) mg/dL Magnesium (1.6-2.3) mg/dL AST (14-36) U/L ALT (4-34) U/L Alkaline Phosphatase (38-126) U/L Total Protein (6.3-8.2) g/dL Albumin (3.5-5.0) g/dL Arterial Blood Potassium 5.3 H (3.4-4.5) mmol/L Arterial Blood Glucose 172 H 157 H (75-99) mg/dL Crossmatch 10/10/21 10/10/21 10/10/21 Range/Units 15:50 15:50 15:50 WBC 13.9 H (3.8-10.6) k/uL RBC 2.70 L (3.80-5.40) m/uL Hgb 9.0 L D (11.4-16.0) gm/dL Hct 27.4 L (34.0-46.0) % MCV 101.4 H (80.0-100.0) fL Plt Count 127 L D (150-450) k/uL Neutrophils # (Manual) 11.80 H (1.3-7.7) k/uL PT 13.8 H (9.0-12.0) sec INR 1.3 H (<1.2) APTT 32.4 H (22.0-30.0) sec ABG pH (7.35-7.45) ABG pCO2 (35-45) mmHg ABG pO2 (83-108) mmHg ABG HCO3 (21-25) mmol/L ABG Total CO2 (19-24) mmol/L ABG O2 Saturation (94-97) % ABG Hematocrit (34.0-46.0) % ABG Sodium (135-146) mmol/L ABG Potassium (3.4-4.5) mmol/L ABG Ionized Calcium (4.5-5.3) mg/dL ABG Glucose (75-99) mg/dL ABG Lactic Acid (0.5-1.6) mmol/L Hemoglobin (11.4-16.0) gm/dL Creatinine 1.07 H (0.52-1.04) mg/dL Glucose 121 H (74-99) mg/dL POC Glucose (mg/dL) (70-110) mg/dL Calcium 7.9 L (8.4-10.2) mg/dL Magnesium 2.5 H (1.6-2.3) mg/dL AST 110 H (14-36) U/L ALT 39 H (4-34) U/L Alkaline Phosphatase 29 L (38-126) U/L Total Protein 4.7 L (6.3-8.2) g/dL Albumin 3.1 L (3.5-5.0) g/dL Arterial Blood Potassium (3.4-4.5) mmol/L Arterial Blood Glucose (75-99) mg/dL Crossmatch 10/10/21 10/10/21 10/10/21 Range/Units 16:32 16:38 18:03 WBC (3.8-10.6) k/uL RBC (3.80-5.40) m/uL Hgb (11.4-16.0) gm/dL Hct (34.0-46.0) % MCV (80.0-100.0) fL Plt Count (150-450) k/uL Neutrophils # (Manual) (1.3-7.7) k/uL PT (9.0-12.0) sec INR (<1.2) APTT (22.0-30.0) sec ABG pH 7.23 L (7.35-7.45) ABG pCO2 73 H* (35-45) mmHg ABG pO2 73 L (83-108) mmHg ABG HCO3 30 H (21-25) mmol/L ABG Total CO2 32 H (19-24) mmol/L ABG O2 Saturation 92.9 L (94-97) % ABG Hematocrit (34.0-46.0) % ABG Sodium (135-146) mmol/L ABG Potassium (3.4-4.5) mmol/L ABG Ionized Calcium (4.5-5.3) mg/dL ABG Glucose (75-99) mg/dL ABG Lactic Acid (0.5-1.6) mmol/L Hemoglobin (11.4-16.0) gm/dL Creatinine (0.52-1.04) mg/dL Glucose (74-99) mg/dL POC Glucose (mg/dL) 132 H 156 H (70-110) mg/dL Calcium (8.4-10.2) mg/dL Magnesium (1.6-2.3) mg/dL AST (14-36) U/L ALT (4-34) U/L Alkaline Phosphatase (38-126) U/L Total Protein (6.3-8.2) g/dL Albumin (3.5-5.0) g/dL Arterial Blood Potassium (3.4-4.5) mmol/L Arterial Blood Glucose (75-99) mg/dL Crossmatch
[2021-10-10] MEDS: HEPARIN SODIUM,PORCINE/PF 5,000 UNIT/0.5 ML SYRINGE SQ SCH ×2 (18:14→23:10)
[2021-10-10] MEDS: ACETAMINOPHEN IV (For NPO) 1,000 MG in EMPTY BAG 1 BAG IVPB SCH ×2 (18:14→23:09)
[2021-10-10 18:40] LABS: Basophils # (A) 0.1 k/uL (0-0.2); Basophils % (A) 0 %; Eosinophils % (A) 0 %; HCT 28.7 % (34.0-46.0); HGB 9.4 gm/dL (11.4-16.0); Hypochromasia Slight; Lymphocytes # (A) 0.8 k/uL (1.0-4.8); Lymphocytes % (A) 6 %; MCH 33.6 pg (25.0-35.0); MCHC 32.9 g/dL (31.0-37.0); MCV 102.2 fL (80.0-100.0); Macrocytosis Slight; Mean Platelet Volume 10.1; Monocytes # (A) 0.7 k/uL (0-1.0); Monocytes % (A) 5 %; Neutrophils # (A) 11.7 k/uL (1.3-7.7); Neutrophils % (A) 88 %; Platelet Count 143 k/uL (150-450); RBC 2.81 m/uL (3.80-5.40); WBC 13.4 k/uL (3.8-10.6)
[2021-10-10 19:04] LABS: Glucose,Whole Blood 155 mg/dL (70-110)
[2021-10-10 20:04] LABS: Glucose,Whole Blood 155 mg/dL (70-110)
--- NOTE | 2021-10-10 20:09 | P.ANPRN ---
Procedure Note - Anesthesia - Invasive Line Right Victoria Chance Time Out Performed: Yes Date of Procedure: 10/10/21 Time of Procedure: 07:40 Location of Patient: PreOp Preparation: Sterile Prep, Sterile Dressing Ultrasound Used: No Purpose - Visualization and Identification of Vasculature: No Image Stored and Saved: No (right internal jugular vein) Narrative: Central line placement per sterile protocol utilized.
--- NOTE | 2021-10-10 20:10 | P.ANPRN ---
Procedure Note - Anesthesia - Invasive Line Right Arterial Line Time Out Performed: Yes Date of Procedure: 10/10/21 Time of Procedure: 07:26 Location of Patient: PreOp Preparation: Sterile Prep, Sterile Dressing Arterial Line Location: Radial Ultrasound Used: No Purpose - Visualization and Identification of Vasculature: No Image Stored and Saved: No Narrative: Central line placement per sterile protocol utilized.
[2021-10-10 20:52] LABS: ABG Base Excess 4.3 mmol/L; ABG HCO3 30 mmol/L (21-25); ABG Oxygen Saturation 89.2 % (94-97); ABG PCO2 51 mmHg (35-45); ABG PH 7.37 (7.35-7.45); ABG TCO2 31 mmol/L (19-24); Allen Test Performed? Yes
[2021-10-10 20:56] LABS: ABG PO2 53 mmHg (83-108)
[2021-10-10 20:56] LABS: Glucose,Whole Blood 151 mg/dL (70-110)
[2021-10-10 21:21] LABS: Basophils % (A) 0 %; Eosinophils % (A) 0 %; HCT 27.9 % (34.0-46.0); Hypochromasia Slight; Lymphocytes # (A) 0.7 k/uL (1.0-4.8); Lymphocytes % (A) 6 %; MCH 32.6 pg (25.0-35.0); MCHC 32.2 g/dL (31.0-37.0); MCV 101.5 fL (80.0-100.0); Macrocytosis Slight; Mean Platelet Volume 10.3; Monocytes # (A) 0.5 k/uL (0-1.0); Monocytes % (A) 5 %; Neutrophils # (A) 10.1 k/uL (1.3-7.7); Neutrophils % (A) 88 %; Platelet Count 145 k/uL (150-450); RBC 2.75 m/uL (3.80-5.40); RDW 14.9 % (11.5-15.5); WBC 11.5 k/uL (3.8-10.6)
[2021-10-10 22:28] LABS: Glucose,Whole Blood 145 mg/dL (70-110)
--- NOTE | 2021-10-10 22:56 | OP ---
OPERATIVE REPORT DATE OF SURGERY: 10/10/2021. PREOPERATIVE DIAGNOSIS: Coronary artery disease. POSTOPERATIVE DIAGNOSIS: Coronary artery disease. PROCEDURE: 1. Coronary artery bypass grafting x3 vessels (left internal mammary artery to left anterior descending artery, radial artery to obtuse marginal artery, saphenous vein graft to posterior descending artery). 2. Endoscopic harvest of left radial artery. 3. Endoscopic harvest left greater saphenous vein. 4. Ligation of left atrial appendage using 35 mm Atri clip. 5. Epiaortic ultrasound. 6. Transesophageal echocardiogram. 7. Closure of sternum using titanium plating system. SURGEON: Michael Stephenson MD. PREPARER MAKING DEPARTMENT: 1. Jamie Martinez P.A.-C. 2. Goran Garcia NP. ANESTHESIA: General COMPLICATION: None. INDICATION: The patient is a 56-year-old female with a past medical history significant for hypertension, hyperlipidemia, coronary artery disease status post multiple coronary stents, myocardial infarction, chronic renal insufficiency, ongoing tobacco use, obstructive sleep apnea without home CPAP, COPD with occasional home oxygen use, thyroid disorder, asthma, and morbid obesity who presented to the hospital after an episode of chest pain accompanied by shortness of breath. Workup revealed a non ST elevation myocardial infarction. Cardiac catheterization revealed multivessel coronary artery disease. A coronary artery bypass was recommended. The risks, benefits, and alternatives of the procedure were discussed with the patient. All of her questions were answered. Consent was obtained. FINDINGS: The left internal mammary artery was a good conduit with brisk flow. The saphenous vein was a good conduit. The radial artery was small in diameter but otherwise a good conduit. The left anterior descending artery measured 1.3 mm. The OM1 measured 1.3 mm. The posterior descending artery measured 1.3 mm. PROCEDURE IN DETAIL: The patient was taken to the operating room and placed supine on the operating table. After the induction of general anesthesia, she was prepped and draped in the usual sterile fashion. Preoperative transesophageal echocardiogram confirmed a preserved ejection fraction with trace to mild central mitral regurgitation. A median sternotomy was performed. The left internal mammary artery was harvested in the standard fashion taking care to clip all branches. Intravenous heparin was administered. The vessel was transected distally revealing brisk flow. Of note, this was somewhat difficult given her obesity. Simultaneously, greater saphenous vein was harvested from the left lower extremity using endoscopic technique. All branches were tied. In addition, radial artery was harvested from the left upper extremity using endoscopic technique. This vessel was small in diameter but was otherwise a good conduit. A pericardial cradle was created. The ascending aorta was palpated. There was no significant calcific plaque noted. Epiaortic ultrasound was then performed on the ascending aorta. Again no calcific plaque was noted. However, there was atheromatous disease identified. An arterial cannula was placed in the distal ascending aorta. A venous cannula was placed through the right atrial appendage and directed into the IVC. Both antegrade and retrograde catheters were placed as well. The patient was then placed on cardiopulmonary bypass with good decompression of the heart. The aortic cross-clamp was applied. Cold blood potassium cardioplegia was delivered in both antegrade and retrograde fashion to achieve arrest of the heart. Of note, cardioplegia was delivered every 15-20 minutes while the patient remained under crossclamp. I began by identifying the left atrial appendage. A 35 mm Atriclip was placed across its base to ensure ligation. Next, attention was turned to the inferior wall. The posterior descending artery was identified and dissected free. A small arteriotomy was created. This vessel accepted a 1.0 mm probe. Using saphenous vein in a reverse fashion, an end-to-side anastomosis created. This was performed using a running 7-0 Prolene suture. The graft was hemostatic and had great flow. Next, attention was turned to the lateral wall. Three branches off the circumflex artery were identified. The third branch was dissected free. It was too small for bypass. The first branch was dissected free. A small arteriotomy was created. This vessel accepted a 1.0 mm probe. Using the radial artery, an end-to-side anastomosis was created. This was performed using a running 7-0 Prolene suture. The graft was hemostatic and had great flow. Finally, attention was turned to the anterior wall. The left anterior descending artery was identified in its midportion and dissected free. A small arteriotomy was created. This vessel accepted a 1.0 mm probe. Using the left internal mammary artery, an end to side anastomosis was created. This was performed using a running 8-0 Prolene suture. The graft was hemostatic. The mammary pedicle was then tacked down to the anterior surface of the heart. Attention was then turned to the proximal anastomoses. These were both performed in an end-to-side fashion using running 6-0 Prolene suture. This was somewhat difficult given her body habitus. The ascending aorta itself was thickened, consistent with her atheromatous disease identified on epiaortic ultrasound. One liter of warm blood was delivered in retrograde fashion. Lidocaine and magnesium were administered as well. The aortic cross-clamp was removed. The vein graft was de-aired in the standard fashion. Distal anastomoses were inspected and appeared to be hemostatic. Temporary atrial and ventricular pacing wires were placed and brought through the skin. The patient was then weaned off cardiopulmonary bypass. She with the addition of low-dose milrinone and Levophed. Followup transesophageal electrocardiogram confirmed good left ventricular ejection fraction and no change in valve pathology. Protamine was administered. There were no adverse reactions. The remaining cannulas were then removed. The mediastinum was copiously irrigated with warm saline solution. All surgical sites were inspected and appeared to be hemostatic. It should be noted that the left pleural space was fused and this was identified when taking down the mammary artery. Enough space was cleared up to free up the artery, but the whole pleural space was certainly not cleared up. A right angle chest tube was then placed and directed into the left pleural space. A straight 36- [place] chest tube was placed in the mediastinum. These were secured to the skin using sutures. Attention was then turned to closure of the sternum. Due to the patient's obesity, I elected to reapproximate the sternum using a combination of [place] cables and titanium plates. In total, 3 [place] cables, 2 X-plates, and one V-plate were used. A combination of 14 mm and 12 mm screws were used as well. At the completion of the closure, the sternum was well aligned. The remainder of the wound was closed in multiple layers given her obesity. A sterile dressing was applied. The patient appeared to tolerate the procedure well. There were no immediate complications. She returned to the ICU in critical but stable condition. She did not receive any intraoperative blood products. MMODL / IJN: [id number] / MTDD
[2021-10-10 23:40] LABS: Glucose,Whole Blood 136 mg/dL (70-110)
[2021-10-11] LABS: Hepatitis B Surface Antigen Nonreactive (Nonreactive); Hepatitis C IgG Antibody Nonreactive (Nonreactive)
[2021-10-11 01:04] LABS: Glucose,Whole Blood 123 mg/dL (70-110)
[2021-10-11 02:21] LABS: Glucose,Whole Blood 122 mg/dL (70-110)
--- NOTE | 2021-10-11 02:22 | XR ---
EXAM: XR Chest, 1 View CLINICAL HISTORY: ITS.REASON XR Reason: Post Operative Cardiac Surgery TECHNIQUE: Frontal view of the chest. COMPARISON: 10/10/21 FINDINGS/IMPRESSION: Mildly improved aeration of the right lung base. Pneumopericardium and pneumomediastinum is less apparent. Otherwise, examination is not significantly changed since prior. Stable support devices. No pneumothorax.
[2021-10-11 03:42] LABS: Glucose,Whole Blood 122 mg/dL (70-110)
[2021-10-11 03:59] LABS: Basophils # (A) 0.1 k/uL (0-0.2); Basophils % (A) 1 %; Eosinophils # (A) 0.1 k/uL (0-0.7); Eosinophils % (A) 1 %; HCT 25.9 % (34.0-46.0); HGB 8.5 gm/dL (11.4-16.0); Hypochromasia Slight; Lymphocytes # (A) 0.7 k/uL (1.0-4.8); Lymphocytes % (A) 6 %; MCH 32.9 pg (25.0-35.0); MCHC 32.8 g/dL (31.0-37.0); MCV 100.3 fL (80.0-100.0); Macrocytosis Slight; Mean Platelet Volume 10.5; Monocytes # (A) 0.7 k/uL (0-1.0); Monocytes % (A) 5 %; Neutrophils # (A) 10.9 k/uL (1.3-7.7); Neutrophils % (A) 87 %; Platelet Count 128 k/uL (150-450); RBC 2.59 m/uL (3.80-5.40); RDW 14.6 % (11.5-15.5); WBC 12.4 k/uL (3.8-10.6)
[2021-10-11 04:08] LABS: Ionized Calcium 4.8 mg/dL (4.5-5.3)
[2021-10-11 04:17] LABS: Albumin 3.1 g/dL (3.5-5.0); Calcium 8.2 mg/dL (8.4-10.2); Magnesium 2.3 mg/dL (1.6-2.3); Potassium 4.5 mmol/L (3.5-5.1); Total Bilirubin 0.6 mg/dL (0.2-1.3); Total Protein 4.8 g/dL (6.3-8.2)
[2021-10-11 04:48] LABS: HIV 2 AB Non-Reactive (Non-Reactive); HIV AB P24 Non-Reactive (Non-Reactive); HIV P24 AG Non-Reactive (Non-Reactive)
[2021-10-11 05:09] LABS: Glucose,Whole Blood 122 mg/dL (70-110)
[2021-10-11 06:18] LABS: Glucose,Whole Blood 122 mg/dL (70-110)
[2021-10-11 06:19] LABS: Allen Test Performed? Yes
[2021-10-11 06:25] LABS: ABG PCO2 43 mmHg (35-45); ABG PH 7.43 (7.35-7.45); ABG PO2 57 mmHg (83-108)
[2021-10-11 06:26] LABS: ABG Base Excess 3.5 mmol/L; ABG HCO3 28 mmol/L (21-25); ABG TCO2 11 mmol/L (19-24)
[2021-10-11 06:56] LABS: Glucose,Whole Blood 104 mg/dL (70-110)
[2021-10-11] MEDS: MILRINONE-D5W PMX 20 MG in DEXTROSE/WATER 1 100ML.BAG IV SCH ×2 (07:03→19:05)
[2021-10-11] MEDS: IPRATROPIUM-ALBUTEROL 3 ML NEB INHALATION SCH ×4 (07:25→19:36)
[2021-10-11 08:18] LABS: Glucose,Whole Blood 136 mg/dL (70-110)
[2021-10-11] MEDS: PANTOPRAZOLE 40 MG/10 ML VIAL IVP SCH (08:20)
[2021-10-11] MEDS: ATORVASTATIN 40 MG TAB PO SCH (08:21)
[2021-10-11] MEDS: ASPIRIN 325 MG TAB PO SCH (08:21)
[2021-10-11] MEDS: CHLORHEXIDINE GLUCONATE 15 ML CUP MUCOUS MEM SCH ×2 (08:21→20:24)
[2021-10-11] MEDS: HEPARIN SODIUM,PORCINE/PF 5,000 UNIT/0.5 ML SYRINGE SQ SCH ×3 (08:21→23:28)
[2021-10-11] MEDS: CLOPIDOGREL 75 MG TAB PO SCH (08:21)
--- NOTE | 2021-10-11 08:27 | P.PN ---
Subjective Progress Note Date: 10/11/21 Principal diagnosis: CAD and status post CABG The patient is a 56-year-old female patient was coronary artery disease and prior revascularization as well as diabetes and hypertension and dyslipidemia presented to the hospital with chest discomfort and she underwent a heart cassius terization which revealed severe triple-vessel CAD. For that reason the patient was referred for coronary artery bypass grafting. Yesterday she underwent CABG 3 was HOLM into LAD and radial artery to OM as well as SVG to PDA. This is postoperative patient day #1. Apparently the patient continues to be intubated. She is on FiO2 of 40%. She is also on a small dose of Primacor because her cardiac index was slightly on the low side. She has been maintaining normal sinus mechanism. She is also on insulin drip. She is on dual antiplatelet therapy along with beta garret. The chest x-ray was reviewed this morning. The blood work also was reviewed this morning. Her urine output overall appears to be within normal limits. Objective - Vital Signs Vital signs: Vital Signs Temp 99.5 F 10/11/21 04:00 Pulse 89 10/11/21 07:37 Resp 28 H 10/11/21 06:00 BP 102/52 10/11/21 04:00 Pulse Ox 94 L 10/11/21 06:00 FiO2 60 10/11/21 07:15 Intake & Output 10/10/21 10/11/21 10/11/21 18:59 06:59 18:59 Intake Total 965.896 3488.408 124.726 Output Total 3130 995 67 Balance -2744.718 538.408 57.726 Weight 114.3 kg Intake: IV 79 1168 59 Albumin Human 5% 250 ml 250 In Empty Bag 1 bag @ 250 mls/hr IVPB Q1HR PRN Rx#: [id number] Lactated Ringers 1,000 ml 550 50 @ 50 mls/hr IV .Q20H ADIEL Rx#:[id number] cardiac output 40 210 ceFAZolin 2 gm In Sodium 50 Chloride 0.9% 50 ml @ 100 mls/hr IVPB ONCE ONE Rx# :[id number] pressure bag 36 108 9 Intake, IV Titration 306.282 365.408 65.726 Amount ACETAMINOPHEN IV (For NPO 100 ) 1,000 mg In Empty Bag 1 bag @ 400 mls/hr IVPB Q6HR [facility] Rx#:[id number] Insulin Regular 100 unit 1.616 50.517 0 In Sodium Chloride 0.9% 100 ml @ Per Protocol IV .Q0M [facility] Rx#:[id number] Lactated Ringers 1,000 ml 200 50 @ 50 mls/hr IV .Q20H [facility] Rx#:[id number] Milrinone-D5w Pmx 20 mg 100 In Dextrose/Water 1 100ml .bag @ 0.3 MCG/KG/MIN 9. 389 mls/hr IV .[id number] [facility] Rx#:[id number] ceFAZolin 2 gm In Sodium 50 Chloride 0.9% 50 ml @ 100 mls/hr IVPB Q8HR [facility] Rx# :[id number] propofoL 1,000 mg In 54.666 64.891 65.726 Empty Bag 1 bag @ Titrate IV .Q0M ADI[facility] Rx#: [id number] Output: Chest Tube Drainage 45 405 20 left pleural 45 255 10 mediastinal 0 150 10 Urine 1285 590 47 Estimated Blood Loss 1800 Other: Voiding Method Indwelling Catheter Indwelling Catheter ABP, PAP, CO, CI - Last Documented Arterial Blood Pressure 148/48 Pulmonary Artery Pressure 30/17 Cardiac Output 5.1 Cardiac Index 2.8 - Constitutional General appearance: Present: no acute distress - Respiratory Respiratory: bilateral: diminished - Cardiovascular Rhythm: regular - Labs CBC & Chem 7: 10/11/21 03:43 10/11/21 03:43 Labs: Abnormal Lab Results - Last 24 Hours (Table) 10/09/21 10/10/21 10/10/21 Range/Units 08:15 08:55 09:56 WBC (3.8-10.6) k/uL RBC (3.80-5.40) m/uL Hgb (11.4-16.0) gm/dL Hct (34.0-46.0) % MCV (80.0-100.0) fL Plt Count (150-450) k/uL Neutrophils # (1.3-7.7) k/uL Neutrophils # (Manual) (1.3-7.7) k/uL Lymphocytes # (1.0-4.8) k/uL PT (9.0-12.0) sec INR (<1.2) APTT (22.0-30.0) sec ABG pH (7.35-7.45) ABG pCO2 48 H 51 H (35-45) mmHg ABG pO2 (83-108) mmHg ABG HCO3 29 H 29 H (21-25) mmol/L ABG Total CO2 30 H 30 H (19-24) mmol/L ABG O2 Saturation 97.5 H 97.1 H (94-97) % ABG Hematocrit (34.0-46.0) % ABG Sodium (135-146) mmol/L ABG Potassium 4.7 H 4.7 H (3.4-4.5) mmol/L ABG Ionized Calcium (4.5-5.3) mg/dL ABG Glucose 100 H 119 H (75-99) mg/dL ABG Lactic Acid (0.5-1.6) mmol/L Hemoglobin (11.4-16.0) gm/dL Sodium (137-145) mmol/L Creatinine (0.52-1.04) mg/dL Glucose (74-99) mg/dL POC Glucose (mg/dL) (70-110) mg/dL Calcium (8.4-10.2) mg/dL Magnesium (1.6-2.3) mg/dL AST (14-36) U/L ALT (4-34) U/L Alkaline Phosphatase (38-126) U/L Total Protein (6.3-8.2) g/dL Albumin (3.5-5.0) g/dL Arterial Blood Potassium 4.7 H 4.7 H (3.4-4.5) mmol/L Arterial Blood Glucose 100 H 119 H (75-99) mg/dL Crossmatch See Detail 10/10/21 10/10/21 10/10/21 Range/Units 11:01 11:30 11:59 WBC (3.8-10.6) k/uL RBC (3.80-5.40) m/uL Hgb (11.4-16.0) gm/dL Hct (34.0-46.0) % MCV (80.0-100.0) fL Plt Count (150-450) k/uL Neutrophils # (1.3-7.7) k/uL Neutrophils # (Manual) (1.3-7.7) k/uL Lymphocytes # (1.0-4.8) k/uL PT (9.0-12.0) sec INR (<1.2) APTT (22.0-30.0) sec ABG pH (7.35-7.45) ABG pCO2 (35-45) mmHg ABG pO2 354 H 295 H 358 H (83-108) mmHg ABG HCO3 27 H 28 H 27 H (21-25) mmol/L ABG Total CO2 28 H 29 H 28 H (19-24) mmol/L ABG O2 Saturation 100.0 H 100.0 H 100.0 H (94-97) % ABG Hematocrit 26 L 26 L 28 L (34.0-46.0) % ABG Sodium 134 L 134 L (135-146) mmol/L ABG Potassium 5.5 H 5.9 H 6.2 H* (3.4-4.5) mmol/L ABG Ionized Calcium 4.0 L 4.1 L 4.2 L (4.5-5.3) mg/dL ABG Glucose 115 H 129 H 153 H (75-99) mg/dL ABG Lactic Acid 1.9 H 2.5 H* 2.7 H* (0.5-1.6) mmol/L Hemoglobin 8.3 L 8.6 L 9.1 L (11.4-16.0) gm/dL Sodium (137-145) mmol/L Creatinine (0.52-1.04) mg/dL Glucose (74-99) mg/dL POC Glucose (mg/dL) (70-110) mg/dL Calcium (8.4-10.2) mg/dL Magnesium (1.6-2.3) mg/dL AST (14-36) U/L ALT (4-34) U/L Alkaline Phosphatase (38-126) U/L Total Protein (6.3-8.2) g/dL Albumin (3.5-5.0) g/dL Arterial Blood Potassium 5.5 H 5.9 H 6.2 H* (3.4-4.5) mmol/L Arterial Blood Glucose 115 H 129 H 153 H (75-99) mg/dL Crossmatch 10/10/21 10/10/21 10/10/21 Range/Units 12:26 12:54 13:22 WBC (3.8-10.6) k/uL RBC (3.80-5.40) m/uL Hgb (11.4-16.0) gm/dL Hct (34.0-46.0) % MCV (80.0-100.0) fL Plt Count (150-450) k/uL Neutrophils # (1.3-7.7) k/uL Neutrophils # (Manual) (1.3-7.7) k/uL Lymphocytes # (1.0-4.8) k/uL PT (9.0-12.0) sec INR (<1.2) APTT (22.0-30.0) sec ABG pH 7.34 L (7.35-7.45) ABG pCO2 46 H (35-45) mmHg ABG pO2 356 H 304 H 260 H (83-108) mmHg ABG HCO3 27 H 27 H (21-25) mmol/L ABG Total CO2 28 H 28 H 26 H (19-24) mmol/L ABG O2 Saturation 100.0 H 100.0 H 99.8 H (94-97) % ABG Hematocrit 27 L 26 L 25 L (34.0-46.0) % ABG Sodium 134 L (135-146) mmol/L ABG Potassium 6.0 H 5.8 H 5.7 H (3.4-4.5) mmol/L ABG Ionized Calcium 4.0 L 4.0 L 4.0 L (4.5-5.3) mg/dL ABG Glucose 155 H 153 H 165 H (75-99) mg/dL ABG Lactic Acid 2.8 H* 3.0 H* 4.2 H* (0.5-1.6) mmol/L Hemoglobin 8.7 L 8.4 L 8.1 L (11.4-16.0) gm/dL Sodium (137-145) mmol/L Creatinine (0.52-1.04) mg/dL Glucose (74-99) mg/dL POC Glucose (mg/dL) (70-110) mg/dL Calcium (8.4-10.2) mg/dL Magnesium (1.6-2.3) mg/dL AST (14-36) U/L ALT (4-34) U/L Alkaline Phosphatase (38-126) U/L Total Protein (6.3-8.2) g/dL Albumin (3.5-5.0) g/dL Arterial Blood Potassium 6.0 H 5.8 H 5.7 H (3.4-4.5) mmol/L Arterial Blood Glucose 155 H 153 H 165 H (75-99) mg/dL Crossmatch 10/10/21 10/10/21 10/10/21 Range/Units 13:30 14:27 15:49 WBC (3.8-10.6) k/uL RBC (3.80-5.40) m/uL Hgb (11.4-16.0) gm/dL Hct (34.0-46.0) % MCV (80.0-100.0) fL Plt Count (150-450) k/uL Neutrophils # (1.3-7.7) k/uL Neutrophils # (Manual) (1.3-7.7) k/uL Lymphocytes # (1.0-4.8) k/uL PT (9.0-12.0) sec INR (<1.2) APTT (22.0-30.0) sec ABG pH (7.35-7.45) ABG pCO2 47 H (35-45) mmHg ABG pO2 378 H 58 L* (83-108) mmHg ABG HCO3 29 H 27 H (21-25) mmol/L ABG Total CO2 30 H 29 H (19-24) mmol/L ABG O2 Saturation 100.0 H 92.7 L (94-97) % ABG Hematocrit 25 L 27 L (34.0-46.0) % ABG Sodium (135-146) mmol/L ABG Potassium 5.3 H (3.4-4.5) mmol/L ABG Ionized Calcium 3.9 L (4.5-5.3) mg/dL ABG Glucose 172 H 157 H (75-99) mg/dL ABG Lactic Acid 3.8 H* 3.4 H* (0.5-1.6) mmol/L Hemoglobin 8.0 L 8.9 L (11.4-16.0) gm/dL Sodium (137-145) mmol/L Creatinine (0.52-1.04) mg/dL Glucose (74-99) mg/dL POC Glucose (mg/dL) 135 H (70-110) mg/dL Calcium (8.4-10.2) mg/dL Magnesium (1.6-2.3) mg/dL AST (14-36) U/L ALT (4-34) U/L Alkaline Phosphatase (38-126) U/L Total Protein (6.3-8.2) g/dL Albumin (3.5-5.0) g/dL Arterial Blood Potassium 5.3 H (3.4-4.5) mmol/L Arterial Blood Glucose 172 H 157 H (75-99) mg/dL Crossmatch 10/10/21 10/10/21 10/10/21 Range/Units 15:50 15:50 15:50 WBC 13.9 H (3.8-10.6) k/uL RBC 2.70 L (3.80-5.40) m/uL Hgb 9.0 L D (11.4-16.0) gm/dL Hct 27.4 L (34.0-46.0) % MCV 101.4 H (80.0-100.0) fL Plt Count 127 L D (150-450) k/uL Neutrophils # (1.3-7.7) k/uL Neutrophils # (Manual) 11.80 H (1.3-7.7) k/uL Lymphocytes # (1.0-4.8) k/uL PT 13.8 H (9.0-12.0) sec INR 1.3 H (<1.2) APTT 32.4 H (22.0-30.0) sec ABG pH (7.35-7.45) ABG pCO2 (35-45) mmHg ABG pO2 (83-108) mmHg ABG HCO3 (21-25) mmol/L ABG Total CO2 (19-24) mmol/L ABG O2 Saturation (94-97) % ABG Hematocrit (34.0-46.0) % ABG Sodium (135-146) mmol/L ABG Potassium (3.4-4.5) mmol/L ABG Ionized Calcium (4.5-5.3) mg/dL ABG Glucose (75-99) mg/dL ABG Lactic Acid (0.5-1.6) mmol/L Hemoglobin (11.4-16.0) gm/dL Sodium (137-145) mmol/L Creatinine 1.07 H (0.52-1.04) mg/dL Glucose 121 H (74-99) mg/dL POC Glucose (mg/dL) (70-110) mg/dL Calcium 7.9 L (8.4-10.2) mg/dL Magnesium 2.5 H (1.6-2.3) mg/dL AST 110 H (14-36) U/L ALT 39 H (4-34) U/L Alkaline Phosphatase 29 L (38-126) U/L Total Protein 4.7 L (6.3-8.2) g/dL Albumin 3.1 L (3.5-5.0) g/dL Arterial Blood Potassium (3.4-4.5) mmol/L Arterial Blood Glucose (75-99) mg/dL Crossmatch 10/10/21 10/10/21 10/10/21 Range/Units 16:32 16:38 18:03 WBC (3.8-10.6) k/uL RBC (3.80-5.40) m/uL Hgb (11.4-16.0) gm/dL Hct (34.0-46.0) % MCV (80.0-100.0) fL Plt Count (150-450) k/uL Neutrophils # (1.3-7.7) k/uL Neutrophils # (Manual) (1.3-7.7) k/uL Lymphocytes # (1.0-4.8) k/uL PT (9.0-12.0) sec INR (<1.2) APTT (22.0-30.0) sec ABG pH 7.23 L (7.35-7.45) ABG pCO2 73 H* (35-45) mmHg ABG pO2 73 L (83-108) mmHg ABG HCO3 30 H (21-25) mmol/L ABG Total CO2 32 H (19-24) mmol/L ABG O2 Saturation 92.9 L (94-97) % ABG Hematocrit (34.0-46.0) % ABG Sodium (135-146) mmol/L ABG Potassium (3.4-4.5) mmol/L ABG Ionized Calcium (4.5-5.3) mg/dL ABG Glucose (75-99) mg/dL ABG Lactic Acid (0.5-1.6) mmol/L Hemoglobin (11.4-16.0) gm/dL Sodium (137-145) mmol/L Creatinine (0.52-1.04) mg/dL Glucose (74-99) mg/dL POC Glucose (mg/dL) 132 H 156 H (70-110) mg/dL Calcium (8.4-10.2) mg/dL Magnesium (1.6-2.3) mg/dL AST (14-36) U/L ALT (4-34) U/L Alkaline Phosphatase (38-126) U/L Total Protein (6.3-8.2) g/dL Albumin (3.5-5.0) g/dL Arterial Blood Potassium (3.4-4.5) mmol/L Arterial Blood Glucose (75-99) mg/dL Crossmatch 10/10/21 10/10/21 10/10/21 Range/Units 18:03 19:02 20:03 WBC 13.4 H (3.8-10.6) k/uL RBC 2.81 L (3.80-5.40) m/uL Hgb 9.4 L (11.4-16.0) gm/dL Hct 28.7 L (34.0-46.0) % MCV 102.2 H (80.0-100.0) fL Plt Count 143 L (150-450) k/uL Neutrophils # 11.7 H (1.3-7.7) k/uL Neutrophils # (Manual) (1.3-7.7) k/uL Lymphocytes # 0.8 L (1.0-4.8) k/uL PT (9.0-12.0) sec INR (<1.2) APTT (22.0-30.0) sec ABG pH (7.35-7.45) ABG pCO2 (35-45) mmHg ABG pO2 (83-108) mmHg ABG HCO3 (21-25) mmol/L ABG Total CO2 (19-24) mmol/L ABG O2 Saturation (94-97) % ABG Hematocrit (34.0-46.0) % ABG Sodium (135-146) mmol/L ABG Potassium (3.4-4.5) mmol/L ABG Ionized Calcium (4.5-5.3) mg/dL ABG Glucose (75-99) mg/dL ABG Lactic Acid (0.5-1.6) mmol/L Hemoglobin (11.4-16.0) gm/dL Sodium (137-145) mmol/L Creatinine (0.52-1.04) mg/dL Glucose (74-99) mg/dL POC Glucose (mg/dL) 155 H 155 H (70-110) mg/dL Calcium (8.4-10.2) mg/dL Magnesium (1.6-2.3) mg/dL AST (14-36) U/L ALT (4-34) U/L Alkaline Phosphatase (38-126) U/L Total Protein (6.3-8.2) g/dL Albumin (3.5-5.0) g/dL Arterial Blood Potassium (3.4-4.5) mmol/L Arterial Blood Glucose (75-99) mg/dL Crossmatch 10/10/21 10/10/21 10/10/21 Range/Units 20:20 20:50 20:55 WBC 11.5 H (3.8-10.6) k/uL RBC 2.75 L (3.80-5.40) m/uL Hgb 9.0 L (11.4-16.0) gm/dL Hct 27.9 L (34.0-46.0) % MCV 101.5 H (80.0-100.0) fL Plt Count 145 L (150-450) k/uL Neutrophils # 10.1 H (1.3-7.7) k/uL Neutrophils # (Manual) (1.3-7.7) k/uL Lymphocytes # 0.7 L (1.0-4.8) k/uL PT (9.0-12.0) sec INR (<1.2) APTT (22.0-30.0) sec ABG pH (7.35-7.45) ABG pCO2 51 H (35-45) mmHg ABG pO2 53 L* (83-108) mmHg ABG HCO3 30 H (21-25) mmol/L ABG Total CO2 31 H (19-24) mmol/L ABG O2 Saturation 89.2 L (94-97) % ABG Hematocrit (34.0-46.0) % ABG Sodium (135-146) mmol/L ABG Potassium (3.4-4.5) mmol/L ABG Ionized Calcium (4.5-5.3) mg/dL ABG Glucose (75-99) mg/dL ABG Lactic Acid (0.5-1.6) mmol/L Hemoglobin (11.4-16.0) gm/dL Sodium (137-145) mmol/L Creatinine (0.52-1.04) mg/dL Glucose (74-99) mg/dL POC Glucose (mg/dL) 151 H (70-110) mg/dL Calcium (8.4-10.2) mg/dL Magnesium (1.6-2.3) mg/dL AST (14-36) U/L ALT (4-34) U/L Alkaline Phosphatase (38-126) U/L Total Protein (6.3-8.2) g/dL Albumin (3.5-5.0) g/dL Arterial Blood Potassium (3.4-4.5) mmol/L Arterial Blood Glucose (75-99) mg/dL Crossmatch 10/10/21 10/10/21 10/11/21 Range/Units 22:27 23:38 01:02 WBC (3.8-10.6) k/uL RBC (3.80-5.40) m/uL Hgb (11.4-16.0) gm/dL Hct (34.0-46.0) % MCV (80.0-100.0) fL Plt Count (150-450) k/uL Neutrophils # (1.3-7.7) k/uL Neutrophils # (Manual) (1.3-7.7) k/uL Lymphocytes # (1.0-4.8) k/uL PT (9.0-12.0) sec INR (<1.2) APTT (22.0-30.0) sec ABG pH (7.35-7.45) ABG pCO2 (35-45) mmHg ABG pO2 (83-108) mmHg ABG HCO3 (21-25) mmol/L ABG Total CO2 (19-24) mmol/L ABG O2 Saturation (94-97) % ABG Hematocrit (34.0-46.0) % ABG Sodium (135-146) mmol/L ABG Potassium (3.4-4.5) mmol/L ABG Ionized Calcium (4.5-5.3) mg/dL ABG Glucose (75-99) mg/dL ABG Lactic Acid (0.5-1.6) mmol/L Hemoglobin (11.4-16.0) gm/dL Sodium (137-145) mmol/L Creatinine (0.52-1.04) mg/dL Glucose (74-99) mg/dL POC Glucose (mg/dL) 145 H 136 H 123 H (70-110) mg/dL Calcium (8.4-10.2) mg/dL Magnesium (1.6-2.3) mg/dL AST (14-36) U/L ALT (4-34) U/L Alkaline Phosphatase (38-126) U/L Total Protein (6.3-8.2) g/dL Albumin (3.5-5.0) g/dL Arterial Blood Potassium (3.4-4.5) mmol/L Arterial Blood Glucose (75-99) mg/dL Crossmatch 10/11/21 10/11/21 10/11/21 Range/Units 02:20 03:39 03:43 WBC 12.4 H (3.8-10.6) k/uL RBC 2.59 L (3.80-5.40) m/uL Hgb 8.5 L (11.4-16.0) gm/dL Hct 25.9 L (34.0-46.0) % MCV 100.3 H (80.0-100.0) fL Plt Count 128 L (150-450) k/uL Neutrophils # 10.9 H (1.3-7.7) k/uL Neutrophils # (Manual) (1.3-7.7) k/uL Lymphocytes # 0.7 L (1.0-4.8) k/uL PT (9.0-12.0) sec INR (<1.2) APTT (22.0-30.0) sec ABG pH (7.35-7.45) ABG pCO2 (35-45) mmHg ABG pO2 (83-108) mmHg ABG HCO3 (21-25) mmol/L ABG Total CO2 (19-24) mmol/L ABG O2 Saturation (94-97) % ABG Hematocrit (34.0-46.0) % ABG Sodium (135-146) mmol/L ABG Potassium (3.4-4.5) mmol/L ABG Ionized Calcium (4.5-5.3) mg/dL ABG Glucose (75-99) mg/dL ABG Lactic Acid (0.5-1.6) mmol/L Hemoglobin (11.4-16.0) gm/dL Sodium (137-145) mmol/L Creatinine (0.52-1.04) mg/dL Glucose (74-99) mg/dL POC Glucose (mg/dL) 122 H 122 H (70-110) mg/dL Calcium (8.4-10.2) mg/dL Magnesium (1.6-2.3) mg/dL AST (14-36) U/L ALT (4-34) U/L Alkaline Phosphatase (38-126) U/L Total Protein (6.3-8.2) g/dL Albumin (3.5-5.0) g/dL Arterial Blood Potassium (3.4-4.5) mmol/L Arterial Blood Glucose (75-99) mg/dL Crossmatch 10/11/21 10/11/21 10/11/21 Range/Units 03:43 05:07 05:59 WBC (3.8-10.6) k/uL RBC (3.80-5.40) m/uL Hgb (11.4-16.0) gm/dL Hct (34.0-46.0) % MCV (80.0-100.0) fL Plt Count (150-450) k/uL Neutrophils # (1.3-7.7) k/uL Neutrophils # (Manual) (1.3-7.7) k/uL Lymphocytes # (1.0-4.8) k/uL PT (9.0-12.0) sec INR (<1.2) APTT (22.0-30.0) sec ABG pH (7.35-7.45) ABG pCO2 (35-45) mmHg ABG pO2 57 L* (83-108) mmHg ABG HCO3 28 H (21-25) mmol/L ABG Total CO2 11 L (19-24) mmol/L ABG O2 Saturation 93.0 L (94-97) % ABG Hematocrit (34.0-46.0) % ABG Sodium (135-146) mmol/L ABG Potassium (3.4-4.5) mmol/L ABG Ionized Calcium (4.5-5.3) mg/dL ABG Glucose (75-99) mg/dL ABG Lactic Acid (0.5-1.6) mmol/L Hemoglobin (11.4-16.0) gm/dL Sodium 135 L (137-145) mmol/L Creatinine 1.23 H (0.52-1.04) mg/dL Glucose 110 H (74-99) mg/dL POC Glucose (mg/dL) 122 H (70-110) mg/dL Calcium 8.2 L (8.4-10.2) mg/dL Magnesium (1.6-2.3) mg/dL AST 127 H (14-36) U/L ALT 35 H (4-34) U/L Alkaline Phosphatase 37 L (38-126) U/L Total Protein 4.8 L (6.3-8.2) g/dL Albumin 3.1 L (3.5-5.0) g/dL Arterial Blood Potassium (3.4-4.5) mmol/L Arterial Blood Glucose (75-99) mg/dL Crossmatch 10/11/21 10/11/21 Range/Units 06:16 08:17 WBC (3.8-10.6) k/uL RBC (3.80-5.40) m/uL Hgb (11.4-16.0) gm/dL Hct (34.0-46.0) % MCV (80.0-100.0) fL Plt Count (150-450) k/uL Neutrophils # (1.3-7.7) k/uL Neutrophils # (Manual) (1.3-7.7) k/uL Lymphocytes # (1.0-4.8) k/uL PT (9.0-12.0) sec INR (<1.2) APTT (22.0-30.0) sec ABG pH (7.35-7.45) ABG pCO2 (35-45) mmHg ABG pO2 (83-108) mmHg ABG HCO3 (21-25) mmol/L ABG Total CO2 (19-24) mmol/L ABG O2 Saturation (94-97) % ABG Hematocrit (34.0-46.0) % ABG Sodium (135-146) mmol/L ABG Potassium (3.4-4.5) mmol/L ABG Ionized Calcium (4.5-5.3) mg/dL ABG Glucose (75-99) mg/dL ABG Lactic Acid (0.5-1.6) mmol/L Hemoglobin (11.4-16.0) gm/dL Sodium (137-145) mmol/L Creatinine (0.52-1.04) mg/dL Glucose (74-99) mg/dL POC Glucose (mg/dL) 122 H 136 H (70-110) mg/dL Calcium (8.4-10.2) mg/dL Magnesium (1.6-2.3) mg/dL AST (14-36) U/L ALT (4-34) U/L Alkaline Phosphatase (38-126) U/L Total Protein (6.3-8.2) g/dL Albumin (3.5-5.0) g/dL Arterial Blood Potassium (3.4-4.5) mmol/L Arterial Blood Glucose (75-99) mg/dL Crossmatch Microbiology - Last 24 Hours (Table) 10/10/21 20:23 Sputum Culture - Preliminary Sputum Assessment and Plan Assessment: Assessment #1 severe triple-vessel CAD and status post CABG #2 diabetes type 2 #3 hypertension #4 dyslipidemia #5 history of smoking Plan #1 continue dual antiplatelet therapy #2 continue beta garret #3 try to wean the patient from Primacor #4 increase the dose of atorvastatin to 80 mg by mouth daily at bedtime down the line #5 possibly to extubate the patient later on today #6 follow-up with the patient
[2021-10-11] MEDS ORDERED: METOPROLOL TARTRATE 12.5 MG TAB PO SCH (09:00)
[2021-10-11] MEDS ORDERED: bisacodyL 10 MG SUPP RECTAL PRN (09:00)
[2021-10-11] MEDS ORDERED: MAGNESIUM HYDROXIDE 2,400 MG/10 ML CUP PO PRN (09:00)
[2021-10-11] MEDS ORDERED: METOPROLOL TARTRATE 25 MG TAB PO SCH ×2 (09:00→16:00)
[2021-10-11] MEDS ORDERED: amLODIPine 5 MG TAB PO SCH (09:15)
--- NOTE | 2021-10-11 09:19 | P.PN ---
Subjective Progress Note Date: 10/11/21 Principal diagnosis: Multivessel coronary artery disease, non-ST elevated myocardial infarction this admission. Previous medical history of coronary artery disease and myocardial infarction status post multiple stent placement, ischemic cardiomyopathy, hypertension, hyperlipidemia, chronic kidney disease stage III secondary to nephrosclerosis, chronic ongoing tobacco abuse, obstructive sleep apnea with out home CPAP use, mild COPD with home oxygen use 2-3 L nasal cannula at night, morbid obesity, hypothyroid, medical noncompliance, type II diabetes, peripheral artery disease POD #1 coronary artery bypass grafting 3 vessels, left internal mammary artery to the left anterior descending artery, radial artery to the obtuse marginal artery, saphenous vein graft to the posterior descending artery, endoscopic harvesting of the left radial artery, endoscopic harvesting of the left greater saphenous vein, ligation of the left atrial appendage using a 35 mm AtriClip, epi-aortic ultrasound, intraoperative transesophageal echocardiogram, closure of the sternum using a titanium plating system Postoperative acute blood loss anemia and thrombocytopenia, expected given hemo dilution cardiopulmonary bypass pump The patient was seen and examined this morning laying in bed in the intensive care unit still mechanically ventilated on propofol for sedation. She remains in sinus rhythm and hemodynamically stable. Currently on Primacor and IV Cardizem. Patient's oxygenation has been less than optimal, due to this she remains intubated on 60% FiO2 with 15 of PEEP. With lightening of sedation the patient does open her eyes, move all extremities and follows commands. Right internal jugular [place]/Cordis, right radial arterial line, mediastinal/left pleural chest tube will remain in place. No other new concerns. Objective - Vital Signs Vital signs: Vital Signs Temp 99.5 F 10/11/21 04:00 Pulse 84 10/11/21 08:00 Resp 28 H 10/11/21 08:00 BP 102/52 10/11/21 04:00 Pulse Ox 94 L 10/11/21 06:00 FiO2 60 10/11/21 08:00 Intake & Output 10/10/21 10/11/21 10/11/21 18:59 06:59 18:59 Intake Total 305.526 4694.408 149.201 Output Total 3130 995 67 Balance -2744.718 538.408 82.201 Weight 114.3 kg Intake: IV 79 1168 59 Albumin Human 5% 250 ml 250 In Empty Bag 1 bag @ 250 mls/hr IVPB Q1HR PRN Rx#: [id number] Lactated Ringers 1,000 ml 550 50 @ 50 mls/hr IV .Q20H [facility] Rx#:[id number] cardiac output 40 210 ceFAZolin 2 gm In Sodium 50 Chloride 0.9% 50 ml @ 100 mls/hr IVPB ONCE ONE Rx# :[id number] pressure bag 36 108 9 Intake, IV Titration 306.282 365.408 90.201 Amount ACETAMINOPHEN IV (For NPO 100 ) 1,000 mg In Empty Bag 1 bag @ 400 mls/hr IVPB Q6HR [facility] Rx#:[id number] Insulin Regular 100 unit 1.616 50.517 0 In Sodium Chloride 0.9% 100 ml @ Per Protocol IV .Q0M [facility] Rx#:[id number] Lactated Ringers 1,000 ml 200 50 @ 50 mls/hr IV .Q20H [facility] Rx#:[id number] Milrinone-D5w Pmx 20 mg 100 In Dextrose/Water 1 100ml .bag @ 0.3 MCG/KG/MIN 9. 389 mls/hr IV .[id number] [facility] Rx#:[id number] Nitroglycerin-D5w Pmx 50 24.475 mg In Dextrose/Water 1 250ml.bag @ 5 MCG/MIN 1.5 mls/hr IV .Q24H [facility] Rx#: [id number] ceFAZolin 2 gm In Sodium 50 Chloride 0.9% 50 ml @ 100 mls/hr IVPB Q8HR [facility] Rx# :[id number] propofoL 1,000 mg In 54.666 64.891 65.726 Empty Bag 1 bag @ Titrate IV .Q0M [facility] Rx#: [id number] Output: Chest Tube Drainage 45 405 20 left pleural 45 255 10 mediastinal 0 150 10 Urine 1285 590 47 Estimated Blood Loss 1800 Other: Voiding Method Indwelling Catheter Indwelling Catheter Indwelling Catheter ABP, PAP, CO, CI - Last Documented Arterial Blood Pressure 148/48 Pulmonary Artery Pressure 30/17 Cardiac Output 5.1 Cardiac Index 2.8 - Exam CONSTITUTIONAL: Lying in bed mechanically ventilated and sedated RESPIRATORY: Lungs sounds diminished bilaterally. Respirations even, nonlabored on mechanical ventilation. Current ventilator settings FiO2 60%, tidal volume 350, respiratory rate 20, PEEP 15. 8.0 ET tube present, 21 at the lip CARDIOVASCULAR: S1, S2 present. Regular rate and rhythm, sinus rhythm on telemetry. Sternum stable. Palpable peripheral pulses bilaterally. No edema present. No calf pain or tenderness noted. Heart hugger, antiembolism stockings, SCDs present. GASTROINTESTINAL: Abdomen soft, nontender, nondistended. Hypoactive bowel sounds present 4 quadrants. OG tube present to low intermittent suction with minimal drainage GENITOURINARY: Guzman present draining clear, yellow urine. Output overnight 30-50 mL per hour INTEGUMENTARY: Skin is warm and dry with evidence of good perfusion. Anterior chest incision well approximated and covered with dry intact dressing. Left lower extremity EVH site as well as left radial artery harvest site well approximated without redness or drainage. NEUROLOGIC: Cranial nerves II through XII intact MUSKULOSKELETAL: Able to move all extremities, strength equal bilaterally PSYCHIATRIC: Sedated with propofol, does follow commands INVASIVE LINES AND TUBES: Mediastinal/left pleural chest tubes present and connected to wall suction, no air leaks present. Mediastinal tube with 90 mL serosanguineous drainage overnight, 160 mL since surgery. Left pleural chest tube with 150 mL serosanguineous drainage overnight, 300 mL since surgery. A/V epicardial pacemaker wires present, connected to generator, AAI mode with backup rate 50 bpm. Right internal jugular [place]ordis, right radial arterial line present. Last CO/CI 5.1/2.6, PA 33/20, CVP 15. - Allied health notes Allied health notes reviewed: nursing - Labs CBC & Chem 7: 10/11/21 03:43 10/11/21 03:43 Labs: Abnormal Lab Results - Last 24 Hours (Table) 10/09/21 10/10/21 10/10/21 Range/Units 08:15 08:55 09:56 WBC (3.8-10.6) k/uL RBC (3.80-5.40) m/uL Hgb (11.4-16.0) gm/dL Hct (34.0-46.0) % MCV (80.0-100.0) fL Plt Count (150-450) k/uL Neutrophils # (1.3-7.7) k/uL Neutrophils # (Manual) (1.3-7.7) k/uL Lymphocytes # (1.0-4.8) k/uL PT (9.0-12.0) sec INR (<1.2) APTT (22.0-30.0) sec ABG pH (7.35-7.45) ABG pCO2 48 H 51 H (35-45) mmHg ABG pO2 (83-108) mmHg ABG HCO3 29 H 29 H (21-25) mmol/L ABG Total CO2 30 H 30 H (19-24) mmol/L ABG O2 Saturation 97.5 H 97.1 H (94-97) % ABG Hematocrit (34.0-46.0) % ABG Sodium (135-146) mmol/L ABG Potassium 4.7 H 4.7 H (3.4-4.5) mmol/L ABG Ionized Calcium (4.5-5.3) mg/dL ABG Glucose 100 H 119 H (75-99) mg/dL ABG Lactic Acid (0.5-1.6) mmol/L Hemoglobin (11.4-16.0) gm/dL Sodium (137-145) mmol/L Creatinine (0.52-1.04) mg/dL Glucose (74-99) mg/dL POC Glucose (mg/dL) (70-110) mg/dL Calcium (8.4-10.2) mg/dL Magnesium (1.6-2.3) mg/dL AST (14-36) U/L ALT (4-34) U/L Alkaline Phosphatase (38-126) U/L Total Protein (6.3-8.2) g/dL Albumin (3.5-5.0) g/dL Arterial Blood Potassium 4.7 H 4.7 H (3.4-4.5) mmol/L Arterial Blood Glucose 100 H 119 H (75-99) mg/dL Crossmatch See Detail 10/10/21 10/10/21 10/10/21 Range/Units 11:01 11:30 11:59 WBC (3.8-10.6) k/uL RBC (3.80-5.40) m/uL Hgb (11.4-16.0) gm/dL Hct (34.0-46.0) % MCV (80.0-100.0) fL Plt Count (150-450) k/uL Neutrophils # (1.3-7.7) k/uL Neutrophils # (Manual) (1.3-7.7) k/uL Lymphocytes # (1.0-4.8) k/uL PT (9.0-12.0) sec INR (<1.2) APTT (22.0-30.0) sec ABG pH (7.35-7.45) ABG pCO2 (35-45) mmHg ABG pO2 354 H 295 H 358 H (83-108) mmHg ABG HCO3 27 H 28 H 27 H (21-25) mmol/L ABG Total CO2 28 H 29 H 28 H (19-24) mmol/L ABG O2 Saturation 100.0 H 100.0 H 100.0 H (94-97) % ABG Hematocrit 26 L 26 L 28 L (34.0-46.0) % ABG Sodium 134 L 134 L (135-146) mmol/L ABG Potassium 5.5 H 5.9 H 6.2 H* (3.4-4.5) mmol/L ABG Ionized Calcium 4.0 L 4.1 L 4.2 L (4.5-5.3) mg/dL ABG Glucose 115 H 129 H 153 H (75-99) mg/dL ABG Lactic Acid 1.9 H 2.5 H* 2.7 H* (0.5-1.6) mmol/L Hemoglobin 8.3 L 8.6 L 9.1 L (11.4-16.0) gm/dL Sodium (137-145) mmol/L Creatinine (0.52-1.04) mg/dL Glucose (74-99) mg/dL POC Glucose (mg/dL) (70-110) mg/dL Calcium (8.4-10.2) mg/dL Magnesium (1.6-2.3) mg/dL AST (14-36) U/L ALT (4-34) U/L Alkaline Phosphatase (38-126) U/L Total Protein (6.3-8.2) g/dL Albumin (3.5-5.0) g/dL Arterial Blood Potassium 5.5 H 5.9 H 6.2 H* (3.4-4.5) mmol/L Arterial Blood Glucose 115 H 129 H 153 H (75-99) mg/dL Crossmatch 06/10/10/21 10/10/21 Range/Units 12:26 12:54 13:22 WBC (3.8-10.6) k/uL RBC (3.80-5.40) m/uL Hgb (11.4-16.0) gm/dL Hct (34.0-46.0) % MCV (80.0-100.0) fL Plt Count (150-450) k/uL Neutrophils # (1.3-7.7) k/uL Neutrophils # (Manual) (1.3-7.7) k/uL Lymphocytes # (1.0-4.8) k/uL PT (9.0-12.0) sec INR (<1.2) APTT (22.0-30.0) sec ABG pH 7.34 L (7.35-7.45) ABG pCO2 46 H (35-45) mmHg ABG pO2 356 H 304 H 260 H (83-108) mmHg ABG HCO3 27 H 27 H (21-25) mmol/L ABG Total CO2 28 H 28 H 26 H (19-24) mmol/L ABG O2 Saturation 100.0 H 100.0 H 99.8 H (94-97) % ABG Hematocrit 27 L 26 L 25 L (34.0-46.0) % ABG Sodium 134 L (135-146) mmol/L ABG Potassium 6.0 H 5.8 H 5.7 H (3.4-4.5) mmol/L ABG Ionized Calcium 4.0 L 4.0 L 4.0 L (4.5-5.3) mg/dL ABG Glucose 155 H 153 H 165 H (75-99) mg/dL ABG Lactic Acid 2.8 H* 3.0 H* 4.2 H* (0.5-1.6) mmol/L Hemoglobin 8.7 L 8.4 L 8.1 L (11.4-16.0) gm/dL Sodium (137-145) mmol/L Creatinine (0.52-1.04) mg/dL Glucose (74-99) mg/dL POC Glucose (mg/dL) (70-110) mg/dL Calcium (8.4-10.2) mg/dL Magnesium (1.6-2.3) mg/dL AST (14-36) U/L ALT (4-34) U/L Alkaline Phosphatase (38-126) U/L Total Protein (6.3-8.2) g/dL Albumin (3.5-5.0) g/dL Arterial Blood Potassium 6.0 H 5.8 H 5.7 H (3.4-4.5) mmol/L Arterial Blood Glucose 155 H 153 H 165 H (75-99) mg/dL Crossmatch 10/10/21 10/10/21 10/10/21 Range/Units 13:30 14:27 15:49 WBC (3.8-10.6) k/uL RBC (3.80-5.40) m/uL Hgb (11.4-16.0) gm/dL Hct (34.0-46.0) % MCV (80.0-100.0) fL Plt Count (150-450) k/uL Neutrophils # (1.3-7.7) k/uL Neutrophils # (Manual) (1.3-7.7) k/uL Lymphocytes # (1.0-4.8) k/uL PT (9.0-12.0) sec INR (<1.2) APTT (22.0-30.0) sec ABG pH (7.35-7.45) ABG pCO2 47 H (35-45) mmHg ABG pO2 378 H 58 L* (83-108) mmHg ABG HCO3 29 H 27 H (21-25) mmol/L ABG Total CO2 30 H 29 H (19-24) mmol/L ABG O2 Saturation 100.0 H 92.7 L (94-97) % ABG Hematocrit 25 L 27 L (34.0-46.0) % ABG Sodium (135-146) mmol/L ABG Potassium 5.3 H (3.4-4.5) mmol/L ABG Ionized Calcium 3.9 L (4.5-5.3) mg/dL ABG Glucose 172 H 157 H (75-99) mg/dL ABG Lactic Acid 3.8 H* 3.4 H* (0.5-1.6) mmol/L Hemoglobin 8.0 L 8.9 L (11.4-16.0) gm/dL Sodium (137-145) mmol/L Creatinine (0.52-1.04) mg/dL Glucose (74-99) mg/dL POC Glucose (mg/dL) 135 H (70-110) mg/dL Calcium (8.4-10.2) mg/dL Magnesium (1.6-2.3) mg/dL AST (14-36) U/L ALT (4-34) U/L Alkaline Phosphatase (38-126) U/L Total Protein (6.3-8.2) g/dL Albumin (3.5-5.0) g/dL Arterial Blood Potassium 5.3 H (3.4-4.5) mmol/L Arterial Blood Glucose 172 H 157 H (75-99) mg/dL Crossmatch 10/10/21 10/10/21 10/10/21 Range/Units 15:50 15:50 15:50 WBC 13.9 H (3.8-10.6) k/uL RBC 2.70 L (3.80-5.40) m/uL Hgb 9.0 L D (11.4-16.0) gm/dL Hct 27.4 L (34.0-46.0) % MCV 101.4 H (80.0-100.0) fL Plt Count 127 L D (150-450) k/uL Neutrophils # (1.3-7.7) k/uL Neutrophils # (Manual) 11.80 H (1.3-7.7) k/uL Lymphocytes # (1.0-4.8) k/uL PT 13.8 H (9.0-12.0) sec INR 1.3 H (<1.2) APTT 32.4 H (22.0-30.0) sec ABG pH (7.35-7.45) ABG pCO2 (35-45) mmHg ABG pO2 (83-108) mmHg ABG HCO3 (21-25) mmol/L ABG Total CO2 (19-24) mmol/L ABG O2 Saturation (94-97) % ABG Hematocrit (34.0-46.0) % ABG Sodium (135-146) mmol/L ABG Potassium (3.4-4.5) mmol/L ABG Ionized Calcium (4.5-5.3) mg/dL ABG Glucose (75-99) mg/dL ABG Lactic Acid (0.5-1.6) mmol/L Hemoglobin (11.4-16.0) gm/dL Sodium (137-145) mmol/L Creatinine 1.07 H (0.52-1.04) mg/dL Glucose 121 H (74-99) mg/dL POC Glucose (mg/dL) (70-110) mg/dL Calcium 7.9 L (8.4-10.2) mg/dL Magnesium 2.5 H (1.6-2.3) mg/dL AST 110 H (14-36) U/L ALT 39 H (4-34) U/L Alkaline Phosphatase 29 L (38-126) U/L Total Protein 4.7 L (6.3-8.2) g/dL Albumin 3.1 L (3.5-5.0) g/dL Arterial Blood Potassium (3.4-4.5) mmol/L Arterial Blood Glucose (75-99) mg/dL Crossmatch 10/10/21 10/10/21 10/10/21 Range/Units 16:32 16:38 18:03 WBC (3.8-10.6) k/uL RBC (3.80-5.40) m/uL Hgb (11.4-16.0) gm/dL Hct (34.0-46.0) % MCV (80.0-100.0) fL Plt Count (150-450) k/uL Neutrophils # (1.3-7.7) k/uL Neutrophils # (Manual) (1.3-7.7) k/uL Lymphocytes # (1.0-4.8) k/uL PT (9.0-12.0) sec INR (<1.2) APTT (22.0-30.0) sec ABG pH 7.23 L (7.35-7.45) ABG pCO2 73 H* (35-45) mmHg ABG pO2 73 L (83-108) mmHg ABG HCO3 30 H (21-25) mmol/L ABG Total CO2 32 H (19-24) mmol/L ABG O2 Saturation 92.9 L (94-97) % ABG Hematocrit (34.0-46.0) % ABG Sodium (135-146) mmol/L ABG Potassium (3.4-4.5) mmol/L ABG Ionized Calcium (4.5-5.3) mg/dL ABG Glucose (75-99) mg/dL ABG Lactic Acid (0.5-1.6) mmol/L Hemoglobin (11.4-16.0) gm/dL Sodium (137-145) mmol/L Creatinine (0.52-1.04) mg/dL Glucose (74-99) mg/dL POC Glucose (mg/dL) 132 H 156 H (70-110) mg/dL Calcium (8.4-10.2) mg/dL Magnesium (1.6-2.3) mg/dL AST (14-36) U/L ALT (4-34) U/L Alkaline Phosphatase (38-126) U/L Total Protein (6.3-8.2) g/dL Albumin (3.5-5.0) g/dL Arterial Blood Potassium (3.4-4.5) mmol/L Arterial Blood Glucose (75-99) mg/dL Crossmatch 10/10/21 10/10/21 10/10/21 Range/Units 18:03 19:02 20:03 WBC 13.4 H (3.8-10.6) k/uL RBC 2.81 L (3.80-5.40) m/uL Hgb 9.4 L (11.4-16.0) gm/dL Hct 28.7 L (34.0-46.0) % MCV 102.2 H (80.0-100.0) fL Plt Count 143 L (150-450) k/uL Neutrophils # 11.7 H (1.3-7.7) k/uL Neutrophils # (Manual) (1.3-7.7) k/uL Lymphocytes # 0.8 L (1.0-4.8) k/uL PT (9.0-12.0) sec INR (<1.2) APTT (22.0-30.0) sec ABG pH (7.35-7.45) ABG pCO2 (35-45) mmHg ABG pO2 (83-108) mmHg ABG HCO3 (21-25) mmol/L ABG Total CO2 (19-24) mmol/L ABG O2 Saturation (94-97) % ABG Hematocrit (34.0-46.0) % ABG Sodium (135-146) mmol/L ABG Potassium (3.4-4.5) mmol/L ABG Ionized Calcium (4.5-5.3) mg/dL ABG Glucose (75-99) mg/dL ABG Lactic Acid (0.5-1.6) mmol/L Hemoglobin (11.4-16.0) gm/dL Sodium (137-145) mmol/L Creatinine (0.52-1.04) mg/dL Glucose (74-99) mg/dL POC Glucose (mg/dL) 155 H 155 H (70-110) mg/dL Calcium (8.4-10.2) mg/dL Magnesium (1.6-2.3) mg/dL AST (14-36) U/L ALT (4-34) U/L Alkaline Phosphatase (38-126) U/L Total Protein (6.3-8.2) g/dL Albumin (3.5-5.0) g/dL Arterial Blood Potassium (3.4-4.5) mmol/L Arterial Blood Glucose (75-99) mg/dL Crossmatch 10/10/21 10/10/21 10/10/21 Range/Units 20:20 20:50 20:55 WBC 11.5 H (3.8-10.6) k/uL RBC 2.75 L (3.80-5.40) m/uL Hgb 9.0 L (11.4-16.0) gm/dL Hct 27.9 L (34.0-46.0) % MCV 101.5 H (80.0-100.0) fL Plt Count 145 L (150-450) k/uL Neutrophils # 10.1 H (1.3-7.7) k/uL Neutrophils # (Manual) (1.3-7.7) k/uL Lymphocytes # 0.7 L (1.0-4.8) k/uL PT (9.0-12.0) sec INR (<1.2) APTT (22.0-30.0) sec ABG pH (7.35-7.45) ABG pCO2 51 H (35-45) mmHg ABG pO2 53 L* (83-108) mmHg ABG HCO3 30 H (21-25) mmol/L ABG Total CO2 31 H (19-24) mmol/L ABG O2 Saturation 89.2 L (94-97) % ABG Hematocrit (34.0-46.0) % ABG Sodium (135-146) mmol/L ABG Potassium (3.4-4.5) mmol/L ABG Ionized Calcium (4.5-5.3) mg/dL ABG Glucose (75-99) mg/dL ABG Lactic Acid (0.5-1.6) mmol/L Hemoglobin (11.4-16.0) gm/dL Sodium (137-145) mmol/L Creatinine (0.52-1.04) mg/dL Glucose (74-99) mg/dL POC Glucose (mg/dL) 151 H (70-110) mg/dL Calcium (8.4-10.2) mg/dL Magnesium (1.6-2.3) mg/dL AST (14-36) U/L ALT (4-34) U/L Alkaline Phosphatase (38-126) U/L Total Protein (6.3-8.2) g/dL Albumin (3.5-5.0) g/dL Arterial Blood Potassium (3.4-4.5) mmol/L Arterial Blood Glucose (75-99) mg/dL Crossmatch 10/10/21 10/10/21 10/11/21 Range/Units 22:27 23:38 01:02 WBC (3.8-10.6) k/uL RBC (3.80-5.40) m/uL Hgb (11.4-16.0) gm/dL Hct (34.0-46.0) % MCV (80.0-100.0) fL Plt Count (150-450) k/uL Neutrophils # (1.3-7.7) k/uL Neutrophils # (Manual) (1.3-7.7) k/uL Lymphocytes # (1.0-4.8) k/uL PT (9.0-12.0) sec INR (<1.2) APTT (22.0-30.0) sec ABG pH (7.35-7.45) ABG pCO2 (35-45) mmHg ABG pO2 (83-108) mmHg ABG HCO3 (21-25) mmol/L ABG Total CO2 (19-24) mmol/L ABG O2 Saturation (94-97) % ABG Hematocrit (34.0-46.0) % ABG Sodium (135-146) mmol/L ABG Potassium (3.4-4.5) mmol/L ABG Ionized Calcium (4.5-5.3) mg/dL ABG Glucose (75-99) mg/dL ABG Lactic Acid (0.5-1.6) mmol/L Hemoglobin (11.4-16.0) gm/dL Sodium (137-145) mmol/L Creatinine (0.52-1.04) mg/dL Glucose (74-99) mg/dL POC Glucose (mg/dL) 145 H 136 H 123 H (70-110) mg/dL Calcium (8.4-10.2) mg/dL Magnesium (1.6-2.3) mg/dL AST (14-36) U/L ALT (4-34) U/L Alkaline Phosphatase (38-126) U/L Total Protein (6.3-8.2) g/dL Albumin (3.5-5.0) g/dL Arterial Blood Potassium (3.4-4.5) mmol/L Arterial Blood Glucose (75-99) mg/dL Crossmatch 10/11/21 10/11/21 10/11/21 Range/Units 02:20 03:39 03:43 WBC 12.4 H (3.8-10.6) k/uL RBC 2.59 L (3.80-5.40) m/uL Hgb 8.5 L (11.4-16.0) gm/dL Hct 25.9 L (34.0-46.0) % MCV 100.3 H (80.0-100.0) fL Plt Count 128 L (150-450) k/uL Neutrophils # 10.9 H (1.3-7.7) k/uL Neutrophils # (Manual) (1.3-7.7) k/uL Lymphocytes # 0.7 L (1.0-4.8) k/uL PT (9.0-12.0) sec INR (<1.2) APTT (22.0-30.0) sec ABG pH (7.35-7.45) ABG pCO2 (35-45) mmHg ABG pO2 (83-108) mmHg ABG HCO3 (21-25) mmol/L ABG Total CO2 (19-24) mmol/L ABG O2 Saturation (94-97) % ABG Hematocrit (34.0-46.0) % ABG Sodium (135-146) mmol/L ABG Potassium (3.4-4.5) mmol/L ABG Ionized Calcium (4.5-5.3) mg/dL ABG Glucose (75-99) mg/dL ABG Lactic Acid (0.5-1.6) mmol/L Hemoglobin (11.4-16.0) gm/dL Sodium (137-145) mmol/L Creatinine (0.52-1.04) mg/dL Glucose (74-99) mg/dL POC Glucose (mg/dL) 122 H 122 H (70-110) mg/dL Calcium (8.4-10.2) mg/dL Magnesium (1.6-2.3) mg/dL AST (14-36) U/L ALT (4-34) U/L Alkaline Phosphatase (38-126) U/L Total Protein (6.3-8.2) g/dL Albumin (3.5-5.0) g/dL Arterial Blood Potassium (3.4-4.5) mmol/L Arterial Blood Glucose (75-99) mg/dL Crossmatch 10/11/21 10/11/21 10/11/21 Range/Units 03:43 05:07 05:59 WBC (3.8-10.6) k/uL RBC (3.80-5.40) m/uL Hgb (11.4-16.0) gm/dL Hct (34.0-46.0) % MCV (80.0-100.0) fL Plt Count (150-450) k/uL Neutrophils # (1.3-7.7) k/uL Neutrophils # (Manual) (1.3-7.7) k/uL Lymphocytes # (1.0-4.8) k/uL PT (9.0-12.0) sec INR (<1.2) APTT (22.0-30.0) sec ABG pH (7.35-7.45) ABG pCO2 (35-45) mmHg ABG pO2 57 L* (83-108) mmHg ABG HCO3 28 H (21-25) mmol/L ABG Total CO2 11 L (19-24) mmol/L ABG O2 Saturation 93.0 L (94-97) % ABG Hematocrit (34.0-46.0) % ABG Sodium (135-146) mmol/L ABG Potassium (3.4-4.5) mmol/L ABG Ionized Calcium (4.5-5.3) mg/dL ABG Glucose (75-99) mg/dL ABG Lactic Acid (0.5-1.6) mmol/L Hemoglobin (11.4-16.0) gm/dL Sodium 135 L (137-145) mmol/L Creatinine 1.23 H (0.52-1.04) mg/dL Glucose 110 H (74-99) mg/dL POC Glucose (mg/dL) 122 H (70-110) mg/dL Calcium 8.2 L (8.4-10.2) mg/dL Magnesium (1.6-2.3) mg/dL AST 127 H (14-36) U/L ALT 35 H (4-34) U/L Alkaline Phosphatase 37 L (38-126) U/L Total Protein 4.8 L (6.3-8.2) g/dL Albumin 3.1 L (3.5-5.0) g/dL Arterial Blood Potassium (3.4-4.5) mmol/L Arterial Blood Glucose (75-99) mg/dL Crossmatch 10/11/21 10/11/21 Range/Units 06:16 08:17 WBC (3.8-10.6) k/uL RBC (3.80-5.40) m/uL Hgb (11.4-16.0) gm/dL Hct (34.0-46.0) % MCV (80.0-100.0) fL Plt Count (150-450) k/uL Neutrophils # (1.3-7.7) k/uL Neutrophils # (Manual) (1.3-7.7) k/uL Lymphocytes # (1.0-4.8) k/uL PT (9.0-12.0) sec INR (<1.2) APTT (22.0-30.0) sec ABG pH (7.35-7.45) ABG pCO2 (35-45) mmHg ABG pO2 (83-108) mmHg ABG HCO3 (21-25) mmol/L ABG Total CO2 (19-24) mmol/L ABG O2 Saturation (94-97) % ABG Hematocrit (34.0-46.0) % ABG Sodium (135-146) mmol/L ABG Potassium (3.4-4.5) mmol/L ABG Ionized Calcium (4.5-5.3) mg/dL ABG Glucose (75-99) mg/dL ABG Lactic Acid (0.5-1.6) mmol/L Hemoglobin (11.4-16.0) gm/dL Sodium (137-145) mmol/L Creatinine (0.52-1.04) mg/dL Glucose (74-99) mg/dL POC Glucose (mg/dL) 122 H 136 H (70-110) mg/dL Calcium (8.4-10.2) mg/dL Magnesium (1.6-2.3) mg/dL AST (14-36) U/L ALT (4-34) U/L Alkaline Phosphatase (38-126) U/L Total Protein (6.3-8.2) g/dL Albumin (3.5-5.0) g/dL Arterial Blood Potassium (3.4-4.5) mmol/L Arterial Blood Glucose (75-99) mg/dL Crossmatch Microbiology - Last 24 Hours (Table) 10/10/21 20:23 Sputum Culture - Preliminary Sputum - Imaging and Cardiology Chest x-ray: report reviewed, image reviewed Assessment and Plan Assessment: 1. Multivessel coronary artery disease, non-ST elevated myocardial infarction this admission, status post three-vessel CABG 2. History of coronary artery disease and myocardial infarction status post m ultiple stent placement 3. Ischemic cardiomyopathy, EF 45-50% 4. Hypertension 5. Hyperlipidemia, cholesterol 252, LDL 156, triglycerides 291 6. Chronic kidney disease stage III secondary to nephrosclerosis 7. Chronic ongoing tobacco abuse 8. Obstructive sleep apnea with out home CPAP use 9. Mild COPD with home oxygen use 2-3 L nasal cannula at night, preoperative FEV1 60% of predicted 10. Morbid obesity 11. Hypothyroid, TSH 23.3 with free T4 0.36 12. Medical noncompliance 13. Type 2 diabetes mellitus, A1c 6.8% 14. Peripheral arterial disease, left SAEED 0.69 15. Postoperative acute blood loss anemia and thrombocytopenia, expected Plan: 1. Continue to optimize medical management with aspirin, Plavix, statin and beta garret. Will increase beta garret therapy as tolerated. Discontinue IV nitro. Will wean Primacor as tolerated 2. Continue calcium channel garret for radial artery spasm prophylaxis, will transition to oral CCB 3. Wean from mechanical ventilation as tolerated per pulmonology. Bronchodilators per pulmonology 4. Will monitor daily labs and x-rays. Electrolyte replacement per protocol 5. GI/DVT prophylaxis 6. Once extubated Will increase activity as tolerated. PT/OT/cardiac rehab consulted 7. Pain control with current medication regimen 8. Insulin management per primary care service. Patient is recently diagnosed diabetic with hemoglobin A1c 6.8%. Needs tight blood sugar control to promote healing and prevent infection 9. Continue [place], arterial line. Continue mediastinal/left pleural chest tubes 10. Continue Guzman catheter for another 24 hours for strict accurate intake and output. Daily weights. 11. Importance of risk modification including smoking cessation has been discussed in detail with the patient and reinforced with the patient. 12. More recommendations to follow
[2021-10-11 10:14] LABS: Glucose,Whole Blood 129 mg/dL (70-110)
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
[2021-10-11 11:21] LABS: Glucose,Whole Blood 110 mg/dL (70-110)
[2021-10-11 14:08] LABS: Glucose,Whole Blood 107 mg/dL (70-110)
--- NOTE | 2021-10-11 15:23 | P.PN ---
Subjective Progress Note Date: 10/11/21 (delayed charting seen at 1030) Principal diagnosis: chest pain Patient is a 56-year-old female with CAD with stents, hypertension, hyperlipidemia, ischemic cardiomyopathy, Graves' disease, chronic kidney disease, COPD not on home oxygen dependent with continued nicotine dependence. In the emergency department she underwent an extensive evaluation. CBC revealing mild leukocytosis with WBC count of 11.1. BMP revealing mildly elevated creatinine which is improved from baseline levels and currently 1.09. Liver profile revealing slightly elevated AST of 66 and ALT of 45. Troponin negative at 0.013. EKG revealing normal sinus rhythm at 96 bpm with T-wave inversion in leads V3 through V6. Chest x-ray revealing mild cardiomegaly and chronic emphysematous changes, otherwise negative for acute pulmonary process. Patient was admittedfor furter evaluation. Cardiology was consulted. Troponins trended and elevating at 0.013, 0.020, and 0.070. Patient was started on heparin infusion per ACS protocol. On 10/05/21 patient underwent a cardiac cath which revealed severe three-vessel coronary artery disease with chronically occluded right coronary artery and a long segment of stenosis in the proximal LAD and lesion within the circumflex. Patient was felt to be high risk for angioplasty and further stent placement secondary to her significant cardiac history and was referred for cardiac bypass surgery. Cardiothoracic surgery was then consulted and patient went for CABG on 10/10/21. Patient seen and examined at bedside. Currently on vent. Per nursing no acute events overnight. General: nontoxic, mild distress, appears at stated age Derm: warm, dry Head: atraumatic, normocephalic, symmetric Eyes: no lid leisions Mouth: no lip lesion, mucus membranes moist Cardiovascular: S1S2 reg, no murmur, positive posterior tibial pulse bilateral, + CT inplace, medistinal tube in place, temporary pacer wires in place. Lungs: course bilateral, no rhonchi, no rales , no accessory muscle use Abdominal: soft, nontender to palpation, no guarding, no appreciable organomegaly, + garcia with yellow urine Ext: no gross muscle atrophy, no edema, no contractures Neuro: PERRL, + withdrawal to pain b/l upper extremities Psych: Sedated on vent Assessment and Plan of Care: NSTEMI s/p CABG Severe three-vessel coronary artery disease Ischemic cardiomyopathy EF 45-50% History of coronary artery disease with stents Hypertension Hyperlipidemia - management per cardiothorasic - plavix, ASA, statin -Echocardiogram revealed mildly impaired EF of 45-50% with mild mitral regurgitation and inferior wall hypokinesia. -Carotid Dopplers revealing minimal plaque formation with less than 25% stenosis in both internal carotid arteries. Acute blood loss anemia Thrombocytopenia -Anticipated outcome of surgery -No indication for repeat transfusion at this time -Follow CBC Hypothyroidism with history of Graves' disease -TSH 23.300 and free T4 0.36 -possibly secondary to medication noncompliance, however unclear -Home Synthroid dose increased from 50 to 88 g each morning - follow up outpatient with PCP/endocrinology for repeat labs in 6-8 weeks and further adjustments of medications/medication management. COPD with continued nicotine dependence, without exacerbation - scheduled and prn bronchdilators. Type 2 diabetes mellitus with hemoglobin A1c of 6.8%, newly discovered -currently on insulin gtt - will need glucometer on discharge -Patient will need oral hypoglycemic agent upon discharge, recommend Jardiance based upon its benefits with controlling blood glucose levels as well as its associated heart failure risk reduction. -Continue to encourage lifestyle/dietary changes and maintain a heart healthy and carb consistent diet. DVT prophylaxis: Heparin Discussed with: Anticipated discharge date: clinical course to determine Anticipated discharge place: Home A total of 36 minutes was spent on the care of this complex patient more than 50% of the time was spent in counseling and care coordination. Active Medications Hydrocodone Bitart/Acetaminophen (Hydrocodone/Apap 5-325mg 1 Each Tab) 2 each PO Q4HR PRN PRN Reason: Severe Pain Hydrocodone Bitart/Acetaminophen (Hydrocodone/Apap 5-325mg 1 Each Tab) 1 each PO Q4HR PRN PRN Reason: Moderate Pain Albuterol/Ipratropium (Ipratropium-Albuterol 3 Ml Neb) 3 ml INHALATION RT-Q2H PRN PRN Reason: Shortness Of Breath Or Wheezing Albuterol/Ipratropium (Ipratropium-Albuterol 3 Ml Neb) 3 ml INHALATION RT-QID [facility] Last Admin: 10/11/21 11:21 Dose: 3 ml Amlodipine Besylate (Amlodipine 5 Mg Tab) 5 mg PO DAILY [facility] Last Admin: 10/11/21 10:18 Dose: 5 mg Aspirin (Aspirin 325 Mg Tab) 325 mg PO DAILY [facility] Last Admin: 10/11/21 08:21 Dose: 325 mg Atorvastatin Calcium (Atorvastatin 40 Mg Tab) 40 mg PO DAILY [facility] Last Admin: 10/11/21 08:21 Dose: 40 mg Benzocaine/Menthol (Benzocaine/Menthol Lozeng 1 Each Lozenge) 1 each MUCOUS MEM Q2H PRN PRN Reason: Sore Throat Bisacodyl (Bisacodyl 10 Mg Supp) 10 mg RECTAL DAILY PRN PRN Reason: Constipation Chlorhexidine Gluconate (Chlorhexidine Gluconate 15 Ml Cup) 15 ml MUCOUS MEM BID [facility] Last Admin: 10/11/21 08:21 Dose: 15 ml Clopidogrel Bisulfate (Clopidogrel 75 Mg Tab) 75 mg PO DAILY [facility] Last Admin: 10/11/21 08:21 Dose: 75 mg Heparin Sodium (Porcine) (Heparin Sodium,Porcine/Pf 5,000 Unit/0.5 Ml Syringe) 5,000 unit SQ Q8HR [facility] Last Admin: 10/11/21 08:21 Dose: 5,000 unit Hydralazine HCl (Hydralazine Hcl 20 Mg/Ml 1 Ml Vial) 10 mg IVP Q1H PRN PRN Reason: Blood Pressure - High Clevidipine 25 mg/ IV Solution 50 mls @ 2 mls/hr IV .Q24H [facility]; Protocol Last Admin: 10/10/21 16:46 Dose: Not Given Amiodarone HCl 150 mg/ (Dextrose/Water) 103 mls @ 618 mls/hr IV .Q10M PRN; Protocol PRN Reason: A.FIB/FLUTTER Amiodarone HCl 360 mg/ (Dextrose/Water) 207.2 mls @ 34.533 mls/hr IV .Q6H PRN; Protocol PRN Reason: A.FIB/FLUTTER Amiodarone HCl 450 mg/ (Dextrose/Water) 250 mls @ 16.667 mls/hr IV .Q15H PRN; Protocol PRN Reason: A.FIB/FLUTTER Albumin Human 250 ml/ IV (Solution) 250 mls @ 250 mls/hr IVPB Q1HR PRN; Protocol PRN Reason: For Volume Stop: 10/12/21 15:14 Last Admin: 10/11/21 02:31 Dose: 250 mls/hr Lactated Ringer's (Lactated Ringers) 1,000 mls @ 20 mls/hr IV .Q24H [facility] Last Admin: 10/10/21 16:19 Dose: 50 mls/hr Propofol 1,000 mg/ IV Solution 100 mls @ 0 mls/hr IV .Q0M [facility]; Protocol Last Admin: 10/11/21 12:02 Dose: 40 mcg/kg/min, 25.038 mls/hr Insulin Human Regular 100 unit (/ Sodium Chloride) 101 mls @ 0 mls/hr IV .Q0M [facility]; Protocol Last Titration: 10/11/21 11:59 Dose: 0 units/hr, 0 mls/hr Milrinone Lactate/Dextrose 20 (mg/ IV Solution) 100 mls @ 3.13 mls/hr IV .Q24H [facility] Last Infusion: 10/11/21 14:57 Dose: 0.1 mcg/kg/min, 3.13 mls/hr Magnesium Hydroxide (Magnesium Hydroxide 2,400 Mg/10 Ml Cup) 2,400 mg PO BID PRN PRN Reason: Constipation Metoclopramide HCl (Metoclopramide 5 Mg/Ml 2 Ml Vial) 10 mg IVP Q4H PRN PRN Reason: Nausea And Vomiting Metoprolol Tartrate (Metoprolol Tartrate 25 Mg Tab) 25 mg PO TID [facility] Miscellaneous Information (Potassium Replacement Protocol 1 Each Misc) 1 each MISCELLANE DAILY PRN; Protocol PRN Reason: Per Protocol Miscellaneous Information (Magnesium Replacement Protocol 1 Each Misc) 1 each MISCELLANE DAILY PRN; Protocol PRN Reason: Per Protocol Ondansetron HCl (Ondansetron 4 Mg/2 Ml Vial) 4 mg IVP Q6HR PRN PRN Reason: Nausea And Vomiting Pantoprazole Sodium (Pantoprazole 40 Mg/10 Ml Vial) 40 mg IVP DAILY [facility] Last Admin: 10/11/21 08:20 Dose: 40 mg Senna/Docusate Sodium (Sennosides-Docusate Sodium 1 Each Tab) 2 each PO HS [facility] Sodium Chloride (Sodium Chloride 0.9% Flush 10 Ml Syringe) 10 ml IV BID [facility] Last Admin: 10/11/21 08:22 Dose: Not Given Objective - Vital Signs Vital signs: Vital Signs Temp 99.5 F 10/11/21 04:00 Pulse 83 10/11/21 11:33 Resp 28 H 10/11/21 08:00 BP 102/52 10/11/21 04:00 Pulse Ox 94 L 10/11/21 12:00 FiO2 60 10/11/21 12:00 Intake & Output 10/10/21 10/11/21 10/11/21 18:59 06:59 18:59 Intake Total 798.285 7887.408 738.053 Output Total 3130 995 367 Balance -2744.718 538.408 371.053 Weight 114.3 kg 114.3 kg Intake: IV 79 1168 422 Albumin Human 5% 250 ml 250 In Empty Bag 1 bag @ 250 mls/hr IVPB Q1HR PRN Rx#: [id number] Lactated Ringers 1,000 ml 550 260 @ 20 mls/hr IV .Q24H [facility] Rx#:[id number] cardiac output 40 210 40 ceFAZolin 2 gm In Sodium 50 50 Chloride 0.9% 50 ml @ 100 mls/hr IVPB ONCE ONE Rx# :[id number] pressure bag 36 108 72 Intake, IV Titration 306.282 365.408 316.053 Amount ACETAMINOPHEN IV (For NPO 100 ) 1,000 mg In Empty Bag 1 bag @ 400 mls/hr IVPB Q6HR [facility] Rx#:[id number] Diltiazem 125 mg In 61.583 Sodium Chloride 0.9% 100 ml @ 5 MG/HR 5 mls/hr IV .Q24H [facility] Rx#:[id number] Insulin Regular 100 unit 1.616 50.517 16.438 In Sodium Chloride 0.9% 100 ml @ Per Protocol IV .Q0M [facility] Rx#:[id number] Lactated Ringers 1,000 ml 200 50 @ 20 mls/hr IV .Q24H [facility] Rx#:[id number] Milrinone-D5w Pmx 20 mg 100 59.623 In Dextrose/Water 1 100ml .bag @ 0.1 MCG/KG/MIN 3. 13 mls/hr IV .Q24H [facility] Rx #:[id number] Nitroglycerin-D5w Pmx 50 24.475 mg In Dextrose/Water 1 250ml.bag @ 5 MCG/MIN 1.5 mls/hr IV .Q24H [facility] Rx#: [id number] ceFAZolin 2 gm In Sodium 50 Chloride 0.9% 50 ml @ 100 mls/hr IVPB Q8HR [facility] Rx# :[id number] propofoL 1,000 mg In 54.666 64.891 153.934 Empty Bag 1 bag @ Titrate IV .Q0M [facility] Rx#: [id number] Output: Chest Tube Drainage 45 405 105 left pleural 45 255 70 mediastinal 0 150 35 Urine 1285 590 262 Estimated Blood Loss 1800 Other: Voiding Method Indwelling Catheter Indwelling Catheter Indwelling Catheter ABP, PAP, CO, CI - Last Documented Arterial Blood Pressure 148/48 Pulmonary Artery Pressure 30/17 Cardiac Output 5.1 Cardiac Index 2.8 - Labs CBC & Chem 7: 10/11/21 03:43 10/11/21 03:43 Labs: Abnormal Lab Results - Last 24 Hours (Table) 10/09/21 10/10/21 10/10/21 Range/Units 08:15 15:49 15:50 WBC 13.9 H (3.8-10.6) k/uL RBC 2.70 L (3.80-5.40) m/uL Hgb 9.0 L D (11.4-16.0) gm/dL Hct 27.4 L (34.0-46.0) % MCV 101.4 H (80.0-100.0) fL Plt Count 127 L D (150-450) k/uL Neutrophils # (1.3-7.7) k/uL Neutrophils # (Manual) 11.80 H (1.3-7.7) k/uL Lymphocytes # (1.0-4.8) k/uL PT (9.0-12.0) sec INR (<1.2) APTT (22.0-30.0) sec ABG pH (7.35-7.45) ABG pCO2 (35-45) mmHg ABG pO2 (83-108) mmHg ABG HCO3 (21-25) mmol/L ABG Total CO2 (19-24) mmol/L ABG O2 Saturation (94-97) % Sodium (137-145) mmol/L Creatinine (0.52-1.04) mg/dL Glucose (74-99) mg/dL POC Glucose (mg/dL) 135 H (70-110) mg/dL Calcium (8.4-10.2) mg/dL Magnesium (1.6-2.3) mg/dL AST (14-36) U/L ALT (4-34) U/L Alkaline Phosphatase (38-126) U/L Total Protein (6.3-8.2) g/dL Albumin (3.5-5.0) g/dL Crossmatch See Detail 10/10/21 10/10/21 10/10/21 Range/Units 15:50 15:50 16:32 WBC (3.8-10.6) k/uL RBC (3.80-5.40) m/uL Hgb (11.4-16.0) gm/dL Hct (34.0-46.0) % MCV (80.0-100.0) fL Plt Count (150-450) k/uL Neutrophils # (1.3-7.7) k/uL Neutrophils # (Manual) (1.3-7.7) k/uL Lymphocytes # (1.0-4.8) k/uL PT 13.8 H (9.0-12.0) sec INR 1.3 H (<1.2) APTT 32.4 H (22.0-30.0) sec ABG pH 7.23 L (7.35-7.45) ABG pCO2 73 H* (35-45) mmHg ABG pO2 73 L (83-108) mmHg ABG HCO3 30 H (21-25) mmol/L ABG Total CO2 32 H (19-24) mmol/L ABG O2 Saturation 92.9 L (94-97) % Sodium (137-145) mmol/L Creatinine 1.07 H (0.52-1.04) mg/dL Glucose 121 H (74-99) mg/dL POC Glucose (mg/dL) (70-110) mg/dL Calcium 7.9 L (8.4-10.2) mg/dL Magnesium 2.5 H (1.6-2.3) mg/dL AST 110 H (14-36) U/L ALT 39 H (4-34) U/L Alkaline Phosphatase 29 L (38-126) U/L Total Protein 4.7 L (6.3-8.2) g/dL Albumin 3.1 L (3.5-5.0) g/dL Crossmatch 10/10/21 10/10/21 10/10/21 Range/Units 16:38 18:03 18:03 WBC 13.4 H (3.8-10.6) k/uL RBC 2.81 L (3.80-5.40) m/uL Hgb 9.4 L (11.4-16.0) gm/dL Hct 28.7 L (34.0-46.0) % MCV 102.2 H (80.0-100.0) fL Plt Count 143 L (150-450) k/uL Neutrophils # 11.7 H (1.3-7.7) k/uL Neutrophils # (Manual) (1.3-7.7) k/uL Lymphocytes # 0.8 L (1.0-4.8) k/uL PT (9.0-12.0) sec INR (<1.2) APTT (22.0-30.0) sec ABG pH (7.35-7.45) ABG pCO2 (35-45) mmHg ABG pO2 (83-108) mmHg ABG HCO3 (21-25) mmol/L ABG Total CO2 (19-24) mmol/L ABG O2 Saturation (94-97) % Sodium (137-145) mmol/L Creatinine (0.52-1.04) mg/dL Glucose (74-99) mg/dL POC Glucose (mg/dL) 132 H 156 H (70-110) mg/dL Calcium (8.4-10.2) mg/dL Magnesium (1.6-2.3) mg/dL AST (14-36) U/L ALT (4-34) U/L Alkaline Phosphatase (38-126) U/L Total Protein (6.3-8.2) g/dL Albumin (3.5-5.0) g/dL Crossmatch 10/10/21 10/10/21 10/10/21 Range/Units 19:02 20:03 20:20 WBC 11.5 H (3.8-10.6) k/uL RBC 2.75 L (3.80-5.40) m/uL Hgb 9.0 L (11.4-16.0) gm/dL Hct 27.9 L (34.0-46.0) % MCV 101.5 H (80.0-100.0) fL Plt Count 145 L (150-450) k/uL Neutrophils # 10.1 H (1.3-7.7) k/uL Neutrophils # (Manual) (1.3-7.7) k/uL Lymphocytes # 0.7 L (1.0-4.8) k/uL PT (9.0-12.0) sec INR (<1.2) APTT (22.0-30.0) sec ABG pH (7.35-7.45) ABG pCO2 (35-45) mmHg ABG pO2 (83-108) mmHg ABG HCO3 (21-25) mmol/L ABG Total CO2 (19-24) mmol/L ABG O2 Saturation (94-97) % Sodium (137-145) mmol/L Creatinine (0.52-1.04) mg/dL Glucose (74-99) mg/dL POC Glucose (mg/dL) 155 H 155 H (70-110) mg/dL Calcium (8.4-10.2) mg/dL Magnesium (1.6-2.3) mg/dL AST (14-36) U/L ALT (4-34) U/L Alkaline Phosphatase (38-126) U/L Total Protein (6.3-8.2) g/dL Albumin (3.5-5.0) g/dL Crossmatch 10/10/21 10/10/21 10/10/21 Range/Units 20:50 20:55 22:27 WBC (3.8-10.6) k/uL RBC (3.80-5.40) m/uL Hgb (11.4-16.0) gm/dL Hct (34.0-46.0) % MCV (80.0-100.0) fL Plt Count (150-450) k/uL Neutrophils # (1.3-7.7) k/uL Neutrophils # (Manual) (1.3-7.7) k/uL Lymphocytes # (1.0-4.8) k/uL PT (9.0-12.0) sec INR (<1.2) APTT (22.0-30.0) sec ABG pH (7.35-7.45) ABG pCO2 51 H (35-45) mmHg ABG pO2 53 L* (83-108) mmHg ABG HCO3 30 H (21-25) mmol/L ABG Total CO2 31 H (19-24) mmol/L ABG O2 Saturation 89.2 L (94-97) % Sodium (137-145) mmol/L Creatinine (0.52-1.04) mg/dL Glucose (74-99) mg/dL POC Glucose (mg/dL) 151 H 145 H (70-110) mg/dL Calcium (8.4-10.2) mg/dL Magnesium (1.6-2.3) mg/dL AST (14-36) U/L ALT (4-34) U/L Alkaline Phosphatase (38-126) U/L Total Protein (6.3-8.2) g/dL Albumin (3.5-5.0) g/dL Crossmatch 10/10/21 10/11/21 10/11/21 Range/Units 23:38 01:02 02:20 WBC (3.8-10.6) k/uL RBC (3.80-5.40) m/uL Hgb (11.4-16.0) gm/dL Hct (34.0-46.0) % MCV (80.0-100.0) fL Plt Count (150-450) k/uL Neutrophils # (1.3-7.7) k/uL Neutrophils # (Manual) (1.3-7.7) k/uL Lymphocytes # (1.0-4.8) k/uL PT (9.0-12.0) sec INR (<1.2) APTT (22.0-30.0) sec ABG pH (7.35-7.45) ABG pCO2 (35-45) mmHg ABG pO2 (83-108) mmHg ABG HCO3 (21-25) mmol/L ABG Total CO2 (19-24) mmol/L ABG O2 Saturation (94-97) % Sodium (137-145) mmol/L Creatinine (0.52-1.04) mg/dL Glucose (74-99) mg/dL POC Glucose (mg/dL) 136 H 123 H 122 H (70-110) mg/dL Calcium (8.4-10.2) mg/dL Magnesium (1.6-2.3) mg/dL AST (14-36) U/L ALT (4-34) U/L Alkaline Phosphatase (38-126) U/L Total Protein (6.3-8.2) g/dL Albumin (3.5-5.0) g/dL Crossmatch 10/11/21 10/11/21 10/11/21 Range/Units 03:39 03:43 03:43 WBC 12.4 H (3.8-10.6) k/uL RBC 2.59 L (3.80-5.40) m/uL Hgb 8.5 L (11.4-16.0) gm/dL Hct 25.9 L (34.0-46.0) % MCV 100.3 H (80.0-100.0) fL Plt Count 128 L (150-450) k/uL Neutrophils # 10.9 H (1.3-7.7) k/uL Neutrophils # (Manual) (1.3-7.7) k/uL Lymphocytes # 0.7 L (1.0-4.8) k/uL PT (9.0-12.0) sec INR (<1.2) APTT (22.0-30.0) sec ABG pH (7.35-7.45) ABG pCO2 (35-45) mmHg ABG pO2 (83-108) mmHg ABG HCO3 (21-25) mmol/L ABG Total CO2 (19-24) mmol/L ABG O2 Saturation (94-97) % Sodium 135 L (137-145) mmol/L Creatinine 1.23 H (0.52-1.04) mg/dL Glucose 110 H (74-99) mg/dL POC Glucose (mg/dL) 122 H (70-110) mg/dL Calcium 8.2 L (8.4-10.2) mg/dL Magnesium (1.6-2.3) mg/dL AST 127 H (14-36) U/L ALT 35 H (4-34) U/L Alkaline Phosphatase 37 L (38-126) U/L Total Protein 4.8 L (6.3-8.2) g/dL Albumin 3.1 L (3.5-5.0) g/dL Crossmatch 10/11/21 10/11/21 10/11/21 Range/Units 05:07 05:59 06:16 WBC (3.8-10.6) k/uL RBC (3.80-5.40) m/uL Hgb (11.4-16.0) gm/dL Hct (34.0-46.0) % MCV (80.0-100.0) fL Plt Count (150-450) k/uL Neutrophils # (1.3-7.7) k/uL Neutrophils # (Manual) (1.3-7.7) k/uL Lymphocytes # (1.0-4.8) k/uL PT (9.0-12.0) sec INR (<1.2) APTT (22.0-30.0) sec ABG pH (7.35-7.45) ABG pCO2 (35-45) mmHg ABG pO2 57 L* (83-108) mmHg ABG HCO3 28 H (21-25) mmol/L ABG Total CO2 11 L (19-24) mmol/L ABG O2 Saturation 93.0 L (94-97) % Sodium (137-145) mmol/L Creatinine (0.52-1.04) mg/dL Glucose (74-99) mg/dL POC Glucose (mg/dL) 122 H 122 H (70-110) mg/dL Calcium (8.4-10.2) mg/dL Magnesium (1.6-2.3) mg/dL AST (14-36) U/L ALT (4-34) U/L Alkaline Phosphatase (38-126) U/L Total Protein (6.3-8.2) g/dL Albumin (3.5-5.0) g/dL Crossmatch 10/11/21 10/11/21 Range/Units 08:17 10:13 WBC (3.8-10.6) k/uL RBC (3.80-5.40) m/uL Hgb (11.4-16.0) gm/dL Hct (34.0-46.0) % MCV (80.0-100.0) fL Plt Count (150-450) k/uL Neutrophils # (1.3-7.7) k/uL Neutrophils # (Manual) (1.3-7.7) k/uL Lymphocytes # (1.0-4.8) k/uL PT (9.0-12.0) sec INR (<1.2) APTT (22.0-30.0) sec ABG pH (7.35-7.45) ABG pCO2 (35-45) mmHg ABG pO2 (83-108) mmHg ABG HCO3 (21-25) mmol/L ABG Total CO2 (19-24) mmol/L ABG O2 Saturation (94-97) % Sodium (137-145) mmol/L Creatinine (0.52-1.04) mg/dL Glucose (74-99) mg/dL POC Glucose (mg/dL) 136 H 129 H (70-110) mg/dL Calcium (8.4-10.2) mg/dL Magnesium (1.6-2.3) mg/dL AST (14-36) U/L ALT (4-34) U/L Alkaline Phosphatase (38-126) U/L Total Protein (6.3-8.2) g/dL Albumin (3.5-5.0) g/dL Crossmatch Microbiology - Last 24 Hours (Table) 10/10/21 20:23 Sputum Culture - Preliminary Sputum
[2021-10-11] MEDS: CLEVIDIPINE BUTYRATE 25 MG in EMPTY BAG 1 BAG IV SCH (16:05)
[2021-10-11 16:35] LABS: Glucose,Whole Blood 123 mg/dL (70-110)
[2021-10-11 18:29] LABS: Glucose,Whole Blood 117 mg/dL (70-110)
[2021-10-11] MEDS: LACTATED RINGERS 1,000 ML IV SCH (19:05)
[2021-10-11 19:49] LABS: Glucose,Whole Blood 113 mg/dL (70-110)
[2021-10-11] MEDS: SENNOSIDES-DOCUSATE SODIUM 1 EACH TAB PO SCH (20:24)
[2021-10-11] MEDS: METOPROLOL TARTRATE 50 MG TAB PO SCH (20:24)
[2021-10-11 22:11] LABS: Glucose,Whole Blood 136 mg/dL (70-110)
[2021-10-11 23:28] LABS: Glucose,Whole Blood 145 mg/dL (70-110)
[2021-10-12 01:12] LABS: Glucose,Whole Blood 119 mg/dL (70-110)
[2021-10-12 02:26] LABS: Glucose,Whole Blood 114 mg/dL (70-110)
[2021-10-12 04:17] LABS: Glucose,Whole Blood 148 mg/dL (70-110)
[2021-10-12 04:34] LABS: Basophils % (A) 0 %; Eosinophils # (A) 0.1 k/uL (0-0.7); Eosinophils % (A) 1 %; HCT 25.9 % (34.0-46.0); HGB 8.4 gm/dL (11.4-16.0); Hypochromasia Slight; Lymphocytes # (A) 0.9 k/uL (1.0-4.8); Lymphocytes % (A) 6 %; MCH 32.7 pg (25.0-35.0); MCHC 32.3 g/dL (31.0-37.0); Macrocytosis Slight; Mean Platelet Volume 11.3; Monocytes # (A) 0.9 k/uL (0-1.0); Monocytes % (A) 6 %; Neutrophils # (A) 12.6 k/uL (1.3-7.7); Neutrophils % (A) 84 %; Platelet Count 131 k/uL (150-450); RBC 2.57 m/uL (3.80-5.40); RDW 15.2 % (11.5-15.5); WBC 14.9 k/uL (3.8-10.6)
[2021-10-12 04:43] LABS: Ionized Calcium 4.8 mg/dL (4.5-5.3)
[2021-10-12 05:02] LABS: Albumin 2.8 g/dL (3.5-5.0); Calcium 8.1 mg/dL (8.4-10.2); Potassium 4.2 mmol/L (3.5-5.1); Total Bilirubin 0.5 mg/dL (0.2-1.3); Total Protein 4.9 g/dL (6.3-8.2)
[2021-10-12] MEDS ORDERED: DOPamine DRIP 250 ML IV ONE (05:16)
[2021-10-12 06:26] LABS: ABG Base Excess 5.7 mmol/L; ABG HCO3 29 mmol/L (21-25); ABG Oxygen Saturation 96.4 % (94-97); ABG PCO2 41 mmHg (35-45); ABG PH 7.47 (7.35-7.45); ABG PO2 72 mmHg (83-108); ABG TCO2 31 mmol/L (19-24); Allen Test Performed? Yes
[2021-10-12 06:29] LABS: Glucose,Whole Blood 130 mg/dL (70-110)
[2021-10-12] MEDS: MILRINONE-D5W PMX 20 MG in DEXTROSE/WATER 1 100ML.BAG IV SCH (06:31)
[2021-10-12] MEDS: INSULIN REGULAR 100 UNIT in SODIUM CHLORIDE 0.9% 100 ML IV SCH (06:32)
[2021-10-12 07:05] LABS: Glucose,Whole Blood 136 mg/dL (70-110)
--- NOTE | 2021-10-12 07:19 | XR ---
EXAMINATION TYPE: XR chest 1V portable DATE OF EXAM: 10/12/2021 HISTORY: Post Operative Cardiac Surgery COMPARISON: NONE TECHNIQUE: Single view of the chest is submitted. FINDINGS: Endotracheal tube, NG tube, SG catheter, mediastinal drains and and probable left sided pericardial d rain is present. Atrial appendage clip is again noted. Post operative changes of CABG. No sizeable pneumothorax. Scattered Pleural-parenchymal opacities may reflect atelectasis. Improved aeration right lower lobe. The heart mildly enlarged. Resolution minimal of pneumomediastinum. IMPRESSION: 1. Improved aeration right lower lobe with continued pleural-parenchymal opacity. Otherwise stable e xamination.
--- NOTE | 2021-10-12 08:01 | P.PN ---
Subjective Progress Note Date: 10/12/21 Principal diagnosis: Multivessel coronary artery disease, non-ST elevated myocardial infarction this admission. Previous medical history of coronary artery disease and myocardial infarction status post multiple stent placement, ischemic cardiomyopathy, hypertension, hyperlipidemia, chronic kidney disease stage III secondary to nephrosclerosis, chronic ongoing tobacco abuse, obstructive sleep apnea with out home CPAP use, mild COPD with home oxygen use 2-3 L nasal cannula at night, morbid obesity, hypothyroid, medical noncompliance, type II diabetes, peripheral artery disease POD #2 coronary artery bypass grafting 3 vessels, left internal mammary artery to the left anterior descending artery, radial artery to the obtuse marginal artery, saphenous vein graft to the posterior descending artery, endoscopic harvesting of the left radial artery, endoscopic harvesting of the left greater saphenous vein, ligation of the left atrial appendage using a 35 mm AtriClip, epi-aortic ultrasound, intraoperative transesophageal echocardiogram, closure of the sternum using a titanium plating system Postoperative acute blood loss anemia and thrombocytopenia, expected given hemo dilution cardiopulmonary bypass pump Hypoxic respiratory failure requiring a prolonged mechanical ventilation The patient was seen and examined this morning laying in bed in the intensive care unit still mechanically ventilated on propofol for sedation. She remains in sinus rhythm and hemodynamically stable. Currently on low-dose Primacor. Patient still requires high PEEP to maintain oxygenation which is better today. With lightening of sedation the patient does open her eyes, move all extremities and follows commands. Right internal jugular [place]/Cordis, right radial arterial line, mediastinal/left pleural chest tube all remain in place. Urine output stable. Patient did spike a temperature this morning 101.3, sputum culture had already been sent yesterday with preliminary Gram stain growing few gram- positive cocci, urine and blood cultures to be sent. No other new concerns. Objective - Vital Signs Vital signs: Vital Signs Temp 100.2 F H 10/12/21 04:00 Pulse 92 10/12/21 07:00 Resp 26 H 10/12/21 07:00 BP 95/50 10/11/21 19:30 Pulse Ox 94 L 10/12/21 07:00 FiO2 50 10/12/21 07:17 Intake & Output 10/11/21 10/12/21 10/12/21 18:59 06:59 18:59 Intake Total 1053.053 681.806 39 Output Total 607 992 100 Balance 446.053 -310.194 -61 Weight 114.3 kg 114.8 kg Intake: IV 637 509 39 Lactated Ringers 1,000 ml 410 330 30 @ 20 mls/hr IV .Q24H [facility] Rx#:[id number] cardiac output 60 80 ceFAZolin 2 gm In Sodium 50 Chloride 0.9% 50 ml @ 100 mls/hr IVPB ONCE ONE Rx# :[id number] pressure bag 117 99 9 Intake, IV Titration 416.053 172.806 Amount Diltiazem 125 mg In 61.583 Sodium Chloride 0.9% 100 ml @ 5 MG/HR 5 mls/hr IV .Q24H [facility] Rx#:[id number] Insulin Regular 100 unit 16.438 32.429 In Sodium Chloride 0.9% 100 ml @ Per Protocol IV .Q0M [facility] Rx#:[id number] Milrinone-D5w Pmx 20 mg 59.623 40.377 In Dextrose/Water 1 100ml .bag @ 0.1 MCG/KG/MIN 3. 13 mls/hr IV .Q24H [facility] Rx #:[id number] Nitroglycerin-D5w Pmx 50 24.475 mg In Dextrose/Water 1 250ml.bag @ 5 MCG/MIN 1.5 mls/hr IV .Q24H [facility] Rx#: [id number] propofoL 1,000 mg In 253.934 100 Empty Bag 1 bag @ Titrate IV .Q0M [facility] Rx#: [id number] Output: Chest Tube Drainage 185 150 left pleural 120 90 mediastinal 65 60 Urine 422 842 100 Other: Voiding Method Indwelling Catheter Indwelling Catheter ABP, PAP, CO, CI - Last Documented Arterial Blood Pressure 120/50 Pulmonary Artery Pressure 30/18 Cardiac Output 5.1 Cardiac Index 2.6 - Exam CONSTITUTIONAL: Lying in bed mechanically ventilated and sedated RESPIRATORY: Lungs sounds diminished bilaterally. Respirations even, nonlabored on mechanical ventilation. Current ventilator settings FiO2 60%, tidal volume 350, respiratory rate 20, PEEP 15. 8.0 ET tube present, 21 at the lip CARDIOVASCULAR: S1, S2 present. Regular rate and rhythm, sinus rhythm on telemetry. Sternum stable. Palpable peripheral pulses bilaterally. No edema present. No calf pain or tenderness noted. Heart hugger, antiembolism stockings, SCDs present. GASTROINTESTINAL: Abdomen soft, nontender, nondistended. Hypoactive bowel sounds present 4 quadrants. OG tube present to low intermittent suction with minimal drainage GENITOURINARY: Guzman present draining clear, yellow urine. Output overnight 35-225 mL per hour, 1264 mL in the last 24 hours INTEGUMENTARY: Skin is warm and dry with evidence of good perfusion. Anterior chest incision well approximated and covered with dry intact dressing. Left lower extremity EVH site as well as left radial artery harvest site well approximated without redness or drainage. NEUROLOGIC: Cranial nerves II through XII intact MUSKULOSKELETAL: Able to move all extremities, strength equal bilaterally PSYCHIATRIC: Sedated with propofol, does follow commands INVASIVE LINES AND TUBES: Mediastinal/left pleural chest tubes present and connected to wall suction, no air leaks present. Mediastinal tube with 30 mL serosanguineous drainage overnight, 140 mL in the last 24 hours. Left pleural chest tube with 60 mL serosanguineous drainage overnight, 200 mL the last 24 hours. A/V epicardial pacemaker wires present, grounded. Right internal jugular [place]/Cordis, right radial arterial line present. Last CO/CI 5.1/2.6, PA 32/19, CVP 13. - Allied health notes Allied health notes reviewed: nursing - Labs CBC & Chem 7: 10/12/21 04:20 10/12/21 04:20 Labs: Abnormal Lab Results - Last 24 Hours (Table) 10/11/21 10/11/21 10/11/21 Range/Units 08:17 10:13 16:34 WBC (3.8-10.6) k/uL RBC (3.80-5.40) m/uL Hgb (11.4-16.0) gm/dL Hct (34.0-46.0) % MCV (80.0-100.0) fL Plt Count (150-450) k/uL Neutrophils # (1.3-7.7) k/uL Lymphocytes # (1.0-4.8) k/uL ABG pH (7.35-7.45) ABG pO2 (83-108) mmHg ABG HCO3 (21-25) mmol/L ABG Total CO2 (19-24) mmol/L Sodium (137-145) mmol/L Creatinine (0.52-1.04) mg/dL Glucose (74-99) mg/dL POC Glucose (mg/dL) 136 H 129 H 123 H (70-110) mg/dL Calcium (8.4-10.2) mg/dL AST (14-36) U/L Total Protein (6.3-8.2) g/dL Albumin (3.5-5.0) g/dL 10/11/21 10/11/21 10/11/21 Range/Units 18:28 19:47 22:10 WBC (3.8-10.6) k/uL RBC (3.80-5.40) m/uL Hgb (11.4-16.0) gm/dL Hct (34.0-46.0) % MCV (80.0-100.0) fL Plt Count (150-450) k/uL Neutrophils # (1.3-7.7) k/uL Lymphocytes # (1.0-4.8) k/uL ABG pH (7.35-7.45) ABG pO2 (83-108) mmHg ABG HCO3 (21-25) mmol/L ABG Total CO2 (19-24) mmol/L Sodium (137-145) mmol/L Creatinine (0.52-1.04) mg/dL Glucose (74-99) mg/dL POC Glucose (mg/dL) 117 H 113 H 136 H (70-110) mg/dL Calcium (8.4-10.2) mg/dL AST (14-36) U/L Total Protein (6.3-8.2) g/dL Albumin (3.5-5.0) g/dL 10/11/21 10/12/21 10/12/21 Range/Units 23:26 01:10 02:25 WBC (3.8-10.6) k/uL RBC (3.80-5.40) m/uL Hgb (11.4-16.0) gm/dL Hct (34.0-46.0) % MCV (80.0-100.0) fL Plt Count (150-450) k/uL Neutrophils # (1.3-7.7) k/uL Lymphocytes # (1.0-4.8) k/uL ABG pH (7.35-7.45) ABG pO2 (83-108) mmHg ABG HCO3 (21-25) mmol/L ABG Total CO2 (19-24) mmol/L Sodium (137-145) mmol/L Creatinine (0.52-1.04) mg/dL Glucose (74-99) mg/dL POC Glucose (mg/dL) 145 H 119 H 114 H (70-110) mg/dL Calcium (8.4-10.2) mg/dL AST (14-36) U/L Total Protein (6.3-8.2) g/dL Albumin (3.5-5.0) g/dL 10/12/21 10/12/21 10/12/21 Range/Units 04:13 04:20 04:20 WBC 14.9 H (3.8-10.6) k/uL RBC 2.57 L (3.80-5.40) m/uL Hgb 8.4 L (11.4-16.0) gm/dL Hct 25.9 L (34.0-46.0) % MCV 101.0 H (80.0-100.0) fL Plt Count 131 L (150-450) k/uL Neutrophils # 12.6 H (1.3-7.7) k/uL Lymphocytes # 0.9 L (1.0-4.8) k/uL ABG pH (7.35-7.45) ABG pO2 (83-108) mmHg ABG HCO3 (21-25) mmol/L ABG Total CO2 (19-24) mmol/L Sodium 134 L (137-145) mmol/L Creatinine 1.21 H (0.52-1.04) mg/dL Glucose 131 H (74-99) mg/dL POC Glucose (mg/dL) 148 H (70-110) mg/dL Calcium 8.1 L (8.4-10.2) mg/dL AST 93 H (14-36) U/L Total Protein 4.9 L (6.3-8.2) g/dL Albumin 2.8 L (3.5-5.0) g/dL 10/12/21 10/12/21 10/12/21 Range/Units 06:24 06:27 07:03 WBC (3.8-10.6) k/uL RBC (3.80-5.40) m/uL Hgb (11.4-16.0) gm/dL Hct (34.0-46.0) % MCV (80.0-100.0) fL Plt Count (150-450) k/uL Neutrophils # (1.3-7.7) k/uL Lymphocytes # (1.0-4.8) k/uL ABG pH 7.47 H (7.35-7.45) ABG pO2 72 L (83-108) mmHg ABG HCO3 29 H (21-25) mmol/L ABG Total CO2 31 H (19-24) mmol/L Sodium (137-145) mmol/L Creatinine (0.52-1.04) mg/dL Glucose (74-99) mg/dL POC Glucose (mg/dL) 130 H 136 H (70-110) mg/dL Calcium (8.4-10.2) mg/dL AST (14-36) U/L Total Protein (6.3-8.2) g/dL Albumin (3.5-5.0) g/dL Microbiology - Last 24 Hours (Table) 10/10/21 20:23 Gram Stain - Preliminary Sputum Sputum Culture - Preliminary - Imaging and Cardiology Chest x-ray: report reviewed, image reviewed Assessment and Plan Assessment: 1. Multivessel coronary artery disease, non-ST elevated myocardial infarction this admission, status post three-vessel CABG 2. History of coronary artery disease and myocardial infarction status post multiple stent placement 3. Ischemic cardiomyopathy, EF 45-50% 4. Hypertension 5. Hyperlipidemia, cholesterol 252, LDL 156, triglycerides 291 6. Chronic kidney disease stage III secondary to nephrosclerosis 7. Chronic ongoing tobacco abuse 8. Obstructive sleep apnea with out home CPAP use 9. Mild COPD with home oxygen use 2-3 L nasal cannula at night, preoperative FEV1 60% of predicted 10. Morbid obesity 11. Hypothyroid, TSH 23.3 with free T4 0.36 12. Medical noncompliance 13. Type 2 diabetes mellitus, A1c 6.8% 14. Peripheral arterial disease, left SAEED 0.69 15. Postoperative acute blood loss anemia and thrombocytopenia, expected 16. Hypoxic respiratory failure requiring prolonged mechanical ventilation 17. Febrile with leukocytosis, cultures pending Plan: 1. Continue to optimize medical management with aspirin, Plavix, statin and beta garret. Will increase beta garret therapy as tolerated. Discontinue Primacor 2. Continue calcium channel garret for radial artery spasm prophylaxis, changed from Norvasc to Cardizem for better heart rate control 3. Wean from mechanical ventilation as tolerated per pulmonology. Bronchodilators per pulmonology. Patient remains intubated will need to start tube feedings for nutritional support 4. Will monitor daily labs and x-rays. Electrolyte replacement per protocol. Sputum culture with preliminary Gram stain reporting few gram-positive cocci, urine and blood cultures ordered 5. GI/DVT prophylaxis 6. Once extubated will increase activity as tolerated. PT/OT/cardiac rehab consulted 7. Pain control with current medication regimen 8. Insulin management per primary care service. Patient is recently diagnosed diabetic with hemoglobin A1c 6.8%. Needs tight blood sugar control to promote healing and prevent infection 9. Continue [place]/Cordis, arterial line. Continue mediastinal/left pleural chest tubes 10. Continue Guzamn catheter for another 24 hours for strict accurate intake and output. Daily weights. 11. Importance of risk modification including smoking cessation has been discussed in detail with the patient and reinforced with the patient. 12. More recommendations to follow
[2021-10-12 08:06] LABS: Glucose,Whole Blood 132 mg/dL (70-110)
[2021-10-12] MEDS: IPRATROPIUM-ALBUTEROL 3 ML NEB INHALATION SCH ×4 (08:15→19:17)
[2021-10-12] MEDS: CHLORHEXIDINE GLUCONATE 15 ML CUP MUCOUS MEM SCH ×2 (08:36→20:20)
[2021-10-12] MEDS: PANTOPRAZOLE 40 MG/10 ML VIAL IVP SCH (08:36)
[2021-10-12] MEDS: DILTIAZEM ORAL 30 MG TAB PO SCH ×4 (08:37→23:46)
[2021-10-12] MEDS: ATORVASTATIN 40 MG TAB PO SCH (08:37)
[2021-10-12] MEDS: CLOPIDOGREL 75 MG TAB PO SCH (08:37)
[2021-10-12] MEDS: ASPIRIN 325 MG TAB PO SCH (08:37)
[2021-10-12] MEDS: METOPROLOL TARTRATE 50 MG TAB PO SCH ×2 (08:37→20:20)
[2021-10-12] MEDS: HEPARIN SODIUM,PORCINE/PF 5,000 UNIT/0.5 ML SYRINGE SQ SCH ×3 (08:37→23:45)
[2021-10-12 09:11] LABS: Glucose,Whole Blood 127 mg/dL (70-110)
[2021-10-12] MEDS: LEVOTHYROXINE IVP 100 MCG/5 ML VIAL IV SCH (09:38)
[2021-10-12] MEDS ORDERED: INSULIN ASPART (NovoLOG) 100 UNIT/ML VIAL SQ SCH (10:00)
[2021-10-12] MEDS: INSULIN DETEMIR (LEVEMIR) 100 UNIT/ML SYR SQ SCH (10:08)
[2021-10-12 10:15] LABS: Glucose,Whole Blood 137 mg/dL (70-110)
[2021-10-12 10:18] LABS: Appearance,Urine Clear (Clear); Bilirubin,Urine Negative (Negative); Blood,Urine Negative (Negative); Color,Urine Yellow; Glucose,Urine (UA) Negative (Negative); Ketones,Urine Negative (Negative); Leukocyte Esterase,Urine Negative (Negative); Nitrite,Urine Negative (Negative); PH, Urine 5.5 (5.0-8.0); Protein,Urine Negative (Negative); Specific Gravity,Urine 1.011 (1.001-1.035); Urobilinogen,Urine <2.0 mg/dL (<2.0)
[2021-10-12] MEDS ORDERED: VANCOMYCIN 1,000 MG in SODIUM CHLORIDE 0.9% 250 ML IVPB STA (10:18)
[2021-10-12] MEDS: INSULIN ASPART (NovoLOG) 100 UNIT/ML VIAL SQ SCH ×3 (11:53→23:45)
[2021-10-12 11:54] LABS: Glucose,Whole Blood 116 mg/dL (70-110)
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
--- NOTE | 2021-10-12 14:41 | P.PN ---
Subjective Progress Note Date: 10/12/21 This is a 56-year-old female with history of COPD who was admitted to the hospital once STEMI and had a cardiac catheterization. She was found to have severe triple-vessel disease and underwent hiatal coronary bypass surgery. Patient is still intubated and sedated. Patient was on PEEP 15, which is being tapered down to 10. Cardiac index is in the range of 2.3. Patient is maintaining sinus rhythm. Urine output is fair. No arrhythmias are detected. Pulmonology is following the patient and hoping that patient could best be treated today or tomorrow. Continue current management. We'll follow Objective - Vital Signs Vital signs: Vital Signs Temp 100.2 F H 10/12/21 04:00 Pulse 71 10/12/21 14:00 Resp 20 10/12/21 14:00 BP 95/57 10/12/21 10:30 Pulse Ox 92 L 10/12/21 14:00 FiO2 40 10/12/21 12:06 Intake & Output 10/11/21 10/12/21 10/12/21 18:59 06:59 18:59 Intake Total 1053.053 781.806 502.324 Output Total 607 992 865 Balance 446.053 -210.194 -362.676 Weight 114.3 kg 114.8 kg 114.8 kg Intake: IV 637 509 372 Lactated Ringers 1,000 ml 410 330 240 @ 20 mls/hr IV .Q24H [facility] Rx#:[id number] cardiac output 60 80 60 ceFAZolin 2 gm In Sodium 50 Chloride 0.9% 50 ml @ 100 mls/hr IVPB ONCE ONE Rx# :[id number] pressure bag 117 99 72 Intake, IV Titration 416.053 272.806 100.324 Amount Diltiazem 125 mg In 61.583 Sodium Chloride 0.9% 100 ml @ 5 MG/HR 5 mls/hr IV .Q24H [facility] Rx#:[id number] Insulin Regular 100 unit 16.438 32.429 5.597 In Sodium Chloride 0.9% 100 ml @ Per Protocol IV .Q0M [facility] Rx#:[id number] Milrinone-D5w Pmx 20 mg 59.623 40.377 In Dextrose/Water 1 100ml .bag @ 0.1 MCG/KG/MIN 3. 13 mls/hr IV .Q24H [facility] Rx #:[id number] Nitroglycerin-D5w Pmx 50 24.475 mg In Dextrose/Water 1 250ml.bag @ 5 MCG/MIN 1.5 mls/hr IV .Q24H [facility] Rx#: [id number] propofoL 1,000 mg In 253.934 200 94.727 Empty Bag 1 bag @ Titrate IV .Q0M [facility] Rx#: [id number] Tube Feeding 30 Output: Chest Tube Drainage 185 150 left pleural 120 90 mediastinal 65 60 Urine 422 842 865 Other: Voiding Method Indwelling Catheter Indwelling Catheter Indwelling Catheter ABP, PAP, CO, CI - Last Documented Arterial Blood Pressure 128/50 Pulmonary Artery Pressure 34/21 Cardiac Output 4.9 Cardiac Index 2.5 - Exam GENERAL EXAM: Patient is intubated and sedated HEENT: Normocephalic. Normal reaction of pupils, equal size, normal range of extraocular motion. No erythema or exudates in the throat. NECK: No masses, no nuchal rigidity. CHEST: No chest wall deformity. LUNGS: Expiratory rhonchi and some wheezes HEART: S1 and S2 normal with no audible mumurs or gallops. Regular rhythm, femorals equal on both sides.. ABDOMEN: No hepatosplenomegaly, normal bowel sounds, no guarding or rigidity. SKIN: No rashes CENTRAL NERVOUS SYSTEM: Intubated and sedated EXTREMITIES: No cyanosis, clubbing or edema. - Labs CBC & Chem 7: 10/12/21 04:20 10/12/21 04:20 Labs: Abnormal Lab Results - Last 24 Hours (Table) 10/11/21 10/11/21 10/11/21 Range/Units 16:34 18:28 19:47 WBC (3.8-10.6) k/uL RBC (3.80-5.40) m/uL Hgb (11.4-16.0) gm/dL Hct (34.0-46.0) % MCV (80.0-100.0) fL Plt Count (150-450) k/uL Neutrophils # (1.3-7.7) k/uL Lymphocytes # (1.0-4.8) k/uL ABG pH (7.35-7.45) ABG pO2 (83-108) mmHg ABG HCO3 (21-25) mmol/L ABG Total CO2 (19-24) mmol/L Sodium (137-145) mmol/L Creatinine (0.52-1.04) mg/dL Glucose (74-99) mg/dL POC Glucose (mg/dL) 123 H 117 H 113 H (70-110) mg/dL Calcium (8.4-10.2) mg/dL AST (14-36) U/L Creatine Kinase (30-135) U/L Total Protein (6.3-8.2) g/dL Albumin (3.5-5.0) g/dL 10/11/21 10/11/21 10/12/21 Range/Units 22:10 23:26 01:10 WBC (3.8-10.6) k/uL RBC (3.80-5.40) m/uL Hgb (11.4-16.0) gm/dL Hct (34.0-46.0) % MCV (80.0-100.0) fL Plt Count (150-450) k/uL Neutrophils # (1.3-7.7) k/uL Lymphocytes # (1.0-4.8) k/uL ABG pH (7.35-7.45) ABG pO2 (83-108) mmHg ABG HCO3 (21-25) mmol/L ABG Total CO2 (19-24) mmol/L Sodium (137-145) mmol/L Creatinine (0.52-1.04) mg/dL Glucose (74-99) mg/dL POC Glucose (mg/dL) 136 H 145 H 119 H (70-110) mg/dL Calcium (8.4-10.2) mg/dL AST (14-36) U/L Creatine Kinase (30-135) U/L Total Protein (6.3-8.2) g/dL Albumin (3.5-5.0) g/dL 10/12/21 10/12/21 10/12/21 Range/Units 02:25 04:13 04:20 WBC 14.9 H (3.8-10.6) k/uL RBC 2.57 L (3.80-5.40) m/uL Hgb 8.4 L (11.4-16.0) gm/dL Hct 25.9 L (34.0-46.0) % MCV 101.0 H (80.0-100.0) fL Plt Count 131 L (150-450) k/uL Neutrophils # 12.6 H (1.3-7.7) k/uL Lymphocytes # 0.9 L (1.0-4.8) k/uL ABG pH (7.35-7.45) ABG pO2 (83-108) mmHg ABG HCO3 (21-25) mmol/L ABG Total CO2 (19-24) mmol/L Sodium (137-145) mmol/L Creatinine (0.52-1.04) mg/dL Glucose (74-99) mg/dL POC Glucose (mg/dL) 114 H 148 H (70-110) mg/dL Calcium (8.4-10.2) mg/dL AST (14-36) U/L Creatine Kinase (30-135) U/L Total Protein (6.3-8.2) g/dL Albumin (3.5-5.0) g/dL 10/12/21 10/12/21 10/12/21 Range/Units 04:20 04:20 06:24 WBC (3.8-10.6) k/uL RBC (3.80-5.40) m/uL Hgb (11.4-16.0) gm/dL Hct (34.0-46.0) % MCV (80.0-100.0) fL Plt Count (150-450) k/uL Neutrophils # (1.3-7.7) k/uL Lymphocytes # (1.0-4.8) k/uL ABG pH 7.47 H (7.35-7.45) ABG pO2 72 L (83-108) mmHg ABG HCO3 29 H (21-25) mmol/L ABG Total CO2 31 H (19-24) mmol/L Sodium 134 L (137-145) mmol/L Creatinine 1.21 H (0.52-1.04) mg/dL Glucose 131 H (74-99) mg/dL POC Glucose (mg/dL) (70-110) mg/dL Calcium 8.1 L (8.4-10.2) mg/dL AST 93 H (14-36) U/L Creatine Kinase 965 H (30-135) U/L Total Protein 4.9 L (6.3-8.2) g/dL Albumin 2.8 L (3.5-5.0) g/dL 10/12/21 10/12/21 10/12/21 Range/Units 06:27 07:03 08:03 WBC (3.8-10.6) k/uL RBC (3.80-5.40) m/uL Hgb (11.4-16.0) gm/dL Hct (34.0-46.0) % MCV (80.0-100.0) fL Plt Count (150-450) k/uL Neutrophils # (1.3-7.7) k/uL Lymphocytes # (1.0-4.8) k/uL ABG pH (7.35-7.45) ABG pO2 (83-108) mmHg ABG HCO3 (21-25) mmol/L ABG Total CO2 (19-24) mmol/L Sodium (137-145) mmol/L Creatinine (0.52-1.04) mg/dL Glucose (74-99) mg/dL POC Glucose (mg/dL) 130 H 136 H 132 H (70-110) mg/dL Calcium (8.4-10.2) mg/dL AST (14-36) U/L Creatine Kinase (30-135) U/L Total Protein (6.3-8.2) g/dL Albumin (3.5-5.0) g/dL 10/12/21 10/12/21 10/12/21 Range/Units 09:10 10:13 11:52 WBC (3.8-10.6) k/uL RBC (3.80-5.40) m/uL Hgb (11.4-16.0) gm/dL Hct (34.0-46.0) % MCV (80.0-100.0) fL Plt Count (150-450) k/uL Neutrophils # (1.3-7.7) k/uL Lymphocytes # (1.0-4.8) k/uL ABG pH (7.35-7.45) ABG pO2 (83-108) mmHg ABG HCO3 (21-25) mmol/L ABG Total CO2 (19-24) mmol/L Sodium (137-145) mmol/L Creatinine (0.52-1.04) mg/dL Glucose (74-99) mg/dL POC Glucose (mg/dL) 127 H 137 H 116 H (70-110) mg/dL Calcium (8.4-10.2) mg/dL AST (14-36) U/L Creatine Kinase (30-135) U/L Total Protein (6.3-8.2) g/dL Albumin (3.5-5.0) g/dL Microbiology - Last 24 Hours (Table) 10/10/21 20:23 Gram Stain - Preliminary Sputum Sputum Culture - Preliminary Assessment and Plan (1) Status post aorto-coronary artery bypass graft Current Visit: Yes Status: Acute Code(s): Z95.1 - PRESENCE OF AORTOCORONARY BYPASS GRAFT SNOMED Code(s): 377496591 (2) Acute coronary syndrome Current Visit: No Status: Acute Code(s): I24.9 - ACUTE ISCHEMIC HEART DISEASE, UNSPECIFIED SNOMED Code(s): 714300525 (3) Acute non-ST segment elevation myocardial infarction (STEMI) following previous myocardial infarction Current Visit: No Status: Acute Code(s): I22.9 - SUBSEQUENT STEMI OF [facility] SITE (4) HTN (hypertension) Current Visit: No Status: Acute Code(s): I10 - ESSENTIAL (PRIMARY) HYPERTENSION SNOMED Code(s): 17019279 (5) Hyperlipemia Current Visit: No Status: Acute Code(s): E78.5 - HYPERLIPIDEMIA, UNSPECIFIED SNOMED Code(s): 23583053 (6) Respiratory failure Current Visit: Yes Status: Acute Code(s): J96.90 - RESPIRATORY FAILURE, UNSP, UNSP W HYPOXIA OR HYPERCAPNIA SNOMED Code(s): 236890483 Plan: Patient is on mechanical ventilator, showing some improvement. Hopefully extubation either this evening or tomorrow. Hemodynamically stable. Continue current medical therapy. Maintaining sinus rhythm
[2021-10-12] MEDS: LACTATED RINGERS 1,000 ML IV SCH (15:42)
--- NOTE | 2021-10-12 16:26 | P.PN ---
Subjective Progress Note Date: 10/12/21 (delayed charting see at 1145) Principal diagnosis: chest pain Patient is a 56-year-old female with CAD with stents, hypertension, hyperlipidemia, ischemic cardiomyopathy, Graves' disease, chronic kidney disease, COPD not on home oxygen dependent with continued nicotine dependence. In the emergency department she underwent an extensive evaluation. CBC revealing mild leukocytosis with WBC count of 11.1. BMP revealing mildly elevated creatinine which is improved from baseline levels and currently 1.09. Liver profile revealing slightly elevated AST of 66 and ALT of 45. Troponin negative at 0.013. EKG revealing normal sinus rhythm at 96 bpm with T-wave inversion in leads V3 through V6. Chest x-ray revealing mild cardiomegaly and chronic emphysematous changes, otherwise negative for acute pulmonary process. Patient was admittedfor furter evaluation. Cardiology was consulted. Troponins trended and elevating at 0.013, 0.020, and 0.070. Patient was started on heparin infusion per ACS protocol. On 10/05/21 patient underwent a cardiac cath which revealed severe three-vessel coronary artery disease with chronically occluded right coronary artery and a long segment of stenosis in the proximal LAD and lesion within the circumflex. Patient was felt to be high risk for angioplasty and further stent placement secondary to her significant cardiac history and was referred for cardiac bypass surgery. Cardiothoracic surgery was then consulted and patient went for CABG on 10/10/21. She had prolonged ventilation Spiked fevers starting on 10/10/21. Patient seen and examined at bedside. Currently on vent. Fevers overnight. General: nontoxic, mild distress, appears at stated age Derm: warm, dry Head: atraumatic, normocephalic, symmetric Eyes: no lid leisions Mouth: no lip lesion, mucus membranes moist Cardiovascular: S1S2 reg, no murmur, positive posterior tibial pulse bilateral, + CT inplace, medistinal tube in place, temporary pacer wires in place. Lungs: course bilateral, no rhonchi, no rales , no accessory muscle use Abdominal: soft, nontender to palpation, no guarding, no appreciable organomegaly, + garcia with yellow urine Ext: no gross muscle atrophy, no edema, no contractures Neuro: PERRL, + breathing over the vent. Psych: Sedated on vent Assessment and Plan of Care: NSTEMI s/p CABG Severe three-vessel coronary artery disease Ischemic cardiomyopathy EF 45-50% History of coronary artery disease with stents Hypertension Hyperlipidemia - management per cardiothorasic - plavix, ASA, statin -Echocardiogram revealed mildly impaired EF of 45-50% with mild mitral regurgitation and inferior wall hypokinesia. -Carotid Dopplers revealing minimal plaque formation with less than 25% stenosis in both internal carotid arteries. Elevated CK with propofol - repeat in AM Pyrexia - follow CXR - Await UA, blood cultures. Acute blood loss anemia Thrombocytopenia -Anticipated outcome of surgery -No indication for repeat transfusion at this time -Follow CBC Hypothyroidism with history of Graves' disease -TSH 23.300 and free T4 0.36 -possibly secondary to medication noncompliance, however unclear -Home Synthroid dose increased from 50 to 88 g each morning - follow up outpatient with PCP/endocrinology for repeat labs in 6-8 weeks and further adjustments of medications/medication management. COPD with continued nicotine dependence, without exacerbation - scheduled and prn bronchdilators. Type 2 diabetes mellitus with hemoglobin A1c of 6.8%, newly discovered - Transition off of insulin drip, start sliding scale every 6 hours and low-dose Levemir. Continue to follow blood sugars. - will need glucometer on discharge -Patient will need oral hypoglycemic agent upon discharge, recommend Jardiance based upon its benefits with controlling blood glucose levels as well as its associated heart failure risk reduction. -Continue to encourage lifestyle/dietary changes and maintain a heart healthy and carb consistent diet. DVT prophylaxis: Heparin Discussed with: Anticipated discharge date: clinical course to determine Anticipated discharge place: Home A total of 36 minutes was spent on the care of this complex patient more than 50% of the time was spent in counseling and care coordination. Active Medications Generic Name Dose Route Start Last Admin Trade Name Freq PRN Reason Stop Dose Admin Hydrocodone Bitart/Acetaminophen 2 each 10/11/21 06:00 Hydrocodone/Apap 5-325mg 1 Each Tab PO Q4HR PRN Severe Pain Hydrocodone Bitart/Acetaminophen 1 each 10/11/21 06:00 Hydrocodone/Apap 5-325mg 1 Each Tab PO Q4HR PRN Moderate Pain Albuterol/Ipratropium 3 ml 10/10/21 15:13 Ipratropium-Albuterol 3 Ml Neb INHALATION RT-Q2H PRN Shortness Of Breath Or Wheezing Albuterol/Ipratropium 3 ml 10/11/21 08:00 10/12/21 15:11 Ipratropium-Albuterol 3 Ml Neb INHALATION 3 ml RT-QID [facility] Administration Aspirin 325 mg 10/11/21 09:00 10/12/21 08:37 Aspirin 325 Mg Tab PO 325 mg DAILY [facility] Administration Atorvastatin Calcium 40 mg 10/11/21 09:00 10/12/21 08:37 Atorvastatin 40 Mg Tab PO 40 mg DAILY [facility] Administration Benzocaine/Menthol 1 each 10/10/21 15:13 Benzocaine/Menthol Lozeng 1 Each Lozenge MUCOUS MEM Q2H PRN Sore Throat Bisacodyl 10 mg 10/11/21 09:00 Bisacodyl 10 Mg Supp RECTAL DAILY PRN Constipation Chlorhexidine Gluconate 15 ml 10/11/21 09:00 10/12/21 08:36 Chlorhexidine Gluconate 15 Ml Cup MUCOUS MEM 15 ml BID [facility]EL Administration Clopidogrel Bisulfate 75 mg 10/11/21 09:00 10/12/21 08:37 Clopidogrel 75 Mg Tab PO 75 mg DAILY [facility] Administration Diltiazem HCl 30 mg 10/12/21 08:00 10/12/21 11:57 Diltiazem Oral 30 Mg Tab PO 30 mg Q6HR [facility] Administration Heparin Sodium (Porcine) 5,000 unit 10/10/21 16:00 10/12/21 15:42 Heparin Sodium,Porcine/Pf 5,000 Unit/0.5 Ml Syringe SQ 5,000 unit Q8HR [facility] Administration Hydralazine HCl 10 mg 10/10/21 15:13 Hydralazine Hcl 20 Mg/Ml 1 Ml Vial IVP Q1H PRN Blood Pressure - High Amiodarone HCl 150 mg/ 103 mls @ 618 mls/hr 10/10/21 15:13 Dextrose/Water IV .Q10M PRN A.FIB/FLUTTER Protocol Amiodarone HCl 360 mg/ 207.2 mls @ 34.533 mls/hr 10/10/21 15:13 Dextrose/Water IV .Q6H PRN A.FIB/FLUTTER Protocol 1 MG/MIN Amiodarone HCl 450 mg/ 250 mls @ 16.667 mls/hr 10/10/21 15:13 Dextrose/Water IV .Q15H PRN A.FIB/FLUTTER Protocol 0.5 MG/MIN Lactated Ringer's 1,000 mls @ 20 mls/hr 10/10/21 15:13 10/12/21 15:42 Lactated Ringers IV 20 mls/hr .Q24H [facility] Administration Propofol 1,000 mg/ IV Solution 100 mls @ 0 mls/hr 10/10/21 15:13 10/12/21 16:12 IV 40 mcg/kg/min .Q0M AD[facility]EL 25.038 mls/hr Administration Protocol Titrate Insulin Aspart 0 unit 10/12/21 12:00 10/12/21 11:53 Insulin Aspart (Novolog) 100 Unit/Ml Vial SQ Not Given Q6H [facility] Protocol Insulin Detemir 10 unit 10/12/21 10:00 10/12/21 10:08 Insulin Detemir (Levemir) 100 Unit/Ml Syr SQ 10 unit DAILY@0700 [facility] Administration Levothyroxine Sodium 37.5 mcg 10/12/21 09:30 10/12/21 09:38 Levothyroxine Ivp 100 Mcg/5 Ml Vial IV 37.5 mcg DAILY [facility] Administration Magnesium Hydroxide 2,400 mg 10/11/21 09:00 Magnesium Hydroxide 2,400 Mg/10 Ml Cup PO BID PRN Constipation Metoclopramide HCl 10 mg 10/10/21 15:13 Metoclopramide 5 Mg/Ml 2 Ml Vial IVP Q4H PRN Nausea And Vomiting Metoprolol Tartrate 50 mg 10/11/21 21:00 10/12/21 08:37 Metoprolol Tartrate 50 Mg Tab PO 50 mg BID [facility] Administration Miscellaneous Information 1 each 10/10/21 15:13 Potassium Replacement Protocol 1 Each Misc MISCELLANE DAILY PRN Per Protocol Protocol Miscellaneous Information 1 each 10/10/21 15:13 Magnesium Replacement Protocol 1 Each Misc MISCELLANE DAILY PRN Per Protocol Protocol Ondansetron HCl 4 mg 10/10/21 15:13 Ondansetron 4 Mg/2 Ml Vial IVP Q6HR PRN Nausea And Vomiting Pantoprazole Sodium 40 mg 10/11/21 09:00 10/12/21 08:36 Pantoprazole 40 Mg/10 Ml Vial IVP 40 mg DAILY [facility] Administration Senna/Docusate Sodium 2 each 10/11/21 21:00 10/11/21 20:24 Sennosides-Docusate Sodium 1 Each Tab PO 2 each HS [facility]EL Administration Sodium Chloride 10 ml 10/10/21 21:00 10/12/21 08:37 Sodium Chloride 0.9% Flush 10 Ml Syringe IV 10 ml BID [facility]IEL Administration Objective - Vital Signs Vital signs: Vital Signs Temp 99.4 F 10/12/21 16:00 Pulse 79 10/12/21 16:00 Resp 22 10/12/21 16:00 BP 95/57 10/12/21 15:00 Pulse Ox 90 L 10/12/21 16:00 FiO2 40 10/12/21 16:00 Intake & Output 10/11/21 10/12/21 10/12/21 18:59 06:59 18:59 Intake Total 1053.053 781.806 730.848 Output Total 982 443 2845 Balance 446.053 -210.194 -484.152 Weight 114.3 kg 114.8 kg 114.8 kg Intake: IV 637 509 450 Lactated Ringers 1,000 ml 410 330 300 @ 20 mls/hr IV .Q24H [facility] Rx#:[id number] cardiac output 60 80 60 ceFAZolin 2 gm In Sodium 50 Chloride 0.9% 50 ml @ 100 mls/hr IVPB ONCE ONE Rx# :[id number] pressure bag 117 99 90 Intake, IV Titration 416.053 272.806 170.848 Amount Diltiazem 125 mg In 61.583 Sodium Chloride 0.9% 100 ml @ 5 MG/HR 5 mls/hr IV .Q24H [facility] Rx#:[id number] Insulin Regular 100 unit 16.438 32.429 5.597 In Sodium Chloride 0.9% 100 ml @ Per Protocol IV .Q0M [facility] Rx#:[id number] Milrinone-D5w Pmx 20 mg 59.623 40.377 In Dextrose/Water 1 100ml .bag @ 0.1 MCG/KG/MIN 3. 13 mls/hr IV .Q24H [facility] Rx #:[id number] Nitroglycerin-D5w Pmx 50 24.475 mg In Dextrose/Water 1 250ml.bag @ 5 MCG/MIN 1.5 mls/hr IV .Q24H [facility] Rx#: [id number] propofoL 1,000 mg In 253.934 200 165.251 Empty Bag 1 bag @ Titrate IV .Q0M [facility] Rx#: [id number] Tube Feeding 80 Other 30 Output: Chest Tube Drainage 185 150 left pleural 120 90 mediastinal 65 60 Urine 968 854 6118 Other: Voiding Method Indwelling Catheter Indwelling Catheter Indwelling Catheter ABP, PAP, CO, CI - Last Documented Arterial Blood Pressure 143/51 Pulmonary Artery Pressure 33/19 Cardiac Output 4.3 Cardiac Index 2.2 - Labs CBC & Chem 7: 10/12/21 04:20 10/12/21 04:20 Labs: Abnormal Lab Results - Last 24 Hours (Table) 10/11/21 10/11/21 10/11/21 Range/Units 16:34 18:28 19:47 WBC (3.8-10.6) k/uL RBC (3.80-5.40) m/uL Hgb (11.4-16.0) gm/dL Hct (34.0-46.0) % MCV (80.0-100.0) fL Plt Count (150-450) k/uL Neutrophils # (1.3-7.7) k/uL Lymphocytes # (1.0-4.8) k/uL ABG pH (7.35-7.45) ABG pO2 (83-108) mmHg ABG HCO3 (21-25) mmol/L ABG Total CO2 (19-24) mmol/L Sodium (137-145) mmol/L Creatinine (0.52-1.04) mg/dL Glucose (74-99) mg/dL POC Glucose (mg/dL) 123 H 117 H 113 H (70-110) mg/dL Calcium (8.4-10.2) mg/dL AST (14-36) U/L Creatine Kinase (30-135) U/L Total Protein (6.3-8.2) g/dL Albumin (3.5-5.0) g/dL 10/11/21 10/11/21 10/12/21 Range/Units 22:10 23:26 01:10 WBC (3.8-10.6) k/uL RBC (3.80-5.40) m/uL Hgb (11.4-16.0) gm/dL Hct (34.0-46.0) % MCV (80.0-100.0) fL Plt Count (150-450) k/uL Neutrophils # (1.3-7.7) k/uL Lymphocytes # (1.0-4.8) k/uL ABG pH (7.35-7.45) ABG pO2 (83-108) mmHg ABG HCO3 (21-25) mmol/L ABG Total CO2 (19-24) mmol/L Sodium (137-145) mmol/L Creatinine (0.52-1.04) mg/dL Glucose (74-99) mg/dL POC Glucose (mg/dL) 136 H 145 H 119 H (70-110) mg/dL Calcium (8.4-10.2) mg/dL AST (14-36) U/L Creatine Kinase (30-135) U/L Total Protein (6.3-8.2) g/dL Albumin (3.5-5.0) g/dL 10/12/21 10/12/21 10/12/21 Range/Units 02:25 04:13 04:20 WBC 14.9 H (3.8-10.6) k/uL RBC 2.57 L (3.80-5.40) m/uL Hgb 8.4 L (11.4-16.0) gm/dL Hct 25.9 L (34.0-46.0) % MCV 101.0 H (80.0-100.0) fL Plt Count 131 L (150-450) k/uL Neutrophils # 12.6 H (1.3-7.7) k/uL Lymphocytes # 0.9 L (1.0-4.8) k/uL ABG pH (7.35-7.45) ABG pO2 (83-108) mmHg ABG HCO3 (21-25) mmol/L ABG Total CO2 (19-24) mmol/L Sodium (137-145) mmol/L Creatinine (0.52-1.04) mg/dL Glucose (74-99) mg/dL POC Glucose (mg/dL) 114 H 148 H (70-110) mg/dL Calcium (8.4-10.2) mg/dL AST (14-36) U/L Creatine Kinase (30-135) U/L Total Protein (6.3-8.2) g/dL Albumin (3.5-5.0) g/dL 0610/12/21 10/12/21 Range/Units 04:20 04:20 06:24 WBC (3.8-10.6) k/uL RBC (3.80-5.40) m/uL Hgb (11.4-16.0) gm/dL Hct (34.0-46.0) % MCV (80.0-100.0) fL Plt Count (150-450) k/uL Neutrophils # (1.3-7.7) k/uL Lymphocytes # (1.0-4.8) k/uL ABG pH 7.47 H (7.35-7.45) ABG pO2 72 L (83-108) mmHg ABG HCO3 29 H (21-25) mmol/L ABG Total CO2 31 H (19-24) mmol/L Sodium 134 L (137-145) mmol/L Creatinine 1.21 H (0.52-1.04) mg/dL Glucose 131 H (74-99) mg/dL POC Glucose (mg/dL) (70-110) mg/dL Calcium 8.1 L (8.4-10.2) mg/dL AST 93 H (14-36) U/L Creatine Kinase 965 H (30-135) U/L Total Protein 4.9 L (6.3-8.2) g/dL Albumin 2.8 L (3.5-5.0) g/dL 10/12/21 10/12/21 10/12/21 Range/Units 06:27 07:03 08:03 WBC (3.8-10.6) k/uL RBC (3.80-5.40) m/uL Hgb (11.4-16.0) gm/dL Hct (34.0-46.0) % MCV (80.0-100.0) fL Plt Count (150-450) k/uL Neutrophils # (1.3-7.7) k/uL Lymphocytes # (1.0-4.8) k/uL ABG pH (7.35-7.45) ABG pO2 (83-108) mmHg ABG HCO3 (21-25) mmol/L ABG Total CO2 (19-24) mmol/L Sodium (137-145) mmol/L Creatinine (0.52-1.04) mg/dL Glucose (74-99) mg/dL POC Glucose (mg/dL) 130 H 136 H 132 H (70-110) mg/dL Calcium (8.4-10.2) mg/dL AST (14-36) U/L Creatine Kinase (30-135) U/L Total Protein (6.3-8.2) g/dL Albumin (3.5-5.0) g/dL 10/12/21 10/12/21 10/12/21 Range/Units 09:10 10:13 11:52 WBC (3.8-10.6) k/uL RBC (3.80-5.40) m/uL Hgb (11.4-16.0) gm/dL Hct (34.0-46.0) % MCV (80.0-100.0) fL Plt Count (150-450) k/uL Neutrophils # (1.3-7.7) k/uL Lymphocytes # (1.0-4.8) k/uL ABG pH (7.35-7.45) ABG pO2 (83-108) mmHg ABG HCO3 (21-25) mmol/L ABG Total CO2 (19-24) mmol/L Sodium (137-145) mmol/L Creatinine (0.52-1.04) mg/dL Glucose (74-99) mg/dL POC Glucose (mg/dL) 127 H 137 H 116 H (70-110) mg/dL Calcium (8.4-10.2) mg/dL AST (14-36) U/L Creatine Kinase (30-135) U/L Total Protein (6.3-8.2) g/dL Albumin (3.5-5.0) g/dL Microbiology - Last 24 Hours (Table) 10/10/21 20:23 Gram Stain - Preliminary Sputum Sputum Culture - Preliminary
[2021-10-12 18:10] LABS: Glucose,Whole Blood 136 mg/dL (70-110)
[2021-10-12] MEDS: SENNOSIDES-DOCUSATE SODIUM 1 EACH TAB PO SCH (20:20)
[2021-10-12 23:44] LABS: Glucose,Whole Blood 150 mg/dL (70-110)
[2021-10-13] MEDS: HYDROcodone/APAP 5-325MG 1 EACH TAB PO PRN (00:27)
[2021-10-13] MEDS: HYDROmorphone 1 MG/ML 1 ML SYRINGE IVP PRN ×2 (04:44→12:37)
[2021-10-13 05:14] LABS: Glucose,Whole Blood 135 mg/dL (70-110)
[2021-10-13 05:35] LABS: Basophils # (A) 0.1 k/uL (0-0.2); Basophils % (A) 1 %; Eosinophils # (A) 0.3 k/uL (0-0.7); Eosinophils % (A) 2 %; HCT 23.8 % (34.0-46.0); HGB 7.8 gm/dL (11.4-16.0); Hypochromasia Slight; Lymphocytes # (A) 1.2 k/uL (1.0-4.8); Lymphocytes % (A) 8 %; MCH 33.1 pg (25.0-35.0); MCHC 32.6 g/dL (31.0-37.0); MCV 101.4 fL (80.0-100.0); Macrocytosis Slight; Mean Platelet Volume 10.7; Monocytes # (A) 0.8 k/uL (0-1.0); Monocytes % (A) 6 %; Neutrophils # (A) 12.2 k/uL (1.3-7.7); Neutrophils % (A) 82 %; Platelet Count 118 k/uL (150-450); RBC 2.35 m/uL (3.80-5.40); RDW 14.9 % (11.5-15.5); WBC 14.8 k/uL (3.8-10.6)
[2021-10-13] MEDS: INSULIN ASPART (NovoLOG) 100 UNIT/ML VIAL SQ SCH ×4 (05:35→23:26)
[2021-10-13 05:53] LABS: Albumin 2.5 g/dL (3.5-5.0); Calcium 7.8 mg/dL (8.4-10.2); Magnesium 2.2 mg/dL (1.6-2.3); Potassium 3.9 mmol/L (3.5-5.1); Total Bilirubin 0.4 mg/dL (0.2-1.3); Total Protein 4.9 g/dL (6.3-8.2)
[2021-10-13 05:56] LABS: ABG Base Excess 5.4 mmol/L; ABG HCO3 30 mmol/L (21-25); ABG Oxygen Saturation 95.7 % (94-97); ABG PCO2 46 mmHg (35-45); ABG PH 7.42 (7.35-7.45); ABG PO2 72 mmHg (83-108); ABG TCO2 31 mmol/L (19-24); Allen Test Performed? Yes
[2021-10-13] MEDS: DILTIAZEM ORAL 30 MG TAB PO SCH ×4 (05:59→23:16)
[2021-10-13] MEDS ORDERED: POTASSIUM BICARBONATE/CIT AC 20 MEQ TABLET.EFF NG-TUBE SCH (06:00)
[2021-10-13] MEDS: INSULIN DETEMIR (LEVEMIR) 100 UNIT/ML SYR SQ SCH (06:20)
--- NOTE | 2021-10-13 07:17 | XR ---
EXAMINATION TYPE: XR chest 1V portable DATE OF EXAM: 10/13/2021 COMPARISON: 10/12/2021 HISTORY: post cardiac surgery FINDINGS: Indwelling tubes and catheters are unchanged. Increasing pleural-parenchymal opacity left lower lobe. Stable increased density right lower lobe. Pu lmonary venous congestion is unchanged. Stable appearance of the cardio-mediastinal structures at this time. IMPRESSION: 1. Increasing pleural-parenchymal opacity left lower lobe. Stable increased density right lower lobe . Pulmonary venous congestion is unchanged.
--- NOTE | 2021-10-13 08:30 | P.PN ---
Subjective Progress Note Date: 10/13/21 Principal diagnosis: Multivessel coronary artery disease, non-ST elevated myocardial infarction this admission. Previous medical history of coronary artery disease and myocardial infarction status post multiple stent placement, ischemic cardiomyopathy, hypertension, hyperlipidemia, chronic kidney disease stage III secondary to nephrosclerosis, chronic ongoing tobacco abuse, obstructive sleep apnea with out home CPAP use, mild COPD with home oxygen use 2-3 L nasal cannula at night, morbid obesity, hypothyroid, medical noncompliance, type II diabetes, peripheral artery disease POD #3 coronary artery bypass grafting 3 vessels, left internal mammary artery to the left anterior descending artery, radial artery to the obtuse marginal artery, saphenous vein graft to the posterior descending artery, endoscopic harvesting of the left radial artery, endoscopic harvesting of the left greater saphenous vein, ligation of the left atrial appendage using a 35 mm AtriClip, epi-aortic ultrasound, intraoperative transesophageal echocardiogram, closure of the sternum using a titanium plating system Postoperative acute blood loss anemia and thrombocytopenia, expected given hemo dilution cardiopulmonary bypass pump Hypoxic respiratory failure requiring a prolonged mechanical ventilation The patient was seen and examined this morning laying in bed in the intensive care unit still mechanically ventilated on propofol for sedation. She remains in sinus rhythm and hemodynamically stable on no inotropes or pressors. Patient was weaned to 50% FiO2 in PEEP of 10 yesterday and was oxygenating well, however last night she had a significant coughing fit and dropped her oxygen saturation. She currently remains on 50% FiO2 with PEEP of 10. She was started on tube feeding for nutritional support. With lightening of sedation the patient does open her eyes, move all extremities and follows commands. Right internal jugular Bidwell/Cordis, right radial arterial line, mediastinal/left pleural chest tube all remain in place. Urine output stable. Patient continued to be febrile with T-max 100.2F, cultures pending. No other new concerns. Objective - Vital Signs Vital signs: Vital Signs Temp 98.6 F 10/13/21 04:00 Pulse 71 10/13/21 07:00 Resp 20 10/13/21 07:00 BP 96/51 10/13/21 07:00 Pulse Ox 94 L 10/13/21 07:00 FiO2 50 10/13/21 04:00 Intake & Output 10/12/21 10/13/21 10/13/21 18:59 06:59 18:59 Intake Total 332.624 9245.413 36.254 Output Total 1390 625 Balance -521.152 603.413 36.254 Weight 114.8 kg 112.4 kg Intake: IV 548 507 Lactated Ringers 1,000 ml 360 390 @ 20 mls/hr IV .Q24H [facility] Rx#:[id number] cardiac output 80 pressure bag 108 117 Intake, IV Titration 170.848 241.413 36.254 Amount Insulin Regular 100 unit 5.597 In Sodium Chloride 0.9% 100 ml @ Per Protocol IV .Q0M [facility] Rx#:[id number] propofoL 1,000 mg In 165.251 241.413 36.254 Empty Bag 1 bag @ Titrate IV .Q0M [facility] Rx#: [id number] Tube Feeding 120 360 Other 30 120 Output: Chest Tube Drainage 90 left pleural 0 mediastinal 90 Urine 1390 535 Other: Voiding Method Indwelling Catheter Indwelling Catheter ABP, PAP, CO, CI - Last Documented Arterial Blood Pressure 117/61 Pulmonary Artery Pressure 33/19 Cardiac Output 4.9 Cardiac Index 2.5 - Exam CONSTITUTIONAL: Lying in bed mechanically ventilated and sedated RESPIRATORY: Lungs sounds diminished bilaterally. Respirations even, nonlabored on mechanical ventilation. Current ventilator settings FiO2 50%, tidal volume 350, respiratory rate 20, PEEP 10. 8.0 ET tube present, 21 at the lip CARDIOVASCULAR: S1, S2 present. Regular rate and rhythm, sinus rhythm on telemetry. Sternum stable. Palpable peripheral pulses bilaterally. Trace generalized edema present. No calf pain or tenderness noted. Heart hugger, antiembolism stockings, SCDs present. GASTROINTESTINAL: Abdomen soft, nontender, nondistended. Active bowel sounds present 4 quadrants. OG tube present, tube feedings infusing 30 mL/h GENITOURINARY: Guzman present draining clear, yellow urine. Output overnight 30-40 mL per hour, 1895 mL in the last 24 hours INTEGUMENTARY: Skin is warm and dry with evidence of good perfusion. Anterior chest incision well approximated and covered with dry intact dressing. Left lower extremity EVH site as well as left radial artery harvest site well approximated without redness or drainage. NEUROLOGIC: Cranial nerves II through XII intact MUSKULOSKELETAL: Able to move all extremities, strength equal bilaterally went off sedation PSYCHIATRIC: Sedated with propofol, does follow commands off sedation INVASIVE LINES AND TUBES: Mediastinal/left pleural chest tubes present and conn ected to wall suction, no air leaks present. Mediastinal tube with 60 mL serosanguineous drainage overnight, 200 mL in the last 24 hours. Left pleural chest tube with no drainage in the last 24 hours. A/V epicardial pacemaker wires present, grounded. Right internal jugular Bidwell/Cordis, right radial arterial line present. Last CO/CI 4.9/2.5, PA 34/19, CVP 14. - Allied health notes Allied health notes reviewed: nursing - Labs CBC & Chem 7: 10/13/21 05:00 10/13/21 05:00 Labs: Abnormal Lab Results - Last 24 Hours (Table) 10/12/21 10/12/21 10/12/21 Range/Units 04:20 08:03 09:10 WBC (3.8-10.6) k/uL RBC (3.80-5.40) m/uL Hgb (11.4-16.0) gm/dL Hct (34.0-46.0) % MCV (80.0-100.0) fL Plt Count (150-450) k/uL Neutrophils # (1.3-7.7) k/uL ABG pCO2 (35-45) mmHg ABG pO2 (83-108) mmHg ABG HCO3 (21-25) mmol/L ABG Total CO2 (19-24) mmol/L Sodium (137-145) mmol/L Carbon Dioxide (22-30) mmol/L Creatinine (0.52-1.04) mg/dL Glucose (74-99) mg/dL POC Glucose (mg/dL) 132 H 127 H (70-110) mg/dL Calcium (8.4-10.2) mg/dL AST (14-36) U/L Creatine Kinase 965 H (30-135) U/L Total Protein (6.3-8.2) g/dL Albumin (3.5-5.0) g/dL 10/12/21 10/12/21 10/12/21 Range/Units 10:13 11:52 18:09 WBC (3.8-10.6) k/uL RBC (3.80-5.40) m/uL Hgb (11.4-16.0) gm/dL Hct (34.0-46.0) % MCV (80.0-100.0) fL Plt Count (150-450) k/uL Neutrophils # (1.3-7.7) k/uL ABG pCO2 (35-45) mmHg ABG pO2 (83-108) mmHg ABG HCO3 (21-25) mmol/L ABG Total CO2 (19-24) mmol/L Sodium (137-145) mmol/L Carbon Dioxide (22-30) mmol/L Creatinine (0.52-1.04) mg/dL Glucose (74-99) mg/dL POC Glucose (mg/dL) 137 H 116 H 136 H (70-110) mg/dL Calcium (8.4-10.2) mg/dL AST (14-36) U/L Creatine Kinase (30-135) U/L Total Protein (6.3-8.2) g/dL Albumin (3.5-5.0) g/dL 10/12/21 10/13/21 10/13/21 Range/Units 23:42 05:00 05:00 WBC 14.8 H (3.8-10.6) k/uL RBC 2.35 L (3.80-5.40) m/uL Hgb 7.8 L (11.4-16.0) gm/dL Hct 23.8 L (34.0-46.0) % MCV 101.4 H (80.0-100.0) fL Plt Count 118 L (150-450) k/uL Neutrophils # 12.2 H (1.3-7.7) k/uL ABG pCO2 (35-45) mmHg ABG pO2 (83-108) mmHg ABG HCO3 (21-25) mmol/L ABG Total CO2 (19-24) mmol/L Sodium 135 L (137-145) mmol/L Carbon Dioxide 31 H (22-30) mmol/L Creatinine 1.16 H (0.52-1.04) mg/dL Glucose 118 H (74-99) mg/dL POC Glucose (mg/dL) 150 H (70-110) mg/dL Calcium 7.8 L (8.4-10.2) mg/dL AST 51 H (14-36) U/L Creatine Kinase (30-135) U/L Total Protein 4.9 L (6.3-8.2) g/dL Albumin 2.5 L (3.5-5.0) g/dL 10/13/21 10/13/21 Range/Units 05:13 05:50 WBC (3.8-10.6) k/uL RBC (3.80-5.40) m/uL Hgb (11.4-16.0) gm/dL Hct (34.0-46.0) % MCV (80.0-100.0) fL Plt Count (150-450) k/uL Neutrophils # (1.3-7.7) k/uL ABG pCO2 46 H (35-45) mmHg ABG pO2 72 L (83-108) mmHg ABG HCO3 30 H (21-25) mmol/L ABG Total CO2 31 H (19-24) mmol/L Sodium (137-145) mmol/L Carbon Dioxide (22-30) mmol/L Creatinine (0.52-1.04) mg/dL Glucose (74-99) mg/dL POC Glucose (mg/dL) 135 H (70-110) mg/dL Calcium (8.4-10.2) mg/dL AST (14-36) U/L Creatine Kinase (30-135) U/L Total Protein (6.3-8.2) g/dL Albumin (3.5-5.0) g/dL Microbiology - Last 24 Hours (Table) 10/12/21 09:20 Urine Culture - Preliminary Urine,Catheterized - Imaging and Cardiology Chest x-ray: report reviewed, image reviewed Assessment and Plan Assessment: 1. Multivessel coronary artery disease, non-ST elevated myocardial infarction this admission, status post three-vessel CABG 2. History of coronary artery disease and myocardial infarction status post multiple stent placement 3. Ischemic cardiomyopathy, EF 45-50% 4. Hypertension 5. Hyperlipidemia, cholesterol 252, LDL 156, triglycerides 291 6. Chronic kidney disease stage III secondary to nephrosclerosis 7. Chronic ongoing tobacco abuse 8. Obstructive sleep apnea with out home CPAP use 9. Mild COPD with home oxygen use 2-3 L nasal cannula at night, preoperative FEV1 60% of predicted 10. Morbid obesity 11. Hypothyroid, TSH 23.3 with free T4 0.36 12. Medical noncompliance 13. Type 2 diabetes mellitus, A1c 6.8% 14. Peripheral arterial disease, left SAEED 0.69 15. Postoperative acute blood loss anemia and thrombocytopenia, expected 16. Hypoxic respiratory failure requiring prolonged mechanical ventilation 17. Febrile with leukocytosis, cultures pending Plan: 1. Continue to optimize medical management with aspirin, Plavix, statin and beta garret. Will increase beta garret therapy as tolerated. 2. Continue calcium channel garret for radial artery spasm prophylaxis 3. Wean from mechanical ventilation as tolerated per pulmonology. Bronchodilators per pulmonology. Continue tube feedings for nutritional support while intubated 4. Will monitor daily labs and x-rays. Electrolyte replacement per protocol. Sputum culture with preliminary Gram stain reporting few gram-positive cocci, urine and blood cultures ordered 5. GI/DVT prophylaxis 6. Once extubated will increase activity as tolerated. PT/OT/cardiac rehab consulted 7. Pain control with current medication regimen 8. Insulin management per primary care service. Patient is recently diagnosed diabetic with hemoglobin A1c 6.8%. Needs tight blood sugar control to promote healing and prevent infection 9. Discontinue Bidwell. Connect Cordis to continuous CVP monitoring. Continue arterial line. Continue mediastinal/left pleural chest tubes while intubated 10. Continue Guzman catheter for another 24 hours for strict accurate intake and output. Daily weights. 11. Importance of risk modification including smoking cessation has been discussed in detail with the patient and reinforced with the patient. 12. More recommendations to follow
[2021-10-13] MEDS: IPRATROPIUM-ALBUTEROL 3 ML NEB INHALATION SCH ×4 (09:19→18:56)
[2021-10-13] MEDS: ATORVASTATIN 40 MG TAB PO SCH (09:35)
[2021-10-13] MEDS: ASPIRIN 325 MG TAB PO SCH (09:35)
[2021-10-13] MEDS: PANTOPRAZOLE 40 MG/10 ML VIAL IVP SCH (09:35)
[2021-10-13] MEDS: CHLORHEXIDINE GLUCONATE 15 ML CUP MUCOUS MEM SCH ×2 (09:35→21:26)
[2021-10-13] MEDS: HEPARIN SODIUM,PORCINE/PF 5,000 UNIT/0.5 ML SYRINGE SQ SCH ×3 (09:35→23:17)
[2021-10-13] MEDS: METOPROLOL TARTRATE 50 MG TAB PO SCH ×2 (09:35→21:25)
[2021-10-13] MEDS: LEVOTHYROXINE IVP 100 MCG/5 ML VIAL IV SCH (09:35)
[2021-10-13] MEDS: CLOPIDOGREL 75 MG TAB PO SCH (09:35)
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
[2021-10-13] MEDS ORDERED: PIPERACILLIN-TAZOBACTAM 3.375 GM in SODIUM CHLORIDE 0.9% 100 ML IVPB STA (11:30)
[2021-10-13 12:41] LABS: Glucose,Whole Blood 126 mg/dL (70-110)
[2021-10-13 12:49] LABS: Allen Test Performed? Yes
--- NOTE | 2021-10-13 14:12 | P.PN ---
Subjective Progress Note Date: 10/13/21 Principal diagnosis: s/p cabg she is doing well. She was on pressure support when seen she is going to be extubated. She shaked her head with a yes to question if she was ok. No pain or sob. Objective - Vital Signs Vital signs: Vital Signs Temp 98.3 F 10/13/21 12:00 Pulse 71 10/13/21 13:00 Resp 18 10/13/21 13:00 BP 106/57 10/13/21 13:00 Pulse Ox 83 L 10/13/21 13:00 FiO2 50 10/13/21 12:00 Intake & Output 10/12/21 10/13/21 10/13/21 18:59 06:59 18:59 Intake Total 752.356 1398.413 423.322 Output Total 1390 625 290 Balance -521.152 603.413 133.322 Weight 114.8 kg 112.4 kg Intake: IV 548 507 245 Lactated Ringers 1,000 ml 360 390 180 @ 20 mls/hr IV .Q24H [facility] Rx#:[id number] cardiac output 80 20 pressure bag 108 117 45 Intake, IV Titration 170.848 241.413 58.322 Amount Insulin Regular 100 unit 5.597 In Sodium Chloride 0.9% 100 ml @ Per Protocol IV .Q0M [facility] Rx#:[id number] propofoL 1,000 mg In 165.251 241.413 58.322 Empty Bag 1 bag @ Titrate IV .Q0M [facility] Rx#: [id number] Tube Feeding 120 360 90 Other 30 120 30 Output: Chest Tube Drainage 90 50 left pleural 0 10 mediastinal 90 40 Urine 1390 535 240 Other: Voiding Method Indwelling Catheter Indwelling Catheter ABP, PAP, CO, CI - Last Documented Arterial Blood Pressure 134/82 Pulmonary Artery Pressure 38/28 Cardiac Output 4.7 Cardiac Index 2.4 - Exam General: nontoxic, intubated, no acute distress, appears at stated age Derm: warm, dry Head: atraumatic, normocephalic, symmetric Eyes: no lid leisions Mouth: no lip lesion, mucus membranes moist Cardiovascular: S1S2 reg, no murmur, positive posterior tibial pulse bilateral, + CT inplace, medistinal tube in place, temporary pacer wires in place. Lungs: course bilateral, no rhonchi, no rales , no accessory muscle use Abdominal: soft, nontender to palpation, no guarding, no appreciable organomegaly, + garcia with yellow urine Ext: no gross muscle atrophy, no edema, no contractures Neuro: PERRL, + breathing over the vent. she is doing well. following commands and answering questions off sedation. - Labs CBC & Chem 7: 10/13/21 05:00 10/13/21 05:00 Labs: Abnormal Lab Results - Last 24 Hours (Table) 10/12/21 10/12/21 10/13/21 Range/Units 18:09 23:42 05:00 WBC 14.8 H (3.8-10.6) k/uL RBC 2.35 L (3.80-5.40) m/uL Hgb 7.8 L (11.4-16.0) gm/dL Hct 23.8 L (34.0-46.0) % MCV 101.4 H (80.0-100.0) fL Plt Count 118 L (150-450) k/uL Neutrophils # 12.2 H (1.3-7.7) k/uL ABG pCO2 (35-45) mmHg ABG pO2 (83-108) mmHg ABG HCO3 (21-25) mmol/L ABG Total CO2 (19-24) mmol/L Sodium (137-145) mmol/L Carbon Dioxide (22-30) mmol/L Creatinine (0.52-1.04) mg/dL Glucose (74-99) mg/dL POC Glucose (mg/dL) 136 H 150 H (70-110) mg/dL Calcium (8.4-10.2) mg/dL AST (14-36) U/L Total Protein (6.3-8.2) g/dL Albumin (3.5-5.0) g/dL 10/13/21 10/13/21 10/13/21 Range/Units 05:00 05:13 05:50 WBC (3.8-10.6) k/uL RBC (3.80-5.40) m/uL Hgb (11.4-16.0) gm/dL Hct (34.0-46.0) % MCV (80.0-100.0) fL Plt Count (150-450) k/uL Neutrophils # (1.3-7.7) k/uL ABG pCO2 46 H (35-45) mmHg ABG pO2 72 L (83-108) mmHg ABG HCO3 30 H (21-25) mmol/L ABG Total CO2 31 H (19-24) mmol/L Sodium 135 L (137-145) mmol/L Carbon Dioxide 31 H (22-30) mmol/L Creatinine 1.16 H (0.52-1.04) mg/dL Glucose 118 H (74-99) mg/dL POC Glucose (mg/dL) 135 H (70-110) mg/dL Calcium 7.8 L (8.4-10.2) mg/dL AST 51 H (14-36) U/L Total Protein 4.9 L (6.3-8.2) g/dL Albumin 2.5 L (3.5-5.0) g/dL 10/13/21 Range/Units 12:39 WBC (3.8-10.6) k/uL RBC (3.80-5.40) m/uL Hgb (11.4-16.0) gm/dL Hct (34.0-46.0) % MCV (80.0-100.0) fL Plt Count (150-450) k/uL Neutrophils # (1.3-7.7) k/uL ABG pCO2 (35-45) mmHg ABG pO2 (83-108) mmHg ABG HCO3 (21-25) mmol/L ABG Total CO2 (19-24) mmol/L Sodium (137-145) mmol/L Carbon Dioxide (22-30) mmol/L Creatinine (0.52-1.04) mg/dL Glucose (74-99) mg/dL POC Glucose (mg/dL) 126 H (70-110) mg/dL Calcium (8.4-10.2) mg/dL AST (14-36) U/L Total Protein (6.3-8.2) g/dL Albumin (3.5-5.0) g/dL Microbiology - Last 24 Hours (Table) 10/12/21 09:20 Urine Culture - Final Urine,Catheterized 10/12/21 09:20 Blood Culture - Preliminary Blood No Growth after 24 hours 10/10/21 20:23 Gram Stain - Final Sputum Sputum Culture - Final Assessment and Plan Plan: NSTEMI s/p CABG Severe three-vessel coronary artery disease Ischemic cardiomyopathy EF 45-50% History of coronary artery disease with stents Hypertension Hyperlipidemia - management per cardiothorasic - plavix, ASA, statin -Echocardiogram revealed mildly impaired EF of 45-50% with mild mitral regurgitation and inferior wall hypokinesia. -Carotid Dopplers revealing minimal plaque formation with less than 25% stenosis in both internal carotid arteries. Elevated CK with propofol - repeat in AM Pyrexia - CXR showing possible lower lungs infiltrates, d/w CT surgery, will monitor for now. - UA, blood cultures, sputum cx, negative so far. Acute blood loss anemia Thrombocytopenia -Anticipated outcome of surgery -No indication for repeat transfusion at this time -Follow CBC Hypothyroidism with history of Graves' disease -TSH 23.300 and free T4 0.36 -possibly secondary to medication noncompliance, however unclear -Home Synthroid dose increased from 50 to 88 g each morning - follow up outpatient with PCP/endocrinology for repeat labs in 6-8 weeks and further adjustments of medications/medication management. COPD with continued nicotine dependence, without exacerbation - scheduled and prn bronchdilators. Type 2 diabetes mellitus with hemoglobin A1c of 6.8%, newly discovered - Continue sliding scale every 6 hours and low-dose Levemir. -Blood sugars controlled. - will need glucometer on discharge -Patient will need oral hypoglycemic agent upon discharge, recommend Jardiance based upon its benefits with controlling blood glucose levels as well as its associated heart failure risk reduction. -Continue to encourage lifestyle/dietary changes and maintain a heart healthy a nd carb consistent diet. DVT prophylaxis: Heparin Discussed with: Anticipated discharge date: clinical course to determine Anticipated discharge place: Home A total of 36 minutes was spent on the care of this complex patient more than 50% of the time was spent in counseling and care coordination.
[2021-10-13] MEDS: LACTATED RINGERS 1,000 ML IV SCH (17:10)
[2021-10-13 18:17] LABS: Glucose,Whole Blood 129 mg/dL (70-110)
[2021-10-13] MEDS: SENNOSIDES-DOCUSATE SODIUM 1 EACH TAB PO SCH (21:25)
[2021-10-13 23:15] LABS: ABG PCO2 46 mmHg (35-45); ABG PH 7.42 (7.35-7.45); ABG PO2 49 mmHg (83-108)
[2021-10-13 23:16] LABS: ABG Base Excess 5.3 mmol/L; ABG HCO3 30 mmol/L (21-25); ABG TCO2 21 mmol/L (19-24)
[2021-10-13 23:26] LABS: Glucose,Whole Blood 113 mg/dL (70-110)
[2021-10-14 05:13] LABS: Basophils # (A) 0.1 k/uL (0-0.2); Basophils % (A) 1 %; Eosinophils # (A) 0.5 k/uL (0-0.7); Eosinophils % (A) 4 %; HGB 7.9 gm/dL (11.4-16.0); Hypochromasia Slight; Lymphocytes # (A) 1.4 k/uL (1.0-4.8); Lymphocytes % (A) 12 %; MCH 33.3 pg (25.0-35.0); MCHC 33.1 g/dL (31.0-37.0); MCV 100.6 fL (80.0-100.0); Macrocytosis Slight; Mean Platelet Volume 11.4; Monocytes # (A) 0.6 k/uL (0-1.0); Monocytes % (A) 5 %; Neutrophils # (A) 9.6 k/uL (1.3-7.7); Neutrophils % (A) 77 %; Platelet Count 163 k/uL (150-450); RBC 2.39 m/uL (3.80-5.40); RDW 15.4 % (11.5-15.5); WBC 12.4 k/uL (3.8-10.6)
[2021-10-14 05:28] LABS: Albumin 2.6 g/dL (3.5-5.0); Calcium 7.9 mg/dL (8.4-10.2); Magnesium 2.1 mg/dL (1.6-2.3); Total Bilirubin 0.3 mg/dL (0.2-1.3); Total Protein 5.1 g/dL (6.3-8.2)
[2021-10-14 05:53] LABS: ABG Base Excess 6.6 mmol/L; ABG HCO3 30 mmol/L (21-25); ABG Oxygen Saturation 94.6 % (94-97); ABG PCO2 42 mmHg (35-45); ABG PH 7.47 (7.35-7.45); ABG PO2 66 mmHg (83-108); ABG TCO2 32 mmol/L (19-24); Allen Test Performed? Yes
[2021-10-14] MEDS: DILTIAZEM ORAL 30 MG TAB PO SCH ×3 (06:48→17:38)
[2021-10-14 07:00] LABS: Glucose,Whole Blood 128 mg/dL (70-110)
[2021-10-14] MEDS: INSULIN DETEMIR (LEVEMIR) 100 UNIT/ML SYR SQ SCH (07:09)
[2021-10-14] MEDS: INSULIN ASPART (NovoLOG) 100 UNIT/ML VIAL SQ SCH ×4 (07:10→21:21)
--- NOTE | 2021-10-14 07:18 | P.PN ---
Subjective Progress Note Date: 10/14/21 PROGRESS NOTE The patient is a 56-year-old female with a history of diabetes, hyperlipidemia and hypertension who underwent CABG and had multiple previous PCI. Pre-bypass her ejection fraction was 45-50%. She underwent CABG on October 10 with a HOLM to the LAD radial to the obtuse marginal branch and SVG to the PDA. She remains intubated and sedated. Attempt to wean her yesterday were unsuccessful because of hypoxemia. She continues to be in sinus mechanism with good urinary output. There is no evidence of ventricular ectopic activity or atrial fibrillation. She continues to be on aspirin, Lipitor, Plavix 75 mg daily, diltiazem 30 mg 4 times a day, insulin, metoprolol tartrate 50 mg twice a day PHYSICAL EXAMINATION: Blood pressure 110/60 heart rate 70, intubated, opening eyes during the exami nation LUNGS: Clear to auscultation anteriorly HEART: Regular rate and rhythm, S1, S2. No S3. No systolic murmur ABDOMEN: Soft, no organomegaly EXTREMETIES: No edema LAB: PH 7.47, pO2 66, pCO2 42. Hemoglobin 7.9. BUN 17, creatinine 1.1. IMPRESSION: 1. Status post CABG 2. Respiratory failure status post CABG 3. History of multiple PCI 4. History of diabetes PLAN: 1. Attempt to wean and extubate today 2. Follow blood pressure and add APRIL inhibitor if tolerated. 3. Depending on her progress further recommendations will be made. Objective - Vital Signs Vital signs: Vital Signs Temp 98.4 F 10/13/21 16:00 Pulse 75 10/14/21 05:00 Resp 20 10/14/21 05:00 BP 110/58 10/14/21 05:00 Pulse Ox 94 L 10/14/21 05:00 FiO2 50 10/14/21 03:17 Intake & Output 10/13/21 10/14/21 10/14/21 18:59 06:59 18:59 Intake Total 622.850 5601.743 Output Total 445 975 Balance 510.568 266.743 Weight 118 kg Intake: IV 525 360 Lactated Ringers 1,000 ml 330 300 @ 20 mls/hr IV .Q24H [facility] Rx#:[id number] Piperacillin-Tazobactam 3 100 .375 gm In Sodium Chloride 0.9% 100 ml @ 200 mls/hr IVPB ONCE [facility] Rx#:[id number] cardiac output 20 pressure bag 75 60 Intake, IV Titration 130.568 251.743 Amount propofoL 1,000 mg In 130.568 251.743 Empty Bag 1 bag @ Titrate IV .Q0M [facility] Rx#: [id number] Tube Feeding 240 330 Other 60 300 Output: Chest Tube Drainage 50 140 left pleural 10 0 mediastinal 40 140 Urine 395 835 Other: Voiding Method Indwelling Catheter Indwelling Catheter ABP, PAP, CO, CI - Last Documented Arterial Blood Pressure 134/55 Pulmonary Artery Pressure 38/28 Cardiac Output 4.7 Cardiac Index 2.4 - Labs CBC & Chem 7: 10/14/21 04:30 10/14/21 04:30 Labs: Abnormal Lab Results - Last 24 Hours (Table) 10/13/21 10/13/21 10/13/21 Range/Units 05:00 12:39 12:46 WBC (3.8-10.6) k/uL RBC (3.80-5.40) m/uL Hgb (11.4-16.0) gm/dL Hct (34.0-46.0) % MCV (80.0-100.0) fL Neutrophils # (1.3-7.7) k/uL ABG pH (7.35-7.45) ABG pCO2 46 H (35-45) mmHg ABG pO2 49 L* (83-108) mmHg ABG HCO3 30 H (21-25) mmol/L ABG Total CO2 (19-24) mmol/L ABG O2 Saturation 86.0 L (94-97) % Sodium (137-145) mmol/L Creatinine (0.52-1.04) mg/dL Glucose (74-99) mg/dL POC Glucose (mg/dL) 126 H (70-110) mg/dL Calcium (8.4-10.2) mg/dL AST (14-36) U/L Creatine Kinase (30-135) U/L Total Protein (6.3-8.2) g/dL Albumin (3.5-5.0) g/dL Procalcitonin 0.37 H (0.02-0.09) ng/mL 10/13/21 10/13/21 10/13/21 Range/Units 15:05 18:15 23:24 WBC (3.8-10.6) k/uL RBC (3.80-5.40) m/uL Hgb (11.4-16.0) gm/dL Hct (34.0-46.0) % MCV (80.0-100.0) fL Neutrophils # (1.3-7.7) k/uL ABG pH (7.35-7.45) ABG pCO2 (35-45) mmHg ABG pO2 (83-108) mmHg ABG HCO3 (21-25) mmol/L ABG Total CO2 (19-24) mmol/L ABG O2 Saturation (94-97) % Sodium (137-145) mmol/L Creatinine (0.52-1.04) mg/dL Glucose (74-99) mg/dL POC Glucose (mg/dL) 129 H 113 H (70-110) mg/dL Calcium (8.4-10.2) mg/dL AST (14-36) U/L Creatine Kinase 323 H (30-135) U/L Total Protein (6.3-8.2) g/dL Albumin (3.5-5.0) g/dL Procalcitonin (0.02-0.09) ng/mL 10/14/21 10/14/21 10/14/21 Range/Units 04:30 04:30 05:48 WBC 12.4 H (3.8-10.6) k/uL RBC 2.39 L (3.80-5.40) m/uL Hgb 7.9 L (11.4-16.0) gm/dL Hct 24.0 L (34.0-46.0) % MCV 100.6 H (80.0-100.0) fL Neutrophils # 9.6 H (1.3-7.7) k/uL ABG pH 7.47 H (7.35-7.45) ABG pCO2 (35-45) mmHg ABG pO2 66 L (83-108) mmHg ABG HCO3 30 H (21-25) mmol/L ABG Total CO2 32 H (19-24) mmol/L ABG O2 Saturation (94-97) % Sodium 135 L (137-145) mmol/L Creatinine 1.10 H (0.52-1.04) mg/dL Glucose 120 H (74-99) mg/dL POC Glucose (mg/dL) (70-110) mg/dL Calcium 7.9 L (8.4-10.2) mg/dL AST 39 H (14-36) U/L Creatine Kinase (30-135) U/L Total Protein 5.1 L (6.3-8.2) g/dL Albumin 2.6 L (3.5-5.0) g/dL Procalcitonin (0.02-0.09) ng/mL 10/14/21 Range/Units 06:59 WBC (3.8-10.6) k/uL RBC (3.80-5.40) m/uL Hgb (11.4-16.0) gm/dL Hct (34.0-46.0) % MCV (80.0-100.0) fL Neutrophils # (1.3-7.7) k/uL ABG pH (7.35-7.45) ABG pCO2 (35-45) mmHg ABG pO2 (83-108) mmHg ABG HCO3 (21-25) mmol/L ABG Total CO2 (19-24) mmol/L ABG O2 Saturation (94-97) % Sodium (137-145) mmol/L Creatinine (0.52-1.04) mg/dL Glucose (74-99) mg/dL POC Glucose (mg/dL) 128 H (70-110) mg/dL Calcium (8.4-10.2) mg/dL AST (14-36) U/L Creatine Kinase (30-135) U/L Total Protein (6.3-8.2) g/dL Albumin (3.5-5.0) g/dL Procalcitonin (0.02-0.09) ng/mL Microbiology - Last 24 Hours (Table) 10/12/21 09:20 Urine Culture - Final Urine,Catheterized 10/12/21 09:20 Blood Culture - Preliminary Blood No Growth after 24 hours 10/10/21 20:23 Gram Stain - Final Sputum Sputum Culture - Final
[2021-10-14] MEDS: IPRATROPIUM-ALBUTEROL 3 ML NEB INHALATION SCH ×4 (07:37→19:44)
--- NOTE | 2021-10-14 08:11 | P.PN ---
Subjective Progress Note Date: 10/14/21 Principal diagnosis: Multivessel coronary artery disease, non-ST elevated myocardial infarction this admission. Previous medical history of coronary artery disease and myocardial infarction status post multiple stent placement, ischemic cardiomyopathy, hypertension, hyperlipidemia, chronic kidney disease stage III secondary to nephrosclerosis, chronic ongoing tobacco abuse, obstructive sleep apnea with out home CPAP use, mild COPD with home oxygen use 2-3 L nasal cannula at night, morbid obesity, hypothyroid, medical noncompliance, type II diabetes, peripheral artery disease POD #4 coronary artery bypass grafting 3 vessels, left internal mammary artery to the left anterior descending artery, radial artery to the obtuse marginal artery, saphenous vein graft to the posterior descending artery, endoscopic harvesting of the left radial artery, endoscopic harvesting of the left greater saphenous vein, ligation of the left atrial appendage using a 35 mm AtriClip, epi-aortic ultrasound, intraoperative transesophageal echocardiogram, closure of the sternum using a titanium plating system Postoperative acute blood loss anemia and thrombocytopenia, expected given hemo dilution cardiopulmonary bypass pump Hypoxic respiratory failure requiring a prolonged mechanical ventilation The patient was seen and examined this morning laying in bed in the intensive care unit still mechanically ventilated on propofol for sedation. She remains in sinus rhythm and hemodynamically stable on no inotropes or pressors. She currently remains on 50% FiO2 with PEEP of 10. Attempted to wean from mechanical ventilation yesterday, unfortunately patient developed significant hypoxia and was placed back to full vent support. She continues on tube feeding for nutritional support. With lightening of sedation the patient does open her eyes, move all extremities and follows commands. Right internal jugular Cordis, right radial arterial line, mediastinal/left pleural chest tube all remain in place. Urine output stable. Afebrile for 24 hours, T-max 98.8F in the last 24 hours. Sputum culture and urine culture finalized and negative for any growth, blood cultures negative 24 hours. Objective - Vital Signs Vital signs: Vital Signs Temp 98.8 F 10/14/21 04:00 Pulse 80 10/14/21 07:50 Resp 20 10/14/21 07:00 BP 112/61 10/14/21 07:00 Pulse Ox 93 L 10/14/21 07:00 FiO2 50 10/14/21 07:28 Intake & Output 10/13/21 10/14/21 10/14/21 18:59 06:59 18:59 Intake Total 654.551 5068.743 36 Output Total 445 1185 120 Balance 510.568 92.743 -84 Weight 118 kg Intake: IV 525 396 36 Lactated Ringers 1,000 ml 330 330 30 @ 20 mls/hr IV .Q24H [facility] Rx#:[id number] Piperacillin-Tazobactam 3 100 .375 gm In Sodium Chloride 0.9% 100 ml @ 200 mls/hr IVPB ONCE [facility] Rx#:[id number] cardiac output 20 pressure bag 75 66 6 Intake, IV Titration 130.568 251.743 Amount propofoL 1,000 mg In 130.568 251.743 Empty Bag 1 bag @ Titrate IV .Q0M [facility] Rx#: [id number] Tube Feeding 240 330 Other 60 300 Output: Chest Tube Drainage 50 140 left pleural 10 0 mediastinal 40 140 Urine 395 1045 120 Other: Voiding Method Indwelling Catheter Indwelling Catheter ABP, PAP, CO, CI - Last Documented Arterial Blood Pressure 134/55 Pulmonary Artery Pressure 38/28 Cardiac Output 4.7 Cardiac Index 2.4 - Exam CONSTITUTIONAL: Lying in bed mechanically ventilated and sedated RESPIRATORY: Lungs sounds diminished bilaterally. Respirations even, nonlabored on mechanical ventilation. Current ventilator settings FiO2 50%, tidal volume 350, respiratory rate 20, PEEP 10. 8.0 ET tube present, 21 at the lip CARDIOVASCULAR: S1, S2 present. Regular rate and rhythm, sinus rhythm on telemetry. Sternum stable. Palpable peripheral pulses bilaterally. Trace generalized edema present. No calf pain or tenderness noted. Heart hugger, antiembolism stockings, SCDs present. GASTROINTESTINAL: Abdomen soft, nontender, nondistended. Active bowel sounds present 4 quadrants. OG tube present, tube feedings infusing 30 mL/h GENITOURINARY: Guzman present draining clear, yellow urine. Output overnight 65-210 mL per hour, 1440 mL in the last 24 hours INTEGUMENTARY: Skin is warm and dry with evidence of good perfusion. Anterior chest incision well approximated and covered with dry intact dressing. Left lower extremity EVH site as well as left radial artery harvest site well approximated without redness or drainage. NEUROLOGIC: Cranial nerves II through XII intact MUSKULOSKELETAL: Able to move all extremities, strength equal bilaterally when off sedation PSYCHIATRIC: Sedated with propofol, does follow commands off sedation INVASIVE LINES AND TUBES: Mediastinal/left pleural chest tubes present and connected to wall suction, no air leaks present. Mediastinal tube with 60 mL serosanguineous drainage overnight, 200 mL in the last 24 hours. Left pleural chest tube with no drainage in the last 48 hours. A/V epicardial pacemaker wires present, grounded. Right internal jugular Cordis, right radial arterial line present. - Allied health notes Allied health notes reviewed: nursing - Labs CBC & Chem 7: 10/14/21 04:30 10/14/21 04:30 Labs: Abnormal Lab Results - Last 24 Hours (Table) 10/13/21 10/13/21 10/13/21 Range/Units 05:00 12:39 12:46 WBC (3.8-10.6) k/uL RBC (3.80-5.40) m/uL Hgb (11.4-16.0) gm/dL Hct (34.0-46.0) % MCV (80.0-100.0) fL Neutrophils # (1.3-7.7) k/uL ABG pH (7.35-7.45) ABG pCO2 46 H (35-45) mmHg ABG pO2 49 L* (83-108) mmHg ABG HCO3 30 H (21-25) mmol/L ABG Total CO2 (19-24) mmol/L ABG O2 Saturation 86.0 L (94-97) % Sodium (137-145) mmol/L Creatinine (0.52-1.04) mg/dL Glucose (74-99) mg/dL POC Glucose (mg/dL) 126 H (70-110) mg/dL Calcium (8.4-10.2) mg/dL AST (14-36) U/L Creatine Kinase (30-135) U/L Total Protein (6.3-8.2) g/dL Albumin (3.5-5.0) g/dL Procalcitonin 0.37 H (0.02-0.09) ng/mL 10/13/21 10/13/21 10/13/21 Range/Units 15:05 18:15 23:24 WBC (3.8-10.6) k/uL RBC (3.80-5.40) m/uL Hgb (11.4-16.0) gm/dL Hct (34.0-46.0) % MCV (80.0-100.0) fL Neutrophils # (1.3-7.7) k/uL ABG pH (7.35-7.45) ABG pCO2 (35-45) mmHg ABG pO2 (83-108) mmHg ABG HCO3 (21-25) mmol/L ABG Total CO2 (19-24) mmol/L ABG O2 Saturation (94-97) % Sodium (137-145) mmol/L Creatinine (0.52-1.04) mg/dL Glucose (74-99) mg/dL POC Glucose (mg/dL) 129 H 113 H (70-110) mg/dL Calcium (8.4-10.2) mg/dL AST (14-36) U/L Creatine Kinase 323 H (30-135) U/L Total Protein (6.3-8.2) g/dL Albumin (3.5-5.0) g/dL Procalcitonin (0.02-0.09) ng/mL 10/14/21 10/14/21 10/14/21 Range/Units 04:30 04:30 05:48 WBC 12.4 H (3.8-10.6) k/uL RBC 2.39 L (3.80-5.40) m/uL Hgb 7.9 L (11.4-16.0) gm/dL Hct 24.0 L (34.0-46.0) % MCV 100.6 H (80.0-100.0) fL Neutrophils # 9.6 H (1.3-7.7) k/uL ABG pH 7.47 H (7.35-7.45) ABG pCO2 (35-45) mmHg ABG pO2 66 L (83-108) mmHg ABG HCO3 30 H (21-25) mmol/L ABG Total CO2 32 H (19-24) mmol/L ABG O2 Saturation (94-97) % Sodium 135 L (137-145) mmol/L Creatinine 1.10 H (0.52-1.04) mg/dL Glucose 120 H (74-99) mg/dL POC Glucose (mg/dL) (70-110) mg/dL Calcium 7.9 L (8.4-10.2) mg/dL AST 39 H (14-36) U/L Creatine Kinase (30-135) U/L Total Protein 5.1 L (6.3-8.2) g/dL Albumin 2.6 L (3.5-5.0) g/dL Procalcitonin (0.02-0.09) ng/mL 10/14/21 Range/Units 06:59 WBC (3.8-10.6) k/uL RBC (3.80-5.40) m/uL Hgb (11.4-16.0) gm/dL Hct (34.0-46.0) % MCV (80.0-100.0) fL Neutrophils # (1.3-7.7) k/uL ABG pH (7.35-7.45) ABG pCO2 (35-45) mmHg ABG pO2 (83-108) mmHg ABG HCO3 (21-25) mmol/L ABG Total CO2 (19-24) mmol/L ABG O2 Saturation (94-97) % Sodium (137-145) mmol/L Creatinine (0.52-1.04) mg/dL Glucose (74-99) mg/dL POC Glucose (mg/dL) 128 H (70-110) mg/dL Calcium (8.4-10.2) mg/dL AST (14-36) U/L Creatine Kinase (30-135) U/L Total Protein (6.3-8.2) g/dL Albumin (3.5-5.0) g/dL Procalcitonin (0.02-0.09) ng/mL Microbiology - Last 24 Hours (Table) 10/12/21 09:20 Urine Culture - Final Urine,Catheterized 10/12/21 09:20 Blood Culture - Preliminary Blood No Growth after 24 hours 10/10/21 20:23 Gram Stain - Final Sputum Sputum Culture - Final - Imaging and Cardiology Chest x-ray: image reviewed Assessment and Plan Assessment: 1. Multivessel coronary artery disease, non-ST elevated myocardial infarction this admission, status post three-vessel CABG 2. History of coronary artery disease and myocardial infarction status post multiple stent placement 3. Ischemic cardiomyopathy, EF 45-50% 4. Hypertension 5. Hyperlipidemia, cholesterol 252, LDL 156, triglycerides 291 6. Chronic kidney disease stage III secondary to nephrosclerosis 7. Chronic ongoing tobacco abuse 8. Obstructive sleep apnea with out home CPAP use 9. Mild COPD with home oxygen use 2-3 L nasal cannula at night, preoperative FEV1 60% of predicted 10. Morbid obesity 11. Hypothyroid, TSH 23.3 with free T4 0.36 12. Medical noncompliance 13. Type 2 diabetes mellitus, A1c 6.8% 14. Peripheral arterial disease, left SAEED 0.69 15. Postoperative acute blood loss anemia and thrombocytopenia, expected 16. Hypoxic respiratory failure requiring prolonged mechanical ventilation 17. Febrile with leukocytosis, cultures negative Plan: 1. Continue to optimize medical management with aspirin, Plavix, statin and beta garret. Will increase beta garret therapy as tolerated. 2. Continue calcium channel garret for radial artery spasm prophylaxis 3. Wean from mechanical ventilation as tolerated per pulmonology. Bronchodilators per pulmonology. Continue tube feedings for nutritional support while intubated 4. Will monitor daily labs and x-rays. Electrolyte replacement per protocol. Sputum and urine culture negative, blood cultures negative for 24-hour 5. GI/DVT prophylaxis 6. Once extubated will increase activity as tolerated. PT/OT/cardiac rehab consulted 7. Pain control with current medication regimen 8. Insulin management per primary care service. Patient is recently diagnosed diabetic with hemoglobin A1c 6.8%. Needs tight blood sugar control to promote healing and prevent infection 9. Continue cordis, arterial line. Continue mediastinal/left pleural chest tubes while intubated 10. Continue Guzman catheter for another 24 hours for strict accurate intake and output. Daily weights. 11. Importance of risk modification including smoking cessation has been discussed in detail with the patient and reinforced with the patient. 12. More recommendations to follow
[2021-10-14] MEDS: CHLORHEXIDINE GLUCONATE 15 ML CUP MUCOUS MEM SCH (08:42)
[2021-10-14] MEDS: ASPIRIN 325 MG TAB PO SCH (08:42)
[2021-10-14] MEDS: HEPARIN SODIUM,PORCINE/PF 5,000 UNIT/0.5 ML SYRINGE SQ SCH ×2 (08:42→16:46)
[2021-10-14] MEDS: ATORVASTATIN 40 MG TAB PO SCH (08:42)
[2021-10-14] MEDS: CLOPIDOGREL 75 MG TAB PO SCH (08:42)
[2021-10-14] MEDS: METOPROLOL TARTRATE 50 MG TAB PO SCH ×2 (08:42→21:36)
[2021-10-14] MEDS: PANTOPRAZOLE 40 MG/10 ML VIAL IVP SCH (08:43)
[2021-10-14] MEDS: LEVOTHYROXINE IVP 100 MCG/5 ML VIAL IV SCH (08:50)
--- NOTE | 2021-10-14 08:52 | XR ---
EXAMINATION TYPE: XR chest 1V portable DATE OF EXAM: 10/14/2021 COMPARISON: 10/13/2021 HISTORY: Post cardiac surgery FINDINGS: There are bilateral pleural effusions with cardiomegaly and bibasilar infiltrate. There is a diffuse interstitial pattern. Postsurgical changes are seen. Mediastinal drain and chest tube noted. Chronic rib deformities are seen. ET and NG tubes stable. [place] catheter has been removed. No sizable pn eumothorax. IMPRESSION: 1. Correlate for CHF stable from prior exam.
[2021-10-14 10:03] LABS: ABG Base Excess 6.1 mmol/L; ABG HCO3 30 mmol/L (21-25); ABG Oxygen Saturation 89.3 % (94-97); ABG PCO2 39 mmHg (35-45); ABG PH 7.49 (7.35-7.45); ABG TCO2 31 mmol/L (19-24); Allen Test Performed? Yes
[2021-10-14 10:05] LABS: ABG PO2 52 mmHg (83-108)
--- NOTE | 2021-10-14 12:24 | P.PN ---
Subjective Progress Note Date: 10/14/21 (delayed charting seen at 0930) Principal diagnosis: chest pain Patient is a 56-year-old female with CAD with stents, hypertension, hyperlipidemia, ischemic cardiomyopathy, Graves' disease, chronic kidney disease, COPD not on home oxygen dependent with continued nicotine dependence. In the emergency department she underwent an extensive evaluation. CBC revealing mild leukocytosis with WBC count of 11.1. BMP revealing mildly elevated creatinine which is improved from baseline levels and currently 1.09. Liver profile revealing slightly elevated AST of 66 and ALT of 45. Troponin negative at 0.013. EKG revealing normal sinus rhythm at 96 bpm with T-wave inversion in leads V3 through V6. Chest x-ray revealing mild cardiomegaly and chronic emphysematous changes, otherwise negative for acute pulmonary process. Patient was admittedfor furter evaluation. Cardiology was consulted. Troponins trended and elevating at 0.013, 0.020, and 0.070. Patient was started on heparin infusion per ACS protocol. On 10/05/21 patient underwent a cardiac cath which revealed severe three-vessel coronary artery disease with chronically occluded right coronary artery and a long segment of stenosis in the proximal LAD and lesion within the circumflex. Patient was felt to be high risk for angioplasty and further stent placement secondary to her significant cardiac history and was referred for cardiac bypass surgery. Cardiothoracic surgery was then consulted and patient went for CABG on 10/10/21. She had prolonged ventilation Spiked fevers starting on 10/10/21 work up unrevealing and fevers resolved. Patient seen and examined at bedside. awaiting extubation. Awake following commands. Appears comfortable. General: nontoxic, mild distress, appears at stated age Derm: warm, dry Head: atraumatic, normocephalic, symmetric Eyes: no lid leisions Mouth: no lip lesion, mucus membranes moist Cardiovascular: S1S2 reg, no murmur, positive posterior tibial pulse bilateral, Lungs: course bilateral, no rhonchi, no rales , no accessory muscle use Abdominal: soft, nontender to palpation, no guarding, no appreciable organomegaly Ext: no gross muscle atrophy, no edema, no contracture Neuro: awaking moving all 4 extremities, CN II-XII intact Psych: awake following commands appropriate affect Assessment and Plan of Care: NSTEMI s/p CABG Severe three-vessel coronary artery disease Ischemic cardiomyopathy EF 45-50% History of coronary artery disease with stents Hypertension Hyperlipidemia - management per cardiothorasic - plavix, ASA, statin -Echocardiogram revealed mildly impaired EF of 45-50% with mild mitral regurgitation and inferior wall hypokinesia. -Carotid Dopplers revealing minimal plaque formation with less than 25% stenosis in both internal carotid arteries Acute blood loss anemia Thrombocytopenia -Anticipated outcome of surgery -No indication for repeat transfusion at this time -Follow CBC Hypothyroidism with history of Graves' disease -TSH 23.300 and free T4 0.36 -possibly secondary to medication noncompliance, however unclear -resume oral levothyroxine - follow up outpatient with PCP/endocrinology for repeat labs in 6-8 weeks and further adjustments of medications/medication management. COPD with continued nicotine dependence, without exacerbation - scheduled and prn bronchdilators. Type 2 diabetes mellitus with hemoglobin A1c of 6.8%, newly discovered - sliding scale to ACGS, low-dose Levemir. Continue to follow blood sugars. - will need glucometer on discharge -Patient will need oral hypoglycemic agent upon discharge, recommend Jardiance based upon its benefits with controlling blood glucose levels as well as its associated heart failure risk reduction. Pyrexia, resolved -Cultures are negative Elevated CK, resolved DVT prophylaxis: Heparin Anticipated discharge date: clinical course to determine Anticipated discharge place: Home A total of 36 minutes was spent on the care of this complex patient more than 50% of the time was spent in counseling and care coordination. Active Medications Hydrocodone Bitart/Acetaminophen (Hydrocodone/Apap 5-325mg 1 Each Tab) 2 each PO Q4HR PRN PRN Reason: Severe Pain Last Admin: 10/13/21 00:27 Dose: 2 each Hydrocodone Bitart/Acetaminophen (Hydrocodone/Apap 5-325mg 1 Each Tab) 1 each PO Q4HR PRN PRN Reason: Moderate Pain Albuterol/Ipratropium (Ipratropium-Albuterol 3 Ml Neb) 3 ml INHALATION RT-Q2H PRN PRN Reason: Shortness Of Breath Or Wheezing Albuterol/Ipratropium (Ipratropium-Albuterol 3 Ml Neb) 3 ml INHALATION RT-QID [facility] Last Admin: 10/14/21 11:12 Dose: 3 ml Aspirin (Aspirin 325 Mg Tab) 325 mg PO DAILY [facility] Last Admin: 10/14/21 08:42 Dose: 325 mg Atorvastatin Calcium (Atorvastatin 40 Mg Tab) 40 mg PO DAILY [facility] Last Admin: 10/14/21 08:42 Dose: 40 mg Benzocaine/Menthol (Benzocaine/Menthol Lozeng 1 Each Lozenge) 1 each MUCOUS MEM Q2H PRN PRN Reason: Sore Throat Bisacodyl (Bisacodyl 10 Mg Supp) 10 mg RECTAL DAILY PRN PRN Reason: Constipation Chlorhexidine Gluconate (Chlorhexidine Gluconate 15 Ml Cup) 15 ml MUCOUS MEM BID [facility] Last Admin: 10/14/21 08:42 Dose: 15 ml Clopidogrel Bisulfate (Clopidogrel 75 Mg Tab) 75 mg PO DAILY [facility] Last Admin: 10/14/21 08:42 Dose: 75 mg Diltiazem HCl (Diltiazem Oral 30 Mg Tab) 30 mg PO Q6HR [facility] Last Admin: 10/14/21 06:48 Dose: 30 mg Heparin Sodium (Porcine) (Heparin Sodium,Porcine/Pf 5,000 Unit/0.5 Ml Syringe) 5,000 unit SQ Q8HR [facility] Last Admin: 10/14/21 08:42 Dose: 5,000 unit Hydromorphone HCl (Hydromorphone 1 Mg/Ml 1 Ml Syringe) 1 mg IVP Q2HR PRN PRN Reason: Pain Last Admin: 10/13/21 12:37 Dose: 1 mg Amiodarone HCl 150 mg/ (Dextrose/Water) 103 mls @ 618 mls/hr IV .Q10M PRN; Prot ocol PRN Reason: A.FIB/FLUTTER Amiodarone HCl 360 mg/ (Dextrose/Water) 207.2 mls @ 34.533 mls/hr IV .Q6H PRN; Protocol PRN Reason: A.FIB/FLUTTER Amiodarone HCl 450 mg/ (Dextrose/Water) 250 mls @ 16.667 mls/hr IV .Q15H PRN; Protocol PRN Reason: A.FIB/FLUTTER Lactated Ringer's (Lactated Ringers) 1,000 mls @ 20 mls/hr IV .Q24H [facility] Last Admin: 10/13/21 17:10 Dose: 20 mls/hr Propofol 1,000 mg/ IV Solution 100 mls @ 0 mls/hr IV .Q0M [facility]; Protocol Last Titration: 10/14/21 08:59 Dose: 30 mcg/kg/min, 18.779 mls/hr Insulin Aspart (Insulin Aspart (Novolog) 100 Unit/Ml Vial) 0 unit SQ [facility]; Protocol Insulin Detemir (Insulin Detemir (Levemir) 100 Unit/Ml Syr) 10 unit SQ DAILY@0700 [facility] Last Admin: 10/14/21 07:09 Dose: 10 unit Levothyroxine Sodium (Levothyroxine 50 Mcg Tab) 50 mcg PO DAILY@0630 [facility] Magnesium Hydroxide (Magnesium Hydroxide 2,400 Mg/10 Ml Cup) 2,400 mg PO BID P RN PRN Reason: Constipation Metoclopramide HCl (Metoclopramide 5 Mg/Ml 2 Ml Vial) 10 mg IVP Q4H PRN PRN Reason: Nausea And Vomiting Metoprolol Tartrate (Metoprolol Tartrate 50 Mg Tab) 50 mg PO BID [facility] Last Admin: 10/14/21 08:42 Dose: 50 mg Miscellaneous Information (Potassium Replacement Protocol 1 Each Misc) 1 each MISCELLANE DAILY PRN; Protocol PRN Reason: Per Protocol Miscellaneous Information (Magnesium Replacement Protocol 1 Each Misc) 1 each MISCELLANE DAILY PRN; Protocol PRN Reason: Per Protocol Ondansetron HCl (Ondansetron 4 Mg/2 Ml Vial) 4 mg IVP Q6HR PRN PRN Reason: Nausea And Vomiting Pantoprazole Sodium (Pantoprazole 40 Mg/10 Ml Vial) 40 mg IVP DAILY [facility] Last Admin: 10/14/21 08:43 Dose: 40 mg Senna/Docusate Sodium (Sennosides-Docusate Sodium 1 Each Tab) 2 each PO HS [facility] Last Admin: 10/13/21 21:25 Dose: 2 each Sodium Chloride (Sodium Chloride 0.9% Flush 10 Ml Syringe) 10 ml IV BID [facility] Last Admin: 10/14/21 08:50 Dose: 10 ml Objective - Vital Signs Vital signs: Vital Signs Temp 98.6 F 10/14/21 08:00 Pulse 76 10/14/21 11:22 Resp 20 10/14/21 08:00 BP 112/61 10/14/21 08:00 Pulse Ox 92 L 10/14/21 08:00 FiO2 80 10/14/21 11:08 Intake & Output 10/13/21 10/14/21 10/14/21 18:59 06:59 18:59 Intake Total 954.408 3647.743 186.666 Output Total 445 1185 305 Balance 510.568 92.743 -118.334 Weight 118 kg Intake: IV 525 396 72 Lactated Ringers 1,000 ml 330 330 60 @ 20 mls/hr IV .Q24H [facility] Rx#:[id number] Piperacillin-Tazobactam 3 100 .375 gm In Sodium Chloride 0.9% 100 ml @ 200 mls/hr IVPB ONCE [facility] Rx#:[id number] cardiac output 20 pressure bag 75 66 12 Intake, IV Titration 130.568 251.743 54.666 Amount propofoL 1,000 mg In 130.568 251.743 54.666 Empty Bag 1 bag @ Titrate IV .Q0M [facility] Rx#: [id number] Tube Feeding 240 330 30 Other 60 300 30 Output: Chest Tube Drainage 50 140 10 left pleural 10 0 mediastinal 40 140 10 Urine 395 1045 295 Other: Voiding Method Indwelling Catheter Indwelling Catheter ABP, PAP, CO, CI - Last Documented Arterial Blood Pressure 148/53 Pulmonary Artery Pressure 38/28 Cardiac Output 4.7 Cardiac Index 2.4 - Labs CBC & Chem 7: 10/14/21 04:30 10/14/21 04:30 Labs: Abnormal Lab Results - Last 24 Hours (Table) 10/13/21 10/13/21 10/13/21 Range/Units 05:00 12:39 12:46 WBC (3.8-10.6) k/uL RBC (3.80-5.40) m/uL Hgb (11.4-16.0) gm/dL Hct (34.0-46.0) % MCV (80.0-100.0) fL Neutrophils # (1.3-7.7) k/uL ABG pH (7.35-7.45) ABG pCO2 46 H (35-45) mmHg ABG pO2 49 L* (83-108) mmHg ABG HCO3 30 H (21-25) mmol/L ABG Total CO2 (19-24) mmol/L ABG O2 Saturation 86.0 L (94-97) % Sodium (137-145) mmol/L Creatinine (0.52-1.04) mg/dL Glucose (74-99) mg/dL POC Glucose (mg/dL) 126 H (70-110) mg/dL Calcium (8.4-10.2) mg/dL AST (14-36) U/L Creatine Kinase (30-135) U/L Total Protein (6.3-8.2) g/dL Albumin (3.5-5.0) g/dL Procalcitonin 0.37 H (0.02-0.09) ng/mL 10/13/21 10/13/21 10/13/21 Range/Units 15:05 18:15 23:24 WBC (3.8-10.6) k/uL RBC (3.80-5.40) m/uL Hgb (11.4-16.0) gm/dL Hct (34.0-46.0) % MCV (80.0-100.0) fL Neutrophils # (1.3-7.7) k/uL ABG pH (7.35-7.45) ABG pCO2 (35-45) mmHg ABG pO2 (83-108) mmHg ABG HCO3 (21-25) mmol/L ABG Total CO2 (19-24) mmol/L ABG O2 Saturation (94-97) % Sodium (137-145) mmol/L Creatinine (0.52-1.04) mg/dL Glucose (74-99) mg/dL POC Glucose (mg/dL) 129 H 113 H (70-110) mg/dL Calcium (8.4-10.2) mg/dL AST (14-36) U/L Creatine Kinase 323 H (30-135) U/L Total Protein (6.3-8.2) g/dL Albumin (3.5-5.0) g/dL Procalcitonin (0.02-0.09) ng/mL 10/14/21 10/14/21 10/14/21 Range/Units 04:30 04:30 05:48 WBC 12.4 H (3.8-10.6) k/uL RBC 2.39 L (3.80-5.40) m/uL Hgb 7.9 L (11.4-16.0) gm/dL Hct 24.0 L (34.0-46.0) % MCV 100.6 H (80.0-100.0) fL Neutrophils # 9.6 H (1.3-7.7) k/uL ABG pH 7.47 H (7.35-7.45) ABG pCO2 (35-45) mmHg ABG pO2 66 L (83-108) mmHg ABG HCO3 30 H (21-25) mmol/L ABG Total CO2 32 H (19-24) mmol/L ABG O2 Saturation (94-97) % Sodium 135 L (137-145) mmol/L Creatinine 1.10 H (0.52-1.04) mg/dL Glucose 120 H (74-99) mg/dL POC Glucose (mg/dL) (70-110) mg/dL Calcium 7.9 L (8.4-10.2) mg/dL AST 39 H (14-36) U/L Creatine Kinase (30-135) U/L Total Protein 5.1 L (6.3-8.2) g/dL Albumin 2.6 L (3.5-5.0) g/dL Procalcitonin (0.02-0.09) ng/mL 10/14/21 10/14/21 Range/Units 06:59 09:58 WBC (3.8-10.6) k/uL RBC (3.80-5.40) m/uL Hgb (11.4-16.0) gm/dL Hct (34.0-46.0) % MCV (80.0-100.0) fL Neutrophils # (1.3-7.7) k/uL ABG pH 7.49 H (7.35-7.45) ABG pCO2 (35-45) mmHg ABG pO2 52 L* (83-108) mmHg ABG HCO3 30 H (21-25) mmol/L ABG Total CO2 31 H (19-24) mmol/L ABG O2 Saturation 89.3 L (94-97) % Sodium (137-145) mmol/L Creatinine (0.52-1.04) mg/dL Glucose (74-99) mg/dL POC Glucose (mg/dL) 128 H (70-110) mg/dL Calcium (8.4-10.2) mg/dL AST (14-36) U/L Creatine Kinase (30-135) U/L Total Protein (6.3-8.2) g/dL Albumin (3.5-5.0) g/dL Procalcitonin (0.02-0.09) ng/mL Microbiology - Last 24 Hours (Table) 10/12/21 09:20 Urine Culture - Final Urine,Catheterized 10/12/21 09:20 Blood Culture - Preliminary Blood No Growth after 24 hours 10/10/21 20:23 Gram Stain - Final Sputum Sputum Culture - Final
[2021-10-14] MEDS: HYDROmorphone 1 MG/ML 1 ML SYRINGE IVP PRN (13:17)
[2021-10-14 13:26] LABS: Glucose,Whole Blood 125 mg/dL (70-110)
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
[2021-10-14] MEDS ORDERED: hydrALAZINE HCL 20 MG/ML 1 ML VIAL IVP PRN (16:32)
[2021-10-14] MEDS: HYDROcodone/APAP 5-325MG 1 EACH TAB PO PRN (17:38)
[2021-10-14 17:45] LABS: Glucose,Whole Blood 112 mg/dL (70-110)
[2021-10-14 21:20] LABS: Glucose,Whole Blood 107 mg/dL (70-110)
[2021-10-14] MEDS: SENNOSIDES-DOCUSATE SODIUM 1 EACH TAB PO SCH (21:36)
[2021-10-15] MEDS: HYDROcodone/APAP 5-325MG 1 EACH TAB PO PRN ×4 (00:07→22:52)
[2021-10-15] MEDS: HEPARIN SODIUM,PORCINE/PF 5,000 UNIT/0.5 ML SYRINGE SQ SCH ×4 (00:08→23:02)
[2021-10-15] MEDS: DILTIAZEM ORAL 30 MG TAB PO SCH ×2 (00:08→06:50)
[2021-10-15 06:03] LABS: Albumin 2.8 g/dL (3.5-5.0); Calcium 8.2 mg/dL (8.4-10.2); Magnesium 2.2 mg/dL (1.6-2.3); Potassium 4.1 mmol/L (3.5-5.1); Total Bilirubin 0.5 mg/dL (0.2-1.3); Total Protein 5.4 g/dL (6.3-8.2)
[2021-10-15 06:10] LABS: Basophils # (A) 0.1 k/uL (0-0.2); Basophils % (A) 1 %; Eosinophils # (A) 0.5 k/uL (0-0.7); Eosinophils % (A) 3 %; HGB 8.4 gm/dL (11.4-16.0); Hypochromasia Slight; Lymphocytes # (A) 1.3 k/uL (1.0-4.8); Lymphocytes % (A) 8 %; MCH 32.7 pg (25.0-35.0); MCHC 32.3 g/dL (31.0-37.0); MCV 101.1 fL (80.0-100.0); Macrocytosis Slight; Mean Platelet Volume 10.4; Monocytes # (A) 0.8 k/uL (0-1.0); Monocytes % (A) 6 %; Neutrophils % (A) 80 %; Platelet Count 215 k/uL (150-450); RBC 2.57 m/uL (3.80-5.40); RDW 15.2 % (11.5-15.5)
[2021-10-15] MEDS: LEVOTHYROXINE 50 MCG TAB PO SCH (06:50)
[2021-10-15 06:57] LABS: Glucose,Whole Blood 105 mg/dL (70-110)
[2021-10-15] MEDS: INSULIN ASPART (NovoLOG) 100 UNIT/ML VIAL SQ SCH ×4 (07:10→22:48)
--- NOTE | 2021-10-15 07:20 | P.PN ---
Subjective Progress Note Date: 10/15/21 PROGRESS NOTE The patient is a 56-year-old female with a history of diabetes, hyperlipidemia and hypertension who underwent CABG and had multiple previous PCI. Pre-bypass her ejection fraction was 45-50%. She underwent CABG on October 10 with a HOLM to the LAD radial to the obtuse marginal branch and SVG to the PDA. She remains intubated and sedated. Attempt to wean her yesterday were unsuccessful because of hypoxemia. She continues to be in sinus mechanism with good urinary output. There is no evidence of ventricular ectopic activity or atrial fibrillation. She continues to be on aspirin, Lipitor, Plavix 75 mg daily, diltiazem 30 mg 4 times a day, insulin, metoprolol tartrate 50 mg twice a day October 15: The patient is extubated, continues to be in sinus mechanism. Hemodynamically stable with good urinary output. She denies any chest discomfort, dizziness or palpitations. She continues to be on aspirin, Lipitor, Plavix, Cardizem 30 mg every 6 hours, insulin, metoprolol tartrate 50 mg twice a day. There is no evidence of atrial fibrillation or ventricular ectopic activity. PHYSICAL EXAMINATION: Blood pressure 124/60, heart rate in the 80s LUNGS: Mild decrease in the breath sounds HEART: Regular rate and rhythm, S1, S2. No S3. No systolic murmur ABDOMEN: Soft, no organomegaly EXTREMETIES: No edema LAB: BUN and creatinine 15 and 1.03, potassium 4.1. Hemoglobin 8.4 IMPRESSION: 1. Status post CABG 2. Respiratory failure status post CABG, resolved 3. History of multiple PCI 4. History of diabetes 5. Mild ischemic cardiomyopathy preoperatively. PLAN: 1. Add low dose APRIL inhibitor in view of the history of diabetes and cardiomyopathy 2. Continue incentive spirometry and increase physical activity 3. Follow renal functions Objective - Vital Signs Vital signs: Vital Signs Temp 98.7 F 10/15/21 04:00 Pulse 85 10/15/21 07:00 Resp 17 10/15/21 07:00 BP 124/63 10/15/21 05:00 Pulse Ox 90 L 10/15/21 07:00 FiO2 55 10/15/21 04:23 Intake & Output 10/14/21 10/15/21 10/15/21 18:59 06:59 18:59 Intake Total 522.718 411 33 Output Total 1735 805 135 Balance -1212.282 -394 -102 Weight 115 kg Intake: IV 402 411 33 Lactated Ringers 1,000 ml 330 360 30 @ 20 mls/hr IV .Q24H [facility] Rx#:[id number] pressure bag 72 51 3 Intake, IV Titration 60.718 Amount propofoL 1,000 mg In 60.718 Empty Bag 1 bag @ Titrate IV .Q0M [facility] Rx#: [id number] Tube Feeding 30 Other 30 Output: Chest Tube Drainage 40 left pleural 0 mediastinal 40 Urine 1695 805 135 Other: Voiding Method Indwelling Catheter Indwelling Catheter ABP, PAP, CO, CI - Last Documented Arterial Blood Pressure 165/58 Pulmonary Artery Pressure 38/28 Cardiac Output 4.7 Cardiac Index 2.4 - Labs CBC & Chem 7: 10/15/21 05:19 10/15/21 05:19 Labs: Abnormal Lab Results - Last 24 Hours (Table) 10/14/21 10/14/21 10/14/21 Range/Units 09:58 13:25 17:43 WBC (3.8-10.6) k/uL RBC (3.80-5.40) m/uL Hgb (11.4-16.0) gm/dL Hct (34.0-46.0) % MCV (80.0-100.0) fL Neutrophils # (1.3-7.7) k/uL ABG pH 7.49 H (7.35-7.45) ABG pO2 52 L* (83-108) mmHg ABG HCO3 30 H (21-25) mmol/L ABG Total CO2 31 H (19-24) mmol/L ABG O2 Saturation 89.3 L (94-97) % Carbon Dioxide (22-30) mmol/L POC Glucose (mg/dL) 125 H 112 H (70-110) mg/dL Calcium (8.4-10.2) mg/dL AST (14-36) U/L Total Protein (6.3-8.2) g/dL Albumin (3.5-5.0) g/dL 10/15/21 10/15/21 Range/Units 05:19 05:19 WBC 15.0 H (3.8-10.6) k/uL RBC 2.57 L (3.80-5.40) m/uL Hgb 8.4 L (11.4-16.0) gm/dL Hct 26.0 L (34.0-46.0) % MCV 101.1 H (80.0-100.0) fL Neutrophils # 12.0 H (1.3-7.7) k/uL ABG pH (7.35-7.45) ABG pO2 (83-108) mmHg ABG HCO3 (21-25) mmol/L ABG Total CO2 (19-24) mmol/L ABG O2 Saturation (94-97) % Carbon Dioxide 31 H (22-30) mmol/L POC Glucose (mg/dL) (70-110) mg/dL Calcium 8.2 L (8.4-10.2) mg/dL AST 37 H (14-36) U/L Total Protein 5.4 L (6.3-8.2) g/dL Albumin 2.8 L (3.5-5.0) g/dL Microbiology - Last 24 Hours (Table) 10/12/21 09:20 Blood Culture - Preliminary Blood No Growth after 48 hours
[2021-10-15] MEDS: IPRATROPIUM-ALBUTEROL 3 ML NEB INHALATION SCH ×4 (07:41→19:47)
[2021-10-15] MEDS: PANTOPRAZOLE 40 MG TABLET PO SCH (08:11)
[2021-10-15] MEDS: ATORVASTATIN 40 MG TAB PO SCH (08:11)
[2021-10-15] MEDS: ASPIRIN 325 MG TAB PO SCH (08:11)
[2021-10-15] MEDS: CLOPIDOGREL 75 MG TAB PO SCH (08:11)
[2021-10-15] MEDS: METOPROLOL TARTRATE 50 MG TAB PO SCH ×2 (08:11→21:00)
[2021-10-15] MEDS: INSULIN DETEMIR (LEVEMIR) 100 UNIT/ML SYR SQ SCH (08:12)
--- NOTE | 2021-10-15 08:37 | P.PN ---
Subjective Progress Note Date: 10/15/21 Principal diagnosis: Multivessel coronary artery disease, non-ST elevated myocardial infarction this admission. Previous medical history of coronary artery disease and myocardial infarction status post multiple stent placement, ischemic cardiomyopathy, hypertension, hyperlipidemia, chronic kidney disease stage III secondary to nephrosclerosis, chronic ongoing tobacco abuse, obstructive sleep apnea with out home CPAP use, mild COPD with home oxygen use 2-3 L nasal cannula at night, morbid obesity, hypothyroid, medical noncompliance, type II diabetes, peripheral artery disease POD #5 coronary artery bypass grafting 3 vessels, left internal mammary artery to the left anterior descending artery, radial artery to the obtuse marginal artery, saphenous vein graft to the posterior descending artery, endoscopic harvesting of the left radial artery, endoscopic harvesting of the left greater saphenous vein, ligation of the left atrial appendage using a 35 mm AtriClip, epi-aortic ultrasound, intraoperative transesophageal echocardiogram, closure of the sternum using a titanium plating system Postoperative acute blood loss anemia and thrombocytopenia, expected given hemo dilution cardiopulmonary bypass pump Hypoxic respiratory failure requiring a prolonged mechanical ventilation The patient was seen and examined this morning laying in bed in the intensive care unit sitting up in bed in no acute distress with BiPAP in place. She was successfully extubated yesterday 10:25 AM. She remains in sinus rhythm and hemodynamically stable on no inotropes or pressors. Urine output stable. Afebrile for 48 hours. Sputum culture and urine culture finalized and negative for any growth, blood cultures negative 48 hours. She denies pain. No other new concerns. Objective - Vital Signs Vital signs: Vital Signs Temp 98.7 F 10/15/21 04:00 Pulse 80 10/15/21 07:54 Resp 17 10/15/21 07:00 BP 124/63 10/15/21 05:00 Pulse Ox 90 L 10/15/21 07:00 FiO2 55 10/15/21 07:41 Intake & Output 10/14/21 10/15/21 10/15/21 18:59 06:59 18:59 Intake Total 522.718 411 33 Output Total 1735 805 135 Balance -1212.282 -394 -102 Weight 115 kg Intake: IV 402 411 33 Lactated Ringers 1,000 ml 330 360 30 @ 20 mls/hr IV .Q24H [facility] Rx#:[id number] pressure bag 72 51 3 Intake, IV Titration 60.718 Amount propofoL 1,000 mg In 60.718 Empty Bag 1 bag @ Titrate IV .Q0M [facility] Rx#: [id number] Tube Feeding 30 Other 30 Output: Chest Tube Drainage 40 left pleural 0 mediastinal 40 Urine 1695 805 135 Other: Voiding Method Indwelling Catheter Indwelling Catheter ABP, PAP, CO, CI - Last Documented Arterial Blood Pressure 165/58 Pulmonary Artery Pressure 38/28 Cardiac Output 4.7 Cardiac Index 2.4 - Exam CONSTITUTIONAL: Appears comfortable, cooperative, no acute distress RESPIRATORY: Lungs sounds diminished bilaterally. Respirations even, nonlabored. Currently on BiPAP, 55% FiO2, 12/6 with oxygen saturation 96%. Strong cough. CARDIOVASCULAR: S1, S2 present. Regular rate and rhythm, sinus rhythm on telemetry. Sternum stable. Palpable peripheral pulses bilaterally. Generaliz ed edema present. No calf pain or tenderness noted. Heart hugger, antiembolism stockings, SCDs present. GASTROINTESTINAL: Abdomen soft, nontender, nondistended. Active bowel sounds present 4 quadrants. Tolerating clear liquids. GENITOURINARY: Guzman present draining clear, yellow urine. Output overnight 30-100 mL per hour, 2500 mL in the last 24 hours INTEGUMENTARY: Skin is warm and dry with evidence of good perfusion. Anterior chest incision well approximated and covered with dry intact dressing. Left lower extremity EVH site as well as left radial artery harvest site well approxi mated without redness or drainage. NEUROLOGIC: Cranial nerves II through XII intact MUSKULOSKELETAL: Able to move all extremities, strength equal bilaterally PSYCHIATRIC: Alert and oriented to person place and time, appropriate affect, intact judgment and insight INVASIVE LINES AND TUBES: A/V epicardial pacemaker wires present, grounded. Right radial arterial line present. - Allied health notes Allied health notes reviewed: nursing - Labs CBC & Chem 7: 10/15/21 05:19 10/15/21 05:19 Labs: Abnormal Lab Results - Last 24 Hours (Table) 10/14/21 10/14/21 10/14/21 Range/Units 09:58 13:25 17:43 WBC (3.8-10.6) k/uL RBC (3.80-5.40) m/uL Hgb (11.4-16.0) gm/dL Hct (34.0-46.0) % MCV (80.0-100.0) fL Neutrophils # (1.3-7.7) k/uL ABG pH 7.49 H (7.35-7.45) ABG pO2 52 L* (83-108) mmHg ABG HCO3 30 H (21-25) mmol/L ABG Total CO2 31 H (19-24) mmol/L ABG O2 Saturation 89.3 L (94-97) % Carbon Dioxide (22-30) mmol/L POC Glucose (mg/dL) 125 H 112 H (70-110) mg/dL Calcium (8.4-10.2) mg/dL AST (14-36) U/L Total Protein (6.3-8.2) g/dL Albumin (3.5-5.0) g/dL 10/15/21 10/15/21 Range/Units 05:19 05:19 WBC 15.0 H (3.8-10.6) k/uL RBC 2.57 L (3.80-5.40) m/uL Hgb 8.4 L (11.4-16.0) gm/dL Hct 26.0 L (34.0-46.0) % MCV 101.1 H (80.0-100.0) fL Neutrophils # 12.0 H (1.3-7.7) k/uL ABG pH (7.35-7.45) ABG pO2 (83-108) mmHg ABG HCO3 (21-25) mmol/L ABG Total CO2 (19-24) mmol/L ABG O2 Saturation (94-97) % Carbon Dioxide 31 H (22-30) mmol/L POC Glucose (mg/dL) (70-110) mg/dL Calcium 8.2 L (8.4-10.2) mg/dL AST 37 H (14-36) U/L Total Protein 5.4 L (6.3-8.2) g/dL Albumin 2.8 L (3.5-5.0) g/dL Microbiology - Last 24 Hours (Table) 10/12/21 09:20 Blood Culture - Preliminary Blood No Growth after 48 hours - Imaging and Cardiology Chest x-ray: image reviewed Assessment and Plan Assessment: 1. Multivessel coronary artery disease, non-ST elevated myocardial infarction this admission, status post three-vessel CABG 2. History of coronary artery disease and myocardial infarction status post multiple stent placement 3. Ischemic cardiomyopathy, EF 45-50% 4. Hypertension 5. Hyperlipidemia, cholesterol 252, LDL 156, triglycerides 291 6. Chronic kidney disease stage III secondary to nephrosclerosis 7. Chronic ongoing tobacco abuse 8. Obstructive sleep apnea with out home CPAP use 9. Mild COPD with home oxygen use 2-3 L nasal cannula at night, preoperative FEV1 60% of predicted 10. Morbid obesity 11. Hypothyroid, TSH 23.3 with free T4 0.36 12. Medical noncompliance 13. Type 2 diabetes mellitus, A1c 6.8% 14. Peripheral arterial disease, left SAEED 0.69 15. Postoperative acute blood loss anemia and thrombocytopenia, expected 16. Hypoxic respiratory failure requiring prolonged mechanical ventilation 17. Febrile with leukocytosis, cultures negative Plan: 1. Continue to optimize medical management with aspirin, Plavix, statin and beta garret. Will increase beta garret therapy as tolerated. Low-dose Chalo inhibitor added for afterload reduction 2. Continue calcium channel garret for radial artery spasm prophylaxis, will transition to Cardizem CD 3. Wean oxygen as tolerated. Bronchodilators, BiPAP management per pulmonology. 4. Will monitor daily labs and x-rays. Electrolyte replacement per protocol. Sputum and urine culture negative, blood cultures negative for 48-hour 5. GI/DVT prophylaxis 6. Will increase activity as tolerated. PT/OT/cardiac rehab following 7. Pain control with current medication regimen 8. Insulin management per primary care service. Patient is recently diagnosed diabetic with hemoglobin A1c 6.8%. Needs tight blood sugar control to promote healing and prevent infection 9. Discontinue arterial line. 10. Discontinue Guzman catheter. May bladder scan and straight cath for greater than 300 mL residual 11. Strict accurate intake and output. Daily weights. 12. Importance of risk modification including smoking cessation has been d iscussed in detail with the patient and reinforced with the patient. 13. More recommendations to follow
--- NOTE | 2021-10-15 08:43 | XR ---
EXAMINATION TYPE: XR chest 1V portable DATE OF EXAM: 10/15/2021 COMPARISON: 10/14/2021 HISTORY: Shortness of breath FINDINGS: There are bilateral pleural effusions with cardiomegaly and bibasilar infiltrate. There is a diffuse interstitial pattern. Post surgical changes are noted in the ET and NG tube have been removed. Media stinal drain no longer seen. Chronic rib deformities noted with no sizable pneumothorax. IMPRESSION: 1. Postoperative change correlate for CHF.
[2021-10-15] MEDS ORDERED: FUROSEMIDE 10 MG/ML 4 ML VIAL IV STA (08:47)
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
[2021-10-15 11:36] LABS: Glucose,Whole Blood 103 mg/dL (70-110)
--- NOTE | 2021-10-15 12:12 | P.PN ---
Subjective Progress Note Date: 10/15/21 Patient is doing well after being extubated to BiPAP. Has no complaints of pain, dyspnea at this time. Denies chest pain, palpitations. She is in normal sinus rhythm. Gen: awake, alert HEENT: normocephalic, atraumatic, good hearing acuity, moist mucous membranes Resp: good air exchange, breathing comfortably with no accessory muscle use CVS: good distal perfusion x 4, GI: soft, NTTP, ND : no SPT, no CVAT, garcia catheter is present MSK: no pitting edema, no clubbing Neuro: non-focal, moving all extremities Psych: cooperative, euthymic mood Assessment/plan: NSTEMI s/p CABG Severe three-vessel coronary artery disease Ischemic cardiomyopathy EF 45-50% History of coronary artery disease with stents Hypertension Hyperlipidemia - management per cardiothoracic, cardiology, pulmonary - Wean BiPAP to nasal cannula, advance diet - plavix, ASA, statin - Did not require amiodarone, diltiazem -Echocardiogram revealed mildly impaired EF of 45-50% with mild mitral regurgitation and inferior wall hypokinesia. -Carotid Dopplers revealing minimal plaque formation with less than 25% stenosis in both internal carotid arteries Acute blood loss anemia Thrombocytopenia -Anticipated outcome of surgery -No indication for repeat transfusion at this time -Follow CBC Hypothyroidism with history of Graves' disease -TSH 23.300 and free T4 0.36 -possibly secondary to medication noncompliance, however unclear -resume oral levothyroxine - follow up outpatient with PCP/endocrinology for repeat labs in 6-8 weeks and further adjustments of medications/medication management. COPD with continued nicotine dependence, without exacerbation - scheduled and prn bronchdilators. - No indication for steroids Type 2 diabetes mellitus with hemoglobin A1c of 6.8%, newly discovered - sliding scale to ACHS, low-dose Levemir. Continue to follow blood sugars. - will need glucometer on discharge -Patient will need oral hypoglycemic agent upon discharge, recommend Jardiance based upon its benefits with controlling blood glucose levels as well as its associated heart failure risk reduction. DVT prophylaxis: Heparin Anticipated discharge date: clinical course to determine Anticipated discharge place: Home Objective - Vital Signs Vital signs: Vital Signs Temp 96.9 F L 10/15/21 08:00 Pulse 71 10/15/21 11:28 Resp 14 10/15/21 11:00 BP 112/59 10/15/21 11:00 Pulse Ox 96 10/15/21 11:00 FiO2 50 10/15/21 11:18 Intake & Output 10/14/21 10/15/21 10/15/21 18:59 06:59 18:59 Intake Total 522.718 411 165 Output Total 7981 541 0429 Balance -1212.282 -394 -1187 Weight 115 kg 115 kg Intake: IV 402 411 165 Lactated Ringers 1,000 ml 330 360 150 @ 20 mls/hr IV .Q24H [facility] Rx#:[id number] pressure bag 72 51 15 Intake, IV Titration 60.718 Amount propofoL 1,000 mg In 60.718 Empty Bag 1 bag @ Titrate IV .Q0M [facility] Rx#: [id number] Tube Feeding 30 Other 30 Output: Chest Tube Drainage 40 left pleural 0 mediastinal 40 Urine 6417 072 7861 Other: Voiding Method Indwelling Catheter Indwelling Catheter Indwelling Catheter ABP, PAP, CO, CI - Last Documented Arterial Blood Pressure 137/52 Pulmonary Artery Pressure 38/28 Cardiac Output 4.7 Cardiac Index 2.4 - Labs CBC & Chem 7: 10/15/21 05:19 10/15/21 05:19 Labs: Abnormal Lab Results - Last 24 Hours (Table) 10/14/21 10/14/21 10/15/21 Range/Units 13:25 17:43 05:19 WBC 15.0 H (3.8-10.6) k/uL RBC 2.57 L (3.80-5.40) m/uL Hgb 8.4 L (11.4-16.0) gm/dL Hct 26.0 L (34.0-46.0) % MCV 101.1 H (80.0-100.0) fL Neutrophils # 12.0 H (1.3-7.7) k/uL Carbon Dioxide (22-30) mmol/L POC Glucose (mg/dL) 125 H 112 H (70-110) mg/dL Calcium (8.4-10.2) mg/dL AST (14-36) U/L Total Protein (6.3-8.2) g/dL Albumin (3.5-5.0) g/dL 10/15/21 Range/Units 05:19 WBC (3.8-10.6) k/uL RBC (3.80-5.40) m/uL Hgb (11.4-16.0) gm/dL Hct (34.0-46.0) % MCV (80.0-100.0) fL Neutrophils # (1.3-7.7) k/uL Carbon Dioxide 31 H (22-30) mmol/L POC Glucose (mg/dL) (70-110) mg/dL Calcium 8.2 L (8.4-10.2) mg/dL AST 37 H (14-36) U/L Total Protein 5.4 L (6.3-8.2) g/dL Albumin 2.8 L (3.5-5.0) g/dL Microbiology - Last 24 Hours (Table) 10/12/21 09:20 Blood Culture - Preliminary Blood No Growth after 48 hours
[2021-10-15 12:14] LABS: Glucose,Whole Blood 106 mg/dL (70-110)
[2021-10-15] MEDS: DILTIAZEM CD 120 MG CAP.ER.24H PO SCH (12:34)
[2021-10-15 16:44] LABS: Glucose,Whole Blood 97 mg/dL (70-110)
[2021-10-15 20:31] LABS: Glucose,Whole Blood 107 mg/dL (70-110)
[2021-10-15] MEDS: SENNOSIDES-DOCUSATE SODIUM 1 EACH TAB PO SCH (21:00)
[2021-10-16 06:33] LABS: Glucose,Whole Blood 112 mg/dL (70-110)
[2021-10-16] MEDS: INSULIN DETEMIR (LEVEMIR) 100 UNIT/ML SYR SQ SCH (06:37)
[2021-10-16] MEDS: LEVOTHYROXINE 50 MCG TAB PO SCH (06:37)
[2021-10-16] MEDS: PANTOPRAZOLE 40 MG TABLET PO SCH (06:37)
[2021-10-16] MEDS: INSULIN ASPART (NovoLOG) 100 UNIT/ML VIAL SQ SCH ×4 (06:39→21:11)
[2021-10-16] MEDS: IPRATROPIUM-ALBUTEROL 3 ML NEB INHALATION SCH ×4 (07:11→19:16)
--- NOTE | 2021-10-16 07:28 | P.PN ---
Subjective Progress Note Date: 10/16/21 Principal diagnosis: Multivessel coronary artery disease, non-ST elevated myocardial infarction this admission. Previous medical history of coronary artery disease and myocardial infarction status post multiple stent placement, ischemic cardiomyopathy, hypertension, hyperlipidemia, chronic kidney disease stage III secondary to nephrosclerosis, chronic ongoing tobacco abuse, obstructive sleep apnea with out home CPAP use, mild COPD with home oxygen use 2-3 L nasal cannula at night, morbid obesity, hypothyroid, medical noncompliance, type II diabetes, peripheral artery disease POD #6 coronary artery bypass grafting 3 vessels, left internal mammary artery to the left anterior descending artery, radial artery to the obtuse marginal artery, saphenous vein graft to the posterior descending artery, endoscopic harvesting of the left radial artery, endoscopic harvesting of the left greater saphenous vein, ligation of the left atrial appendage using a 35 mm AtriClip, epi-aortic ultrasound, intraoperative transesophageal echocardiogram, closure of the sternum using a titanium plating system Postoperative acute blood loss anemia and thrombocytopenia, expected given hemo dilution cardiopulmonary bypass pump Hypoxic respiratory failure requiring a prolonged mechanical ventilation The patient was seen and examined this morning sitting up in a recliner in the intensive care in no acute distress. She remains in sinus rhythm and hemodynamically stable on no inotropes or pressors. Urine output stable. Afebrile for 72 hours. Sputum culture and urine culture finalized and negative for any growth, blood cultures negative 48 hours. She denies pain or shortness of breath. She was on bipap overnight, currently on 6 LPM high flow NC with oxygen sats in the 90s. Was given lasix yesterday with excellent diuresis. Requesting to ambulate. No other new concerns. Objective - Vital Signs Vital signs: Vital Signs Temp 98.3 F 10/16/21 04:00 Pulse 84 10/16/21 07:11 Resp 13 10/16/21 07:00 BP 123/66 10/16/21 07:00 Pulse Ox 94 L 10/16/21 07:11 FiO2 45 10/16/21 05:00 Intake & Output 10/15/21 10/16/21 10/16/21 18:59 06:59 18:59 Intake Total 396 33 Output Total 2192 325 0 Balance -1796 -292 0 Weight 115 kg 108.8 kg Intake: IV 396 33 Lactated Ringers 1,000 ml 360 30 @ 20 mls/hr IV .Q24H [facility] Rx#:[id number] pressure bag 36 3 Output: Urine 2192 325 0 Post Void Residual 0 Other: Voiding Method Indwelling Catheter Indwelling Catheter # Voids 0 0 ABP, PAP, CO, CI - Last Documented Arterial Blood Pressure 137/52 Pulmonary Artery Pressure 38/28 Cardiac Output 4.7 Cardiac Index 2.4 - Exam CONSTITUTIONAL: Appears comfortable, cooperative, no acute distress RESPIRATORY: Lungs sounds diminished bilaterally. Respirations even, nonlabored. Currently on 6 LPM high flow NC with oxygen saturation 94%. Strong cough. Able to achieve 750 mL on incentive spirometry. CARDIOVASCULAR: S1, S2 present. Regular rate and rhythm, sinus rhythm on telemetry. Sternum stable. Palpable peripheral pulses bilaterally. Gener alized edema present. No calf pain or tenderness noted. Heart hugger, antiembolism stockings, SCDs present. GASTROINTESTINAL: Abdomen soft, nontender, nondistended. Active bowel sounds present 4 quadrants. Tolerating diet. Positive flatus, negative bowel movement GENITOURINARY: Guzman discontinued yesterday, patient has voided with no residual. Output 2500 mL in the last 24 hours INTEGUMENTARY: Skin is warm and dry with evidence of good perfusion. Anterior chest incision well approximated and covered with dry intact dressing. Left lower extremity EVH site as well as left radial artery harvest site well approximated without redness or drainage. NEUROLOGIC: Cranial nerves II through XII intact MUSKULOSKELETAL: Able to move all extremities, strength equal bilaterally PSYCHIATRIC: Alert and oriented to person place and time, appropriate affect, intact judgment and insight INVASIVE LINES AND TUBES: A/V epicardial pacemaker wires present, grounded. - Allied health notes Allied health notes reviewed: nursing - Labs CBC & Chem 7: 10/16/21 07:46 10/16/21 07:46 Labs: Abnormal Lab Results - Last 24 Hours (Table) 10/16/21 Range/Units 06:31 POC Glucose (mg/dL) 112 H (70-110) mg/dL Microbiology - Last 24 Hours (Table) 10/12/21 09:20 Blood Culture - Preliminary Blood No Growth after 72 hours - Imaging and Cardiology Chest x-ray: image reviewed Assessment and Plan Assessment: 1. Multivessel coronary artery disease, non-ST elevated myocardial infarction this admission, status post three-vessel CABG 2. History of coronary artery disease and myocardial infarction status post multiple stent placement 3. Ischemic cardiomyopathy, EF 45-50% 4. Hypertension 5. Hyperlipidemia, cholesterol 252, LDL 156, triglycerides 291 6. Chronic kidney disease stage III secondary to nephrosclerosis 7. Chronic ongoing tobacco abuse 8. Obstructive sleep apnea with out home CPAP use 9. Mild COPD with home oxygen use 2-3 L nasal cannula at night, preoperative FEV1 60% of predicted 10. Morbid obesity 11. Hypothyroid, TSH 23.3 with free T4 0.36 12. Medical noncompliance 13. Type 2 diabetes mellitus, A1c 6.8% 14. Peripheral arterial disease, left SAEED 0.69 15. Postoperative acute blood loss anemia and thrombocytopenia, expected 16. Hypoxic respiratory failure requiring prolonged mechanical ventilation 17. Febrile with leukocytosis, cultures negative Plan: 1. Continue to optimize medical management with aspirin, Plavix, statin, APRIL-I, and beta garret. Will increase beta garret therapy as tolerated. 2. Continue calcium channel garret for radial artery spasm prophylaxis 3. Wean oxygen as tolerated. Bronchodilators, BiPAP management per pulmonology. 4. Will monitor daily labs and x-rays. Electrolyte replacement per protocol. Sputum and urine culture negative, blood cultures negative for 72-hour. Will give IV lasix 5. GI/DVT prophylaxis 6. Will increase activity as tolerated. PT/OT/cardiac rehab following 7. Pain control with current medication regimen 8. Insulin management per primary care service. Patient is recently diagnosed diabetic with hemoglobin A1c 6.8%. Needs tight blood sugar control to promote healing and prevent infection 9. Strict accurate intake and output. Daily weights. 10. Importance of risk modification including smoking cessation has been discussed in detail with the patient and reinforced with the patient. 11. Likely will place transfer orders for 3 [facility] cardiac stepdown unit today 12. First post op shower today, then daily 13. More recommendations to follow
[2021-10-16 08:06] LABS: HCT 27.1 % (34.0-46.0); Hypochromasia Slight; MCH 33.4 pg (25.0-35.0); MCHC 33.1 g/dL (31.0-37.0); MCV 100.8 fL (80.0-100.0); Macrocytosis Slight; Mean Platelet Volume 10.2; Platelet Count 267 k/uL (150-450); RBC 2.69 m/uL (3.80-5.40); RDW 15.2 % (11.5-15.5); WBC 13.1 k/uL (3.8-10.6)
--- NOTE | 2021-10-16 08:14 | XR ---
EXAMINATION TYPE: XR chest 1V portable DATE OF EXAM: 10/16/2021 COMPARISON: 10/15/2021 HISTORY: Post cardiac surgery TECHNIQUE: Single frontal view of the chest is obtained. FINDINGS: There are bilateral pleural effusions with cardiomegaly and bibasilar infiltrate. There is a diffuse interstitial pattern. Post surgical changes are noted. Mediastinal drain no longer seen. C hronic rib deformities noted with no sizable pneumothorax. IMPRESSION: Postoperative change correlate for CHF. Findings may be slightly improved relative to th e prior exam.
[2021-10-16 08:22] LABS: Albumin 3.1 g/dL (3.5-5.0); Calcium 8.5 mg/dL (8.4-10.2); Magnesium 2.1 mg/dL (1.6-2.3); Potassium 3.6 mmol/L (3.5-5.1); Total Bilirubin 0.7 mg/dL (0.2-1.3)
--- NOTE | 2021-10-16 08:32 | P.PN ---
Subjective Progress Note Date: 10/16/21 PROGRESS NOTE The patient is a 56-year-old female with a history of diabetes, hyperlipidemia and hypertension who underwent CABG and had multiple previous PCI. Pre-bypass her ejection fraction was 45-50%. She underwent CABG on October 10 with a HOLM to the LAD radial to the obtuse marginal branch and SVG to the PDA. She remains intubated and sedated. Attempt to wean her yesterday were unsuccessful because of hypoxemia. She continues to be in sinus mechanism with good urinary output. There is no evidence of ventricular ectopic activity or atrial fibrillation. She continues to be on aspirin, Lipitor, Plavix 75 mg daily, diltiazem 30 mg 4 times a day, insulin, metoprolol tartrate 50 mg twice a day October 15: The patient is extubated, continues to be in sinus mechanism. Hemodynamically stable with good urinary output. She denies any chest discomfort, dizziness or palpitations. She continues to be on aspirin, Lipitor, Plavix, Cardizem 30 mg every 6 hours, insulin, metoprolol tartrate 50 mg twice a day. There is no evidence of atrial fibrillation or ventricular ectopic activity. October 16: The patient is sitting up in the chair, feeling better, her breathing is stable. She continues to be in sinus mechanism. Hemodynamically she is stable. No episodes of atrial fibrillation. Her appetite has been stable. Her urinary output is good. Her chest x-ray shows mild improvement in her congestion. PHYSICAL EXAMINATION: Blood pressure 114/60, heart rate in the 80s LUNGS: Mild decrease in the breath sounds HEART: Regular rate and rhythm, S1, S2. No S3. No systolic murmur ABDOMEN: Soft, no organomegaly EXTREMETIES: No edema LAB: BUN and creatinine 19 and 1.03, potassium 4.1. Hemoglobin 9.0 IMPRESSION: 1. Status post CABG 2. Respiratory failure status post CABG, resolved 3. History of multiple PCI 4. History of diabetes 5. Mild ischemic cardiomyopathy preoperatively. PLAN: 1. Continue present therapy 2. Increase physical activity 3. Incentive spirometry 4. Follow blood pressure and adjust her APRIL inhibitor accordingly. Objective - Vital Signs Vital signs: Vital Signs Temp 98.1 F 10/16/21 08:00 Pulse 92 10/16/21 08:00 Resp 16 10/16/21 08:00 BP 114/64 10/16/21 08:00 Pulse Ox 93 L 10/16/21 08:00 FiO2 45 10/16/21 05:00 Intake & Output 10/15/21 10/16/21 10/16/21 18:59 06:59 18:59 Intake Total 396 33 Output Total 2192 325 0 Balance -1796 -292 0 Weight 115 kg 108.8 kg Intake: IV 396 33 Lactated Ringers 1,000 ml 360 30 @ 20 mls/hr IV .Q24H [facility] Rx#:[id number] pressure bag 36 3 Output: Urine 2192 325 0 Post Void Residual 0 Other: Voiding Method Indwelling Catheter Indwelling Catheter # Voids 0 0 0 ABP, PAP, CO, CI - Last Documented Arterial Blood Pressure 137/52 Pulmonary Artery Pressure 38/28 Cardiac Output 4.7 Cardiac Index 2.4 - Labs CBC & Chem 7: 10/16/21 07:46 10/16/21 07:46 Labs: Abnormal Lab Results - Last 24 Hours (Table) 10/16/21 10/16/21 10/16/21 Range/Units 06:31 07:46 07:46 WBC 13.1 H (3.8-10.6) k/uL RBC 2.69 L (3.80-5.40) m/uL Hgb 9.0 L (11.4-16.0) gm/dL Hct 27.1 L (34.0-46.0) % MCV 100.8 H (80.0-100.0) fL BUN 19 H (7-17) mg/dL Glucose 136 H (74-99) mg/dL POC Glucose (mg/dL) 112 H (70-110) mg/dL AST 40 H (14-36) U/L Total Protein 6.0 L (6.3-8.2) g/dL Albumin 3.1 L (3.5-5.0) g/dL Microbiology - Last 24 Hours (Table) 10/12/21 09:20 Blood Culture - Preliminary Blood No Growth after 72 hours
[2021-10-16] MEDS ORDERED: POTASSIUM BICARBONATE/CIT AC 20 MEQ TABLET.EFF PO ONE (08:43)
[2021-10-16] MEDS ORDERED: FUROSEMIDE 10 MG/ML 4 ML VIAL IV STA (08:43)
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
[2021-10-16] MEDS: ATORVASTATIN 40 MG TAB PO SCH (09:24)
[2021-10-16] MEDS: HEPARIN SODIUM,PORCINE/PF 5,000 UNIT/0.5 ML SYRINGE SQ SCH ×2 (09:24→15:33)
[2021-10-16] MEDS: DILTIAZEM CD 120 MG CAP.ER.24H PO SCH (09:24)
[2021-10-16] MEDS: METOPROLOL TARTRATE 50 MG TAB PO SCH ×2 (09:25→21:11)
[2021-10-16] MEDS: ASPIRIN 325 MG TAB PO SCH (09:25)
[2021-10-16] MEDS: CLOPIDOGREL 75 MG TAB PO SCH (09:25)
[2021-10-16] MEDS ORDERED: polyethylene glycoL 3350 17 GM POWD.PACK PO STA (09:51)
[2021-10-16 11:18] LABS: Glucose,Whole Blood 132 mg/dL (70-110)
[2021-10-16] MEDS: HYDROcodone/APAP 5-325MG 1 EACH TAB PO PRN ×2 (12:51→21:08)
--- NOTE | 2021-10-16 13:06 | P.PN ---
Subjective Progress Note Date: 10/16/21 (marko charting seen at approx 0930) Principal diagnosis: chest pain Patient is a 56-year-old female with CAD with stents, hypertension, hyperlipidemia, ischemic cardiomyopathy, Graves' disease, chronic kidney disease, COPD not on home oxygen dependent with continued nicotine dependence. In the emergency department she underwent an extensive evaluation. CBC reveal ing mild leukocytosis with WBC count of 11.1. BMP revealing mildly elevated creatinine which is improved from baseline levels and currently 1.09. Liver profile revealing slightly elevated AST of 66 and ALT of 45. Troponin negative at 0.013. EKG revealing normal sinus rhythm at 96 bpm with T-wave inversion in leads V3 through V6. Chest x-ray revealing mild cardiomegaly and chronic emphysematous changes, otherwise negative for acute pulmonary process. Patient was admittedfor furter evaluation. Cardiology was consulted. Troponins trended and elevating at 0.013, 0.020, and 0.070. Patient was started on heparin infusion per ACS protocol. On 10/05/21 patient underwent a cardiac cath which re vealed severe three-vessel coronary artery disease with chronically occluded right coronary artery and a long segment of stenosis in the proximal LAD and lesion within the circumflex. Patient was felt to be high risk for angioplasty and further stent placement secondary to her significant cardiac history and was referred for cardiac bypass surgery. Cardiothoracic surgery was then consulted and patient went for CABG on 10/10/21. She had prolonged ventilation Spiked fevers starting on 10/10/21 work up unrevealing and fevers resolved. Patient seen and examined at bedside. awaiting extubation. Awake following commands. Appears comfortable. General: nontoxic, mild distress, appears at stated age Derm: warm, dry Head: atraumatic, normocephalic, symmetric Eyes: no lid leisions Mouth: no lip lesion, mucus membranes moist Cardiovascular: S1S2 reg, no murmur, positive posterior tibial pulse bilateral, Lungs: course bilateral, no rhonchi, no rales , no accessory muscle use Abdominal: soft, nontender to palpation, no guarding, no appreciable organomegaly Ext: no gross muscle atrophy, no edema, no contracture Neuro: awaking moving all 4 extremities, CN II-XII intact Psych: awake following commands appropriate affect Assessment and Plan of Care: NSTEMI s/p CABG Severe three-vessel coronary artery disease Ischemic cardiomyopathy EF 45-50% Postop respiratory failure with prolonged mechanical ventilation History of coronary artery disease with stents Hypertension Hyperlipidemia - management per cardiothorasic - plavix, ASA, statin, cardizem, lisinopril, metoprolol - Echocardiogram revealed mildly impaired EF of 45-50% with mild mitral regurgitation and inferior wall hypokinesia. - Carotid Dopplers revealing minimal plaque formation with less than 25% stenosis in both internal carotid arteries Acute blood loss anemia Thrombocytopenia -Anticipated outcome of surgery -Follow CBC - start iron once constipation resolved. Constipation - Miralax today Hypothyroidism with history of Graves' disease -TSH 23.300 and free T4 0.36 -possibly secondary to medication noncompliance, however unclear -resume oral levothyroxine - follow up outpatient with PCP/endocrinology for repeat labs in 6-8 weeks and further adjustments of medications/medication management. COPD with continued nicotine dependence, without exacerbation - scheduled and prn bronchdilators. Type 2 diabetes mellitus with hemoglobin A1c of 6.8%, newly discovered - sliding scale to ACGS, low-dose Levemir. Continue to follow blood sugars. - will need glucometer on discharge -Patient will need oral hypoglycemic agent upon discharge, Sent Jardiance for hills check based upon its benefits with controlling blood glucose levels as well as its associated heart failure risk reduction. Pyrexia, resolved -Cultures are negative Elevated CK, resolved Chronic: Arterial disease CKD III Mild COPD DVT prophylaxis: Heparin Anticipated discharge date: clinical course to determine Anticipated discharge place: Home A total of 36 minutes was spent on the care of this complex patient more than 50% of the time was spent in counseling and care coordination. Active Medications Generic Name Dose Route Start Last Admin Trade Name Freq PRN Reason Stop Dose Admin Acetaminophen 650 mg 10/14/21 16:11 Acetaminophen Tab 325 Mg Tab PO Q4HR PRN Fever and/ or Pain Hydrocodone Bitart/Acetaminophen 1 each 10/11/21 06:00 10/16/21 12:51 Hydrocodone/Apap 5-325mg 1 Each Tab PO 1 each Q4HR PRN Administration Moderate Pain Albuterol/Ipratropium 3 ml 10/10/21 15:13 Ipratropium-Albuterol 3 Ml Neb INHALATION RT-Q2H PRN Shortness Of Breath Or Wheezing Albuterol/Ipratropium 3 ml 10/11/21 08:00 10/16/21 11:38 Ipratropium-Albuterol 3 Ml Neb INHALATION 3 ml RT-QID [facility] Administration Aspirin 325 mg 10/11/21 09:00 10/16/21 09:25 Aspirin 325 Mg Tab PO 325 mg DAILY [facility] Administration Atorvastatin Calcium 40 mg 10/11/21 09:00 10/16/21 09:24 Atorvastatin 40 Mg Tab PO 40 mg DAILY [facility] Administration Benzocaine/Menthol 1 each 10/10/21 15:13 Benzocaine/Menthol Lozeng 1 Each Lozenge MUCOUS MEM Q2H PRN Sore Throat Bisacodyl 10 mg 10/11/21 09:00 Bisacodyl 10 Mg Supp RECTAL DAILY PRN Constipation Clopidogrel Bisulfate 75 mg 10/11/21 09:00 10/16/21 09:25 Clopidogrel 75 Mg Tab PO 75 mg DAILY [facility] Administration Diltiazem HCl 120 mg 10/15/21 12:00 10/16/21 09:24 Diltiazem Cd 120 Mg Cap.Er.24h PO 120 mg DAILY [facility] Administration Heparin Sodium (Porcine) 5,000 unit 10/10/21 16:00 10/16/21 09:24 Heparin Sodium,Porcine/Pf 5,000 Unit/0.5 Ml Syringe SQ 5,000 unit Q8HR [facility] Administration Amiodarone HCl 150 mg/ 103 mls @ 618 mls/hr 10/10/21 15:13 Dextrose/Water IV .Q10M PRN A.FIB/FLUTTER Protocol Amiodarone HCl 360 mg/ 207.2 mls @ 34.533 mls/hr 10/10/21 15:13 Dextrose/Water IV .Q6H PRN A.FIB/FLUTTER Protocol 1 MG/MIN Amiodarone HCl 450 mg/ 250 mls @ 16.667 mls/hr 10/10/21 15:13 Dextrose/Water IV .Q15H PRN A.FIB/FLUTTER Protocol 0.5 MG/MIN Insulin Aspart 0 unit 10/14/21 12:30 10/16/21 12:52 Insulin Aspart (Novolog) 100 Unit/Ml Vial SQ 1 unit ACHS [facility] Administration Protocol Insulin Detemir 10 unit 10/12/21 10:00 10/16/21 06:37 Insulin Detemir (Levemir) 100 Unit/Ml Syr SQ 10 unit DAILY@0700 [facility] Administration Levothyroxine Sodium 50 mcg 10/15/21 06:30 10/16/21 06:37 Levothyroxine 50 Mcg Tab PO 50 mcg DAILY@0630 [facility] Administration Lisinopril 2.5 mg 10/15/21 09:00 10/16/21 09:24 Lisinopril 2.5 Mg Tab PO 2.5 mg DAILY [facility] Administration Magnesium Hydroxide 2,400 mg 10/11/21 09:00 Magnesium Hydroxide 2,400 Mg/10 Ml Cup PO BID PRN Constipation Metoclopramide HCl 10 mg 10/10/21 15:13 Metoclopramide 5 Mg/Ml 2 Ml Vial IVP Q4H PRN Nausea And Vomiting Metoprolol Tartrate 50 mg 10/11/21 21:00 10/16/21 09:25 Metoprolol Tartrate 50 Mg Tab PO 50 mg BID [facility] Administration Miscellaneous Information 1 each 10/10/21 15:13 Potassium Replacement Protocol 1 Each Misc MISCELLANE DAILY PRN Per Protocol Protocol Miscellaneous Information 1 each 10/10/21 15:13 Magnesium Replacement Protocol 1 Each Misc MISCELLANE DAILY PRN Per Protocol Protocol Ondansetron HCl 4 mg 10/10/21 15:13 Ondansetron 4 Mg/2 Ml Vial IVP Q6HR PRN Nausea And Vomiting Pantoprazole Sodium 40 mg 10/15/21 07:30 10/16/21 06:37 Pantoprazole 40 Mg Tablet PO 40 mg [id number] [facility] Administration Senna/Docusate Sodium 2 each 10/11/21 21:00 10/15/21 21:00 Sennosides-Docusate Sodium 1 Each Tab PO 2 each HS [facility] Administration Sodium Chloride 10 ml 10/10/21 21:00 10/16/21 10:37 Sodium Chloride 0.9% Flush 10 Ml Syringe IV 10 ml BID [facility] Administration Objective - Vital Signs Vital signs: Vital Signs Temp 98.1 F 10/16/21 08:00 Pulse 77 10/16/21 11:50 Resp 21 10/16/21 11:00 BP 106/57 10/16/21 11:00 Pulse Ox 95 10/16/21 11:00 FiO2 45 10/16/21 05:00 Intake & Output 10/15/21 10/16/21 10/16/21 18:59 06:59 18:59 Intake Total 396 33 Output Total 2192 325 1100 Balance -1796 -292 -1100 Weight 115 kg 108.8 kg Intake: IV 396 33 Lactated Ringers 1,000 ml 360 30 @ 20 mls/hr IV .Q24H [facility] Rx#:[id number] pressure bag 36 3 Output: Urine 2192 325 1100 Post Void Residual 0 Other: Voiding Method Indwelling Catheter Indwelling Catheter Indwelling Catheter # Voids 0 0 0 # Bowel Movements 1 ABP, PAP, CO, CI - Last Documented Arterial Blood Pressure 137/52 Pulmonary Artery Pressure 38/28 Cardiac Output 4.7 Cardiac Index 2.4 - Labs CBC & Chem 7: 10/16/21 07:46 10/16/21 07:46 Labs: Abnormal Lab Results - Last 24 Hours (Table) 10/16/21 10/16/21 10/16/21 Range/Units 06:31 07:46 07:46 WBC 13.1 H (3.8-10.6) k/uL RBC 2.69 L (3.80-5.40) m/uL Hgb 9.0 L (11.4-16.0) gm/dL Hct 27.1 L (34.0-46.0) % MCV 100.8 H (80.0-100.0) fL BUN 19 H (7-17) mg/dL Glucose 136 H (74-99) mg/dL POC Glucose (mg/dL) 112 H (70-110) mg/dL AST 40 H (14-36) U/L Total Protein 6.0 L (6.3-8.2) g/dL Albumin 3.1 L (3.5-5.0) g/dL 10/16/21 Range/Units 11:16 WBC (3.8-10.6) k/uL RBC (3.80-5.40) m/uL Hgb (11.4-16.0) gm/dL Hct (34.0-46.0) % MCV (80.0-100.0) fL BUN (7-17) mg/dL Glucose (74-99) mg/dL POC Glucose (mg/dL) 132 H (70-110) mg/dL AST (14-36) U/L Total Protein (6.3-8.2) g/dL Albumin (3.5-5.0) g/dL Microbiology - Last 24 Hours (Table) 10/12/21 09:20 Blood Culture - Preliminary Blood No Growth after 72 hours
[2021-10-16] MEDS ORDERED: SENNOSIDES-DOCUSATE SODIUM 1 EACH TAB PO PRN (13:09)
[2021-10-16 16:04] LABS: Glucose,Whole Blood 97 mg/dL (70-110)
[2021-10-16 20:30] LABS: Glucose,Whole Blood 131 mg/dL (70-110)
[2021-10-16] MEDS: POTASSIUM CHLORIDE ER 20 MEQ TAB.ER PO SCH (22:11)
[2021-10-17] MEDS: HYDROcodone/APAP 5-325MG 1 EACH TAB PO PRN (02:06)
[2021-10-17] MEDS: POTASSIUM CHLORIDE ER 20 MEQ TAB.ER PO SCH (02:14)
[2021-10-17] MEDS: HEPARIN SODIUM,PORCINE/PF 5,000 UNIT/0.5 ML SYRINGE SQ SCH ×3 (02:14→16:49)
[2021-10-17 06:17] LABS: HCT 26.3 % (34.0-46.0); HGB 8.5 gm/dL (11.4-16.0); Hypochromasia Slight; MCH 32.5 pg (25.0-35.0); MCHC 32.4 g/dL (31.0-37.0); MCV 100.3 fL (80.0-100.0); Macrocytosis Slight; Mean Platelet Volume 10.4; Platelet Count 267 k/uL (150-450); RBC 2.62 m/uL (3.80-5.40); WBC 15.2 k/uL (3.8-10.6)
[2021-10-17 06:33] LABS: Calcium 8.2 mg/dL (8.4-10.2); Magnesium 2.1 mg/dL (1.6-2.3); Potassium 3.9 mmol/L (3.5-5.1)
[2021-10-17 06:36] LABS: Glucose,Whole Blood 114 mg/dL (70-110)
[2021-10-17] MEDS: INSULIN ASPART (NovoLOG) 100 UNIT/ML VIAL SQ SCH ×4 (06:38→21:17)
[2021-10-17] MEDS: LEVOTHYROXINE 50 MCG TAB PO SCH (06:45)
[2021-10-17] MEDS: PANTOPRAZOLE 40 MG TABLET PO SCH (06:45)
[2021-10-17] MEDS: INSULIN DETEMIR (LEVEMIR) 100 UNIT/ML SYR SQ SCH (06:46)
--- NOTE | 2021-10-17 06:47 | XR ---
EXAMINATION TYPE: XR chest 2V DATE OF EXAM: 10/17/2021 COMPARISON: 10/16/2021 TECHNIQUE: PA and lateral views submitted. HISTORY: Post cardiac surgery FINDINGS: There are bilateral pleural effusions with cardiomegaly and bibasilar infiltrate. There is a diffuse interstitial pattern. Post surgical changes are noted. Mediastinal drain no longer seen. Chronic rib deformities noted with no sizable pneumothorax. IMPRESSION: 1. Postoperative change correlate for CHF. Findings may be slightly improved relative to the prior ex am.
--- NOTE | 2021-10-17 07:14 | P.PN ---
Subjective Progress Note Date: 10/17/21 Principal diagnosis: Multivessel coronary artery disease, non-ST elevated myocardial infarction this admission. Previous medical history of coronary artery disease and myocardial infarction status post multiple stent placement, ischemic cardiomyopathy, hypertension, hyperlipidemia, chronic kidney disease stage III secondary to nephrosclerosis, chronic ongoing tobacco abuse, obstructive sleep apnea with out home CPAP use, mild COPD with home oxygen use 2-3 L nasal cannula at night, morbid obesity, hypothyroid, medical noncompliance, type II diabetes, peripheral artery disease POD #7 coronary artery bypass grafting 3 vessels, left internal mammary artery to the left anterior descending artery, radial artery to the obtuse marginal artery, saphenous vein graft to the posterior descending artery, endoscopic harvesting of the left radial artery, endoscopic harvesting of the left greater saphenous vein, ligation of the left atrial appendage using a 35 mm AtriClip, epi-aortic ultrasound, intraoperative transesophageal echocardiogram, closure of the sternum using a titanium plating system Postoperative acute blood loss anemia and thrombocytopenia, expected given hemo dilution cardiopulmonary bypass pump Hypoxic respiratory failure requiring a prolonged mechanical ventilation The patient was seen and examined this morning sitting up in a recliner in the intensive care in no acute distress. She remains in sinus rhythm and hemodynamically stable on no inotropes or pressors. Urine output stable. Remains afebrile. Sputum culture and urine culture finalized and negative for any growth, blood cultures negative 96 hours. States pain is controlled on current medication regimen, denies significant shortness of breath. Currently on 5 LPM high flow NC with oxygen sats in the 90s. Was given lasix yesterday with excellent diuresis. Ambulated with assistance 4 times yesterday, patient is motivated and wants to go home at discharge. No other new concerns. Objective - Vital Signs Vital signs: Vital Signs Temp 97.7 F 10/17/21 00:00 Pulse 73 10/17/21 03:00 Resp 16 10/17/21 03:00 BP 107/60 10/17/21 03:00 Pulse Ox 89 L 10/17/21 03:00 FiO2 45 10/16/21 05:00 Intake & Output 10/16/21 10/17/21 10/17/21 18:59 06:59 18:59 Intake Total 180 Output Total 1300 100 Balance -1300 80 Weight 108.2 kg Intake: Oral 180 Output: Urine 1100 Urine/Stool Mix 200 100 Other: Voiding Method Indwelling Catheter Indwelling Catheter # Voids 0 0 # Bowel Movements 1 ABP, PAP, CO, CI - Last Documented Arterial Blood Pressure 137/52 Pulmonary Artery Pressure 38/28 Cardiac Output 4.7 Cardiac Index 2.4 - Exam CONSTITUTIONAL: Appears comfortable, cooperative, no acute distress RESPIRATORY: Lungs sounds diminished bilaterally. Respirations even, nonlabored. Currently on 5 LPM high flow NC with oxygen saturation 93%. Strong cough. Able to achieve 750 mL on incentive spirometry. CARDIOVASCULAR: S1, S2 present. Regular rate and rhythm, sinus rhythm on telemetry. Sternum stable. Palpable peripheral pulses bilaterally. Generalized edema present, less than yesterday. No calf pain or tenderness noted. Heart hugger, antiembolism stockings, SCDs present. GASTROINTESTINAL: Abdomen soft, nontender, nondistended. Active bowel sounds present 4 quadrants. Tolerating diet. Positive bowel movement 10/16 GENITOURINARY: Continues to void. INTEGUMENTARY: Skin is warm and dry with evidence of good perfusion. Anterior chest incision well approximated and covered with dry intact dressing. Left lower extremity EVH site as well as left radial artery harvest site well approximated without redness or drainage. NEUROLOGIC: Cranial nerves II through XII intact MUSKULOSKELETAL: Able to move all extremities, strength equal bilaterally PSYCHIATRIC: Alert and oriented to person place and time, appropriate affect, intact judgment and insight INVASIVE LINES AND TUBES: A/V epicardial pacemaker wires present, grounded. - Allied health notes Allied health notes reviewed: nursing - Labs CBC & Chem 7: 10/17/21 05:30 10/17/21 05:30 Labs: Abnormal Lab Results - Last 24 Hours (Table) 10/16/21 10/16/21 10/16/21 Range/Units 07:46 07:46 11:16 WBC 13.1 H (3.8-10.6) k/uL RBC 2.69 L (3.80-5.40) m/uL Hgb 9.0 L (11.4-16.0) gm/dL Hct 27.1 L (34.0-46.0) % MCV 100.8 H (80.0-100.0) fL Potassium (3.5-5.1) mmol/L Carbon Dioxide (22-30) mmol/L BUN 19 H (7-17) mg/dL Glucose 136 H (74-99) mg/dL POC Glucose (mg/dL) 132 H (70-110) mg/dL Calcium (8.4-10.2) mg/dL AST 40 H (14-36) U/L Total Protein 6.0 L (6.3-8.2) g/dL Albumin 3.1 L (3.5-5.0) g/dL 10/16/21 10/16/21 10/17/21 Range/Units 20:28 21:02 05:30 WBC 15.2 H (3.8-10.6) k/uL RBC 2.62 L (3.80-5.40) m/uL Hgb 8.5 L (11.4-16.0) gm/dL Hct 26.3 L (34.0-46.0) % MCV 100.3 H (80.0-100.0) fL Potassium 3.2 L (3.5-5.1) mmol/L Carbon Dioxide (22-30) mmol/L BUN (7-17) mg/dL Glucose (74-99) mg/dL POC Glucose (mg/dL) 131 H (70-110) mg/dL Calcium (8.4-10.2) mg/dL AST (14-36) U/L Total Protein (6.3-8.2) g/dL Albumin (3.5-5.0) g/dL 10/17/21 10/17/21 Range/Units 05:30 06:34 WBC (3.8-10.6) k/uL RBC (3.80-5.40) m/uL Hgb (11.4-16.0) gm/dL Hct (34.0-46.0) % MCV (80.0-100.0) fL Potassium (3.5-5.1) mmol/L Carbon Dioxide 31 H (22-30) mmol/L BUN 18 H (7-17) mg/dL Glucose (74-99) mg/dL POC Glucose (mg/dL) 114 H (70-110) mg/dL Calcium 8.2 L (8.4-10.2) mg/dL AST (14-36) U/L Total Protein (6.3-8.2) g/dL Albumin (3.5-5.0) g/dL Microbiology - Last 24 Hours (Table) 10/12/21 09:20 Blood Culture - Preliminary Blood No Growth after 96 hours - Imaging and Cardiology Chest x-ray: report reviewed, image reviewed Assessment and Plan Assessment: 1. Multivessel coronary artery disease, non-ST elevated myocardial infarction this admission, status post three-vessel CABG 2. History of coronary artery disease and myocardial infarction status post multiple stent placement 3. Ischemic cardiomyopathy, EF 45-50% 4. Hypertension 5. Hyperlipidemia, cholesterol 252, LDL 156, triglycerides 291 6. Chronic kidney disease stage III secondary to nephrosclerosis 7. Chronic ongoing tobacco abuse 8. Obstructive sleep apnea with out home CPAP use 9. Mild COPD with home oxygen use 2-3 L nasal cannula at night, preoperative FEV1 60% of predicted 10. Morbid obesity 11. Hypothyroid, TSH 23.3 with free T4 0.36 12. Medical noncompliance 13. Type 2 diabetes mellitus, A1c 6.8% 14. Peripheral arterial disease, left SAEED 0.69 15. Postoperative acute blood loss anemia and thrombocytopenia, expected 16. Hypoxic respiratory failure requiring prolonged mechanical ventilation 17. Febrile with leukocytosis, cultures negative Plan: 1. Continue to optimize medical management with aspirin, Plavix, statin, APRIL-I, and beta garret. Will increase beta garret therapy as tolerated. 2. Continue calcium channel garret for radial artery spasm prophylaxis 3. Wean oxygen as tolerated. Bronchodilators, BiPAP management per pulmon ology. 4. Will monitor daily labs and x-rays. Electrolyte replacement per protocol. Will give IV lasix 5. GI/DVT prophylaxis 6. Will increase activity as tolerated. PT/OT/cardiac rehab following 7. Pain control with current medication regimen 8. Insulin management per primary care service. Patient is recently diagnosed diabetic with hemoglobin A1c 6.8%. Needs tight blood sugar control to promote healing and prevent infection 9. Strict accurate intake and output. Daily weights. Shower daily 10. Importance of risk modification including smoking cessation has been discussed in detail with the patient and reinforced with the patient. 11. Will place transfer orders for 3 [facility] cardiac stepdown unit today 12. Will discontinue epicardial pacemaker wires today. Patient to remain on bedrest for 1 hour post-wire removal 13. Discharge planning in progress. Anticipate discharge to home with home care soon 14. More recommendations to follow
--- NOTE | 2021-10-17 07:19 | P.PN ---
Subjective Progress Note Date: 10/17/21 PROGRESS NOTE The patient is a 56-year-old female with a history of diabetes, hyperlipidemia and hypertension who underwent CABG and had multiple previous PCI. Pre-bypass her ejection fraction was 45-50%. She underwent CABG on October 10 with a HOLM to the LAD radial to the obtuse marginal branch and SVG to the PDA. She remains intubated and sedated. Attempt to wean her yesterday were unsuccessful because of hypoxemia. She continues to be in sinus mechanism with good urinary output. There is no evidence of ventricular ectopic activity or atrial fibrillation. She continues to be on aspirin, Lipitor, Plavix 75 mg daily, diltiazem 30 mg 4 times a day, insulin, metoprolol tartrate 50 mg twice a day October 15: The patient is extubated, continues to be in sinus mechanism. Hemodynamically stable with good urinary output. She denies any chest discomfort, dizziness or palpitations. She continues to be on aspirin, Lipitor, Plavix, Cardizem 30 mg every 6 hours, insulin, metoprolol tartrate 50 mg twice a day. There is no evidence of atrial fibrillation or ventricular ectopic activity. October 16: The patient is sitting up in the chair, feeling better, her breathing is stable. She continues to be in sinus mechanism. Hemodynamically she is stable. No episodes of atrial fibrillation. Her appetite has been stable. Her urinary output is good. Her chest x-ray shows mild improvement in her congestion. October 17: The patient is sitting up in the chair, feels well. She continues to be in sinu s mechanism. Her blood pressure is stable with good urinary output. She denies any chest discomfort, dizziness or palpitations. She is doing better with the incentive spirometry. She ambulated yesterday without significant symptoms. She continues to be on aspirin, Lipitor 40 mg daily, Plavix 75 mg daily, Cardizem CD 120 mg daily, insulin, Zestril 2.5 milligrams daily, metoprolol 50 mg twice a day PHYSICAL EXAMINATION: Blood pressure 107/60, heart rate in the 73 LUNGS: Mild decrease in the breath sounds at the base HEART: Regular rate and rhythm, S1, S2. No S3. No systolic murmur ABDOMEN: Soft, no organomegaly EXTREMETIES: No edema LAB: BUN and creatinine 18 and 1.0, potassium 3.9. Hemoglobin 8.5 IMPRESSION: 1. Status post CABG 2. Respiratory failure status post CABG, resolved 3. History of multiple PCI 4. History of diabetes 5. Mild ischemic cardiomyopathy preoperatively. PLAN: 1. Continue present therapy 2. Increase physical activity 3. Transfer to telemetry floor 4. Follow blood pressure and if stable increase lisinopril Objective - Vital Signs Vital signs: Vital Signs Temp 97.7 F 10/17/21 00:00 Pulse 73 10/17/21 03:00 Resp 16 10/17/21 03:00 BP 107/60 10/17/21 03:00 Pulse Ox 89 L 10/17/21 03:00 FiO2 45 10/16/21 05:00 Intake & Output 10/16/21 10/17/21 10/17/21 18:59 06:59 18:59 Intake Total 180 Output Total 1300 100 Balance -1300 80 Weight 108.2 kg Intake: Oral 180 Output: Urine 1100 Urine/Stool Mix 200 100 Other: Voiding Method Indwelling Catheter Indwelling Catheter # Voids 0 0 # Bowel Movements 1 ABP, PAP, CO, CI - Last Documented Arterial Blood Pressure 137/52 Pulmonary Artery Pressure 38/28 Cardiac Output 4.7 Cardiac Index 2.4 - Labs CBC & Chem 7: 10/17/21 05:30 10/17/21 05:30 Labs: Abnormal Lab Results - Last 24 Hours (Table) 10/16/21 10/16/21 10/16/21 Range/Units 07:46 07:46 11:16 WBC 13.1 H (3.8-10.6) k/uL RBC 2.69 L (3.80-5.40) m/uL Hgb 9.0 L (11.4-16.0) gm/dL Hct 27.1 L (34.0-46.0) % MCV 100.8 H (80.0-100.0) fL Potassium (3.5-5.1) mmol/L Carbon Dioxide (22-30) mmol/L BUN 19 H (7-17) mg/dL Glucose 136 H (74-99) mg/dL POC Glucose (mg/dL) 132 H (70-110) mg/dL Calcium (8.4-10.2) mg/dL AST 40 H (14-36) U/L Total Protein 6.0 L (6.3-8.2) g/dL Albumin 3.1 L (3.5-5.0) g/dL 10/16/21 10/16/21 10/17/21 Range/Units 20:28 21:02 05:30 WBC 15.2 H (3.8-10.6) k/uL RBC 2.62 L (3.80-5.40) m/uL Hgb 8.5 L (11.4-16.0) gm/dL Hct 26.3 L (34.0-46.0) % MCV 100.3 H (80.0-100.0) fL Potassium 3.2 L (3.5-5.1) mmol/L Carbon Dioxide (22-30) mmol/L BUN (7-17) mg/dL Glucose (74-99) mg/dL POC Glucose (mg/dL) 131 H (70-110) mg/dL Calcium (8.4-10.2) mg/dL AST (14-36) U/L Total Protein (6.3-8.2) g/dL Albumin (3.5-5.0) g/dL 10/17/21 10/17/21 Range/Units 05:30 06:34 WBC (3.8-10.6) k/uL RBC (3.80-5.40) m/uL Hgb (11.4-16.0) gm/dL Hct (34.0-46.0) % MCV (80.0-100.0) fL Potassium (3.5-5.1) mmol/L Carbon Dioxide 31 H (22-30) mmol/L BUN 18 H (7-17) mg/dL Glucose (74-99) mg/dL POC Glucose (mg/dL) 114 H (70-110) mg/dL Calcium 8.2 L (8.4-10.2) mg/dL AST (14-36) U/L Total Protein (6.3-8.2) g/dL Albumin (3.5-5.0) g/dL Microbiology - Last 24 Hours (Table) 10/12/21 09:20 Blood Culture - Preliminary Blood No Growth after 96 hours
[2021-10-17] MEDS ORDERED: POTASSIUM CHLORIDE ER 20 MEQ TAB.ER PO SCH (07:30)
[2021-10-17] MEDS: IPRATROPIUM-ALBUTEROL 3 ML NEB INHALATION SCH ×4 (07:34→20:10)
[2021-10-17] MEDS: ATORVASTATIN 40 MG TAB PO SCH (07:54)
[2021-10-17] MEDS: CLOPIDOGREL 75 MG TAB PO SCH (07:54)
[2021-10-17] MEDS: DILTIAZEM CD 120 MG CAP.ER.24H PO SCH (07:54)
[2021-10-17] MEDS: ASPIRIN 325 MG TAB PO SCH (07:54)
[2021-10-17] MEDS: METOPROLOL TARTRATE 50 MG TAB PO SCH ×2 (07:54→21:30)
[2021-10-17 11:01] VITALS: BMI 45.1
[2021-10-17 11:29] LABS: Glucose,Whole Blood 120 mg/dL (70-110)
[2021-10-17] MEDS ORDERED: FUROSEMIDE 10 MG/ML 4 ML VIAL IV STA (11:37)
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
--- NOTE | 2021-10-17 13:28 | P.PN ---
Subjective Progress Note Date: 10/17/21 (delayed charting seen at 0930) Principal diagnosis: chest pain Patient is a 56-year-old female with CAD with stents, hypertension, hyperlipidemia, ischemic cardiomyopathy, Graves' disease, chronic kidney disease, COPD not on home oxygen dependent with continued nicotine dependence. In the emergency department she underwent an extensive evaluation. CBC revealing mild leukocytosis with WBC count of 11.1. BMP revealing mildly elevated creatinine which is improved from baseline levels and currently 1.09. Liver profile revealing slightly elevated AST of 66 and ALT of 45. Troponin negative at 0.013. EKG revealing normal sinus rhythm at 96 bpm with T-wave inversion in leads V3 through V6. Chest x-ray revealing mild cardiomegaly and chronic emphysematous changes, otherwise negative for acute pulmonary process. Patient was admittedfor furter evaluation. Cardiology was consulted. Troponins trended and elevating at 0.013, 0.020, and 0.070. Patient was started on heparin infusion per ACS protocol. On 10/05/21 patient underwent a cardiac cath which revealed severe three-vessel coronary artery disease with chronically occluded right coronary artery and a long segment of stenosis in the proximal LAD and lesion within the circumflex. Patient was felt to be high risk for angioplasty and further stent placement secondary to her significant cardiac history and was referred for cardiac bypass surgery. Cardiothoracic surgery was then consulted and patient went for CABG on 10/10/21. She had prolonged ventilation Spiked fevers starting on 10/10/21 work up unrevealing and fevers resolved. Patient seen and examined at bedside. Doing well, no complaints, Excited to go home and motivated to walk General: nontoxic, no distress, appears at stated age Derm: warm, dry Head: atraumatic, normocephalic, symmetric Eyes: no lid leisions Mouth: no lip lesion, mucus membranes moist Cardiovascular: S1S2 reg, no murmur, positive posterior tibial pulse bilateral, Lungs: course bilateral, no rhonchi, no rales , no accessory muscle use Abdominal: soft, nontender to palpation, no guarding, no appreciable organomegaly Ext: no gross muscle atrophy, no edema, no contracture Neuro: awaking moving all 4 extremities, CN II-XII intact Psych: awake, alert, appropriate affect Assessment and Plan of Care: NSTEMI s/p CABG Severe three-vessel coronary artery disease Ischemic cardiomyopathy EF 45-50% Postop respiratory failure with prolonged mechanical ventilation History of coronary artery disease with stents Hypertension Hyperlipidemia - management per cardiothorasic - plavix, ASA, statin, cardizem, lisinopril, metoprolol - Echocardiogram revealed mildly impaired EF of 45-50% with mild mitral regurgitation and inferior wall hypokinesia. - Carotid Dopplers revealing minimal plaque formation with less than 25% stenosis in both internal carotid arteries Acute blood loss anemia Thrombocytopenia, resolved -Anticipated outcome of surgery -Follow CBC -PO iron X 30 days Hypothyroidism with history of Graves' disease -TSH 23.300 and free T4 0.36 -possibly secondary to medication noncompliance, however unclear - levothyroxine - follow up outpatient with PCP/endocrinology for repeat labs in 6-8 weeks and further adjustments of medications/medication management. COPD with continued nicotine dependence, without exacerbation - scheduled and prn bronchdilators. Type 2 diabetes mellitus with hemoglobin A1c of 6.8%, newly discovered - sliding scale to [facility], Levemir decreased to start 10/18/21. Continue to follow blood sugars. - will need glucometer on discharge -Patient will need oral hypoglycemic agent upon discharge, Sent Jardiance to pharmacy co-pay $0, will use this due to added heart failure benefit. Could also consider Ozempic in the outpatient setting as has proven added benefit of decrease MACE and weight loss. Pyrexia, resolved -Cultures are negative Elevated CK, resolved Constipation, resolved Chronic: Arterial disease CKD III Mild COPD DVT prophylaxis: Heparin Anticipated discharge date: clinical course to determine Anticipated discharge place: Home A total of 36 minutes was spent on the care of this complex patient more than 50% of the time was spent in counseling and care coordination. Active Medications Generic Name Dose Route Start Last Admin Trade Name Freq PRN Reason Stop Dose Admin Acetaminophen 650 mg 10/14/21 16:11 Acetaminophen Tab 325 Mg Tab PO Q4HR PRN Fever and/ or Pain Hydrocodone Bitart/Acetaminophen 1 each 10/11/21 06:00 10/17/21 02:06 Hydrocodone/Apap 5-325mg 1 Each Tab PO 1 each Q4HR PRN Administration Moderate Pain Albuterol/Ipratropium 3 ml 10/10/21 15:13 Ipratropium-Albuterol 3 Ml Neb INHALATION RT-Q2H PRN Shortness Of Breath Or Wheezing Albuterol/Ipratropium 3 ml 10/11/21 08:00 10/17/21 10:51 Ipratropium-Albuterol 3 Ml Neb INHALATION 3 ml RT-QID ADIEL Administration Aspirin 325 mg 10/11/21 09:00 10/17/21 07:54 Aspirin 325 Mg Tab PO 325 mg DAILY ADIEL Administration Atorvastatin Calcium 40 mg 10/11/21 09:00 10/17/21 07:54 Atorvastatin 40 Mg Tab PO 40 mg DAILY [facility] Administration Benzocaine/Menthol 1 each 10/10/21 15:13 Benzocaine/Menthol Lozeng 1 Each Lozenge MUCOUS MEM Q2H PRN Sore Throat Bisacodyl 10 mg 10/11/21 09:00 Bisacodyl 10 Mg Supp RECTAL DAILY PRN Constipation Clopidogrel Bisulfate 75 mg 10/11/21 09:00 10/17/21 07:54 Clopidogrel 75 Mg Tab PO 75 mg DAILY [facility] Administration Diltiazem HCl 120 mg 10/15/21 12:00 10/17/21 07:54 Diltiazem Cd 120 Mg Cap.Er.24h PO 120 mg DAILY [facility] Administration Heparin Sodium (Porcine) 5,000 unit 10/10/21 16:00 10/17/21 07:47 Heparin Sodium,Porcine/Pf 5,000 Unit/0.5 Ml Syringe SQ 5,000 unit Q8HR [facility] Administration Amiodarone HCl 150 mg/ 103 mls @ 618 mls/hr 10/10/21 15:13 Dextrose/Water IV .Q10M PRN A.FIB/FLUTTER Protocol Amiodarone HCl 360 mg/ 207.2 mls @ 34.533 mls/hr 10/10/21 15:13 Dextrose/Water IV .Q6H PRN A.FIB/FLUTTER Protocol 1 MG/MIN Amiodarone HCl 450 mg/ 250 mls @ 16.667 mls/hr 10/10/21 15:13 Dextrose/Water IV .Q15H PRN A.FIB/FLUTTER Protocol 0.5 MG/MIN Insulin Aspart 0 unit 10/14/21 12:30 10/17/21 12:33 Insulin Aspart (Novolog) 100 Unit/Ml Vial SQ Not Given ACHS [facility] Protocol Insulin Detemir 5 unit 10/18/21 07:00 Insulin Detemir (Levemir) 100 Unit/Ml Syr SQ DAILY@0700 [facility] Levothyroxine Sodium 50 mcg 10/15/21 06:30 10/17/21 06:45 Levothyroxine 50 Mcg Tab PO 50 mcg DAILY@0630 [facility] Administration Lisinopril 2.5 mg 10/17/21 12:00 10/17/21 12:18 Lisinopril 2.5 Mg Tab PO 2.5 mg DAILY@1200 [facility] Administration Magnesium Hydroxide 2,400 mg 10/11/21 09:00 Magnesium Hydroxide 2,400 Mg/10 Ml Cup PO BID PRN Constipation Metoclopramide HCl 10 mg 10/10/21 15:13 Metoclopramide 5 Mg/Ml 2 Ml Vial IVP Q4H PRN Nausea And Vomiting Metoprolol Tartrate 50 mg 10/11/21 21:00 10/17/21 07:54 Metoprolol Tartrate 50 Mg Tab PO 50 mg BID ADIEL Administration Miscellaneous Information 1 each 10/10/21 15:13 Potassium Replacement Protocol 1 Each Misc MISCELLANE DAILY PRN Per Protocol Protocol Miscellaneous Information 1 each 10/10/21 15:13 Magnesium Replacement Protocol 1 Each Misc MISCELLANE DAILY PRN Per Protocol Protocol Ondansetron HCl 4 mg 10/10/21 15:13 Ondansetron 4 Mg/2 Ml Vial IVP Q6HR PRN Nausea And Vomiting Pantoprazole Sodium 40 mg 10/15/21 07:30 10/17/21 06:45 Pantoprazole 40 Mg Tablet PO 40 mg [id number] [facility] Administration Senna/Docusate Sodium 2 each 10/16/21 13:09 Sennosides-Docusate Sodium 1 Each Tab PO HS PRN Constipation Sodium Chloride 10 ml 10/10/21 21:00 10/17/21 07:52 Sodium Chloride 0.9% Flush 10 Ml Syringe IV 10 ml BID ADIEL Administration Objective - Vital Signs Vital signs: Vital Signs Temp 98.2 F 10/17/21 12:00 Pulse 79 10/17/21 12:00 Resp 15 10/17/21 12:00 BP 127/56 10/17/21 12:00 Pulse Ox 90 L 10/17/21 12:00 FiO2 45 10/16/21 05:00 Intake & Output 10/16/21 10/17/21 10/17/21 18:59 06:59 18:59 Intake Total 180 Output Total 1300 100 300 Balance -1300 80 -300 Weight 108.2 kg 108.2 kg Intake: Oral 180 Output: Urine 1100 300 Urine/Stool Mix 200 100 Other: Voiding Method Indwelling Catheter Indwelling Catheter # Voids 0 0 0 # Bowel Movements 1 ABP, PAP, CO, CI - Last Documented Arterial Blood Pressure 137/52 Pulmonary Artery Pressure 38/28 Cardiac Output 4.7 Cardiac Index 2.4 - Labs CBC & Chem 7: 10/17/21 05:30 10/17/21 05:30 Labs: Abnormal Lab Results - Last 24 Hours (Table) 10/16/21 10/16/21 10/17/21 Range/Units 20:28 21:02 05:30 WBC 15.2 H (3.8-10.6) k/uL RBC 2.62 L (3.80-5.40) m/uL Hgb 8.5 L (11.4-16.0) gm/dL Hct 26.3 L (34.0-46.0) % MCV 100.3 H (80.0-100.0) fL Potassium 3.2 L (3.5-5.1) mmol/L Carbon Dioxide (22-30) mmol/L BUN (7-17) mg/dL POC Glucose (mg/dL) 131 H (70-110) mg/dL Calcium (8.4-10.2) mg/dL 10/17/21 10/17/21 10/17/21 Range/Units 05:30 06:34 11:27 WBC (3.8-10.6) k/uL RBC (3.80-5.40) m/uL Hgb (11.4-16.0) gm/dL Hct (34.0-46.0) % MCV (80.0-100.0) fL Potassium (3.5-5.1) mmol/L Carbon Dioxide 31 H (22-30) mmol/L BUN 18 H (7-17) mg/dL POC Glucose (mg/dL) 114 H 120 H (70-110) mg/dL Calcium 8.2 L (8.4-10.2) mg/dL Microbiology - Last 24 Hours (Table) 10/12/21 09:20 Blood Culture - Preliminary Blood No Growth after 120 hours
[2021-10-17 16:44] LABS: Glucose,Whole Blood 135 mg/dL (70-110)
[2021-10-17] MEDS: ACETAMINOPHEN TAB 325 MG TAB PO PRN ×2 (18:33→22:49)
[2021-10-17 20:31] LABS: Glucose,Whole Blood 126 mg/dL (70-110)
[2021-10-18] MEDS: HEPARIN SODIUM,PORCINE/PF 5,000 UNIT/0.5 ML SYRINGE SQ SCH ×3 (00:50→16:37)
[2021-10-18 00:57] VITALS: TEMP 98.8
[2021-10-18 06:26] LABS: Calcium 8.4 mg/dL (8.4-10.2)
[2021-10-18 06:32] LABS: HCT 27.6 % (34.0-46.0); Hypochromasia Slight; MCH 32.8 pg (25.0-35.0); MCHC 32.6 g/dL (31.0-37.0); MCV 100.6 fL (80.0-100.0); Macrocytosis Slight; Mean Platelet Volume 10.4; Platelet Count 314 k/uL (150-450); RBC 2.75 m/uL (3.80-5.40); RDW 15.6 % (11.5-15.5); WBC 15.2 k/uL (3.8-10.6)
[2021-10-18 06:36] LABS: Potassium 4.3 mmol/L (3.5-5.1)
[2021-10-18 06:42] LABS: Glucose,Whole Blood 107 mg/dL (70-110)
[2021-10-18] MEDS: INSULIN ASPART (NovoLOG) 100 UNIT/ML VIAL SQ SCH ×2 (06:54→12:16)
[2021-10-18] MEDS ORDERED: INSULIN DETEMIR (LEVEMIR) 100 UNIT/ML SYR SQ SCH (07:00)
[2021-10-18] MEDS: PANTOPRAZOLE 40 MG TABLET PO SCH (07:10)
[2021-10-18] MEDS: LEVOTHYROXINE 50 MCG TAB PO SCH (07:10)
--- NOTE | 2021-10-18 07:43 | P.PN ---
Subjective Progress Note Date: 10/18/21 PROGRESS NOTE The patient is a 56-year-old female with a history of diabetes, hyperlipidemia and hypertension who underwent CABG and had multiple previous PCI. Pre-bypass her ejection fraction was 45-50%. She underwent CABG on October 10 with a HOLM to the LAD radial to the obtuse marginal branch and SVG to the PDA. She remains intubated and sedated. Attempt to wean her yesterday were unsuccessful because of hypoxemia. She continues to be in sinus mechanism with good urinary output. There is no evidence of ventricular ectopic activity or atrial fibrillation. She continues to be on aspirin, Lipitor, Plavix 75 mg daily, diltiazem 30 mg 4 times a day, insulin, metoprolol tartrate 50 mg twice a day October 15: The patient is extubated, continues to be in sinus mechanism. Hemodynamically stable with good urinary output. She denies any chest discomfort, dizziness or palpitations. She continues to be on aspirin, Lipitor, Plavix, Cardizem 30 mg every 6 hours, insulin, metoprolol tartrate 50 mg twice a day. There is no evidence of atrial fibrillation or ventricular ectopic activity. October 16: The patient is sitting up in the chair, feeling better, her breathing is stable. She continues to be in sinus mechanism. Hemodynamically she is stable. No episodes of atrial fibrillation. Her appetite has been stable. Her urinary output is good. Her chest x-ray shows mild improvement in her congestion. October 17: The patient is sitting up in the chair, feels well. She continues to be in sinu s mechanism. Her blood pressure is stable with good urinary output. She denies any chest discomfort, dizziness or palpitations. She is doing better with the incentive spirometry. She ambulated yesterday without significant symptoms. She continues to be on aspirin, Lipitor 40 mg daily, Plavix 75 mg daily, Cardizem CD 120 mg daily, insulin, Zestril 2.5 milligrams daily, metoprolol 50 mg twice a day October 18: The patient is feeling well today, she denies any chest discomfort, dizziness or palpitations. She continues to be in sinus mechanism. Hemodynamically stable. She is using her incentive spirometry. She has been walking and is anxious to go home. PHYSICAL EXAMINATION: Blood pressure 115/57, heart rate in the 84 LUNGS: Mild decrease in the breath sounds at the base HEART: Regular rate and rhythm, S1, S2. No S3. No systolic murmur ABDOMEN: Soft, no organomegaly EXTREMETIES: No edema LAB: BUN and creatinine 17 and 0.93, potassium 4.3. Hemoglobin 9.0 IMPRESSION: 1. Status post CABG 2. Respiratory failure status post CABG, resolved 3. History of multiple PCI 4. History of diabetes 5. Mild ischemic cardiomyopathy preoperatively. PLAN: 1. Continue present therapy 2. Increase physical activity 3. Probable discharge home soon Objective - Vital Signs Vital signs: Vital Signs Temp 98.8 F 10/18/21 00:00 Pulse 84 10/18/21 07:00 Resp 21 10/18/21 07:00 BP 115/57 10/18/21 07:00 Pulse Ox 96 10/18/21 07:00 FiO2 45 10/16/21 05:00 Intake & Output 10/17/21 10/18/21 10/18/21 18:59 06:59 18:59 Output Total 1050 600 Balance -1050 -600 Weight 108.2 kg 107 kg Output: Urine 1050 600 Other: Voiding Method Toilet # Voids 0 2 ABP, PAP, CO, CI - Last Documented Arterial Blood Pressure 137/52 Pulmonary Artery Pressure 38/28 Cardiac Output 4.7 Cardiac Index 2.4 - Labs CBC & Chem 7: 10/18/21 05:40 10/18/21 05:40 Labs: Abnormal Lab Results - Last 24 Hours (Table) 10/17/21 10/17/21 10/17/21 Range/Units 11:27 16:42 20:29 WBC (3.8-10.6) k/uL RBC (3.80-5.40) m/uL Hgb (11.4-16.0) gm/dL Hct (34.0-46.0) % MCV (80.0-100.0) fL RDW (11.5-15.5) % Glucose (74-99) mg/dL POC Glucose (mg/dL) 120 H 135 H 126 H (70-110) mg/dL 10/18/21 10/18/21 Range/Units 05:40 05:40 WBC 15.2 H (3.8-10.6) k/uL RBC 2.75 L (3.80-5.40) m/uL Hgb 9.0 L (11.4-16.0) gm/dL Hct 27.6 L (34.0-46.0) % MCV 100.6 H (80.0-100.0) fL RDW 15.6 H (11.5-15.5) % Glucose 119 H (74-99) mg/dL POC Glucose (mg/dL) (70-110) mg/dL Microbiology - Last 24 Hours (Table) 10/12/21 09:20 Blood Culture - Preliminary Blood No Growth after 120 hours
[2021-10-18] MEDS ORDERED: FUROSEMIDE 10 MG/ML 4 ML VIAL IV STA (07:45)
[2021-10-18] MEDS ORDERED: POTASSIUM CHLORIDE ER 10 MEQ TAB.ER.PRT PO STA (07:45)
[2021-10-18] MEDS: IPRATROPIUM-ALBUTEROL 3 ML NEB INHALATION SCH ×3 (07:47→15:48)
[2021-10-18] MEDS: ASPIRIN 325 MG TAB PO SCH (08:19)
[2021-10-18] MEDS: DILTIAZEM CD 120 MG CAP.ER.24H PO SCH (08:19)
[2021-10-18] MEDS: ATORVASTATIN 40 MG TAB PO SCH (08:19)
[2021-10-18] MEDS: CLOPIDOGREL 75 MG TAB PO SCH (08:19)
[2021-10-18] MEDS: METOPROLOL TARTRATE 50 MG TAB PO SCH (08:20)
--- NOTE | 2021-10-18 08:28 | P.PN ---
Subjective Progress Note Date: 10/18/21 Principal diagnosis: Multivessel coronary artery disease, non-ST elevated myocardial infarction this admission. Past medical history significant for hypertension, hyperlipidemia, coronary artery disease with history of multiple stent placement, myocardial infarction, ischemic cardiomyopathy, chronic kidney disease stage III with a baseline creatinine in the range of 1.1-1.3 secondary to nephrosclerosis, history of urinary tract infection, chronic ongoing tobacco abuse, obstructive sleep apnea with out home CPAP use, COPD with home oxygen use 2-3 L nasal cannula at night, morbid obesity with a BMI of 43.5 kg/m, diabetes mellitus type 2, hypothyroid, asthma and medical noncompliance. POD #8 coronary artery bypass grafting 3 vessels, left internal mammary artery to the left anterior descending artery, radial artery to the obtuse marginal artery, saphenous vein graft to the posterior descending artery, endoscopic harvesting of the left radial artery, endoscopic harvesting of the left greater saphenous vein, ligation of the left atrial appendage using a 35 mm AtriClip, epi-aortic ultrasound, intraoperative transesophageal echocardiogram, closure of the sternum using a titanium plating system Postoperative acute blood loss anemia and thrombocytopenia, expected given hemodilution cardiopulmonary bypass pump. Hypoxic respiratory failure requiring a prolonged mechanical ventilation. The patient was seen and examined today 10/18/2021 at her bedside in the in tensive care unit. Currently she is sitting up to the bedside chair, is awake, alert, oriented 3 and is in no acute distress. Denies any complaints of pain or shortness of breath at this time. Remained hemodynamically stable and is currently on no inotropic or pressor support. She is waiting for a bed on the cardiac stepdown unit. Oxygen saturation saturations are 95% on 4 L nasal cannula and she is achieving 750 mL on her incentive spirometry with encouragement. 600 mL of urine output in the last 8 hours. The patient reports that she has been up ambulating in the intensive care unit hallway with standby assistance from nursing and therapy staff. The patient is anxious to be dischar ge home, and discharge planning is in place. Lasix 40 mg IV 1 was given yesterday with good diuresis. She remains afebrile the last 24 hours. Laboratory results this morning show a WBC count 15.2, hemoglobin 9.0, hematocrit 27.6, platelets 314, sodium 138, potassium 4.3, BUN 17, creatinine 0.93 and glucose 119. Objective - Vital Signs Vital signs: Vital Signs Temp 98.8 F 10/18/21 00:00 Pulse 86 10/18/21 07:56 Resp 21 10/18/21 07:00 BP 115/57 10/18/21 07:00 Pulse Ox 96 10/18/21 07:00 FiO2 45 10/16/21 05:00 Intake & Output 10/17/21 10/18/21 10/18/21 18:59 06:59 18:59 Output Total 1050 600 Balance -1050 -600 Weight 108.2 kg 107 kg Output: Urine 1050 600 Other: Voiding Method Toilet # Voids 0 2 ABP, PAP, CO, CI - Last Documented Arterial Blood Pressure 137/52 Pulmonary Artery Pressure 38/28 Cardiac Output 4.7 Cardiac Index 2.4 - Exam CONSTITUTIONAL: Sitting up to the bedside chair in the intensive care unit. Appears comfortable, cooperative, no acute distress RESPIRATORY: Lungs sounds diminished bilaterally, left greater than right. Respirations are symmetrical, nonlabored. Currently on 4 LPM NC with oxygen saturation 95%. Strong cough. Able to achieve 750 mL on incentive spirometry. CARDIOVASCULAR: S1, S2 present. Regular rate and rhythm, sinus rhythm on tele metry. Sternum stable. Palpable peripheral pulses bilaterally. Generalized edema present, less than yesterday. No calf pain or tenderness noted. Heart hugger, antiembolism stockings, SCDs present. GASTROINTESTINAL: Abdomen soft, nontender, nondistended. Active bowel sounds present 4 quadrants. Tolerating diet. Last bowel movement 10/16 GENITOURINARY: Continues to void. INTEGUMENTARY: Skin is warm and dry with evidence of good perfusion. Midline sternal incision well approximated and covered with dry intact dressing. Left lower extremity EVH site as well as left radial artery harvest sites well approximated without redness or drainage. NEUROLOGIC: Cranial nerves II through XII intact. MUSKULOSKELETAL: Able to move all extremities, strength equal bilaterally. PSYCHIATRIC: Alert and oriented to person place and time, appropriate affect, intact judgment and insight. - Allied health notes Allied health notes reviewed: nursing - Labs CBC & Chem 7: 10/18/21 05:40 10/18/21 05:40 Labs: Abnormal Lab Results - Last 24 Hours (Table) 10/17/21 10/17/21 10/17/21 Range/Units 11:27 16:42 20:29 WBC (3.8-10.6) k/uL RBC (3.80-5.40) m/uL Hgb (11.4-16.0) gm/dL Hct (34.0-46.0) % MCV (80.0-100.0) fL RDW (11.5-15.5) % Glucose (74-99) mg/dL POC Glucose (mg/dL) 120 H 135 H 126 H (70-110) mg/dL 10/18/21 10/18/21 Range/Units 05:40 05:40 WBC 15.2 H (3.8-10.6) k/uL RBC 2.75 L (3.80-5.40) m/uL Hgb 9.0 L (11.4-16.0) gm/dL Hct 27.6 L (34.0-46.0) % MCV 100.6 H (80.0-100.0) fL RDW 15.6 H (11.5-15.5) % Glucose 119 H (74-99) mg/dL POC Glucose (mg/dL) (70-110) mg/dL Microbiology - Last 24 Hours (Table) 10/12/21 09:20 Blood Culture - Preliminary Blood No Growth after 120 hours - Imaging and Cardiology Chest x-ray: report reviewed, image reviewed Assessment and Plan Assessment: 1. Multivessel coronary artery disease, status post three-vessel coronary artery bypass grafting surgery 2. Non-ST elevated myocardial infarction this admission, with troponin as high as 0.070 3. History of ischemic cardiomyopathy, current transthoracic 2-D echocardiogram showing an EF of 45-50% 4. History of coronary artery disease with multiple stent placement in the past. 5. Hypertension 6. Hyperlipidemia, triglycerides 291, LDL 156, cholesterol 252 7. COPD with home oxygen use at night 2-3 L nasal cannula 8. Chronic kidney disease stage III, secondary to nephrosclerosis with a baseline creatinine of 1.1-1.3 9. Morbid obesity with a BMI of 43.5 kg/m 10. Hypothyroid, TSH 23.300, free T4 0.36 11. Obstructive sleep apnea without home CPAP use 12. History of asthma 13. Chronic ongoing tobacco dependence 14. New diagnosis of type 2 diabetes mellitus, hemoglobin A1c 6.8% 15. Medical noncompliance 16. Peripheral arterial disease, left SAEED 0.69 17. Postoperative acute blood loss anemia and thrombocytopenia, expected 18. Hypoxic respiratory failure requiring prolonged mechanical ventilation 19. Febrile with leukocytosis, cultures negative Plan: 1. Continue to optimize medical management with aspirin, Plavix, statin, APRIL inhibitor, and beta garret. Will increase metoprolol tartrate as tolerated. 2. Continue Cardizem CD 120 mg by mouth daily for radial artery spasm prophylaxis. 3. Wean oxygen as tolerated. Bronchodilators per management per pulmonology/critical care medicine. 4. Will monitor daily labs and x-rays. Electrolyte replacement per protocol. Will give IV lasix 40 mg IV 1 now and potassium chloride 10 mEq by mouth 1 now. 5. GI/DVT prophylaxis. 6. Will increase activity as tolerated. PT/OT/cardiac rehab following. 7. Pain control with current medication regimen. 8. Insulin management per primary care service. Patient is recently diagnosed diabetic with hemoglobin A1c 6.8%. Needs tight blood sugar control to promote healing and prevent infection. 9. Strict accurate intake and output. Daily weights. Shower daily. 10. Importance of risk modification including smoking cessation has been discussed in detail with the patient and reinforced with the patient. 11. Will place transfer orders for [address] [place] [id number] cardiac stepdown unit when bed available. 12. Encourage use of her incentive spirometry 10 times every hour while awake. 13. Discharge planning in progress. Anticipate discharge to home with home care within the next 24-48 hours. 14. More recommendations to follow based on patient's clinical course. Time with Patient: Greater than 30
--- NOTE | 2021-10-18 08:55 | XR ---
EXAMINATION TYPE: XR chest 2V DATE OF EXAM: 10/18/2021 COMPARISON: 10/17/2021 TECHNIQUE: PA and lateral views submitted. HISTORY: Postcardiac surgery FINDINGS: There are bilateral pleural effusions with cardiomegaly and bibasilar infiltrate. There is a diffuse interstitial pattern. Post surgical changes are noted. Mediastinal drain no longer seen. Chronic rib deformities noted with no sizable pneumothorax. IMPRESSION: 1. Postoperative change. Persistent bilateral infiltrate and pleural effusion stable. Mild central ve nous congestion.
[2021-10-18] MEDS ORDERED: FERROUS SULFATE 325 MG TAB PO SCH (09:00)
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
--- NOTE | 2021-10-18 10:05 | P.PN ---
Subjective Progress Note Date: 10/18/21 Patient is doing well on her home O2 requirement of 3L NC. No complaints of pain. Pt would like to go home today. Medically cleared for discharge. Gen: awake, alert HEENT: normocephalic, atraumatic, good hearing acuity, moist mucous membranes Resp: good air exchange, breathing comfortably with no accessory muscle use CVS: good distal perfusion x 4, GI: soft, NTTP, ND : no SPT, no CVAT, garcia catheter is present MSK: no pitting edema, no clubbing Neuro: non-focal, moving all extremities Psych: cooperative, euthymic mood Assessment/plan: NSTEMI s/p CABG Severe three-vessel coronary artery disease Ischemic cardiomyopathy EF 45-50% History of coronary artery disease with stents Hypertension Hyperlipidemia - management per cardiothoracic, cardiology, pulmonary - plavix, ASA, statin - Did not require amiodarone, diltiazem -Echocardiogram revealed mildly impaired EF of 45-50% with mild mitral regurgitation and inferior wall hypokinesia. -Carotid Dopplers revealing minimal plaque formation with less than 25% stenosis in both internal carotid arteries Acute blood loss anemia Thrombocytopenia -Anticipated outcome of surgery -No indication for repeat transfusion at this time -Follow CBC Hypothyroidism with history of Graves' disease -TSH 23.300 and free T4 0.36 -possibly secondary to medication noncompliance, however unclear -resume oral levothyroxine - follow up outpatient with PCP/endocrinology for repeat labs in 6-8 weeks and further adjustments of medications/medication management. COPD with continued nicotine dependence, without exacerbation - scheduled and prn bronchdilators. - No indication for steroids Type 2 diabetes mellitus with hemoglobin A1c of 6.8%, newly discovered - sliding scale to ACHS, low-dose Levemir. Continue to follow blood sugars. - will need glucometer on discharge -Patient will need oral hypoglycemic agent upon discharge, recommend Jardiance based upon its benefits with controlling blood glucose levels as well as its associated heart failure risk reduction. DVT prophylaxis: Heparin Anticipated discharge date: clinical course to determine Anticipated discharge place: Home Objective - Vital Signs Vital signs: Vital Signs Temp 98.8 F 10/18/21 00:00 Pulse 86 10/18/21 07:56 Resp 21 10/18/21 07:00 BP 115/57 10/18/21 07:00 Pulse Ox 96 10/18/21 07:00 FiO2 45 06/29/22 05:00 Intake & Output 10/17/21 10/18/21 10/18/21 18:59 06:59 18:59 Output Total 1050 600 Balance -1050 -600 Weight 108.2 kg 107 kg Output: Urine 1050 600 Other: Voiding Method Toilet # Voids 0 2 ABP, PAP, CO, CI - Last Documented Arterial Blood Pressure 137/52 Pulmonary Artery Pressure 38/28 Cardiac Output 4.7 Cardiac Index 2.4 - Labs CBC & Chem 7: 10/18/21 05:40 10/18/21 05:40 Labs: Abnormal Lab Results - Last 24 Hours (Table) 10/17/21 10/17/21 10/17/21 Range/Units 11:27 16:42 20:29 WBC (3.8-10.6) k/uL RBC (3.80-5.40) m/uL Hgb (11.4-16.0) gm/dL Hct (34.0-46.0) % MCV (80.0-100.0) fL RDW (11.5-15.5) % Glucose (74-99) mg/dL POC Glucose (mg/dL) 120 H 135 H 126 H (70-110) mg/dL 10/18/21 10/18/21 Range/Units 05:40 05:40 WBC 15.2 H (3.8-10.6) k/uL RBC 2.75 L (3.80-5.40) m/uL Hgb 9.0 L (11.4-16.0) gm/dL Hct 27.6 L (34.0-46.0) % MCV 100.6 H (80.0-100.0) fL RDW 15.6 H (11.5-15.5) % Glucose 119 H (74-99) mg/dL POC Glucose (mg/dL) (70-110) mg/dL Microbiology - Last 24 Hours (Table) 10/12/21 09:20 Blood Culture - Preliminary Blood No Growth after 120 hours
[2021-10-18 12:08] LABS: Glucose,Whole Blood 122 mg/dL (70-110)
[2021-10-18 13:52] VITALS: BP 115/63; PULSE 82; RESP 17
--- NOTE | 2021-10-18 15:33 | P.DS ---
Providers Date of admission: 10/04/21 19:22 Expected date of discharge: 10/18/21 Attending physician: Michael Stephenson Consults: 10/04/21 08:34 Consult Physician Urgent Consulting Provider: Shima Melara Consult Reason/Comments: cp Do you want consulting provider notified?: Yes 10/05/21 12:22 Consult Physician Urgent Consulting Provider: Michael Stephenson Consult Reason/Comments: open heart consult Do you want consulting provider notified?: Already Contacted 10/06/21 09:20 Consult Physician Urgent Consulting Provider: Mary Patel Consult Reason/Comments: preop CABG/copd Do you want consulting provider notified?: Yes 10/09/21 10:28 Consult to Anesthesia Routine Consulting Provider: Anesthesia,Services Consult Reason/Comments: Cardiac Surgery Pre-Op 10/10/21 15:13 Consult Physician Routine Consulting Provider: Kye Whitlock Consult Reason/Comments: med mgmt Do you want consulting provider notified?: Already Contacted Primary care physician: Kiara Kerr [facility] Course: FINAL DIAGNOSIS: 1. Multivessel coronary artery disease, status post three-vessel coronary artery bypass grafting surgery 2. Non-ST elevated myocardial infarction this admission, with troponin as high as 0.070 3. History of ischemic cardiomyopathy, current transthoracic 2-D echocardiogram showing an EF of 45-50% 4. History of coronary artery disease with multiple stent placement in the past. 5. Hypertension 6. Hyperlipidemia, triglycerides 291, LDL 156, cholesterol 252 7. COPD with home oxygen use at night 2-3 L nasal cannula 8. Chronic kidney disease stage III, secondary to nephrosclerosis with a baseline creatinine of 1.1-1.3 9. Morbid obesity with a BMI of 43.5 kg/m 10. Hypothyroid, TSH 23.300, free T4 0.36 11. Obstructive sleep apnea without home CPAP use 12. History of asthma 13. Chronic ongoing tobacco dependence 14. New diagnosis of type 2 diabetes mellitus, hemoglobin A1c 6.8% 15. Medical noncompliance 16. Peripheral arterial disease, left SAEED 0.69 17. Postoperative acute blood loss anemia and thrombocytopenia, expected 18. Hypoxic respiratory failure requiring prolonged mechanical ventilation 19. Febrile with leukocytosis, cultures negative PRINCIPAL PROCEDURE: 1. Coronary artery bypass grafting 3 vessels, left internal mammary artery to left anterior ascending coronary artery, radial artery to the obtuse marginal coronary artery, saphenous vein graft to the posterior descending coronary artery. 2. Endoscopic harvesting of the left radial artery. 3. Endoscopic harvesting of the left greater saphenous vein. 4. Ligation of the left atrial appendage with a 35 mm Atriclip. 5. Epi-aortic ultrasound. 6. Intraoperative transesophageal echocardiogram. 7. Closure of the sternum using a titanium plating system. HISTORY OF PRESENT ILLNESS: This is a 56-year-old female patient who follows with Dr. Craig on an outpatient basis for her primary care. She also has a histo ry of following with Dr. Springer for her cardiology care. She presented to the emergency department here at [facility] on 10/04/2021 after waking up with chest pain/pressure. The chest pain/pressure was associated with some shortness of breath, although at that time she contributed to her shortness of breath to her COPD. The patient does use home oxygen 2-3 L nasal cannula at night when sleeping. Due to her presenting symptoms a 12-lead EKG was completed which showed normal sinus rhythm with nonspecific STT wave changes. Initial laboratory results showed a WBC count 11.1, hemoglobin 14.7, hematocrit 45.0, platelets 318, neutrophils 8.4, d-dimer 0.44, sodium 136, potassium 4.1, BUN 13, creatinine 1.09, glucose 167, hemoglobin A1c 6.8%, AST 66, ALT 45, triglycerides 245, cholesterol 254, LDL 171 and initial troponins were normal although a third troponin showed positive at 0.070 ruling her in for a non-ST elevated myocardial infarction. For further evaluation a transthoracic 2-D echocardiogram was completed which showed a moderately increased left ventricular wall thickness, her left ventricular ejection fraction estimated at 45-50% with inferior wall hypokinesis, mild mitral annular calcification, mild mitral valve regurgitation, trace aortic valve regurgitation, mild tricuspid valve regurgitation and no air cardio effusion. The patient also underwent a cardiac catheterization which demonstrated triple-vessel coronary artery disease. Subsequently, due to the patient's presenting symptoms, elevated troponins and findings on her cardiac catheterization a consult was placed to Dr. Michael Stephenson from cardiothoracic surgery for further evaluation and treatment recommendations including myocardial revascularization surgery. Dr. Stephenson met with the patient, discussed the findings on the above-mentioned studies, discussed treatment options including myocardial revascularization surgery. Risks and benefits of myocardial revascularization surgery including the STS risk score were discussed and knowing and understanding the risks the patient wished to proceed with the surgical option. HOSPITAL COURSE: The patient was admitted to the hospital and on 10/10/2021 after obtaining consent, the patient was taken to the preoperative area, appeared in the usual fashion, and was subsequently taken to the operating room where Dr. Michael Stephenson performed a coronary artery bypass grafting 3 vessels, left internal mammary artery to left anterior ascending coronary artery, radial artery to the obtuse marginal coronary artery, saphenous vein graft to the posterior descending coronary artery. Upon completion of the surgery the patient was transferred to the cardiovascular intensive care unit where she was recovered and monitored hemodynamically. She was extubated, all lines, tubes and supportive drips were discontinued when appropriate and transfer orders were placed to the cardiac stepdown unit, although due to lack of bed availability on the stepdown unit she was kept in the intensive care unit until discharge. Her oxygen was titrated down to 2 L nasal cannula, although she was unable to be completely weaned off the oxygen. She does have a history of oxygen dependent at home of 2-3 L nasal cannula. She continued to work with physical and occupational therapy, she was tolerating oral diet, her pain was well-controlled and she was ready to be discharged home with [facility] on postoperative day #8. She has received written and verbal instructions regarding her medications, activity restrictions, signs and symptoms requiring physician notification and her follow-up appointments. The patient will be discharged home on 2 L nasal cannula which she will be using [id number]. Plan - Discharge Summary Discharge Rx Participant: No New Discharge Prescriptions: New Ipratropium-Albuterol Nebulize [Duoneb 0.5 mg-3 mg/3 ml Soln] 3 ml INHALATION RT-QID #120 each Fluticasone/Umeclidin/Vilanter [Trelegy Ellipta 100-62.5-25] 1 inhalation INHALATION QAM #1 each Ferrous Sulfate [Feosol] 325 mg PO DAILY #14 tab Clopidogrel [Plavix] 75 mg PO DAILY #30 tab Ascorbic Acid [Vitamin C] 500 mg PO DAILY #14 tablet Empagliflozin [Jardiance] 10 mg PO DAILY #30 tablet Acetaminophen Tab [Tylenol] 650 mg PO Q4HR PRN tab PRN Reason: Fever And/ Or Pain Aspirin 325 mg PO DAILY #30 tab Diltiazem Cd [Cardizem CD] 120 mg PO DAILY #30 cap Atorvastatin [Lipitor] 40 mg PO DAILY #30 tab Metoprolol Tartrate [Lopressor] 50 mg PO BID #60 tab Pantoprazole [Protonix] 40 mg PO AC-BRKFST #30 tab Levothyroxine Sodium [Synthroid] 50 mcg PO DAILY@0630 #30 tab lisinopriL [Zestril] 2.5 mg PO DAILY@1200 #30 tab Continue Oxybutynin Chloride [Oxybutynin Chloride ER] 5 mg PO DAILY Discontinued Levothyroxine Sodium [Synthroid] 50 mcg PO DAILY Clopidogrel [Plavix] 75 mg PO DAILY Metoprolol Succinate [Metoprolol Succinate ER] 25 mg PO DAILY Atorvastatin [Lipitor] 80 mg PO HS amLODIPine [Norvasc] 5 mg PO DAILY Discharge Medication List Oxybutynin Chloride [Oxybutynin Chloride ER] 5 mg PO DAILY 10/05/21 [History] Empagliflozin [Jardiance] 10 mg PO DAILY #30 tablet 10/16/21 [Rx] Acetaminophen Tab [Tylenol] 650 mg PO Q4HR PRN tab 10/18/21 [Rx] Ascorbic Acid [Vitamin C] 500 mg PO DAILY #14 tablet 10/18/21 [Rx] Aspirin 325 mg PO DAILY #30 tab 10/18/21 [Rx] Atorvastatin [Lipitor] 40 mg PO DAILY #30 tab 10/18/21 [Rx] Clopidogrel [Plavix] 75 mg PO DAILY #30 tab 10/18/21 [Rx] Diltiazem Cd [Cardizem CD] 120 mg PO DAILY #30 cap 10/18/21 [Rx] Ferrous Sulfate [Feosol] 325 mg PO DAILY #14 tab 10/18/21 [Rx] Fluticasone/Umeclidin/Vilanter [Trelegy Ellipta 100-62.5-25] 1 inhalation INHALATION QAM #1 each 10/18/21 [Rx] Ipratropium-Albuterol Nebulize [Duoneb 0.5 mg-3 mg/3 ml Soln] 3 ml INHALATION RT-QID #120 each 10/18/21 [Rx] Levothyroxine Sodium [Synthroid] 50 mcg PO DAILY@0630 #30 tab 10/18/21 [Rx] Metoprolol Tartrate [Lopressor] 50 mg PO BID #60 tab 10/18/21 [Rx] Pantoprazole [Protonix] 40 mg PO AC-BRKFST #30 tab 10/18/21 [Rx] lisinopriL [Zestril] 2.5 mg PO DAILY@1200 #30 tab 10/18/21 [Rx] Follow up Appointment(s)/Referral(s): [facility]hab [facility],Cardiac [NON-STAFF] - 4 Weeks (You will receive a phone call in approximately 4-6 weeks for evaluation for cardiac rehab) Usha Craig MD [Primary Care Provider] - 10/25/21 10:00 am Ethan Springer MD [STAFF PHYSICIAN] - 11/01/21 9:45 am Troy Garcia NPC [Nurse Practitioner] - 10/23/21 12:[address] [facility], [NON-STAFF] - 1 Week (Home care will come out the day after discharge, then 2-3 times per week as necessary) Michael Stephenson MD [STAFF PHYSICIAN] - 11/05/21 9:30 am Mary Patel MD [STAFF PHYSICIAN] - 10/28/21 1:00 pm (Needs to be evaluated for obstructive sleep apnea.) Ambulatory/Diagnostic Orders: Complete Blood Count w/diff [LAB.AMB] Time Frame: 10/21/21, Facility: [facility], Location: [facility] Comprehensive Metabolic Panel [LAB.AMB] Time Frame: 10/21/21, Facility: [facility], Location: [facility] Activity/Diet/Wound Care/Special Instructions: DISCHARGE INSTRUCTIONS: 1. No driving for 4 weeks, or until physician gives their ok. 2. The patient should sleep in their own bed, no medical bed needed. 3. Stairs are not an issue. If the bedroom is upstairs, it is advised that the patient go up at night and down in the morning for the first week. Go slowly, using handrail and take 1 step at a time. 4. MOR hose are to be worn for 30 days or until physician discontinues. 5. Heart hugger is to be worn 100% of the time until physician discontinues.(except when showering) 6. No lifting, pushing, or pulling more than 10 pounds for 12 weeks. The physician will advise of any restriction changes. 7. The patient is expected to continue the prescribed walking program. 8. Continue pain control per as needed orders. 9. Continue with incentive spirometry and splinting/heart hugger until otherwise directed by the physician. 10. Must shower daily using liquid antibacterial soap and a separate white washcloth for each individual incision. 11. Routine sternal incision care. No powders, lotions, ointments on incisions. No dressings are necessary on incisions unless they are draining. Dermabond tape is to remain on sternal incision until surgeon follow-up. 12. Please call surgeon/SQL SERVER DBA for temp greater than 101 F or purulent drainage from incisions. 13. You should weigh yourself daily, record and bring log with you to follow up appointments. 14. All prescriptions given by surgeon for 30 days. Refills need to be filled through technical asst/primary care physician. 15. A Red armband has been placed on the patient. It should be worn for 30 days post surgery and will be removed by the cardiac surgeons. If an ER visit is necessary, please make sure the number on the Red armband is called. 16. You have been referred to and are expected to begin Cardiac Rehab in approximately 4-6 weeks. 17. He will being discharged home on 2 L nasal cannula, patient has a history of oxygen use at nighttime 2-3 L nasal cannula. On her follow-up with pulmonary medicine she will need to be evaluated for obstructive sleep apnea. HOME HEALTH SERVICES TO PROVIDE: RN SKILLED HOME CARE SERVICES FOR POST-OP SURGICAL PATIENTS WITH THE FOLLOWING: Coronary Artery Bypass Surgery (CABG), Mitral Valve Replacement/Repair ( MVR), Aortic Valve Replacement/Repair (AVR) RN TO CONTINUE EDUCATION FROM ``ROAD TO A HEALTH HEART PATIENT EDUCATION MANUAL (GIVEN TO PATIENT IN THE HOSPITAL) MEDICATION RECONCILIATION WITH EDUCATION NEEDED ON FIRST HOME VISIT EMPHASIZE IMPORTANCE OF WEARING BREAST SUPPORT/HEART HUGGER ENCOURAGE USE OF INCENTIVE SPIROMETER 10 X EVERY HOUR WHILE AWAKE ENCOURAGE UTILIZATION OF LOWER EXTREMITY COMPRESSION STOCKINGS/MOR HOSE and ELEVATE LEGS ABOVE LEVEL OF HEART WHILE AT REST. ENCOURAGE AMBULATION 3-5x/day INCREASING TOLERATES, WHILE AVOIDING E XTREMES IN TEMPERATURE FREQUENCY: RN TO OPEN THE PATIENT WITHIN 24 HOURS OF DISCHARGE FROM THE HOSPITAL WITH TELEHEALTH INSTALLED AT [facility], RN TO VISIT 2-3 X A WEEK FOR 4 WEEKS ESTABLISHED BY PATIENT NEEDS. LABORATORY: CBC, CMP TO BE DRAWN ON THE THIRD DAY HOME, (RAN STAT) FAX RESULTS TO [phone]. For patients on Coumadin, PT/INR to be drawn on third day home, ran as STAT, and results faxed to [facility] at [phone] for Coumadin dosing. TELEHEALTH PARAMETERS: WEIGHT: NOTIFY MD OF WEIGHT GAIN OF 2 LBS IN 24 HOURS OR 5 LBS IN ONE WEEK HR: NOTIFY MD OF HR <55 BPM OR HR>100 BPM BP: NOTIFY MD IF BP <90/55 OR BP>140/100 O2 SAT: NOTIFY MD IF PO2<93% ON ROOM AIR SEND TELEHEALTH REPORT TO ELECTRONICS TECHNOLOGY INSTRUCTOR AND CARDIOVASCULAR SURGEON THE FIRST WEEK OF CARE AND THEN BI-WEEKLY. PLEASE ADDITIONALLY COMMUNICATE ANY ABNORMALS AND NEW FINDINGS TO THE SURGEONS OFFICE. Discharge Disposition: HOME WITH HOME HEALTH SERVICES
--- NOTE | 2021-10-25 07:56 | CDI ---
Documentation Clarification Form Date: 10/24/2021 02:07:00 PM From: Lalita Maciel RN, CCDS Admit Date: 10/04/2021 07:22:00 PM Patient Name: Kiersten Aj Visit Number: [id number] Discharge Date: 10/18/2021 04:43:00 PM ATTENTION: The Clinical Documentation Specialists (CDI) and [facility] Coding Staff appreciate your assistance in clarifying documentation. Please respond to the clarification below the line at the bottom and electronically sign. The CDI & [facility] Coding staff will review the response and follow-up if needed. Please note: Queries are made part of the Legal Health Record. If you have any questions, please contact the author of this message via ITS. Dr. Michael Stephenson Hypoxic respiratory failure requiring prolonged mechanical ventilation is documented in the progress notes and discharge summary, patient had CABG on 10/10/21 She was on mechanical ventilation and extubated POD day # 4. Additional clarification is requested regarding the relationship, if any, that exists between the diagnosis and the procedure. 10/11 Pulmonary progress notes: Acute hypoxemic respiratory failure (secondary to acute NSTEMI), remains on mechanical ventilation, expected outcome of surgery 10/14 Pulmonary progress note: Routine postoperative ventilator management, complicated by acute hypoxemic respiratory failure. I ultimately extubated this patient to BiPAP knowing that she has advanced COPD and she is oxygen dependent. 10/16 Internal medicine progress note: Postop respiratory failure with prolonged mechanical ventilation. Patients Admitting Diagnosis: Coronary artery disease Post-Operative Diagnosis: same Procedure performed: Coronary artery bypass grafting x3 vessels (left internal mammary artery to left anterior descending artery, radial artery to obtuse marginal artery, and saphenous vein graft to posterior descending artery). History/Risk Factors: CKD stage III, MT, Hypertension, Obstructive sleep apnea without CPAP, COPD, chronic hypoxemic respiratory failure on home oxygen, chronic and ongoing tobacco dependence Clinical Indicators: 56-year-old female present with chest pain accompanied by shortness of breath. Workup revealed a non ST elevation myocardial infarction. Cardiac Cath revealed multivessel coronary artery disease. On 10/10/21 she had a CABG X3 vessels. She was intubated on mechanical ventilation greater than 90 hours. 10/18 Discharge summary: Her oxygen was titrated down to 2/L nasal cannula, although she was unable to be completely weaned off the oxygen. She does have a history of oxygen dependent at home of 2-3 L nasal cannula. Treatment: ICU/Telemetry Ventilation monitoring per Pulmonary Aggressive pulmonary toileting and incentive spirometer DC home on 2/L nasal cannula (ATC) HX 2-3 L at nighttime What relationship, if any, exists between the diagnosis of acute hypoxic respiratory requiring prolonged mechanical ventilation and the procedure? [ ] Acute hypoxic respiratory failure is a complication of surgical procedure [ ] Acute hypoxic respiratory failure is an expected outcome of the surgical procedure [ x ] Acute hypoxic respiratory failure is related to patients co-morbid condition(s) of MADALYN non-compliant with CPAP, COPD, ongoing tobacco use, and home oxygen & not a complication of the procedure [ ] Other please specify ____ [ ] Unable to determine (Template Last Revised: June 2020) MTDD
== END 2021-10-18 16:43 | disposition home health service (06) | DRG 233 ==
LOC: EC 06:51 → 6NMEDSUR 08:34 → OBSVTOIN 19:22 → 3SCARD 20:01 → 2SICU 10-10 07:52
PROVIDERS: ADMIT Surgery; ATTEND Surgery
PROC: 4A023N7 Measurement of Cardiac Sampling and Pressure, Left Heart, Percutaneous Approach (ICD-10-PCS; 2021-10-05)
PROC: B2111ZZ Fluoroscopy of Multiple Coronary Arteries using Low Osmolar Contrast (ICD-10-PCS; 2021-10-05)
PROC: B41G1ZZ Fluoroscopy of Left Lower Extremity Arteries using Low Osmolar Contrast (ICD-10-PCS; 2021-10-05)
PROC: 06BQ4ZZ Excision of Left Saphenous Vein, Percutaneous Endoscopic Approach (ICD-10-PCS; 2021-10-10)
PROC: 5A1221Z Performance of Cardiac Output, Continuous (ICD-10-PCS; 2021-10-10)
PROC: 02L70CK Occlusion of Left Atrial Appendage with Extraluminal Device, Open Approach (ICD-10-PCS; 2021-10-10)
PROC: 5A1945Z Respiratory Ventilation, 24-96 Consecutive Hours (ICD-10-PCS; 2021-10-10)
PROC: 02100Z9 Bypass Coronary Artery, One Artery from Left Internal Mammary, Open Approach (ICD-10-PCS; principal; 2021-10-10 08:00)
PROC: 0211093 Bypass Coronary Artery, Two Arteries from Coronary Artery with Autologous Venous Tissue, Open Approach (ICD-10-PCS; 2021-10-10 08:00)
PROC: 5A09357 Assistance with Respiratory Ventilation, Less than 24 Consecutive Hours, Continuous Positive Airway Pressure (ICD-10-PCS; 2021-10-14)
DX: I21.4 Non-ST elevation (NSTEMI) myocardial infarction (principal); J96.21 Acute and chronic respiratory failure with hypoxia; Z68.41 Body mass index [BMI] 40.0-44.9, adult; D62 Acute posthemorrhagic anemia; J98.11 Atelectasis; E03.9 Hypothyroidism, unspecified; J44.9 Chronic obstructive pulmonary disease, unspecified; E66.01 Morbid (severe) obesity due to excess calories; E11.22 Type 2 diabetes mellitus with diabetic chronic kidney disease; E11.51 Type 2 diabetes mellitus with diabetic peripheral angiopathy without gangrene; I13.10 Hypertensive heart and chronic kidney disease without heart failure, with stage 1 through stage 4 chronic kidney disease, or unspecified chronic kidney disease; D69.59 Other secondary thrombocytopenia; E78.5 Hyperlipidemia, unspecified; I25.5 Ischemic cardiomyopathy; F17.210 Nicotine dependence, cigarettes, uncomplicated; D72.829 Elevated white blood cell count, unspecified; R79.89 Other specified abnormal findings of blood chemistry; R74.01 Elevation of levels of liver transaminase levels; I08.3 Combined rheumatic disorders of mitral, aortic and tricuspid valves; G47.30 Sleep apnea, unspecified; N18.30 Chronic kidney disease, stage 3 unspecified; G47.33 Obstructive sleep apnea (adult) (pediatric); I25.119 Atherosclerotic heart disease of native coronary artery with unspecified angina pectoris; I25.84 Coronary atherosclerosis due to calcified coronary lesion; T45.526A Underdosing of antithrombotic drugs, initial encounter; T38.1X6A Underdosing of thyroid hormones and substitutes, initial encounter; Z79.890 Hormone replacement therapy; Z95.5 Presence of coronary angioplasty implant and graft; I25.2 Old myocardial infarction; Z98.51 Tubal ligation status; Z86.018 Personal history of other benign neoplasm; Z82.49 Family history of ischemic heart disease and other diseases of the circulatory system; Z82.5 Family history of asthma and other chronic lower respiratory diseases; Z98.890 Other specified postprocedural states; Z86.39 Personal history of other endocrine, nutritional and metabolic disease; Z91.19 Patient's noncompliance with other medical treatment and regimen; Z87.81 Personal history of (healed) traumatic fracture; Z99.81 Dependence on supplemental oxygen; Z83.3 Family history of diabetes mellitus; Z80.1 Family history of malignant neoplasm of trachea, bronchus and lung; Z79.899 Other long term (current) drug therapy; Z79.02 Long term (current) use of antithrombotics/antiplatelets; Z87.440 Personal history of urinary (tract) infections
CPT/HCPCS: 36415; 71045; 71046; 80048; 80053; 80061; 80074; 81003; 82330; 82550; 82805; 83036; 83735; 84132; 84145; 84439; 84443; 84484; 85025; 85027; 85379; 85520; 85610; 85730; 86701; 86704; 86803; 86850; 86891; 86900; 86901; 86920; 87040; 87070; 87086; 87205; 87340; 87390; 93005; 93306; 93458; 93880; 93923; 93970; 94002; 94003; 94150; 94640; 94660; 94760; 96372; 96374; 99285

== ENCOUNTER 2023-03-27 15:49 | Emergency (ER) | payer OTHER ==
--- NOTE | 2023-03-27 16:12 | ED ---
General Adult HPI - General Chief complaint: Neuro Symptoms/Deficit Stated complaint: chest pain Time Seen by Provider: 03/27/23 16:00 Source: patient Mode of arrival: wheelchair Limitations: no limitations - History of Present Illness Initial comments: 58-year-old female presents the emergency department reporting chest pain. States that it is been going on for the past couple of days. It is located on her right chest wall with radiation into her right arm. States that the pain is worse with movement and is better with rest. She does have a history of bypass surgery one year ago. Patient continues to smoke a half pack a day. She has not had any type of cardiac workup in the 1 year that she has had her bypass. Follows the Dr. Springer. She denies ripping or tearing sensation to her back. No fevers, chills. No numbness or tingling into her legs. No calf pain or swelling. No shortness of breath. No other alleviating, precipitating or modifying factors - Related Data Home Medications Medication Instructions Recorded Confirmed Acetaminophen Tab [Tylenol Tab] 1,000 mg PO HS 03/27/23 03/27/23 Aspirin EC [Ecotrin] 325 mg PO DAILY 03/27/23 03/27/23 Atorvastatin [Lipitor] 80 mg PO HS 03/27/23 03/27/23 Fluticasone/Umeclidin/Vilanter 1 puff INHALATION RT-DAILY 03/27/23 03/27/23 [Owen Ellipta 100-62.5-25] Levothyroxine Sodium [Synthroid] 50 mcg PO AC-BRKFST 03/27/23 03/27/23 lisinopriL [Zestril] 2.5 mg PO DAILY 03/27/23 03/27/23 Previous Rx's Medication Instructions Recorded Empagliflozin [Jardiance] 10 mg PO DAILY #30 tablet 10/16/21 Clopidogrel [Plavix] 75 mg PO DAILY #30 tab 10/18/21 Furosemide [Lasix] 40 mg PO DAILY #14 tablet 10/18/21 Metoprolol Tartrate [Lopressor] 50 mg PO BID #60 tab 10/18/21 Pantoprazole [Protonix] 40 mg PO AC-BRKFST #30 tab 10/18/21 Allergies Allergy/AdvReac Type Severity Reaction Status Date / Time No Known Allergies Allergy Verified 03/27/23 18:36 Review of Systems ROS Statement: Those systems with pertinent positive or pertinent negative responses have been documented in the HPI. ROS Other: All systems not noted in ROS Statement are negative. Past Medical History Past Medical History: Asthma, Coronary Artery Disease (CAD), COPD, Hyperlipidemia, Hypertension, Myocardial Infarction (CA), Renal Disease, Sleep Apnea/CPAP/BIPAP, Thyroid Disorder Additional Past Medical History / Comment(s): Ischemic cardiomyopathy, GRAVES, hypothyroid, chronic kidney dx, morbid obesity. Last Myocardial Infarction Date:: 11/09/13 History of Any Multi-Drug Resistant Organisms: None Reported Past Surgical History: Breast Surgery, Heart Catheterization With Stent, Tubal Ligation Additional Past Surgical History / Comment(s): 10/2013 PCI with 2 stents, 12/2013 PCI with 1 stent, 10/2014 cardiac cath tx medically, BENIGN LUMP REMOVED FROM LEFT BREAST, stent placed end-2018 Past Anesthesia/Blood Transfusion Reactions: No Reported Reaction, Postoperative Nausea & Vomiting (PONV) Date of Last Stent Placement:: 10/29/13 Past Psychological History: No Psychological Hx Reported Smoking Status: Current every day smoker Past Alcohol Use History: None Reported Past Drug Use History: None Reported - Past Family History Mother Family Medical History: Cancer (Lung cancer), Myocardial Infarction (CA) Additional Family Medical History / Comment(s): Mother had a CA in her 60's. She is 70 yrs old. Father Family Medical History: COPD Additional Family Medical History / Comment(s): Agent orange exposure in [place]. Father is 72 yrs old. General Exam Limitations: no limitations General appearance: alert, in no apparent distress Head exam: Present: atraumatic, normocephalic, normal inspection Eye exam: Present: normal appearance, PERRL, EOMI. Absent: scleral icterus, conjunctival injection, periorbital swelling ENT exam: Present: normal exam, mucous membranes moist Neck exam: Present: normal inspection. Absent: tenderness, meningismus, lymphadenopathy Respiratory exam: Present: normal lung sounds bilaterally, chest wall tenderness (To the left chest wall which is tender to palpation). Absent: respiratory distress, wheezes, rales, rhonchi, stridor Cardiovascular Exam: Present: regular rate, normal rhythm, normal heart sounds. Absent: systolic murmur, diastolic murmur, rubs, gallop, clicks GI/Abdominal exam: Present: soft, normal bowel sounds. Absent: distended, tenderness, guarding, rebound, rigid Extremities exam: Present: normal inspection, full ROM, normal capillary refill. Absent: tenderness, pedal edema, joint swelling, calf tenderness Back exam: Present: normal inspection Neurological exam: Present: alert, oriented X3, CN II-XII intact Psychiatric exam: Present: normal affect, normal mood Skin exam: Present: warm, dry, intact, normal color. Absent: rash Course Vital Signs 03/27/23 03/27/23 15:55 19:01 Temperature 97.8 F 97.4 F L Pulse Rate 78 72 Respiratory 16 16 Rate Blood Pressure 140/73 106/64 O2 Sat by Pulse 99 95 Oximetry Medical Decision Making - Medical Decision Making Was pt. sent in by a medical professional or institution (REMI Meng, PACKAGING MACHINE OPERATOR, urgent care, hospital, or group home...) When possible be specific @ -No Did you speak to anyone other than the patient for history (EMS, parent, family, police, friend...)? What history was obtained from this source @ -No Did you review nursing and triage notes (agree or disagree)? Why? @ -I reviewed and agree with nursing and triage notes Were old charts reviewed (outside hosp., previous admission, EMS record, old EKG, old radiological studies, urgent care reports/EKG's, group home records)? Report findings @ -I reviewed patient's hospitalization from last year where she was hospitalized for bypass surgery Differential Diagnosis (chest pain, altered mental status, abdominal pain women, abdominal pain men, vaginal bleeding, weakness, fever, dyspnea, syncope, headache, dizziness, GI bleed, back pain, seizure, CVA, palpatations, mental health, musculoskeletal)? @ -Differential Chest Pain: Stable Angina, Unstable Angina, STEMI, NSTEMI Aortic Dissection, Pneumothorax, Musculoskeletal, Esophageal Spasm GERD, Cholecystitis, Pancreatitis, Zoster, this is not meant to be an all-inclusive list. EKG interpreted by me (3pts min.). @ -Yes an demonstrates sinus rhythm with a rate of 76. SD interval 218. QRS 112. Qtc 436. No acute ST segment elevations or depressions X-rays interpreted by me (1pt min.). @ -Yes and demonstrates no acute process CT interpreted by me (1pt min.). @ -None done U/S interpreted by me (1pt. min.). @ -None done What testing was considered but not performed or refused? (CT, X-rays, U/S, labs)? Why? @ -Echo because patient refused admission What meds were considered but not given or refused? Why? @ -Opiate pain medications however patient refused Did you discuss the management of the patient with other professionals (professionals i.e. DrArnaldo, PA, PACKAGING MACHINE OPERATOR, lab, RT, psych nurse, director social welfare, sugar controller, teacher, property portfolio officer, business case analyst)? Give summary @ -No Was smoking cessation discussed for >3mins.? @ -No Was critical care preformed (if so, how long)? @ -No Were there social determinants of health that impacted care today? How? (Homelessness, low income, unemployed, alcoholism, drug addiction, transportation, low edu. Level, literacy, decrease access to med. care, penitentiary, rehab)? @ -No Was there de-escalation of care discussed even if they declined (Discuss DNR or withdrawal of care, Hospice)? DNR status @ -No What co-morbidities impacted this encounter? (DM, HTN, Smoking, COPD, CAD, Cancer, CVA, ARF, Chemo, Hep., AIDS, mental health diagnosis, sleep apnea, morbid obesity)? @ -Coronary artery disease Was patient admitted / discharged? Hospital course, mention meds given and route, prescriptions, significant lab abnormalities, going to OR and other pertinent info. @ -Discharged. Upon arrival patient was placed into room 22. A thorough history and physical exam is performed. She is hooked to continuous pulse ox and cardiac monitoring. 12-lead EKG is obtained. Laboratory studies were conducted. Troponin is negative rate pain does appear to be reproducible upon palpation. I did recommend admission due to her significant cardiac history however patient is adamant that she is going home. I informed her of the risks and she is accepting of these risks. States that she will call her epoxy coatings installer on Thursday for an appointment return for any new or worsening symptoms. Patient discharged home with a very guarded prognosis Undiagnosed new problem with uncertain prognosis? @ -Yes Drug Therapy requiring intensive monitoring for toxicity (Heparin, Nitro, Insulin, Cardizem)? @ -No Were any procedures done? @ -No Diagnosis/symptom? @ -Acute chest pain, history of coronary artery disease Acute, or Chronic, or Acute on Chronic? @ -Acute Uncomplicated (without systemic symptoms) or Complicated (systemic symptoms)? @ -complicated Side effects of treatment? @ -No Exacerbation, Progression, or Severe Exacerbation? @ -No Poses a threat to life or bodily function? How? (Chest pain, USA, CA, pneumonia, PE, COPD, DKA, ARF, appy, cholecystitis, CVA, Diverticulitis, Homicidal, Suicidal, threat to staff... and all critical care pts) @ -Yes as patient presents with chest pain and a history of significant cardiac disease - Lab Data Result diagrams: 03/27/23 16:34 03/27/23 16:34 Lab Results 03/27/23 03/27/23 03/27/23 Range/Units 16:34 16:34 16:34 WBC 14.0 H (3.8-10.6) k/uL RBC 4.65 (3.80-5.40) m/uL Hgb 14.9 (11.4-16.0) gm/dL Hct 44.4 (34.0-46.0) % MCV 95.4 (80.0-100.0) fL MCH 32.1 (25.0-35.0) pg MCHC 33.6 (31.0-37.0) g/dL RDW 14.3 (11.5-15.5) % Plt Count 286 (150-450) k/uL MPV 9.6 Neutrophils % 70 % Lymphocytes % 19 % Monocytes % 6 % Eosinophils % 4 % Basophils % 1 % Neutrophils # 9.7 H (1.3-7.7) k/uL Lymphocytes # 2.7 (1.0-4.8) k/uL Monocytes # 0.8 (0-1.0) k/uL Eosinophils # 0.6 (0-0.7) k/uL Basophils # 0.1 (0-0.2) k/uL PT 10.2 (10.0-12.5) sec INR 0.9 (<1.2) APTT 25.5 (22.0-30.0) sec D-Dimer 0.49 (<0.60) mg/L FEU Sodium 141 (137-145) mmol/L Potassium 4.8 (3.5-5.1) mmol/L Chloride 106 (98-107) mmol/L Carbon Dioxide 21 L (22-30) mmol/L Anion Gap 14 mmol/L BUN 15 (7-17) mg/dL Creatinine 1.15 H (0.52-1.04) mg/dL Est GFR (CKD-EPI)AfAm 62 (>60 ml/min/1.73 sqM) Est GFR (CKD-EPI)NonAf 53 (>60 ml/min/1.73 sqM) Glucose 103 H (74-99) mg/dL Calcium 10.2 (8.4-10.2) mg/dL Magnesium 2.0 (1.6-2.3) mg/dL Total Bilirubin 0.7 (0.2-1.3) mg/dL AST 33 (14-36) U/L ALT 25 (4-34) U/L Alkaline Phosphatase 101 (38-126) U/L Troponin I (0.000-0.034) ng/mL Total Protein 7.8 (6.3-8.2) g/dL Albumin 4.6 (3.5-5.0) g/dL Lipase 253 (23-300) U/L 03/27/23 Range/Units 16:34 WBC (3.8-10.6) k/uL RBC (3.80-5.40) m/uL Hgb (11.4-16.0) gm/dL Hct (34.0-46.0) % MCV (80.0-100.0) fL MCH (25.0-35.0) pg MCHC (31.0-37.0) g/dL RDW (11.5-15.5) % Plt Count (150-450) k/uL MPV Neutrophils % % Lymphocytes % % Monocytes % % Eosinophils % % Basophils % % Neutrophils # (1.3-7.7) k/uL Lymphocytes # (1.0-4.8) k/uL Monocytes # (0-1.0) k/uL Eosinophils # (0-0.7) k/uL Basophils # (0-0.2) k/uL PT (10.0-12.5) sec INR (<1.2) APTT (22.0-30.0) sec D-Dimer (<0.60) mg/L FEU Sodium (137-145) mmol/L Potassium (3.5-5.1) mmol/L Chloride (98-107) mmol/L Carbon Dioxide (22-30) mmol/L Anion Gap mmol/L BUN (7-17) mg/dL Creatinine (0.52-1.04) mg/dL Est GFR (CKD-EPI)AfAm (>60 ml/min/1.73 sqM) Est GFR (CKD-EPI)NonAf (>60 ml/min/1.73 sqM) Glucose (74-99) mg/dL Calcium (8.4-10.2) mg/dL Magnesium (1.6-2.3) mg/dL Total Bilirubin (0.2-1.3) mg/dL AST (14-36) U/L ALT (4-34) U/L Alkaline Phosphatase (38-126) U/L Troponin I <0.012 (0.000-0.034) ng/mL Total Protein (6.3-8.2) g/dL Albumin (3.5-5.0) g/dL Lipase (23-300) U/L Disposition Clinical Impression: Chest pain Disposition: HOME SELF-CARE Condition: Stable Instructions (If sedation given, give patient instructions): Chest Pain (ED) Additional Instructions: I recommended hospital admission. Please call your epoxy coatings installer for further workup and return should you be agreeable to admission Is patient prescribed a controlled substance at d/c from ED?: No Referrals: Usha Craig MD [Primary Care Provider] - 1-2 days Time of Disposition: 18:22
[2023-03-27 16:13] VITALS: RESP 16
[2023-03-27] MEDS ORDERED: ACETAMINOPHEN TAB 500 MG TAB PO STA (16:33)
[2023-03-27] MEDS ORDERED: NITROGLYCERIN SL TABS 0.4 MG TAB SUBLINGUAL STA (16:33)
[2023-03-27 16:45] LABS: Basophils # (A) 0.1 k/uL (0-0.2); Basophils % (A) 1 %; Eosinophils # (A) 0.6 k/uL (0-0.7); Eosinophils % (A) 4 %; HCT 44.4 % (34.0-46.0); HGB 14.9 gm/dL (11.4-16.0); Lymphocytes # (A) 2.7 k/uL (1.0-4.8); Lymphocytes % (A) 19 %; MCH 32.1 pg (25.0-35.0); MCHC 33.6 g/dL (31.0-37.0); MCV 95.4 fL (80.0-100.0); Mean Platelet Volume 9.6; Monocytes # (A) 0.8 k/uL (0-1.0); Monocytes % (A) 6 %; Neutrophils # (A) 9.7 k/uL (1.3-7.7); Neutrophils % (A) 70 %; Platelet Count 286 k/uL (150-450); RBC 4.65 m/uL (3.80-5.40); RDW 14.3 % (11.5-15.5)
[2023-03-27 16:58] LABS: INR 0.9 (<1.2); Partial Thromboplastin Time 25.5 sec (22.0-30.0); Prothrombin Time 10.2 sec (10.0-12.5)
--- NOTE | 2023-03-27 17:00 | XR ---
EXAMINATION TYPE: XR chest 2V DATE OF EXAM: 03/27/2023 COMPARISON: 10/18/2021 HISTORY: 58-year-old female with chest pain TECHNIQUE: PA and lateral views FINDINGS: Median sternotomy and plate and screw fixation is demonstrated. Post-CABG clips. Heart normal size. M ild hyperinflation. Chronic blunting of the lateral left costophrenic angle suggesting pleural parenc hymal scarring. No effusion seen on the lateral view. No focal consolidation. Old healed left-sided r ib fracture deformities. IMPRESSION: COPD and chronic pleural parenchymal scarring at the left base. Post-CABG changes and old healed left -sided rib fracture deformities. No acute process seen.
[2023-03-27 17:01] LABS: ALT 25 U/L (4-34); African American GFR (CKD) 62 (>60 ml/min/1.73 sqM); Anion Gap 14 mmol/L; Blood Urea Nitrogen 15 mg/dL (7-17); Calcium 10.2 mg/dL (8.4-10.2); Carbon Dioxide 21 mmol/L (22-30); Chloride 106 mmol/L (98-107); Glucose 103 mg/dL (74-99); Lipase 253 U/L (23-300); Non-African American GFR(CKD) 53 (>60 ml/min/1.73 sqM); Sodium 141 mmol/L (137-145); Total Bilirubin 0.7 mg/dL (0.2-1.3)
[2023-03-27 17:24] LABS: Albumin 4.6 g/dL (3.5-5.0); Potassium 4.8 mmol/L (3.5-5.1); Total Protein 7.8 g/dL (6.3-8.2)
[2023-03-27 17:25] LABS: AST 33 U/L (14-36); Alkaline Phosphatase 101 U/L (38-126)
[2023-03-27 19:18] VITALS: BP 106/64; PULSE 72; TEMP 97.4
== END 2023-03-27 19:23 | disposition home or self-care (01) ==
LOC: EC 15:49
DX: I25.2 Old myocardial infarction (principal); J44.89 Other specified chronic obstructive pulmonary disease; I25.10 Atherosclerotic heart disease of native coronary artery without angina pectoris; E78.5 Hyperlipidemia, unspecified; I10 Essential (primary) hypertension; G47.30 Sleep apnea, unspecified; E03.9 Hypothyroidism, unspecified; F17.200 Nicotine dependence, unspecified, uncomplicated; Z79.82 Long term (current) use of aspirin; Z79.890 Hormone replacement therapy; Z79.51 Long term (current) use of inhaled steroids; Z79.899 Other long term (current) drug therapy
CPT/HCPCS: 36415; 71046; 80053; 83690; 83735; 84484; 85025; 85379; 85610; 85730; 93005; 99285

== ENCOUNTER → 2023-09-03 | Outpatient (CLI) | payer OTHER ==
--- NOTE | 2023-09-06 20:27 | MM ---
Reason for Exam: Screening (asymptomatic). Baseline mammogram. Patient History: Menarche at age 13. First Full-Term at age 30. Postmenopausal. Risk Values: Jing 5 year model risk: 1.5%. NCI Lifetime model risk: 9.7%. Prior Study Comparison: Patient's first Mammogram. Tissue Density: The breasts are heterogeneously dense, which may obscure small masses. Findings: Analyzed By CAD. In the right breast, upper outer quadrant focal asymmetry middle to posterior depth. This may represent superimposition shadow but further evaluation is recommended. Additional asymmetric density central inner aspect of the right breast on the CC view. Otherwise, no suspicious microcalcification or other discrete abnormality is seen. Low axillary tail lymph node on the right and a few scattered benign oil cyst calcifications. Overall Assessment: Incomplete: need additional imaging evaluation, BI-RAD 0 Management: Special View Mammogram of the right breast. Diagnostic Breast Ultrasound of the right breast. . [facility] will attempt to contact patient to return for supplemental views and ultrasound if indicated. Electronically signed and approved by: Eddie Basurto M.D. Radiologist
== END | disposition home or self-care (01) ==
LOC: RADMAMWWP 15:18
PROVIDERS: ATTEND Internal Medicine Gastroenterology
DX: Z12.31 Encounter for screening mammogram for malignant neoplasm of breast (principal); Z78.0 Asymptomatic menopausal state
CPT/HCPCS: 77067

== ENCOUNTER → 2023-09-08 | Outpatient (CLI) | payer OTHER ==
--- NOTE | 2023-09-08 13:25 | MM ---
Reason for Exam: Additional evaluation requested from abnormal screening. Last screening mammogram was performed less than 1 month ago. Patient History: Menarche at age 13. First Full-Term at age 30. Postmenopausal. Risk Values: Jing 5 year model risk: 1.5%. NCI Lifetime model risk: 9.7%. Tissue Density: Right: The breasts are heterogeneously dense, which may obscure small masses. Findings: Analyzed By CAD. Pattern appears stable. Under compression no persistent suspicious distortion or nodularity is evident. There are scattered benign-appearing calcifications present. No suspicious groups of microcalcifications, spiculated or lobular masses, architectural distortion or other secondary signs of malignancy are mammographically apparent. Overall Assessment: Benign, BI-RAD 2 Management: Screening Mammogram of both breasts in 1 year. A negative mammogram report should not preclude additional follow up of suspicious palpable abnormalities. Patient should continue monthly self breast exam. A clinical breast exam by your physician is recommended on an annual basis and results should be correlated with mammographic findings. Note on Jing scores and lifetime risk: 1. A Jing score greater than 3% is considered moderate risk. If this is the case, consider specialist referral to assess eligibility for a risk reducing agent. 2. If overall lifetime risk for the development of breast cancer is 20% or higher, the patient may qualify for future screening with alternating mammogram and breast MRI. Electronically signed and approved by: Jony Ramos D.O. Radiologis
== END | disposition home or self-care (01) ==
LOC: RADMAMWWP 12:59
PROVIDERS: ATTEND Registered Nurse
DX: R92.331 Mammographic heterogeneous density, right breast (principal); Z78.0 Asymptomatic menopausal state
CPT/HCPCS: 77065; G0279; 77061

== ENCOUNTER 2024-08-06 20:16 | Observation (INO) | payer OTHER ==
--- NOTE | 2024-08-06 20:49 | ED ---
Chest Pain HPI - General Chief Complaint: Chest Pain Stated Complaint: BROOSK, fernando shoulder pain Time Seen by Provider: 08/06/24 20:31 Source: patient, EMS, RN notes reviewed Mode of arrival: wheelchair Limitations: no limitations - History of Present Illness Initial Comments: This is a 59-year-old female with history of CAD with subsequent CABG on plavix, COPD with tobacco abuse, and hypertension presented to the emergency department for complaints of chest pain/pressure and difficulty breathing over the past week. Patient states that she has been experiencing anterior chest pain that is nonradiating and described as a squeezing type pressure sensation associated with difficulty breathing. She denies associated diaphoresis nausea vomiting. States that she also experiencing posterior mid back pain as well. Patient follows with Dr. Ziegler with most recent appointment approximately 3 months ago. - Related Data Home Medications Medication Instructions Recorded Confirmed Acetaminophen Tab [Tylenol] 1,000 mg PO HS 03/27/23 08/07/24 Aspirin EC [Ecotrin] 325 mg PO DAILY 03/27/23 08/07/24 Atorvastatin [Lipitor] 80 mg PO HS 03/27/23 08/07/24 Fluticasone/Umeclidin/Vilanter 1 puff INHALATION RT-DAILY 03/27/23 08/07/24 [Trelegy Ellipta 100-62.5-25] lisinopriL [Zestril] 2.5 mg PO DAILY 03/27/23 08/07/24 Albuterol Sulfate [Ventolin HFA] 2 puff INHALATION RT-Q4H PRN 08/07/24 08/07/24 Ergocalciferol [Vitamin D2 (1250 1,250 mcg PO SA 08/07/24 08/07/24 Mcg = 64976 Iu)] Ezetimibe [Zetia] 10 mg PO DAILY 08/07/24 08/07/24 Levothyroxine Sodium [Synthroid] 88 mcg PO DAILY 08/07/24 08/07/24 Nitroglycerin Sl Tabs [Nitrostat] 0.4 mg SL Q5M PRN 08/07/24 08/07/24 Pantoprazole [Protonix] 40 mg PO DAILY 08/07/24 08/07/24 Previous Rx's Medication Instructions Recorded Empagliflozin [Jardiance] 10 mg PO DAILY #30 tablet 10/16/21 Clopidogrel [Plavix] 75 mg PO DAILY #30 tab 10/18/21 Furosemide [Lasix] 40 mg PO DAILY #14 tablet 10/18/21 Metoprolol Tartrate [Lopressor] 50 mg PO BID #60 tab 10/18/21 Allergies Allergy/AdvReac Type Severity Reaction Status Date / Time No Known Allergies Allergy Verified 08/07/24 09:09 Review of Systems ROS Statement: Those systems with pertinent positive or pertinent negative responses have been documented in the HPI. ROS Other: All systems not noted in ROS Statement are negative. Past Medical History Past Medical History: Asthma, Coronary Artery Disease (CAD), COPD, Hyperlipidemia, Hypertension, Myocardial Infarction ([place]), Renal Disease, Sleep Apnea/CPAP/BIPAP, Thyroid Disorder Additional Past Medical History / Comment(s): Ischemic cardiomyopathy, GRAVES, hypothyroid, chronic kidney dx, morbid obesity. Last Myocardial Infarction Date:: 11/09/13 History of Any Multi-Drug Resistant Organisms: None Reported Past Surgical History: Breast Surgery, Heart Catheterization With Stent, Tubal Ligation Additional Past Surgical History / Comment(s): 10/2013 PCI with 2 stents, 12/2013 PCI with 1 stent, 10/2014 cardiac cath tx medically, BENIGN LUMP REMOVED FROM LEFT BREAST, stent placed end-2018 Past Anesthesia/Blood Transfusion Reactions: No Reported Reaction, Postoperative Nausea & Vomiting (PONV) Date of Last Stent Placement:: 10/29/13 Past Psychological History: No Psychological Hx Reported Smoking Status: Current every day smoker Past Alcohol Use History: None Reported Past Drug Use History: None Reported - Past Family History Mother Family Medical History: Cancer (Lung cancer), Myocardial Infarction ([place]) Additional Family Medical History / Comment(s): Mother had a [place] in her 60's. She is 70 yrs old. Father Family Medical History: COPD Additional Family Medical History / Comment(s): Agent orange exposure in [place]. Father is 72 yrs old. General Exam Limitations: no limitations Neck exam: Present: normal inspection. Absent: tenderness, meningismus, lymphadenopathy Respiratory exam: Present: wheezes. Absent: normal lung sounds bilaterally, respiratory distress, rales, rhonchi, stridor Cardiovascular Exam: Present: regular rate, normal rhythm, normal heart sounds. Absent: systolic murmur, diastolic murmur, rubs, gallop, clicks GI/Abdominal exam: Present: soft, normal bowel sounds. Absent: distended, tenderness, guarding, rebound, rigid Extremities exam: Present: normal inspection, full ROM, normal capillary refill. Absent: tenderness, pedal edema, joint swelling, calf tenderness Back exam: Present: normal inspection. Absent: tenderness Neurological exam: Present: alert, oriented X3, CN II-XII intact Course Vital Signs 08/06/24 08/06/24 08/06/24 20:24 22:25 23:49 Temperature 97.8 F Pulse Rate 99 92 92 Respiratory 18 20 18 Rate Blood Pressure 100/69 127/92 101/74 O2 Sat by Pulse 100 97 99 Oximetry Chest Pain MDM - MDM Was pt. sent in by a medical professional or institution (, PA, INSURANCE BILLING SPECIALIST, urgent care, hospital, or fci...) When possible be specific @ -No Did you speak to anyone other than the patient for history (EMS, parent, family, police, friend...)? What history was obtained from this source @ -No Did you review nursing and triage notes (agree or disagree)? Why? @ -I reviewed and agree with nursing and triage notes Were old charts reviewed (outside hosp., previous admission, EMS record, old EKG, old radiological studies, urgent care reports/EKG's, fci records)? Report findings @ -No old charts were reviewed Differential Diagnosis (chest pain, altered mental status, abdominal pain women, abdominal pain men, vaginal bleeding, weakness, fever, dyspnea, syncope, headache, dizziness, GI bleed, back pain, seizure, CVA, palpatations, mental health, musculoskeletal)? @ -Differential Chest Pain: Stable Angina, Unstable Angina, STEMI, NSTEMI Aortic Dissection, Pneumothorax, Musculoskeletal, Esophageal Spasm GERD, Cholecystitis, Pancreatitis, Zoster, this is not meant to be an all-inclusive list. EKG interpreted by me (3pts min.). @ -Completed at 2036 sinus rhythm with a ventricular of 91, ND interval 204, QRS 109, QTc 431. Repeat EKG completed at 2057 sinus rhythm with a ventricular rate of 90, ND interval 208, QRS 110, QTc 439. X-rays interpreted by me (1pt min.). @ -Chest x-ray reveals small left pleural effusion with adjacent lower lobe compressive atelectasis CT interpreted by me (1pt min.). @ -None done U/S interpreted by me (1pt. min.). @ -None done What testing was considered but not performed or refused? (CT, X-rays, U/S, labs)? Why? @ -None What meds were considered but not given or refused? Why? @ -None Did you discuss the management of the patient with other professionals (professionals i.e. , PA, INSURANCE BILLING SPECIALIST, lab, RT, psych nurse, long term care social worker, airplane pilot helper, teacher, chief lending officer, block and case maker)? Give summary @ -No Was smoking cessation discussed for >3mins.? @ -No Was critical care preformed (if so, how long)? @ -No Were there social determinants of health that impacted care today? How? (Homelessness, low income, unemployed, alcoholism, drug addiction, transportation, low edu. Level, literacy, decrease access to med. care, fci, rehab)? @ -No Was there de-escalation of care discussed even if they declined (Discuss DNR or withdrawal of care, Hospice)? DNR status @ -No What co-morbidities impacted this encounter? (DM, HTN, Smoking, COPD, CAD, Cancer, CVA, ARF, Chemo, Hep., AIDS, mental health diagnosis, sleep apnea, morbid obesity)? @ -None Was patient admitted / discharged? Hospital course, mention meds given and route, prescriptions, significant lab abnormalities, going to OR and other pertinent info. @ -Admitted. 59-year-old female presents emergency department chest pain. EKG reveals a sinus mechanism with no ST segment elevations or changes. Pain is not reproducible on palpation. Additionally, patient states that she is feeling well with no signs of chest pain at this time stating that it is intermittent. Labs reveal leukocytosis 18.01 with left shift neutrophils at 13.12 however compared to previous testing patient normally has chronic baseline leukocytosis. CMP coagulation within normal. Initial troponin not elevated at less than 0.012. BNP of 163. With patient's extensive cardiac history and symptoms concerning for chest pain she will be admitted for serial troponins to rule out ACS. Cardiology consult placed. Case discussed with Dr. Zhang Undiagnosed new problem with uncertain prognosis? @ -No Drug Therapy requiring intensive monitoring for toxicity (Heparin, Nitro, Insulin, Cardizem)? @ -No Were any procedures done? @ -No Diagnosis/symptom? @ -Chest pain Acute, or Chronic, or Acute on Chronic? @ -Acute Uncomplicated (without systemic symptoms) or Complicated (systemic symptoms)? @ -Complicated Side effects of treatment? @ -No Exacerbation, Progression, or Severe Exacerbation? @ -No Poses a threat to life or bodily function? How? (Chest pain, [place], PR, pneumonia, PE, COPD, DKA, ARF, appy, cholecystitis, CVA, Diverticulitis, Homicidal, Suicidal, threat to staff... and all critical care pts) @ -No Disposition Clinical Impression: Chest pain, Shortness of breath Disposition: ADMITTED IP TO THIS HOSP Condition: Fair Time of Disposition: 21:36 Decision to Admit Reason: Admit from EC
[2024-08-06 20:58] LABS: Basophils # (A) 0.12 10*3/uL (0.00-0.10); Basophils % (A) 0.7 %; Eosinophils # (A) 0.55 10*3/uL (0.04-0.35); Eosinophils % (A) 3.1 %; HCT 45.3 % (37.2-46.3); HGB 15.2 g/dL (12.0-15.0); Lymphocytes # (A) 2.71 10*3/uL (0.90-5.00); MCH 29.1 pg (27.0-32.0); MCHC 33.6 g/dL (32.0-37.0); MCV 86.6 fL (80.0-97.0); Mean Platelet Volume 10.9 fL (9.5-12.2); Monocytes # (A) 1.42 10*3/uL (0.20-1.00); Monocytes % (A) 7.9 %; Neutrophils # (A) 13.12 10*3/uL (1.80-7.70); Neutrophils % (A) 72.8 %; Platelet Count 344 10*3/uL (140-440); RBC 5.23 10*6/uL (4.10-5.20); RDW 17.9 % (11.5-14.5); WBC 18.01 10*3/uL (4.50-10.00)
--- NOTE | 2024-08-06 21:10 | XR ---
EXAMINATION TYPE: XR chest 2V DATE OF EXAM: 08/06/2024 9:05 PM COMPARISON: None available. CLINICAL INDICATION: Female, 59 years old with history of Chest Pain; [facility] TECHNIQUE: XR chest 2V Frontal and lateral views of the chest. FINDINGS: Lungs/Pleura: Small left pleural effusion with adjacent left lower lobe compressive atelectasis. No r ight-sided pleural effusion. No pneumothorax. Atrial appendage occlusion device. Median sternotomy wi res. Pulmonary vascularity: Unremarkable. Heart/mediastinum: Cardiomediastinal silhouette is unremarkable. Musculoskeletal: No acute osseous pathology. Other findings: None IMPRESSION: Small left pleural effusion with adjacent lower lobe compressive atelectasis. [facility], , 08/06/2024 9:08 PM
[2024-08-06 21:12] LABS: ALT 21 U/L (4-34); African American GFR (CKD) 50 (>60 ml/min/1.73 sqM); Albumin 4.8 g/dL (3.5-5.0); Anion Gap 11 mmol/L; Blood Urea Nitrogen 24 mg/dL (7-17); Calcium 10.3 mg/dL (8.4-10.2); Carbon Dioxide 25 mmol/L (22-30); Chloride 102 mmol/L (98-107); Glucose 139 mg/dL (74-99); INR 0.9 (<1.2); Lipase 242 U/L (23-300); Non-African American GFR(CKD) 43 (>60 ml/min/1.73 sqM); Partial Thromboplastin Time 24.9 sec (22.0-30.0); Prothrombin Time 10.4 sec (10.0-12.5); Sodium 138 mmol/L (137-145); Total Bilirubin 0.7 mg/dL (0.2-1.3); Total Protein 7.9 g/dL (6.3-8.2)
[2024-08-06 21:18] LABS: AST 32 U/L (14-36); Alkaline Phosphatase 74 U/L (38-126); Magnesium 2.1 mg/dL (1.6-2.3); Potassium 4.3 mmol/L (3.5-5.1)
[2024-08-06 21:20] LABS: NT-Pro-B-Type Natriuretic Pept 163 pg/mL
[2024-08-06] MEDS ORDERED: ONDANSETRON 4 MG/2 ML VIAL IVP PRN (22:46)
[2024-08-06] MEDS ORDERED: ACETAMINOPHEN TAB 325 MG TAB PO PRN (22:46)
[2024-08-06] MEDS ORDERED: NALOXONE 0.4 MG/ML 1 ML VIAL IV PRN (22:46)
[2024-08-06] MEDS ORDERED: MORPHINE SULFATE 4 MG/ML SYRINGE IV PRN (22:46)
--- NOTE | 2024-08-07 02:22 | P.PN ---
Progress Note - Text Progress Note Date: 08/07/24 Sound service will not cover this patient , was admitted by mistake to our service , this has been explained to ED physician Dr Zhang , who will switch to oncall team [facility]
[2024-08-07 04:27] LABS: Basophils # (A) 0.11 10*3/uL (0.00-0.10); Basophils % (A) 0.7 %; Eosinophils # (A) 0.48 10*3/uL (0.04-0.35); Eosinophils % (A) 2.9 %; HCT 42.4 % (37.2-46.3); HGB 13.7 g/dL (12.0-15.0); Lymphocytes # (A) 2.63 10*3/uL (0.90-5.00); MCH 28.7 pg (27.0-32.0); MCHC 32.3 g/dL (32.0-37.0); MCV 88.9 fL (80.0-97.0); Mean Platelet Volume 10.8 fL (9.5-12.2); Monocytes % (A) 7.9 %; Neutrophils # (A) 11.83 10*3/uL (1.80-7.70); Platelet Count 295 10*3/uL (140-440); RBC 4.77 10*6/uL (4.10-5.20); RDW 17.8 % (11.5-14.5); WBC 16.43 10*3/uL (4.50-10.00)
[2024-08-07 04:39] LABS: ALT 18 U/L (4-34); AST 22 U/L (14-36); African American GFR (CKD) 54 (>60 ml/min/1.73 sqM); Albumin 4.1 g/dL (3.5-5.0); Alkaline Phosphatase 80 U/L (38-126); Anion Gap 9 mmol/L; Blood Urea Nitrogen 23 mg/dL (7-17); Calcium 9.9 mg/dL (8.4-10.2); Carbon Dioxide 25 mmol/L (22-30); Chloride 103 mmol/L (98-107); Glucose 85 mg/dL (74-99); Non-African American GFR(CKD) 47 (>60 ml/min/1.73 sqM); Potassium 3.9 mmol/L (3.5-5.1); Sodium 137 mmol/L (137-145); Total Bilirubin 0.4 mg/dL (0.2-1.3); Total Protein 6.5 g/dL (6.3-8.2)
[2024-08-07 08:00] VITALS: BP 100/67; PULSE 85; RESP 18; TEMP 97.8
[2024-08-07] MEDS ORDERED: IPRATROPIUM-ALBUTEROL 3 ML NEB INHALATION PRN (09:08)
[2024-08-07 10:06] LABS: Influenza A Not Detected (Not Detectd); Influenza B Not Detected (Not Detectd); RSV Not Detected (Not Detectd)
[2024-08-07] MEDS: MAG HYDROX/AL HYDROX/SIMETH 30 ML CUP PO SCH (10:47)
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
--- NOTE | 2024-08-07 13:00 | P.DS ---
Providers Date of admission: 08/06/24 22:47 Expected date of discharge: 08/07/24 Attending physician: Abhinav Gonzalez MD Consults: 08/06/24 22:46 Consult Physician Routine Consulting Provider: Ethan Springer Consult Reason/Comments: chest pain, Do you want consulting provider notified?: Yes, Notify in am Primary care physician: Reid Rboertson Hospital Course: Discharge diagnoses; Chest pain, acute coronary syndrome ruled out History of coronary artery disease status post CABG COPD Hypertension Hyperlipidemia Hypothyroidism Hospital course; patient 59-year-old lady with past medical history significant for coronary disease status post CABG, hypothyroidism, COPD, who presented the ER because of chest pain. Patient stated that for the last week she has been having ongoing chest pressure that is intermittent, central, nonradiating, no aggravating or relieving factor associated with this chest pain. Patient has been complaining of shortness of breath on exertion as well. There is no complaint of associated diaphoresis with these episodes of chest pain. Patient denies any nausea or vomiting. There is no complaint of orthopnea. There is no complaint of palpitations. Because of chest pain and shortness of breath, patient came to the ER Initial lab work done in the ER showed WBC 18.01, hemoglobin 18.2, platelet count 344, sodium 130, potassium 4.3, BUN 24, creatinine 1.36, glucose 113, calcium 10.3 troponin 0.012 proBNP 160 EKG done in the ER showed heart rate of 91, no ST segment elevation or depression seen, no T-wave inversions seen. Chest x-ray done in the ER showed small left pleural effusion with adjacent lower lobe atelectasis Patient admitted to internal medicine service Patient troponin remained flat, cardiology evaluated, recommend no further ischemic workup. Recommend outpatient stress testing and follow-up. PHYSICAL EXAMINATION: GENERAL: The patient is alert and oriented x3, not in any acute distress. Well developed, well nourished. HEENT: Pupils are round and equally reacting to light. EOMI. No scleral icterus. No conjunctival pallor. Normocephalic, atraumatic. No pharyngeal erythema. No thyromegaly. CARDIOVASCULAR: S1 and S2 present. No murmurs, rubs, or gallops. PULMONARY: Chest is clear to auscultation, no wheezing or crackles. ABDOMEN: Soft, nontender, nondistended, normoactive bowel sounds. No palpable organomegaly. MUSCULOSKELETAL: No joint swelling or deformity. EXTREMITIES: No cyanosis, clubbing, or pedal edema. NEUROLOGICAL: Gross neurological examination did not reveal any focal deficits. SKIN: No rashes. Dictation was produced using [employer] dictation software. please excuse any grammatical, word or spelling errors. Patient Condition at Discharge: Fair Plan - Discharge Summary Discharge Rx Participant: No New Discharge Prescriptions: Continue Clopidogrel [Plavix] 75 mg PO DAILY #30 tab Furosemide [Lasix] 40 mg PO DAILY #14 tablet lisinopriL [Zestril] 2.5 mg PO DAILY Acetaminophen Tab [Tylenol] 1,000 mg PO HS Atorvastatin [Lipitor] 80 mg PO HS Pantoprazole [Protonix] 40 mg PO DAILY Nitroglycerin Sl Tabs [Nitrostat] 0.4 mg SL Q5M PRN PRN Reason: Chest Pain Empagliflozin [Jardiance] 10 mg PO DAILY #30 tablet Metoprolol Tartrate [Lopressor] 50 mg PO BID #60 tab Aspirin EC [Ecotrin] 325 mg PO DAILY Fluticasone/Umeclidin/Vilanter [Trelegy Ellipta 100-62.5-25] 1 puff INHALATION RT-DAILY Levothyroxine Sodium [Synthroid] 88 mcg PO DAILY Ezetimibe [Zetia] 10 mg PO DAILY Ergocalciferol [Vitamin D2 (1250 Mcg = 98378 Iu)] 1,250 mcg PO SA Albuterol Sulfate [Ventolin HFA] 2 puff INHALATION RT-Q4H PRN PRN Reason: Shortness Of Breath Discharge Medication List Empagliflozin [Jardiance] 10 mg PO DAILY #30 tablet 10/16/21 [Rx] Clopidogrel [Plavix] 75 mg PO DAILY #30 tab 10/18/21 [Rx] Furosemide [Lasix] 40 mg PO DAILY #14 tablet 10/18/21 [Rx] Metoprolol Tartrate [Lopressor] 50 mg PO BID #60 tab 10/18/21 [Rx] Acetaminophen Tab [Tylenol] 1,000 mg PO HS 03/27/23 [History] Aspirin EC [Ecotrin] 325 mg PO DAILY 03/27/23 [History] Atorvastatin [Lipitor] 80 mg PO HS 03/27/23 [History] Fluticasone/Umeclidin/Vilanter [Trelegy Ellipta 100-62.5-25] 1 puff INHALATION RT-DAILY 03/27/23 [History] lisinopriL [Zestril] 2.5 mg PO DAILY 03/27/23 [History] Albuterol Sulfate [Ventolin HFA] 2 puff INHALATION RT-Q4H PRN 08/07/24 [History] Ergocalciferol [Vitamin D2 (1250 Mcg = 58388 Iu)] 1,250 mcg PO SA 08/07/24 [History] Ezetimibe [Zetia] 10 mg PO DAILY 08/07/24 [History] Levothyroxine Sodium [Synthroid] 88 mcg PO DAILY 08/07/24 [History] Nitroglycerin Sl Tabs [Nitrostat] 0.4 mg SL Q5M PRN 08/07/24 [History] Pantoprazole [Protonix] 40 mg PO DAILY 08/07/24 [History] Follow up Appointment(s)/Referral(s): Ethan Springer MD [STAFF PHYSICIAN] - 1 Week None,Stated [REFERRING] - 1-2 days Activity/Diet/Wound Care/Special Instructions: Please return to the Emergency Department if symptoms worsen or any other concerns. As discussed, it is important that you follow-up with your car diologist within the next 1 to 3 days. Discharge Disposition: HOME SELF-CARE
== END 2024-08-07 14:20 | disposition home or self-care (01) ==
LOC: EC 20:16 → 6NMEDSUR 22:47
PROVIDERS: ADMIT Internal Medicine; ATTEND Internal Medicine
DX: R07.89 Other chest pain (principal); I25.10 Atherosclerotic heart disease of native coronary artery without angina pectoris; J44.9 Chronic obstructive pulmonary disease, unspecified; I65.29 Occlusion and stenosis of unspecified carotid artery; I10 Essential (primary) hypertension; E78.5 Hyperlipidemia, unspecified; E03.9 Hypothyroidism, unspecified; J98.11 Atelectasis; D72.829 Elevated white blood cell count, unspecified; J90 Pleural effusion, not elsewhere classified; E66.9 Obesity, unspecified; M54.6 Pain in thoracic spine; Z68.33 Body mass index [BMI] 33.0-33.9, adult; G89.29 Other chronic pain; R07.81 Pleurodynia; F17.210 Nicotine dependence, cigarettes, uncomplicated; Z79.82 Long term (current) use of aspirin; Z79.02 Long term (current) use of antithrombotics/antiplatelets; Z79.84 Long term (current) use of oral hypoglycemic drugs; Z79.890 Hormone replacement therapy; Z79.51 Long term (current) use of inhaled steroids; Z79.899 Other long term (current) drug therapy; Z87.81 Personal history of (healed) traumatic fracture; Z95.1 Presence of aortocoronary bypass graft; Z95.5 Presence of coronary angioplasty implant and graft; Z86.19 Personal history of other infectious and parasitic diseases
CPT/HCPCS: 99285; 36415; 93005; 85379; 83880; 80053 ×2; 85652; 83690; 83735; 84484 ×2; 85025 ×2; 85610; 85730; 86140; 84145; 87636; 71046; G0378 ×2